=== PATIENT | female | born 1970 | race Caucasian/White ===

== ENCOUNTER 2022-08-07 12:44 | Outpatient (OUT) | payer BC, SELFPAY ==
--- NOTE | 2022-08-07 12:55 | MM_ITS ---
Patient: HARLEY SHARMA Exam Date: 08/07/2022 : 1970 Gender:F Ordering : DR Vinay Concepcion . Admission #: [id number] Family : Order #: [id number] CLICK HERE TO VIEW EXAM RADIOLOGY REPORT PROCEDURE: MM TOMOSYNTHESIS SCREENING BI COMPARISON: MG MAMM SCREEN 3D SEBASTIAN CAD, 08/01/2021. MG MAMM DIAGNOSTIC 3D SEBASTIAN CAD, 07/27/2020. MG MAMM SEBASTIAN DIAG W CAD, 07/11/2019. MG MAMM SEBASTIAN SCRN W CAD DIG, 12/23/2013. INDICATIONS: Screening Calculator Name NCI Breast Cancer Risk Assessment Tool 5 Year Breast Cancer Risk n/a% Lifetime Breast Cancer Risk n/a% Personal Breast Cancer Yes, 43, right invasive mammary Personal Ovarian Cancer No Treatments right lumpectomy-UOQ, chemotherapy, radiation Family Cancers Father with lung cancer at age 65; Grandfather-maternal with kidney cancer at age 60; Aunt-paternal with breast cancer at age 40. LOCATION: [facility] BREAST COMPOSITION: Scattered areas fibroglandular density. FINDINGS: DIAGNOSTIC CATEGORY 2--BENIGN FINDING: RIGHT BREAST: No significant suspicious finding. Stable scarring. No significant change has occurred. LEFT BREAST: No significant suspicious finding. No significant change has occurred. RECOMMENDATIONS: ROUTINE MAMMOGRAM AND CLINICAL EVALUATION IN 12 MONTHS. PLEASE NOTE: A NORMAL MAMMOGRAM DOES NOT EXCLUDE THE POSSIBILITY OF BREAST CANCER. A CLINICALLY SUSPICIOUS PALPABLE LUMP SHOULD BE BIOPSIED. Dictated by: Evens Morrow M.D. on 08/08/2022 at 13:52 Approved by: Evens Morrow M.D. on 08/08/2022 at 14:03
== END 2022-08-07 12:45 ==
PROVIDERS: PCP Family Medicine; Visit Provider Family Medicine
DX: Z12.31 Encounter for screening mammogram for malignant neoplasm of breast (principal); Z80.3 Family history of malignant neoplasm of breast; Z80.1 Family history of malignant neoplasm of trachea, bronchus and lung; Z80.51 Family history of malignant neoplasm of kidney
CPT/HCPCS: 77063; 77067

== ENCOUNTER 2022-08-17 10:25 | Outpatient (OUT) | payer BC, SELFPAY ==
[2022-08-17 10:39] LABS: Bilirubin Urine SMALL (NEGATIVE); Blood Urine NEGATIVE (NEGATIVE); Clarity Urine CLEAR (CLEAR); Color Urine YELLOW (YELLOW); Glucose Urine UA NEGATIVE (NEGATIVE); Ketones Urine NEGATIVE (NEGATIVE); Leukocyte Esterase Urine NEGATIVE (NEGATIVE); Nitrite Urine NEGATIVE (NEGATIVE); Protein Urine NEGATIVE (NEG/TRACE); Specific Gravity Urine >=1.030 (1.005-1.025)
[2022-08-17 10:47] LABS: Bacteria Urine NONE SEEN #/HPF (NONE SEEN); Cast Seen? NONE SEEN #/LPF (NONE SEEN); Crystals Seen? None Seen #/HPF (None Seen); Mucus Urine NONE SEEN (NONE SEEN); RBC Urine NONE SEEN #/HPF (0-2); Squamous Epithelial Cell Urine FEW #/LPF (NONE/RARE); Urine Culture Indicated ALREADY ORDERED; WBC Urine NONE SEEN #/HPF (NONE SEEN)
== END 2022-08-17 10:26 | disposition home or self-care (01) ==
LOC: LAB 10:26
PROVIDERS: PCP Family Medicine; Visit Provider Family Medicine
DX: R30.0 Dysuria (principal)
CPT/HCPCS: 81001; 87086; 87150; 87186

== ENCOUNTER 2023-01-06 07:56 | Outpatient (OUT) | payer BC, SELFPAY ==
[2023-01-06 08:59] LABS: Basophils Percent Auto 0.3 % (0.2-2.0); Eosinophils Absolute Auto 0.2 10^3/uL (0.0-0.7); Eosinophils Percent Auto 2.5 % (0.9-7.0); Hematocrit 38.7 % (36.0-48.0); Hemoglobin 12.3 g/dL (12.0-16.0); Immature Granulocytes Abs Auto 0.03 10^3/uL (0.00-0.03); Immature Granulocytes Pct Auto 0.4 % (0.0-0.5); Lymphocytes Percent Auto 28.8 % (20.5-60.0); Mean Corpuscular HGB Conc 31.8 g/dL (29.9-35.2); Mean Corpuscular Hemoglobin 27.9 pg (26.7-34.0); Mean Corpuscular Volume 87.8 fL (81.0-99.0); Mean Platelet Volume 8.8 fL (9.5-13.5); Monocytes Absolute Auto 0.6 10^3/uL (0.3-0.8); Monocytes Percent Auto 8.7 % (1.7-12.0); Neutrophils Absolute Auto 4.1 10^3/uL (1.4-6.5); Neutrophils Percent Auto 59.3 % (43.0-75.0); Platelet Count 302 10^3/uL (150-450); Red Blood Count 4.41 10^6/uL (4.20-5.40); Red Cell Distribution Width 13.4 % (11.0-15.0); White Blood Count 6.9 10^3/uL (4.0-11.0)
[2023-01-06 09:21] LABS: Estimated Average Glucose 111 mg/dL; Glycohemoglobin A1C 5.5 % (4.5-6.2)
[2023-01-06 09:44] LABS: Alanine Aminotransferase 32 U/L (14-59); Albumin Globulin Ratio 0.9; Albumin Level 3.4 g/dL (3.4-5.0); Alkaline Phosphatase 141 U/L (46-116); Anion Gap 13.9; Aspartate Amino Transferase 20 U/L (15-37); BUN Creatinine Ratio 20.8; Bilirubin Total 0.6 mg/dL (0.2-1.0); Calcium 8.3 mg/dL (8.5-10.1); Chloride 107 mmol/L (98-107); Chol HDL Ratio 4.4; Cholesterol 258 mg/dL (<=200); Estimated GFR (African America >60 (>=60); Estimated GFR (Non-African Ame >60 (>=60); Globulin 3.9 g/dL; Glucose 101 mg/dL (74-106); HDL Cholesterol 59 mg/dL (40-60); Potassium 3.9 mmol/L (3.5-5.1); Sodium 141 mmol/L (136-145); Thyroid Stimulating Hormone 2.003 uIU/mL (0.358-3.740); Total Protein 7.3 g/dL (6.4-8.2); Triglycerides 87 mg/dL (<=150); VLDL CHOLESTEROL 17.4 mg/dL
[2023-01-08 11:08] LABS: Insulin 22.2 uIU/mL (2.6-24.9)
== END 2023-01-06 07:57 | disposition home or self-care (01) ==
PROVIDERS: PCP Family Medicine; Visit Provider Family Medicine
DX: Z00.00 Encounter for general adult medical examination without abnormal findings (principal)
CPT/HCPCS: 36415; 80053; 80061; 82306; 83036; 83525; 83540; 84436; 84443; 84481; 85025

== ENCOUNTER 2023-01-16 16:00 | Outpatient (OUT) | payer BC, SELFPAY ==
--- NOTE | 2023-01-16 16:03 | XR_ITS ---
The [address] [address] Patient Name: HARLEY SHARMA MRN: [id number] date: 1970 Sex: F Assigned Patient Location: [facility] Current Patient Location: Accession/Order Number: [id number] Exam Date: 01/16/2023 16:08 Report Date: 01/17/2023 09:41 At the request of: DEBRA HART Procedure: XR chest 2V EXAM: XR chest 2V HISTORY: Cough R05.1 COMPARISON: None. TECHNIQUE: PA and lateral views of the chest. FINDINGS: The cardiomediastinal silhouette is normal. No focal consolidation is identified. There is no pneumothorax. No pleural effusion is noted. The osseous structures are intact. XR/XR chest 2V IMPRESSION: No acute cardiopulmonary process. Electronically authenticated by: MALIA CERVANTES Date: 01/17/2023 09:41
== END 2023-01-16 16:01 | disposition home or self-care (01) ==
PROVIDERS: PCP Family Medicine; Visit Provider Family Medicine
DX: R05.1 Acute cough (principal)
CPT/HCPCS: 71046

== ENCOUNTER 2023-03-05 14:43 | Outpatient (OUT) | payer BC, SELFPAY ==
--- NOTE | 2023-03-05 14:50 | US_ITS ---
Patient Name: HARLEY SHARMA MR#: [id number] : 1970 Exam Date: 03/05/2023 Ordering Doctor: DR DEBRA HART . RADIOLOGY REPORT PROCEDURE: US BREAST RT LIMITED COMPARISON: None. INDICATIONS: Breast Mass N63.0 TECHNIQUE: Breast ultrasound was performed, with evaluation focusing only on specific areas of concern. FINDINGS: Ultrasound was performed in the area of the patient's palpable abnormality along the right axilla. Normal fibroglandular tissue is identified. No focal ultrasound abnormality RECOMMENDATIONS: No ultrasound abnormality to correspond to the patient's palpable abnormality in the right axilla PLEASE NOTE: A NORMAL ULTRASOUND EXAMINATION DOES NOT EXCLUDE THE POSSIBILITY OF BREAST CANCER. A CLINICALLY SUSPICIOUS PALPABLE LUMP SHOULD BE BIOPSIED. Dictated by: Mp Chong MD on 03/05/2023 at 15:19 Approved by: Mp Chong MD on 03/05/2023 at 15:21
== END 2023-03-05 14:44 | disposition home or self-care (01) ==
LOC: US 14:43
PROVIDERS: PCP Family Medicine; Visit Provider Family Medicine
DX: N63.31 Unspecified lump in axillary tail of the right breast (principal)
CPT/HCPCS: 76642

== ENCOUNTER 2023-03-08 13:29 | Outpatient (OUT) | payer BC, SELFPAY ==
--- NOTE | 2023-03-08 13:35 | MM_ITS ---
Patient Name: HARLEY SHARMA MR#: [id number] : 1970 Exam Date: 03/08/2023 Ordering Doctor: DR Vinay Concepcion . RADIOLOGY REPORT PROCEDURE: MM TOMOSYNTHESIS DIAGNOSTIC BI COMPARISON: MG MAMM SCREEN 3D SEBASTIAN CAD, 08/01/2021. US BREAST RT LIMITED, 03/05/2023. MM TOMOSYNTHESIS SCREENING BI, 08/07/2022. INDICATIONS: personal history of malignant neoplasm of breast Z85.3 Calculator Name NCI Breast Cancer Risk Assessment Tool 5 Year Breast Cancer Risk n/a% Lifetime Breast Cancer Risk n/a% Personal Breast Cancer Yes, 43, right invasive mammary Personal Ovarian Cancer No Treatments right lumpectomy-UOQ, chemotherapy, radiation Family Cancers Father with lung cancer at age 65; Grandfather-maternal with kidney cancer at age 60; Aunt-paternal with breast cancer at age 40. LOCATION: [facility] BREAST COMPOSITION: Scattered areas fibroglandular density. FINDINGS: DIAGNOSTIC CATEGORY 2--BENIGN FINDING. NO CHANGE FROM COMPARISON. Scattered benign-appearing nodules are present. Scattered benign-appearing calcifications are present. Scattered benign-appearing lymph nodes are present. RIGHT BREAST: No significant suspicious finding. Asymmetrically small, stable. Deep to a triangle marker which indicates a palpable mass is an area of architectural distortion with dystrophic calcifications architectural distortion and surgical clips. Findings are stable from the prior exam and consistent with postprocedural changes. No new abnormalities observed. Further evaluation should be based on clinical exam. LEFT BREAST: No significant suspicious finding. RECOMMENDATIONS: ROUTINE MAMMOGRAM AND CLINICAL EVALUATION IN 12 MONTHS. PLEASE NOTE: A NORMAL MAMMOGRAM DOES NOT EXCLUDE THE POSSIBILITY OF BREAST CANCER. A CLINICALLY SUSPICIOUS PALPABLE LUMP SHOULD BE BIOPSIED. Dictated by: Mp Chong MD on 03/08/2023 at 14:03 Approved by: Mp Chong MD on 03/08/2023 at 14:05
--- OUTSIDE RECORDS SUMMARY | 2023-03-08 13:45 | XMS_ITS | CCD ---
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 Name Role Phone Debra Concepcion MD Primary Care Provider [phone] Debra Concepcion Primary Care Physician [phone] Carlene PROVIDER, Debra Referring Unavailabl e Carlene PROVIDER, Debra Attending Unavailabl e Burty PROVIDER, Debra Admitting Unavailabl e Nahid PALOMO Attending Unavailable Carlene PROVIDER, Debra Referring UnavailDebra Gray MD Primary Care Provider [phone] CARLENE Cedeño, DR RICHARDSON Primary Care Unavailable PAY ., DR ASCENCIO Consulting Unavailable PAY ., DR ASCENCIO Attending Unavailable PAY ., DR ASCENCIO Admitting Unavailable JOAN HEAD Consulting Unavailable HOY ., DR RICHARDSON Primary Care Unavailable ARTHUR, DR SUTTON Attending Unavailable ARTHUR, DR SUTTON Admitting Unavailable VIRA, DR NICOLE Brown Consulting Unavailable PAY ., DR ASCENCIO Consulting Unavailable ARTHUR, DR SUTTON Consulting Unavailable HOY ., DR RICHARDSON Primary Care Unavailable HOY ., DR RICHARDSON Consulting Unavailable HOY ., DR RICHARDSON Admitting Unavailable HOY ., DR RICHARDSON Attending Unavailable HOY ., DR RICHARDSON Procedure Practitioner Unavail able KARMINOR ., DR VILLEGAS Consulting Unavailabl e PAY ., DR ASCENCIO Consulting Unavailable GRECHNY ., GLENNY UGALDE Consulting Unavailabl e KONSTKETAN MI Consulting Unavailable NICOLE MAXWELL Consulting Unavailable LAWANDA PANDYA Consulting Unavailable HOY ., DR RICHARDSON Consulting Unavailable HOY ., DR RICHARDSON Attending Unavailable HOY ., DR RICHARDSON Admitting Unavailable HOY ., DR RICHARDSON Primary Care Unavailable VIRA, DR NICOLE Brown Consulting Unavailable HOY ., DR RICHARDSON Consulting Unavailable HOY ., DR RICHARDSON Attending Unavailable HOY ., DR RICHARDSON Admitting Unavailable HOY ., DR RICHARDSON Primary Care Unavailable HOY ., DR RICHARDSON Consulting Unavailable HOY ., DR RICHARDSON Admitting Unavailable HOY ., DR RICHARDSON Attending Unavailable HOY ., DR RICHARDSON Primary Care Unavailable HOY ., DR RICHARDSON Primary Care Unavailable HOY ., DR RICHARDSON Consulting Unavailable HOY ., DR RICHARDSON Admitting Unavailable HOY ., DR RICHARDSON Attending Unavailable HOY ., DR RICHARDSON Primary Care Unavailable HOY ., DR RICHARDSON Consulting Unavailable HOY ., DR RICHARDSON Attending Unavailable HOY ., DR RICHARDSON Admitting Unavailable HOY ., DR RICHARDSON Primary Care Unavailable HOY ., DR RICHARDSON Consulting Unavailable HOY ., DR RICHARDSON Admitting Unavailable HOY ., DR RICHARDSON Attending Unavailable ZIEBER, DR EVENS Danielson Consulting Unavailable HOY ., DR RICHARDSON Primary Care Unavailable HOY ., DR RICHARDSON Consulting Unavailable HOY ., DR RICHARDSON Admitting Unavailable HOY ., DR RICHARDSON Attending Unavailable Allergies Allergy Classification Reported Allergen(s) Allergy Type Date of Onset Reaction(s) Facility (1 source) No Known Medication Allergies; Translations: [No Known Medication Allergies] Propensity to adverse reactions (disorder) [facility] Repository Medications Current Medications Medication Drug Class(es) Dates Sig (Normalized) Sig (Original) cefdinir 300 mg oral capsule (2 sources) Cephalosporin Antibacterial Start: 10-24-2021 cefdinir 300 mg Cap Refills(s) 0 Start Date: 10/24/21 Status: Ordered lactobacillus acidophilus and bulgaricus oral granule (2 sources) Start: 10-24-2021 lactobacillus acidophilus and bulgaricus oral granule 1 packet(s), Oral, QID, Refill(s) 0 Start Date: 10/24/21 Status: Ordered metroNIDAZOLE 500 mg oral tablet (2 sources) Nitroimidazole Antimicrobial Start: 10-24-2021 take 500 mg by mouth three times daily metronidazole 500 mg, Oral, TID, Refills(s) 0 Start Date: 10/24/21 Status: Ordered omeprazole 40 mg delayed release oral capsule (4 sources) Proton Pump Inhibitor Start: 12-03-2020 take 1 capsule by mouth once daily omeprazole 40 mg Cap-DR 40 mg = 1 cap(s), Oral, Daily, Refills(s) 0 Start Date: 12/03/20 Status: Ordered take 1 tablet by mouth once lucila y Omeprazole Magnesium (PRILOSEC OTC) 20 mg tablet Take 20 mg by mouth once daily. 0 Active Comment on above: Take 20 mg by mouth once daily. Ventolin HFA 90 mcg/inh Aerosol (2 sources) Start: 12-03-2020 take 2 puff(s) by inhalation every six hours Ventolin HFA 90 mcg/inh Aerosol 2 puff(s), Inhalation, q6hr, Refill(s) 0 Start Date: 12/03/20 Status: Ordered Completed/Discontinued Medications Medication Drug Class(es) Dates Sig (Normalized) Sig (Original) [id number] 200 actuat albuterol 0.09 mg/actuat metered dose inhaler (2 sources) beta2-Adrenergic Agonist Start: 05-05-2014 VENTOLIN HFA 90 mcg/actuation inhaler oxycodone HCl/acetaminophen (PERCOCET ORAL) (2 sources) oxycodone HCl/acetaminophen (PERCOCET ORAL) Take by mouth as needed. 0 Active Comment on above: Take by mouth as nee ded. tamoxifen 20 mg oral tablet (2 sources) Estrogen Agonist/Antagonist Start: 10-15-2019 take 1 tablet by mouth once daily tamoxifen (NOLVADEX) 20 mg tablet TAKE 1 TABLET BY MOUTH EVERY DAY 90 tablet 0 10/15/2019 Active Comment on above: [facility] hr venlafaxine 75 mg extended release oral capsule (6 sources) Serotonin and Norepinephrine Reuptake Inhibitor Start: 06-27-2021 End: 05-01-2022 take 1 capsule by mouth once daily venlafaxine ER (EFFEXOR XR) 75 mg 24 hr capsule TAKE 1 CAPSULE BY MOUTH EVERY DAY 90 capsule 3 05/01/2022 Active Start: 07-27-2020 End: 06-27-2021 take 1 capsule by mouth once daily Effexor XR 75 mg Cap-ER 75 mg = 1 cap(s), Oral, Daily, Refills(s) 0 Start Date: 12/03/20 Status: Ordered Comment on above: TAKE 1 CAPSULE BY [facility] EVERY DAY Problems Active Problems Problem Classification Problem Date Documented Date Episodic/Chronic Anxiety disorders (1 source) Anxiety disorder, unspecified; Translations: [ANXIETY DISORDER UNSPECIFIED] Onset: 03-21-2022 Chronic Asthma (2 sources) Unspecified asthma with (acute) exacerbation; Translations: [Unspecified asthma, uncomplicated] Onset: 10-25-2021 Chronic Cancer of breast (6 sources) Malignant neoplasm of lower-outer quadrant of female breast; Translations: [Malignant neoplasm of lower-outer quadrant of right female breast] Onset: 12-04-2014 12-04-2014 Chronic Coagulation and hemorrhagic disorders (1 source) Thrombocytopenia, unspecified; Translations: [THROMBOCYTOPENIA UNSPECIFIED] Onset: 10-25-2021 Chronic Deficiency and other anemia (2 sources) Anemia 12-03-2020 Episodic Disorders of lipid metabolism (5 sources) Hyperlipidemia, unspecified; Translations: [Pure hypercholesterolemia, unspecified] Onset: 06-16-2022 Chronic Esophageal disorders (3 sources) Gastroesophageal reflux disease; Translations: [Gastro-esophageal reflux disease without esophagitis] Onset: 03-21-2022 12-08-2020 Chronic Headache; including migraine (2 sources) Tension-type headache 12-08-2020 Chronic Joint disorders and dislocations; trauma-related (2 sources) Finding of tear meniscus 12-03-2020 Episodic Comment on above: rt knee Mood disorders (4 sources) Depressive disorder; Translations: [Major depressive disorder, single episode, moderate] Onset: 10-25-2021 12-08-2020 Chronic Mood disorders (1 source) Mood disorders; Translations: [DEPRESSION UNSPECIFIED] Onset: 03-21-2022 Nutritional deficiencies (1 source) Vitamin D deficiency, unspecified; Translations: [VITAMIN D DEFICIENCY UNSPECIFIED] Onset: 02-04-2022 Chronic Other nutritional; endocrine; and metabolic disorders (2 sources) Body mass index 30+ - obesity 10-25-2021 Chronic Other skin disorders (4 sources) Generalized hyperhidrosis; Translations: [GENERALIZED HYPERHIDROSIS] Onset: 06-21-2022 Episodic Other skin disorders (1 source) Localized swelling, mass and lump, neck; Translations: [LOCALIZED SWELLING MASS AND LUMP NECK] Onset: 06-25-2022 Episodic Other upper respiratory disease (2 sources) Allergic rhinitis 12-08-2020 Chronic Substance-related disorders (2 sources) Smoker 12-08-2020 Chronic Unclassified (2 sources) Patient encounter status 12-08-2020 Unclassified (1 source) CONTACT W/AND (SUSP) EXPOS COVID-19; Translations: [CONTACT W/AND (SUSP) EXPOS COVID-19] Onset: 04-19-2022 Urinary tract infections (4 sources) Urinary tract infection, site not specified; Translations: [UTI SITE NOT SPECIFIED] Onset: 06-20-2022 Episodic Past or Other Problems Problem Classification Problem Date Documented Da te Episodic/Chronic Acute and unspecified renal failure (1 source) Acute kidney failure, unspecified; Translations: [ACUTE KIDNEY FAILURE UNSPECIFIED] Onset: 10-25-2021 Episodic Acute bronchitis (4 sources) Acute bronchitis, unspecified; Translations: [ACUTE BRONCHITIS UNSPECIFIED] Onset: 04-14-2022 Episodic Cancer of breast (3 sources) History of malignant neoplasm of breast; Translations: [Personal history of malignant neoplasm of breast] Onset: 05-25-2015 05-25-2015 Episodic Cardiac dysrhythmias (1 source) Tachycardia, unspecified; Translations: [TACHYCARDIA UNSPECIFIED] Onset: 10-25-2021 Episodic Deficiency and other anemia (1 source) Iron deficiency anemia, unspecified; Translations: [IRON DEFICIENCY ANEMIA UNSPECIFIED] Onset: 10-25-2021 Episodic E Codes: Adverse effects of medical drugs (1 source) Adverse effect of other drugs, medicaments and biological substances, initial encounter; Translations: [ADVRS EFF OTH RX MED BIO SUBST INIT] Onset: 10-25-2021 Episodic Fever of unknown origin (1 source) Fever, unspecified; Translations: [FEVER UNSPECIFIED] Onset: 10-25-2021 Episodic Fluid and electrolyte disorders (1 source) Hypokalemia; Translations: [HYPOKALEMIA] Onset: 10-25-2021 Episodic Nausea and vomiting (1 source) Nausea; Translations: [NAUSEA] Onset: 10-25-2021 Episodic Nonmalignant breast conditions (4 sources) Cellulitis of breast; Translations: [Mastitis without abscess] Onset: 10-14-2021 11-07-2021 Episodic Nonspecific chest pain (6 sources) Chest pain, unspecified; Translations: [Other chest pain] Onset: 11-03-2021 Episodic Other aftercare (2 sources) Radiotherapy follow-up; Translations: [Encounter for follow-up examination after completed treatment for conditions other than malignant neoplasm] Onset: 12-04-2014 12-04-2014 Episodic Other aftercare (1 source) Other penitentiary (current) drug therapy; Translations: [OTH [place] [employer]ER CURRENT DRUG THERAPY] Onset: 10-25-2021 Episodic Other lower respiratory disease (4 sources) Shortness of breath; Translations: [SHORTNESS OF BREATH] Onset: 02-22-2022 Episodic Other screening for suspected conditions (not mental disorders or infectious disease) (1 source) Other specified abnormal findings of blood chemistry; Translations: [OTH SPEC ABNORMAL FINDINGS BLD CHEM] Onset: 10-25-2021 Episodic Other upper respiratory infections (1 source) Acute upper respiratory infection, unspecified; Translations: [ACUTE UP RESPIRATORY INFECTION UNS] Onset: 03-21-2022 Episodic Pneumonia (except that caused by tuberculosis or sexually transmitted disease) (1 source) Pneumonia, unspecified organism; Translations: [PNEUMONIA UNSPECIFIED ORGANISM] Onset: 03-21-2022 Episodic Residual codes; unclassified (1 source) Acquired absence of both cervix and uterus; Translations: [ACQUIRED ABSENCE BOTH CERVIX AND UTERUS] Onset: 03-21-2022 Episodic Residual codes; unclassified (1 source) Acquired absence of other specified parts of digestive tract; Translations: [ACQ ABSENCE OTH PART DIGESTV TRACT] Onset: 03-21-2022 Episodic Screening and history of mental health and substance abuse codes (1 source) Personal history of nicotine dependence; Translations: [PERSONAL HISTORY OF NICOTINE DEPEND] Onset: 10-25-2021 Episodic Skin and subcutaneous tissue infections (2 sources) Cellulitis, unspecified; Translations: [Cellulitis of chest wall] Onset: 10-25-2021 Episodic Results Test Name Value Interpretation Reference Range Facility ESTRADIOLon 06-22-2022 Estradiol <5.[address] [facility] Comment on above: Result Comment: Adul t Female: Follicular phase 12.5 - 166.0 Ovulation phase 85.8 - 498.0 Luteal phase 43.8 - 211.0 Postmenopausal <6.0 - 54.7 1st trimester 215.0 - >4300.0 Jody ECLIA methodology Performed By: #### L YU, LIPID #### [facility] [address] [place] [address] Dr. Gerber Pimentel FSHon 06-22-2022 FSH 77.1 mIU/mL Normal [facility] Comment on above: Result Comment: Adul t Female: Follicular phase 3.5 - 12.5 Ovulation phase 4.7 - 21.5 Luteal phase 1.7 - 7.7 Postmenopausal 25.8 - 134.8 Performed By: #### C BC #### [facility] [address] [place] [address] Dr. Gerber Pimentel PROGESTERONEon 06-22-2022 Progesterone <0.1 Normal [facility] Comment on above: Result Comment: Foll icular phase 0.1 - 0.9 Luteal phase 1.8 - 23.9 Ovulation phase 0.1 - 12.0 First trimester 11.0 - 44.3 Second trimester 25.4 - 83.3 Third trimester 58.7 - 214.0 Postmenopausal 0.0 - 0.1 Performed By: #### I NFLUAB #### [facility] [address] [place] [address] Dr. Gerber Pimentel PROLACTINon 06-22-2022 Prolactin 14.0 ng/mL Normal 4.8-23.3 [facility] Comment on above: Performed By: #### I NFLUAB #### [facility] [address] [place] [address] Dr[address] US [address] HEAD_NECKon 06-22-[address] HEAD_NECK EXAM: US ST HEAD_NEC K HISTORY: Mass of neck COMPARISON: None. TECHNIQUE: Grayscale and color ultrasound FINDINGS: The visualized thyroid gland is normal in size, contour and homogeneous echotexture. No focal nodules. Normal skin, subcutaneous fat and muscle. No focal masses or lymph nodes IMPRESSION: No ultrasound abnormality to correspond to patient's palpable abnormality Electronically authenticated by: NICOLE CONSTANTINO Date: 2022-06-22 07:[address] [facility] CBC AUTO DIFFon 06-21-2022 BASO # 0.0 103/ul Normal 0.0-0.1 [facility] Comment on above: Performed By: #### A 1C #### [facility] [address] [place] [address] Dr. Gerber Pimentel Basophils/100 WBC (Bld) 0.2 % Normal 0.2-2.0 [facility] Comment on above: Performed By: #### A 1C #### [facility] [address] [place] [address] Dr. Gerber Pimentel EO # 0.0 103/ul Normal 0.0-0.7 [facility] Comment on above: Performed By: #### A 1C #### [facility] [address] [place] [address] Dr. Gerber Pimentel Eosinophils/100 WBC (Bld) 0.5 % Critically low 0.9-7.0 [facility] Comment on above: Performed By: #### A 1C #### [facility] [address] [place] [address] Dr. Gerber Pimentel Erythrocyte distribution width (RBC) [Ratio] 13.4 % Normal 11.0-15.0 [facility] Comment on above: Performed By: #### A 1C #### [facility] [address] [place] [address] Dr. Gerber Pimentel Hematocrit (Bld) [Volume fraction] 36.1 % Normal 36.0-48.0 [facility] Comment on above: Performed By: #### A 1C #### [facility] [address] [place] [address] Dr. Gerber Pimentel Hemoglobin (Bld) [Mass/Vol] 12.2 g/dL Normal 12.0-16.[address] [facility] Comment on above: Performed By: #### A 1C #### [facility] [address] [place] [address] Dr. Gerber Pimentel IG # 0.03 10e3/ul Normal 0.00-0.03 [facility] Comment on above: Performed By: #### A 1C #### [facility] [address] [place] [address] Dr. Gerber Pimentel IG % 0.4 % Normal 0.0-0.[address] [facility] Comment on above: Performed By: #### A 1C #### [facility] [address] [place] [address] Dr. Gerber Pimentel LYMPH # 2.5 103/ul Normal 1.2-3.[address] [facility] Comment on above: Performed By: #### A 1C #### [facility] [address] [place] [address] Dr. Gerber Pimentel Lymphocytes/100 WBC (Bld) 30.4 % Normal 20.5-60.0 [facility] Comment on above: Performed By: #### A 1C #### [facility] [address] [place] [address] Dr. Gerber Pimentel MANUAL DIFF REQ NO Normal [facility] Comment on above: Performed By: #### A 1C #### [facility] [address] [place] [address] Dr. Gerber Pimentel MCH (RBC) [Entitic mass] 30.0 pg Normal 26.7-34.0 [facility] Comment on above: Performed By: #### A 1C #### [facility] [address] [place] [address] Dr. Gebrer Pimentel MCHC (RBC) [Mass/Vol] 33.8 g/dL Normal 29.9-35.2 [facility] Comment on above: Performed By: #### A 1C #### [facility] [address] [place] [address] Dr. Gerber Pimentel MCV (RBC) [Entitic vol] 88.9 fL Normal 81.0-99.0 [facility] Comment on above: Performed By: #### A 1C #### [facility] [address] [place] [address] Dr. Gerber Pimentel MONO # 0.5 103/ul Normal 0.3-0.8 [facility] Comment on above: Performed By: #### A 1C #### [facility] [address] [place] [address] Dr. Gerber Pimentel Monocytes/100 WBC (Bld) 6.5 % Normal 1.7-12.0 [facility] Comment on above: Performed By: #### A 1C #### [facility] [address] [place] [address] Dr. Gerber Pimentel NEUT # 5.1 103/ul Normal 1.4-6.[address] [facility] Comment on above: Performed By: #### A 1C #### [facility] [address] [place] [address] Dr. Gerber Pimentel Neutrophils/100 WBC (Bld) 62.0 % Normal 43.0-75.0 [facility] Comment on above: Performed By: #### A 1C #### [facility] [address] [address] [address] Gerber Pimentel Platelet mean volume (Bld) [Entitic vol] 8.4 fL Critically low 9.5-13.5 [facility] Comment on above: Performed By: #### A 1C #### [facility] [address] [place] [address] Dr. Gerber Pimentel PLT 315 103/ul Normal 150-[address] [facility] Comment on above: Performed By: #### A 1C #### [facility] [address] [address] [address] Gerber Pimentel RBC 4.06 106/ul Critically low 4.20-5.40 [facility] Comment on above: Performed By: #### A 1C #### [facility] [address] [place] [address] Dr. Gerber Pimentel WBC 8.2 103/ul Normal 4.0-11.0 [facility] Comment on above: Performed By: #### A 1C #### [facility] [address] [place] [address] Dr. Gerber Pimentel FREE THYROXINE INDEX T7on FTI 3.01 Normal 1.30-4.50 [facility] Comment on above: Performed By: #### L IVLEIGH, LIPID #### [facility] [address] [place] [address] Dr. Gerber Pimentel T3U 32.0 % Normal 30.0-39.0 [facility] Comment on above: Performed By: #### L IVER, LIPID #### [facility] [address] [place] [address] Dr. Gerber Pimentel T4 [Mass/Vol] 9.40 ug/dL Normal 4.80-13.90 [facility] Comment on above: Performed By: #### L IVLEIGH, LIPID #### [facility] [address] [place] [address] Dr. Gerber Pimentel GLYCOHEMOGLOBIN A1Con 2022 ADA RECOMMENDATION SEE BELOW Normal [facility] Comment on above: Result Comment: ADA RECOMMENDED LIMIT 4.0 - 6.0 ADA THERAPEUTIC TARGET < 7.0 ACTION SUGGESTED > 7.0 Performed By: #### C BC #### [facility] [address] [place] [address] Dr. Gerber Pimentel Glucose [Mass/Vol] 94 mg/dL Normal [facility] Comment on above: Performed By: #### C BC #### [facility] [address] [place] [address] Dr. Gerber Pimentel HbA1c (Bld) [Mass fraction] 4.9 % Normal 4.5-6.2 [facility] Comment on above: Performed By: #### C BC #### [facility] [address] [place] [address] Dr. Gerber Pimentel PROF 14(COMP METB)on 023 Albumin [Mass/Vol] 3.6 g/dL Normal 3.4-5.0 [facility] Comment on above: Performed By: #### L IVLEIGH LIPID #### [facility] [address] [place] [address] Dr. Gerber Pimentel Albumin/Globulin [Mass ratio] 0.9 {ratio} Normal [facility] Comment on above: Performed By: #### L YU LIPID #### [facility] [address] [place] [address] Dr. Gerber Pimentel ALP [Catalytic activity/Vol] 93 U/L Normal 46-116 [facility] Comment on above: Performed By: #### L IVLEIGH, LIPID #### [facility] [address] [place] [address] Dr. Gerber Pimentel ALT [Catalytic activity/Vol] 25 U/L Normal 14-[address] [facility] Comment on above: Performed By: #### L IVLEIGH, LIPID #### [facility] [address] [place] [address] Dr. Gerber Pimentel Anion gap [Moles/Vol] 14.0 mmol/L Normal [facility] Comment on above: Performed By: #### L IVER, LIPID #### [facility] [address] [place] [address] Dr. Gerber Pimentel AST [Catalytic activity/Vol] 15 U/L Normal 15-37 [facility] Comment on above: Performed By: #### L IVER, LIPID #### [facility] [address] [place] [address] Dr. Gerber Pimentel Bilirubin [Mass/Vol] 1.0 mg/dL Normal 0.2-1.0 [facility] Comment on above: Performed By: #### L IVER, LIPID #### [facility] [address] [place] [address] Dr. Gerber Pimentel Calcium [Mass/Vol] 9.0 mg/dL Normal 8.5-10.[address] [facility] Comment on above: Performed By: #### L IVER, LIPID #### [facility] [address] [place] [address] Dr. Gerber Pimentel Chloride [Moles/Vol] 104 mmol/L Normal 98-107 [facility] Comment on above: Performed By: #### L IVER, LIPID #### [facility] [address] [place] [address] Dr. Gerber Pimentel CO2 [Moles/Vol] 22.8 mmol/L Normal 21.0-32.0 [facility] Comment on above: Performed By: #### L IVER, LIPID #### [facility] [address] [place] [address] Dr. Gerber Pimentel Creatinine [Mass/Vol] 0.76 mg/dL Normal 0.55-1.02 [facility] Comment on above: Performed By: #### L IVER, LIPID #### [facility] [address] [place] [address] Dr. Gerber Pimentel EGFR-AF GERMAN >60 Normal >=[address] [facility] Comment on above: Performed By: #### L IVER, LIPID #### [facility] [address] [place] [address] Dr. Gerber Pimentel EGFR-NON AF GERMAN >60 Normal >=60 [facility] Comment on above: Performed By: #### L IVER, LIPID #### [facility] [address] [place] [address] Dr. Gerber Pimentel Globulin (S) [Mass/Vol] 4.1 g/dL Normal [facility] Comment on above: Performed By: #### L YU, LIPID #### [facility] [address] [place] [address] Dr. Gerber Pimentel Glucose [Mass/Vol] 82 mg/dL Normal 74-106 [facility] Comment on above: Performed By: #### L YU, LIPID #### [facility] [address] [place] [address] Dr. Gerber Pimentel Potassium [Moles/Vol] 3.8 mmol/L Normal 3.5-5.1 [facility] Comment on above: Performed By: #### L YU LIPID #### [facility] [address] [place] [address] Dr. Gerber Pimentel Protein [Mass/Vol] 7.7 g/dL Normal 6.4-8.2 [facility] Comment on above: Performed By: #### L YU LIPID #### [facility] [address] [place] [address] Dr. Gerber Pimentel Sodium [Moles/Vol] 137 mmol/L Normal 136-145 [facility] Comment on above: Performed By: #### L YU LIPID #### [facility] [address] [place] [address] Dr. Gerber Pimentel Urea nitrogen [Mass/Vol] 24.0 mg/dL Critically high 7.0-18.0 [facility] Comment on above: Performed By: #### L YU LIPID #### [facility] [address] [place] [address] Dr. Gerber Pimentel Urea nitrogen/Creatinin e [Mass ratio] 31.6 mg/mg Normal [facility] Comment on above: Performed By: #### L YU, LIPID #### [facility] [address] [place] [address] Dr. Gerber Pimentel TSHon 06-21-2022 TSH 0.597 uIU/mL Normal 0.358-3.740 [facility] Comment on above: Performed By: #### L YU, LIPID #### [facility] [address] [place] [address] Dr. Gerber Pimentel CULTURE URINEon 06-20-2022 CULTURE URINE Culture Observations : NO GROWTH. Normal [facility] Comment on above: Performed By: #### P HVEN #### [facility] [address] [place] [address] Dr. Gerber Pimentel UA RANDOM W/MICROSCOPICon BACTERIA NONE SEEN Normal NONE SEEN [facility] Comment on above: Performed By: #### P HVEN #### [facility] [address] [place] [address] Dr. Gerber Pimentel Bilirubin Ql (U) Negative Normal NEGATIVE [facility] Comment on above: Performed By: #### P HVEN #### [facility] [address] [place] [address] Dr. Gerber Pimentel CAST NONE SEEN Normal NONE SEEN [facility] Comment on above: Performed By: #### P HVEN #### [facility] [address] [place] [address] Dr. Gerber Pimentel Clarity (U) CLEAR Normal CLEAR [facility] Comment on above: Performed By: #### P HVEN #### [facility] [address] [place] [address] Dr. Gerber Pimentel Color (U) YELLOW Normal YELLOW [facility] Comment on above: Performed By: #### P HVEN #### [facility] [address] [place] [address] Dr. Gerber Pimentel Crystals LM Nom (Urine sed) NONE SEEN Normal NONE SEEN [facility] Comment on above: Performed By: #### P HVEN #### [facility] [address] [place] [address] Dr. Gerber Pimentel Epithelial cells LM Ql (Urine sed) MODERATE Abnormal NONE SEEN /RARE [facility] Comment on above: Performed By: #### P HVEN #### [facility] [address] [place] [address] Dr. Gerber Pimentel Glucose Ql (U) Negative Normal NEGATIVE [facility] Comment on above: Performed By: #### P HVEN #### [facility] [address] [place] [address] Dr. Gerber Pimentel Hemoglobin Ql (U) Negative Normal NEGATIVE [facility] Comment on above: Performed By: #### P HVEN #### [facility] [address] [place] [address] Dr. Gerber Pimentel Ketones Ql (U) Negative Normal NEGATIVE [facility] Comment on above: Performed By: #### P HVEN #### [facility] [address] [place] [address] Dr. Gerber Pimentel LEUKOCYTES Negative Normal NEGATIVE [facility] Comment on above: Performed By: #### P HVEN #### [facility] [address] [place] [address] Dr. Gerber Pimentel MUCOUS NONE SEEN Normal NONE SEEN [facility] Comment on above: Performed By: #### P HVEN #### [facility] [address] [place] [address] Dr. Gerber Pimentel Nitrite Ql (U) Negative Normal NEGATIVE [facility] Comment on above: Performed By: #### P HVEN #### [facility] [address] [place] [address] Dr. Gerber Pimentel pH (U) 5.5 [pH] Normal 5-[address] [facility] Comment on above: Performed By: #### P HVEN #### [facility] [address] [place] [address] Dr. Gerber Pimentel RBC NONE SEEN Abnormal 0-[address] [facility] Comment on above: Performed By: #### P HVEN #### [facility] [address] [place] [address] Dr. Gerber Pimentel SPEC GRAVITY 1.030 Abnormal 1.005-<=1.0 25 [facility] Comment on above: Performed By: #### P HVEN #### [facility] [address] [place] [address] Dr. Gerber Pimentel UA PROTEIN Negative Normal NEGATIVE/ TRACE [facility] Comment on above: Performed By: #### P HVEN #### [facility] [address] [place] [address] Dr. Gerber Pimentel Urobilinogen Qn (U) 0.2 {Brittanie'U}/dL Normal 0.2 - 1.0 [facility] Comment on above: Performed By: #### P HVEN #### [facility] [address] [address] [address] Gerber Pimentel WBC NONE SEEN Normal NONE SEEN [facility] Comment on above: Performed By: #### P HVEN #### [facility] [address] [address] [address] Gerber Pimentel LIPID PROFILEon 06-16-2022 CHOL-HDL RATIO NORM SEE BELOW Normal [facility] Comment on above: Result Comment: 3.3 - 4.4 LOW RISK 4.4 - 7.1 AVERAGE RISK 7.1 - 11.0 MODERATE RISK >11.0 HIGH RISK Performed By: #### L YU LIPID #### [facility] [address] [place] [address] Dr. Gerber Pimentel Cholesterol [Mass/Vol] 210 mg/dL Critically high <=200 [facility] Comment on above: Performed By: #### L YU LIPID #### [facility] [address] [place] [address] Dr. Gerber Pimentel Cholesterol in HDL [Mass/Vol] 69 mg/dL Critically high 40-60 [facility] Comment on above: Performed By: #### L YU, LIPID #### [facility] [address] [place] [address] Dr. Gerber Pimentel Cholesterol in LDL [Mass/Vol] 125.0 mg/dL Normal [facility] Comment on above: Performed By: #### L IVLEIGH, LIPID #### [facility] [address] [place] [address] Dr. Gerber Pimentel Cholesterol.total/ Cholesterol in HDL [Mass ratio] 3.0 {ratio} Normal [facility] Comment on above: Performed By: #### L IVLEIGH, LIPID #### [facility] [address] [place] [address] Dr. Gerber Pimentel HDL NORMAL > or = 60 mg/dl - LO W CARDIOVASCULAR RISK <40 mg/dl - HIGH CARDIOVASCULAR RISK Normal [facility] Comment on above: Performed By: #### L IVLEIGH, LIPID #### [facility] [address] [address] [address] Gerber Pimentel LDL CALC NORMAL SEE BELOW Normal [facility] Comment on above: Result Comment: <100 mg/dl OPTIMAL 100 - 129 mg/dl NEAR OR ABOVE OPTIMAL 130 - 159 mg/dl BORDERLINE HIGH 160 - 189 mg/dl HIGH >190 mg/dl VERY HIGH Performed By: #### L IVLEIGH, LIPID #### [facility] [address] [place] [address] Dr. Gerber Pimentel Triglyceride [Mass/Vol] 80 mg/dL Normal <=150 [facility] Comment on above: Performed By: #### L IVLEIGH, LIPID #### [facility] [address] [place] [address] Dr. Gerber Pimentel VLDL CALC 16.0 mg/dL Normal [facility] Comment on above: Performed By: #### L YU, LIPID #### [facility] [address] [place] [address] Dr. Gerber Pimentel LIVER PROFILEon 06-16-2022 Albumin [Mass/Vol] 3.3 g/dL Critically low 3.4-5.0 [facility] Comment on above: Performed By: #### L YU LIPID #### [facility] [address] [place] [address] Dr. Gerber Pimentel Albumin/Globulin [Mass ratio] 0.8 {ratio} Normal [facility] Comment on above: Performed By: #### L YU, LIPID #### [facility] [address] [place] [address] Dr. Gerber Pimentel ALP [Catalytic activity/Vol] 90 U/L Normal 46-116 [facility] Comment on above: Performed By: #### L IVLEIGH, LIPID #### [facility] [address] [place] [address] Dr. Gerber Pimentel ALT [Catalytic activity/Vol] 22 U/L Normal 14-59 [facility] Comment on above: Performed By: #### L IVLEIGH, LIPID #### [facility] [address] [place] [address] Dr. Gerber Pimentel AST [Catalytic activity/Vol] 16 U/L Normal 15-37 [facility] Comment on above: Performed By: #### L IVER, LIPID #### [facility] [address] [place] [address] Dr. Gerber Pimentel BILI, CONJUGATED 0.1 mg/dL Normal 0.0-0.2 [facility] Comment on above: Performed By: #### L IVER, LIPID #### [facility] [address] [place] [address] Dr. Gerber Pimentel Bilirubin [Mass/Vol] 0.8 mg/dL Normal 0.2-1.0 [facility] Comment on above: Performed By: #### L IVER, LIPID #### [facility] [address] [place] [address] Dr. Gerber Pimentel Globulin (S) [Mass/Vol] 4.0 g/dL Normal [facility] Comment on above: Performed By: #### L IVER, LIPID #### [facility] [address] [place] [address] Dr. Gerber Pimentel Protein [Mass/Vol] 7.3 g/dL Normal 6.4-8.2 [facility] Comment on above: Performed By: #### L IVER, LIPID #### [facility] [address] [place] [address] Dr. Gerber Pimentel [facility] SARS-CoV-2 (COVID-19) RNA SLOANE+probe Ql (Unsp spec) Not detected Normal NOT DETECTED [facility] Comment on above: Result Comment: This test is not yet approved or cleared by the [place] FDA. When there are no FDA-approved or cleared tests available, and other criteria are met, FDA can make tests available under an emergency access mechanism called an Emergency Use Authorization (EUA). The EUA for this test is supported by the Brake [employer] Heavy Duty of Health and Human Service's (HHS's) declaration that circumstances exist to justify the emergency use of in vitro diagnostics for the detection and/or diagnosis of the virus that causes COVID-19. This EUA will remain in effect (meaning this test can be used) for the duration of the COVID-19 declaration justifying emergency of IVDs, unless it is terminated or revoked by FDA (after which the test may no longer be used). When diagnostic testing is negative, the possibility of a false negative should be considered in the context of a patient's recent exposures and the presence of clinical signs and symptoms consistent with SARS-CoV-2. Performed By: #### I NFLUAB #### [facility] [address] [place] [address] Dr. Gerber Pimentel INFLUENZA A AND B [employer] [facility] 04-14 [facility] SEE BELOW Normal [facility] Comment on above: Result Comment: Nega tive for Flu A protein angiten. Infection due to Flu A cannot be ruled out. Flu A angiten in the sample may be below the detection limit of the test. Performed By: #### I NFLUAB #### [facility] [address] [place] [address] Dr. Gerber Pimentel INFLUBNEG SEE BELOW Normal [facility] Comment on above: Result Comment: Nega tive for Flu B protein antigen. Infection due to Flu B cannot be ruled out. Flu B antigen in the sample may be below the detection limit of the test. Performed By: #### I NFLUAB #### [facility] [address] [place] [address] Dr. Gerber Pimentel INFLUENZA A AG Negative Normal NEGATIVE SEE COMMENT [facility] Comment on above: Performed By: #### I NFLUAB #### [facility] [address] [place] [address] Dr. Gerber Pimentel INFLUENZA B AG Negative Normal NEGATIVE SEE COMMENT [facility] Comment on above: Performed By: #### I NFLUAB #### [facility] [address] [place] [address] Dr. Gerber Pimentel BNPon 02-22-2022 Natriuretic peptide B (Bld) [Mass/Vol] 146.0 pg/mL Normal <=900.[address] [facility] Comment on above: Performed By: #### C BC #### [facility] [address] [place] [address] Dr. Gerber Pimentel CBC AUTO DIFFon 02-22-2022 BASO # 0.0 103/ul Normal 0.0-0.1 [facility] Comment on above: Performed By: #### C BC #### [facility] [address] [place] [address] Dr. Gerber Pimentel Basophils/100 WBC (Bld) 0.1 % Critically low 0.2-2.0 [facility] Comment on above: Performed By: #### C BC #### [facility] [address] [place] [address] Dr. Gerber Pimentel EO # 0.1 103/ul Normal 0.0-0.7 [facility] Comment on above: Performed By: #### C BC #### [facility] [address] [place] [address] Dr. Gerber Pimentel Eosinophils/100 WBC (Bld) 1.3 % Normal 0.9-7.0 [facility] Comment on above: Performed By: #### C BC #### [facility] [address] [place] [address] Dr. Gerber Pimentel Erythrocyte distribution width (RBC) [Ratio] 14.2 % Normal 11.0-15.0 [facility] Comment on above: Performed By: #### C BC #### [facility] [address] [place] [address] Dr. Gerber Pimentel Hematocrit (Bld) [Volume fraction] 35.9 % Critically low 36.0-48.0 [facility] Comment on above: Performed By: #### C BC #### [facility] [address] [place] [address] Dr. Gerber Pimentel Hemoglobin (Bld) [Mass/Vol] 11.9 g/dL Critically low 12.0-16.0 [facility] Comment on above: Performed By: #### C BC #### [facility] [address] [place] [address] Dr. Gerber Pimentel IG # 0.02 10e3/ul Normal 0.00-0.03 [facility] Comment on above: Performed By: #### C BC #### [facility] [address] [place] [address] Dr. Gerber Pimentel IG % 0.2 % Normal 0.0-0.5 [facility] Comment on above: Performed By: #### C BC #### [facility] [address] [place] [address] Dr. Gerber Pimentel LYMPH # 0.8 103/ul Critically low 1.2-3.8 [facility] Comment on above: Performed By: #### C BC #### [facility] [address] [place] [address] Dr. Gerber Pimentel Lymphocytes/100 WBC (Bld) 9.2 % Critically low 20.5-60.0 [facility] Comment on above: Performed By: #### C BC #### [facility] [address] [place] [address] Dr. Gerber Pimentel MANUAL DIFF REQ NO Normal [facility] Comment on above: Performed By: #### C BC #### [facility] [address] [place] [address] Dr. Gerber Pimentel MCH (RBC) [Entitic mass] 29.2 pg Normal 26.7-34.0 [facility] Comment on above: Performed By: #### C BC #### [facility] [address] [place] [address] Dr. Gerber Pimentel MCHC (RBC) [Mass/Vol] 33.1 g/dL Normal 29.9-35.2 [facility] Comment on above: Performed By: #### C BC #### [facility] [address] [place] [address] Dr. Gerber Pimentel MCV (RBC) [Entitic vol] 88.2 fL Normal 81.0-99.0 [facility] Comment on above: Performed By: #### C BC #### [facility] [address] [place] [address] Dr. Gerber Pimentel MONO # 0.6 103/ul Normal 0.3-0.8 [facility] Comment on above: Performed By: #### C BC #### [facility] [address] [place] [address] Dr. Gerber Pimentel Monocytes/100 WBC (Bld) 7.2 % Normal 1.7-12.0 [facility] Comment on above: Performed By: #### C BC #### [facility] [address] [address] [address] Gerber Pimentel NEUT # 7.2 103/ul Critically high 1.4-6.5 [facility] Comment on above: Performed By: #### C BC #### [facility] [address] [place] [address] Dr. Gerber Pimentel Neutrophils/100 WBC (Bld) 82.0 % Critically high 43.0-75.0 [facility] Comment on above: Performed By: #### C BC #### [facility] [address] [place] [address] Dr. Gerber Pimentel Platelet mean volume (Bld) [Entitic vol] 8.5 fL Critically low 9.5-13.5 [facility] Comment on above: Performed By: #### C BC #### [facility] [address] [place] [address] Dr. Gerber Pimentel PLT 213 103/ul Normal 150-[address] [facility] Comment on above: Performed By: #### C BC #### [facility] [address] [place] [address] Dr. Gerber Pimentel RBC 4.07 106/ul Critically low 4.20-5.[address] [facility] Comment on above: Performed By: #### C BC #### [facility] [address] [place] [address] Dr. Gerber Pimentel WBC 8.7 103/ul Normal 4.0-11.0 [facility] Comment on above: Performed By: #### C BC #### [facility] [address] [place] [address] Dr. Gerber Pimentel CTA CHEST WO W CONon 12-28-2 022 CTA CHEST WO W CON EXAMINATION: CTA SHELBI ST WO W CON HISTORY: SHORTNESS OF BREATH , right lower lobe opacity COMPARISON: 10/16/2021 TECHNIQUE: Axial, Coronal, and Sagittal images were created without and with IV contrast. Dose reduction techniques were achieved by using automated exposure control and/or adjustment of mA and/or kV according to patient size and/or use of iterative reconstruction technique. FINDINGS: LUNGS: Mild scattered infiltrate identified in the lateral segment of the right middle lobe. The left lung is clear. PLEURA: No mass, effusion, or pneumothorax. VASCULATURE: No abnormality. MAIKEL: Calcified right hilar lymph nodes MEDIASTINUM: Calcified mediastinal lymph nodes CARDIAC: No enlargement, pericardial thickening, or significant calcification. AORTA: No aneurysm or dissection. CHEST WALL: No mass or axillary adenopathy. Right axillary surgical clips BONES: No bone lesion or fracture. Mild degenerative spondylosis LIMITED ABDOMEN: Liver and spleen calcifications, sequela of prior granulomatous process OTHER: Negative. IMPRESSION: Right middle lobe infiltrate, consider pneumonia Electronically authenticated by: NICOLE CONSTANTINO Date: 2022-02-22 15:[address] [facility] Covid-19 PCR (CVDTB)on 01-27 SARS-CoV-2 (COVID-19) RNA SLOANE+probe Ql (Unsp spec) Not detected Normal NOT DETECTED [facility] Comment on above: Result Comment: When diagnostic testing is negative, the possibility of a false negative should be considered in the context of a patient's recent exposures and the presence of clinical signs and symptoms consistent with SARS-CoV-2. This test is not yet approved or cleared by the [place] FDA. When there are no FDA-approved or cleared tests available, and other criteria are met, FDA can make tests available under an emergency access mechanism called an Emergency Use Authorization (EUA). The EUA for this test is supported by the Brake Operator Heavy Duty of Health and Human Service's declaration that circumstances exist to justify the emergency use of in vitro diagnostics for the detection and/or diagnosis of the virus that causes COVID-19. This EUA will remain in effect for the duration of the COVID-19 declaration justifying emergency of IVDs, unless it is terminated or revoked by the FDA (after which the test may no longer be used). Performed By: #### L IVER, LIPID #### [facility] [address] [place] [address] Dr. Gerber Pimentel INFLUENZA A AND B AGon 02-22 INFLUENZA A AG Negative Normal NEGATIVE SEE COMMENT [facility] Comment on above: Performed By: #### A 1C #### [facility] [address] [id number] [address] Gerber Pimentel INFLUENZA B AG Negative Normal NEGATIVE SEE COMMENT [facility] Comment on above: Performed By: #### A 1C #### [facility] [address] [place] [address] Dr. Gerber Pimentel PROF CHEM 8 (BAS METB)on Anion gap [Moles/Vol] 11.2 mmol/L Normal [facility] Comment on above: Performed By: #### C BC #### [facility] [address] [place] [address] Dr. Gerber Pimentel Calcium [Mass/Vol] 8.6 mg/dL Normal 8.5-10.1 [facility] Comment on above: Performed By: #### C BC #### [facility] [address] [place] [address] Dr. Gerber Pimentel Chloride [Moles/Vol] 104 mmol/L Normal 98-107 [facility] Comment on above: Performed By: #### C BC #### [facility] [address] [place] [address] Dr. Gerber Pimentel CO2 [Moles/Vol] 25.6 mmol/L Normal 21.0-32.0 [facility] Comment on above: Performed By: #### C BC #### [facility] [address] [place] [address] Dr. Gerber Pimentel Creatinine [Mass/Vol] 0.76 mg/dL Normal 0.55-1.02 [facility] Comment on above: Performed By: #### C BC #### [facility] [address] [place] [address] Dr. Gerber Pimentel EGFR-AF GERMAN >60 Normal >=[address] [facility] Comment on above: Performed By: #### C BC #### [facility] [address] [place] [address] Dr. Gerber Pimentel EGFR-NON AF GERMAN >60 Normal >=60 [facility] Comment on above: Performed By: #### C BC #### [facility] [address] [place] [address] Dr. Gerber Pimentel Glucose [Mass/Vol] 149 mg/dL Critically high 74-[address] [facility] Comment on above: Performed By: #### C BC #### [facility] [address], [place] [address] Dr. Gerber Pimentel Potassium [Moles/Vol] 3.8 mmol/L Normal 3.5-5.[address] [facility] Comment on above: Performed By: #### C BC #### [facility] [address] [place], [place] [address] Dr. Gerber Pimentel Sodium [Moles/Vol] 137 mmol/L Normal 136-[address] [facility] Comment on above: Performed By: #### C BC #### [facility] [address] [place], [place] [address] Dr. Gerber Pimentel Urea nitrogen [Mass/Vol] 20.0 mg/dL Critically high 7.0-18.0 [facility] Comment on above: Performed By: #### C BC #### [facility] [address] [address] [address] Gerber Pimentel Urea nitrogen/Creatinin e [Mass ratio] 26.3 mg/mg Normal [facility] Comment on above: Performed By: #### C BC #### [facility] [address] [address] [address] Gerber Pimentel TROPONIN, HIGH SENSITIVITYon 02-22-2022 HSTROP 4.6 pg/mL Normal 4.0-51.[address] [facility] Comment on above: Result Comment: CUT- OFF POINTS HAVE BEEN ESTABLISHED BASED ON THE FOURTH UNIVERSAL DEFINITIONS OF MYOCARDIAL INFARCTION. THE UPPER REFERENCE LIMIT (URL) OF TROPONIN, DEFINED THE 99TH PERCENTILE OF cTnI DISTRIBUTION IN A REFERENCE POPULATION, HAS BEEN CONFIRMED THE DECISION THRESHOLD FOR NC DIAGNOSIS. Performed By: #### C BC #### [facility] [address] [address] [address] Gerber Pimentel XR CHEST 1 Von 02-22-2022 XR CHEST 1 V CHEST X-RAY HISTORY: Chest pain COMPARISON: None. TECHNIQUE: 1 view chest is submitted for review. FINDINGS: The lungs are hyperexpanded without effusion. Interstitial opacity in the right lower lobe. The cardiac silhouette is enlarged.. Pulmonary vascularity is unremarkable. Osseous structures are within expected limits for patients age. . IMPRESSION: 1. Cardiomegaly. 2. Interstitial opacity in the right lower lobe. Please correlate for pneumonia versus atelectasis. Electronically authenticated by: JOAN HEAD Date: 2022-02-21 23:[address] [facility] CBC AUTO DIFFon 02-01-2022 BASO # 0.0 103/ul Normal 0.0-0.1 [facility] Comment on above: Performed By: #### C BC #### [facility] [address] [address] [address] Gerber Pimentel Basophils/100 WBC (Bld) 0.4 % Normal 0.2-2.0 [facility] Comment on above: Performed By: #### C BC #### [facility] [address] [address] [address] Gerber Pimentel EO # 0.2 103/ul Normal 0.0-0.7 [facility] Comment on above: Performed By: #### C BC #### [facility] [address] [address] [address] Gerber Pimentel Eosinophils/100 WBC (Bld) 3.1 % Normal 0.9-7.0 [facility] Comment on above: Performed By: #### C BC #### [facility] [address] [address] [address] Gerber Pimentel Erythrocyte distribution width (RBC) [Ratio] 13.3 % Normal 11.0-15.0 [facility] Comment on above: Performed By: #### C BC #### [facility] [address] [address] [address] Gerber Pimentel Hematocrit (Bld) [Volume fraction] 39.2 % Normal 36.0-48.[address] [facility] Comment on above: Performed By: #### C BC #### [facility] [address] [address] [address] Gerber Pimentel Hemoglobin (Bld) [Mass/Vol] 13.0 g/dL Normal 12.0-16.0 [facility] Comment on above: Performed By: #### C BC #### [facility] [address] [place] [address] Dr. Gerber Pimentel IG # 0.03 10e3/ul Normal 0.00-0.03 [facility] Comment on above: Performed By: #### C BC #### [facility] [address] [place] [address] Dr. Gerber Pimentel IG % 0.4 % Normal 0.0-0.5 [facility] Comment on above: Performed By: #### C BC #### [facility] [address] [place] [address] Dr. Gerber Pimentel LYMPH # 2.2 103/ul Normal 1.2-3.8 [facility] Comment on above: Performed By: #### C BC #### [facility] [address] [place] [address] Dr. Gerber Pimentel Lymphocytes/100 WBC (Bld) 28.6 % Normal 20.5-60.0 [facility] Comment on above: Performed By: #### C BC #### [facility] [address] [place] [address] Dr. Gerber Pimentel MANUAL DIFF REQ NO Normal [facility] Comment on above: Performed By: #### C BC #### [facility] [address] [place] [address] Dr. Gerber Pimentel MCH (RBC) [Entitic mass] 28.6 pg Normal 26.7-34.0 [facility] Comment on above: Performed By: #### C BC #### [facility] [address] [place] [address] Dr. Gerber Pimentel MCHC (RBC) [Mass/Vol] 33.2 g/dL Normal 29.9-35.2 [facility] Comment on above: Performed By: #### C BC #### [facility] [address] [place] [address] Dr. Gerber Pimentel MCV (RBC) [Entitic vol] 86.3 fL Normal 81.0-99.0 [facility] Comment on above: Performed By: #### C BC #### [facility] [address] [place] [address] Dr. Gerber Pimentel MONO # 0.5 103/ul Normal 0.3-0.8 [facility] Comment on above: Performed By: #### C BC #### [facility] [address] [place] [address] Dr. Gerber Pimentel Monocytes/100 WBC (Bld) 6.9 % Normal 1.7-12.0 [facility] Comment on above: Performed By: #### C BC #### [facility] [address] [place] [address] Dr. Gerber Pimentel NEUT # 4.6 103/ul Normal 1.4-6.5 [facility] Comment on above: Performed By: #### C BC #### [facility] [address] [place] [address] Dr. Gerber Pimnetel Neutrophils/100 WBC (Bld) 60.6 % Normal 43.0-75.0 [facility] Comment on above: Performed By: #### C BC #### [facility] [address] [place] [address] Dr. Gerber Pimentel Platelet mean volume (Bld) [Entitic vol] 9.1 fL Critically low 9.5-13.5 [facility] Comment on above: Performed By: #### C BC #### [facility] [address] [place] [address] Dr. Gerber Pimentel PLT 362 103/ul Normal 150-[address] [facility] Comment on above: Performed By: #### C BC #### [facility] [address] [place] [address] Dr. Gerber Pimentel RBC 4.54 106/ul Normal 4.20-5.[address] [facility] Comment on above: Performed By: #### C BC #### [facility] [address] [place] [address] Dr. Gerber Pimentel WBC 7.7 103/ul Normal 4.0-11.[address] [facility] Comment on above: Performed By: #### C BC #### [facility] [address] [place] [address] Dr. Gerber Pimentel FREE T3on 02-01-2022 FREE T3 2.42 pg/mlL Normal 2.18-3.[address] [facility] Comment on above: Performed By: #### I NFLUAB #### [facility] [address] [address] [address] Gerber Pimentel GLYCOHEMOGLOBIN A1Con 2021 ADA RECOMMENDATION SEE BELOW Normal [facility] Comment on above: Result Comment: ADA RECOMMENDED LIMIT 4.0 - 6.0 ADA THERAPEUTIC TARGET < 7.0 ACTION SUGGESTED > 7.0 Performed By: #### A 1C #### [facility] [address] [address] [address] Gerber Pimentel Glucose [Mass/Vol] 105 mg/dL Normal [facility] Comment on above: Performed By: #### A 1C #### [facility] [address] [address] [address] Gerber Pimentel HbA1c (Bld) [Mass fraction] 5.3 % Normal 4.5-6.2 [facility] Comment on above: Performed By: #### A 1C #### [facility] [address] [place] [address] Dr. Gerber Pimentel LIPID PROFILEon 02-01-2022 CHOL-HDL RATIO NORM SEE BELOW Normal [facility] Comment on above: Result Comment: 3.3 - 4.4 LOW RISK 4.4 - 7.1 AVERAGE RISK 7.1 - 11.0 MODERATE RISK >11.0 HIGH RISK Performed By: #### I NFLUAB #### [facility] [address] [place] [address] Dr. Gerber Pimentel Cholesterol [Mass/Vol] 226 mg/dL Critically high <=[address] [facility] Comment on above: Performed By: #### I NFLUAB #### [facility] [address] [place] [address] Dr. Gerber Pimentel Cholesterol in HDL [Mass/Vol] 62 mg/dL Critically high 40-[address] [facility] Comment on above: Performed By: #### I NFLUAB #### [facility] [address] [address] [address] Gerber Pimentel Cholesterol in LDL [Mass/Vol] 141.4 mg/dL Normal [facility] Comment on above: Performed By: #### I NFLUAB #### [facility] [address] [address] [address] Gerber Pimentel Cholesterol.total/ Cholesterol in HDL [Mass ratio] 3.6 {ratio} Normal [facility] Comment on above: Performed By: #### I NFLUAB #### [facility] [address] [address] [address] Gerber Pimentel HDL NORMAL > or = 60 mg/dl - LO W CARDIOVASCULAR RISK <40 mg/dl - HIGH CARDIOVASCULAR RISK Normal [facility] Comment on above: Performed By: #### I NFLUAB #### [facility] [address] [address] [address] Gerber Pimentel LDL CALC NORMAL SEE BELOW Normal [facility] Comment on above: Result Comment: <100 mg/dl OPTIMAL 100 - 129 mg/dl NEAR OR ABOVE OPTIMAL 130 - 159 mg/dl BORDERLINE HIGH 160 - 189 mg/dl HIGH >190 mg/dl VERY HIGH Performed By: #### I NFLUAB #### [facility] [address] [place] [address] Dr. Gerber Pimentel Triglyceride [Mass/Vol] 113 mg/dL Normal <=150 [facility] Comment on above: Performed By: #### I NFLUAB #### [facility] [address] [address] [address] Gerber Pimentel VLDL CALC 22.6 mg/dL Normal [facility] Comment on above: Performed By: #### I NFLUAB #### [facility] [address] [place] [address] Dr. Gerber Pimentel PROF 14(COMP METB)on 022 Albumin [Mass/Vol] 3.9 g/dL Normal 3.4-5.0 [facility] Comment on above: Performed By: #### L IVER, LIPID #### [facility] [address] [place] [address] Dr. Gerber Pimentel Albumin/Globulin [Mass ratio] 0.8 {ratio} Normal [facility] Comment on above: Performed By: #### L IVER, LIPID #### [facility] [address] [address] [address] Gerber Pimentel ALP [Catalytic activity/Vol] 155 U/L Critically high 46-116 [facility] Comment on above: Performed By: #### L IVER, LIPID #### [facility] [address] [address] [address] Gerber Pimentel ALT [Catalytic activity/Vol] 21 U/L Normal 14-59 [facility] Comment on above: Performed By: #### L IVER, LIPID #### [facility] [address] [address] [address] Gerber Pimentel Anion gap [Moles/Vol] 13.9 mmol/L Normal [facility] Comment on above: Performed By: #### L IVER, LIPID #### [facility] [address] [address] [address] Gerber Pimentel AST [Catalytic activity/Vol] 31 U/L Normal 15-37 [facility] Comment on above: Performed By: #### L IVER, LIPID #### [facility] [address] [address] [address] Gerber Pimentel Bilirubin [Mass/Vol] 0.6 mg/dL Normal 0.2-1.0 [facility] Comment on above: Performed By: #### L IVER, LIPID #### [facility] [address] [address] [address] Gerber Pimentel Calcium [Mass/Vol] 9.2 mg/dL Normal 8.5-10.1 [facility] Comment on above: Performed By: #### L IVER, LIPID #### [facility] [address] [address] [address] Gerber Pimentel Chloride [Moles/Vol] 102 mmol/L Normal 98-[address] [facility] Comment on above: Performed By: #### L IVER, LIPID #### [facility] [address] [address] [address] Gerber Pimentel CO2 [Moles/Vol] 25.8 mmol/L Normal 21.0-32.0 [facility] Comment on above: Performed By: #### L IVER, LIPID #### [facility] [address] [address] [address] Gerber Pimentel Creatinine [Mass/Vol] 0.75 mg/dL Normal 0.55-1.02 [facility] Comment on above: Performed By: #### L IVER, LIPID #### [facility] [address] [place] [address] Dr. Gerber Pimentel EGFR-AF GERMAN >60 Normal >=60 [facility] Comment on above: Performed By: #### L IVER, LIPID #### [facility] [address] [address] [address] Gerber Pimentel EGFR-NON AF GERMAN >60 Normal >=60 [facility] Comment on above: Performed By: #### L IVER, LIPID #### [facility] [address] [address] [address] Gerber Pimentel Globulin (S) [Mass/Vol] 4.6 g/dL Normal [facility] Comment on above: Performed By: #### L IVER, LIPID #### [facility] [address] [place] [address] Dr. Gerber Pimentel Glucose [Mass/Vol] 98 mg/dL Normal 74-106 [facility] Comment on above: Performed By: #### L IVER, LIPID #### [facility] [address] [address] [address] Gerber Pimentel Potassium [Moles/Vol] 4.7 mmol/L Normal 3.5-5.1 [facility] Comment on above: Performed By: #### L IVER, LIPID #### [facility] [address] [address] [address] Gerber Pimentel Protein [Mass/Vol] 8.5 g/dL Critically high 6.4-8.[address] [facility] Comment on above: Performed By: #### L IVER, LIPID #### [facility] [address] [address] [address] Gerber Pimentel Sodium [Moles/Vol] 137 mmol/L Normal 136-145 [facility] Comment on above: Performed By: #### L IVER, LIPID #### [facility] [address] [address] [address] Gerber Pimentel Urea nitrogen [Mass/Vol] 20.0 mg/dL Critically high 7.0-18.0 [facility] Comment on above: Performed By: #### L YU, LIPID #### [facility] [address] [place] [address] Dr. Gerber Pimentel Urea nitrogen/Creatinin e [Mass ratio] 26.7 mg/mg Normal [facility] Comment on above: Performed By: #### L YU LIPID #### [facility] [address] [place], [place] [id number] Dr. Gerber Pimentel T4on 02-01-2022 T4 [Mass/Vol] 9.20 ug/dL Normal 4.80-13.[address] [facility] Comment on above: Performed By: #### I NFLUAB #### [facility] [address] [place] [address] Dr. Gerber Pimentel TSHon 02-01-2022 TSH 1.396 uIU/mL Normal 0.358-3.740 [facility] Comment on above: Performed By: #### I NFLUAB #### [facility] [address] [place] [address] Dr. Gerber Pimentel VITAMIN D 25 OHon 02-01-2022 VIT D 25-OH 32.8 ng/mL Normal [facility] Comment on above: Performed By: #### A 1C #### [facility] [address] [place] [address] Dr. Gerber Pimentel VIT D RANGES SEE BELOW Normal [facility] Comment on above: Result Comment: <20 ng/mL Vit D deficient 20 - <30 ng/mL Vit D insufficient 30 - 100 ng/mL Vit D sufficient >100 ng/mL Potential Toxicity Performed By: #### A 1C #### [facility] [address] [place] [address] Dr. Gerber Pimentel Coding Summary.on 01-27-2022 Coding Summary. CD:[id number] Gh0bWw+PG hlYWQ+UP8ZXIAiS24atXYjyO3LW8k ACS7VRBTJFUHMWI4XOP6nlDP4TElv X9QjqjFm HqkwdBIgNR51IWw6PQU8oNzgULteg H4izPSvO1i3YaVaGQ22vU17KCgvZS AqFpN4OyQuhjczjWIc E1gcXgBppWFuIvj+PHRhYmxlIHdpZ GBjLNyuWFZxBhRrqUmbSA7nXf0qJB VyLWNvbGxhcHNlOiBj b7kfPDJvQPzoIZ0tvZokF7ChrOD6A GWgs6z6Ac73aLS+PNQdXHY8bXxxYA mil892JaDqi9khLQO0 fDZrLGnwZXD8R90vu0B0DLYfYQOpP QR4bUL3zN7uqYfjjpfjJ1MdoGWnEk O4SCU2pKPbrX4plCfw ztsszA5pJry+D95QNG5YCTFVPC8UL cb3L3KdVnnjfGA+BN97KNNvZA87qB FeyVBjx4kezPr9EbUr HLYnGFC9zCiqFYtsa9RnJXRlY77lz ZReg4Q9MIFfuJxupFJiIdJfvNU0fJ 4wRXqlgwcmp3dkszwf Evjxi8wckw95pA81P79kTTpfTCQaJ NM0KYZhONNxgYtxzu4nrM5nSo8+ID rzu7ipd3fzeYr0BvSy LNYcnoOjpRtxMVF5o6KwWk18D1Oaw Pbbs6XmEdf2tt53kWLjp9J1yKJ6XI pwYJPumJ2wVXxmHyB7 WKAuJnLfeV89oKNuGAjzXd8miMozz GbeLJ0bREOvjemeDIMjjO5tWEDcxM LmlWwgFT1pRZPpffgo b857DxFtPVE7ADMavYDfK1KpsD1nP zVqVJBqLVQsA3LmaFWwXJqxI882ZZ vxLbK9WFTbiuLgX7Qf DHFncPmgQaS3i6B0Ml1Zm7IbvsgmO GQ8CYwlOKUgUmRrOxClDbE4O6CxUn o8ABSiaRkxYQ7vY2Bf AAVjpkpeuqeojQD0PDIbSSOocP65d YIkBTgbVl3gz2A5n138PWGeBVZdrS 65Nh9bvGwoLQCeyZCQ sU2qgmsni2qpjponBbBdUYMgLJb4I Dz6GTPkbIelZdAdXIM8YcS6AJL1wS KzqG2ulYulhstppN9o Oyc+N02gnD3rLWF4MLK3qkskOYPiq xRvJS38FN74W1WqBekerXEfmXP+PG HjqnFlwXkfHO1eWhUq l5nzy4VlKRbaL4KqSGEbIPamHdv7B VMzWST2fTX3uF3lTGYcEXbjj4X1vJ B3V7JzkrLzqu5ot8wf BZGsIYlpS09rnVMzu7H9VINihOU6O QEweAppIaGuhG10Ptf+PGNvbGdyb3 EtOiwss8cbf5qprCa9 LfEhRSLxiuDsnRbwPOE7g3XsKm77L 29sIHdpZHRoPSIxNSUiIHZhbGlnbj 9tyJ3rMd0+PGNvbCB3 sAC7bD5dFFPvYlF3VZlgO284OxMpj ZQbVizfd6mce5cpaBr0AwZmXPTwsi HkiXpjZWU8b5HiMf31 E17iAGjoPBLcODKpBNSbTNDhiScgz i6ccH5hPs2+NK5my5pdhf22iR06aI I+ZTLfCQB4eCfgGNel XMNqlN5fCEazRvW5SYJxHhOhlA70r TEaYLvzRt8vtGuwuIjaQN5lKXKnnz tyx424UbLuo6wtJTHk gPYyQGrmVUV8Z58sq9X4OVBfVQRpP SN7sNR7sX2hzLfhamavzVPnoMviih LohBfkWYkjNSdiH055 JOXnhDsbWlDgcEzyzrPmSaDuZUr5D 1QlOnh9MIYhvMchQE2ejSDzDZjiQq 3fbCaglUayOF7tJLNa zizkz057UsPhp7exHWMkhJRcDOviM GL2L70vt5U7QCOvSJOdHND3vKB8uS 1hbGlnbjogbGVmdDsg tbNadKzzHVsrAFrpS970NRZhcFkxV oTucvYoZSSoyWW8BD43FJ51gLVsx6 X6hPG0A9YbUOPovtoi wzemoFU3WCTlSFSgeY54Qs8atZmeL e3uYMNlJDK6COOqnIZnE1BvdU8cIu JrLHYfUHDvB8LwjMKr KDsdQ276KWexJmX6VNNcqzDvD7IrC RTizVtaSjJ2b9X4Zk0HX3I4GL66YD 00fWTzz9N5bXZ2D6Mm IYMknctjtyndoJG8IRVoLMEbnM35Q q9mwDkkHs6fWTIfVAI1KLWmfSTiT1 VikY7bAeIoTSAsUGGz F3IvyEQgEBvbZ209DGkbKjU1DQAzu dOcF3NpSCTjkPeuRcU6x4S7Hp4KMD x0HI25HG29qWQvy3G5 gVG8I6UxUNKrqlvfxnpyeGX2VFZqC FInzT39Dk0fxEugWz1hEOExHEI9NZ QraXPnS7TmqP2pNmBl ZJXtNTOwB8OjmGOcHHjlA812OTdlK xZ9OVWnnmXfH3QaCLSukXfhJjQ2m6 O8Rp4BBNAfRS93BIW9 sGW7RC99IU44J2OzLmoyoQMcjIS+P HRhYmxlIHdpZHRoPScxMDAlJyBzdH rxLM4xMy9yMYCuFZBw zVkncFCiBpNep0peJZKsIFkmDM2mq NmcS8PkjJV6GDQko9l2Rl53D87jI3 JvdXA+NJMomJO9oMH8 iB6bTcRiLqB4FYmeP312TxPzcRFtQ dfwq6byv9udnUm7ZdY8JLRshdRwwL vbTCQ2a7InDd88S71i NWmmAVBdXHJsTQEiFDCawTujem9ro G9wIi8+TKNdjPK8lPZ6vF9rSeVuHk T4GInnL821IeVebIRe Gtlwb0byu5dtaWm1KnTuYNYipbGug NkqQFX4t2GaWq51I9EgdVnrh6CgEg c7oe95oZYcf0V8jLR6 K6LbXQZyanotzJMqyYtgKB1fHUSji ntrOLKtcV4wCHJaL7r0PiWuHyB7VY xfO7VqheJ4JDVzlYRh BFuoHOX7Q76fj6L4DKZmRBCkYLC1x YP5gG0gtGoyyvkobKDmrZtzbwDujY gzZIgfRCjgE449LZNc qZyoKKIqmO2qJGVrqWHvdOzdTU9lB LOasgeoOpIXGn7VA6QbSLaZBFMiNz wvdGQ+ZZTsAZZ1mKgp GWbxHBAjfT8rZEKhU8j6BdKrJjN1G HqkZ1ZaNANvimqqTw02vB0kCcMcKj H0ARtqS9YwdrA6ZEZf aGRoTBhlSNX2Q44pl7Z6IWJlCADhJ EV2lVI3zI5cfLayyyiboJJarAoilu VhbCnyVXudDTbdW906 RHBtsOaeAsRyHbK5JlU3Bfx7H9DjC uf0ZGSqqOffPJ7yqWMiBAceQc1scE hdrDonMA5aQKYooscs KGOivB0rECLueYYgqQevHJ2rBNQky shps610UiTjFUL1JTRquKBrP3TowT 8nJrMhPXSpENAcJ6Tp jOXqWLbnZ262OGbuEyY1TIRjvaXpK 0ZoFIOjcUnwFaW4l4W6Ii93ReUDXL FyczwvdGQ+PHRkIHN0 uIcyDPfxMOBzjF9yWWOrM7w9OrWdQ mX8NOqqF2AzPPJnlmphMy46hI1kAb UpJaM6DKndR1YxdiX7 PQNanIGyYItaXCL4J59je2S2KEFkB APgRWN8wAE2iT5vvQabkznyqNDtwB sgdmVydGljYWwtYWxp F863VUSymAesVxHibSIlGOrscQV+P BQzNLG7vKjcWNshJBBukS7yHUCgS4 c7BoEhMcT3JGujU8Le QUMvoeqeIo81cA2oLwXaYmS4BWbkM 1OwyuE6WQBvnRYiYBfeBNC2O60px8 E6WJTnIFEsAVK9iNK8 xC2nsPtlzozkpJImsAkxeqJhhIjvT SweLQgkD765ZMYjuEyfIe55bSByuW drogZ6X9EsEmcyfVO+ XN72ETNjCD54zWUneMRik3ankLj8W qUuMBAlBJI7mBteWDzdq9FfVOVbT0 2dzPXup4V3GBYuoDmd lZWxLqHblBT0rM0yEDmrbitfx6upl iftDcjpe7wbej11aO27R72qJMqgYI RoPSIzMCUiIHZhbGln qs9ynQ2jYu2+SMFpcUL3hIP6qA6qW wThVuZ6FLdfE253KtIncSBzAhhrg0 vqy2bxwOg0NxSeORCs lzHezKjnTYR9o2QnUq87Q26iJKisD GMxLEJbTGXuCSMuqOoxuf3cgG3iGd 8+SW2ez0iutx23oM12 dHI+WXGkKRV2qMpvNDwiBSLlbQ7qD IpnBsP3MXLmSjEudL24rFKsCOmeGl 2uyCmkfKazPB9hAIDe tyykr900GmOii9qzMLAcvMBbCSkxB QP3V16do9K7PEFmJIPzAIX7ePM4aH 1hbGlnbjogbGVmdDsg uyEmdTfmDUntCXhrB306JLZofNufL tUjvQXqA1pldrHCVH8qGitzmMT+PH RmVQS6zHqhSNimRRSm pD9sGHReO2a8UgPmVaE8KMtvG2Kgx yD4QIZvrFSqCARfvMVGnA9ebsggv5 xvcjogIzAwMDAwMDt0 FQg5JAQplVuhVkMeWLP7QnA2OIK8t HXpnU8kiFrhqwqnfL7nUwb+RklOOj wvdGQ+NPQmZAY7iFsh SLceVBBfqD2oOJXwO7c8JzDyFmM7M HpnN9OshdC0MCOhwHCnKINdtIKQoT 2jzwccv6egqcecAgUz IWOvLCy1UUo7FMBctTgcZhOeJXS6K hX7OTD5gDZzfV3rrMxnnryviV6uVs c+TVJOOjwvdGQ+PHRk SLZ7kValOKlxHZSwjX9bAEZgX6a8R lXeGiK2PVtlQ4WelsB8BGKzyMIiGH DygKIRzW2grhgje8ih lhqkMtPsNYOhBTv3QUc1MVPktLkiL gDkSSA3YmR2QUE8tOXbsF9tnCzajb kznO8aAoy+FUN6OUJ2 GI47ZJ88M1PzQtwqbAWdmXU+PHRhY mxlIHdpZHRoPScxMDAlJyBzdHlsZT 1qZz0yTVYzNOEuhLsp cHNl (more content not included)... Normal [facility] MRI Breast w/o and w/ Contra st Bilaton 01-27-2022 MRI Breast w/o and w/ Contrast, Bilat Exam Date/Time: 01/24/2022 15:30 EST Reason for Exam: HX BREAST CA Report IMPRESSION: BI-RADS CATEGORY 2: BENIGN. CLINICAL HISTORY: HX BREAST CA. COMPARISON: Mammogram on 08/01/2021. COMMENT: Unenhanced and intravenous contrast enhanced images were obtained. There is a scattered amount of fibroglandular tissue in each breast. There is a minimal level of background parenchymal enhancement in each breast. The right breast is smaller than the left. There are postsurgical changes in the posterior upper outer quadrant of the right breast. There is architectural distortion, scarring, and there are susceptibility artifacts related to metallic surgical clips. No suspicious contrast enhancing mass lesion is evident in either breast. No chest wall mass nor axillary lymphadenopathy is evident. FINAL REPORT Dictated: 01/27/2022 9:13 am Jw Robledo M.D. Signed (Electronic Signature): 01/27/2022 9:13 am Signed by: Jw Robledo M.D. Transcribed by: MCKINLEY Technologist: LEATHA Technical Comments MultiHance Contrast amount in ml's: 18 Normal [facility] Consent for Treatmenton 12-28 Consent for Treatment [id number]#1.00CD:127 Normal [facility] RAD - MISCon 01-24-2022 RAD - MISC [id number]#1.00CD:127 Normal [facility] RAD - MISC [id number]#1.00CD:127 Normal [facility] RAD - MRI Screening Formon 1 03-26-2021 RAD - MRI Screening Form [id number]#1.00CD:127 Normal [facility] Physician Orderon 01-03-2022 Physician Order [id number]#1.00CD:127 Normal [facility] Physician Order [id number]#1.00CD:127 Normal [facility] Pre-Certification Formon Pre-Certification Form [id number]#1.00CD:127 Normal [facility] Pre-Certification Formon Pre-Certification Form [id number]#1.00CD:127 Normal [facility] NM STRESS/REST MULTIon 11-03 NM STRESS/REST MULTI Patient: HARLEY SHARMA Exam Date: 11/03/2021 : 1970 Gender:F Ordering : DR DEBRA CONCEPCION . Admission #: [id number] Family : Order #: [id number] CLICK HERE TO VIEW EXAM RADIOLOGY REPORT PROCEDURE: RADIONUCLIDE IMAGING STRESS/REST MULTI COMPARISON: None. INDICATIONS: Chest pain TECHNIQUE: Exam Description: Stress/Rest one day protocol gated SPECT Rest Imagin.5 mCi Tc-99m Cardiolite IV on 11/03/2021 Stress Imaging 32.1 mCi Tc-99m Cardiolite IV on 11/03/2021 Exercise Protocol: Hang Heart Rate (bpm): Rest: 83 Max: 142 PMHR: 85 Blood Pressure: Rest: 158/92 Max: 214/106 Exercise Time: Stage Reached: Stage: 3 Mets 10.1 Symptoms: Rest and peak stress ECG findings were abnormal and the exercise portion of the study was Non-diagnostic per attending physician Dr. Alejandra due to EKG changes, inverted T-wave during recovery. For more details please see separate cardiac stress test report. FINDINGS: QUALITY OF STUDY: Excellent. PERFUSION DEFECT: LOCATION: N/A SIZE: N/A. SEVERITY: N/A. TYPE: N/A. WALL MOTION: Normal. LV SIZE: Normal. 92 mL. TID / TCD: None; 0.8 LVEF: Abnormal. Calculated EF 54%. SUMMARY: Myocardial perfusion imaging study has ABNORMAL findings. CONCLUSION: 1. No acute or reversible ischemia. 2. Ejection fraction of 54% is just below lower limits of normal (55%). 3. Normal wall motion and ventricle size. Dictated by: Evens Morrow M.D. on 11/04/2021 at 07:56 Approved by: Evens Morrow M.D. on 11/04/2021 at 08:[address] [facility] CBC AUTO DIFFon 11-01-2021 BASO # 0.1 103/ul Normal 0.0-0.[address] [facility] Comment on above: Performed By: #### C BC #### [facility] [address] [address] [address] Gerber Pimentel Basophils/100 WBC (Bld) 0.8 % Normal 0.2-2.[address] [facility] Comment on above: Performed By: #### C BC #### [facility] [address] [address] [address] Gerber Pimentel EO # 0.1 103/ul Normal 0.0-0.[address] [facility] Comment on above: Performed By: #### C BC #### [facility] [address] [address] [address] Gerber Pimentel Eosinophils/100 WBC (Bld) 2.0 % Normal 0.9-7.[address] [facility] Comment on above: Performed By: #### C BC #### [facility] [address] [address] [address] Gerber Pimentel Erythrocyte distribution width (RBC) [Ratio] 13.2 % Normal 11.0-15.[address] [facility] Comment on above: Performed By: #### C BC #### [facility] [address] [address] [address] Gerber Pimentel Hematocrit (Bld) [Volume fraction] 35.6 % Critically low 36.0-48.[address] [facility] Comment on above: Performed By: #### C BC #### [facility] [address] [address] [address] Gerber Pimentel Hemoglobin (Bld) [Mass/Vol] 11.7 g/dL Critically low 12.0-16.[address] [facility] Comment on above: Performed By: #### C BC #### [facility] [address] [place] [address] Dr. Gerber Pimentel IG # 0.02 10e3/ul Normal 0.00-0.03 [facility] Comment on above: Performed By: #### C BC #### [facility] [address] [place] [address] Dr. Gerber Pimentel IG % 0.3 % Normal 0.0-0.5 [facility] Comment on above: Performed By: #### C BC #### [facility] [address] [place] [address] Dr. Gerber Pimentel LYMPH # 1.9 103/ul Normal 1.2-3.[address] [facility] Comment on above: Performed By: #### C BC #### [facility] [address] [place] [address] Dr. Gerber Pimentel Lymphocytes/100 WBC (Bld) 29.0 % Normal 20.5-60.0 [facility] Comment on above: Performed By: #### C BC #### [facility] [address] [place] [address] Dr. Gerber Pimentel MANUAL DIFF REQ NO Normal [facility] Comment on above: Performed By: #### C BC #### [facility] [address] [place] [address] Dr. Gerber Pimentel MCH (RBC) [Entitic mass] 28.6 pg Normal 26.7-34.0 [facility] Comment on above: Performed By: #### C BC #### [facility] [address] [place] [address] Dr. Gerber Pimentel MCHC (RBC) [Mass/Vol] 32.9 g/dL Normal 29.9-35.[address] [facility] Comment on above: Performed By: #### C BC #### [facility] [address] [place] [address] Dr. Gerber Pimentel MCV (RBC) [Entitic vol] 87.0 fL Normal 81.0-99.0 [facility] Comment on above: Performed By: #### C BC #### [facility] [address] [place] [address] Dr. Gerber Pimentel MONO # 0.6 103/ul Normal 0.3-0.[address] [facility] Comment on above: Performed By: #### C BC #### [facility] [address] [place] [address] Dr. Gerber Pimentel Monocytes/100 WBC (Bld) 8.6 % Normal 1.7-12.0 [facility] Comment on above: Performed By: #### C BC #### [facility] [address] [place] [address] Dr. Gerber Pimentel NEUT # 3.8 103/ul Normal 1.4-6.[address] [facility] Comment on above: Performed By: #### C BC #### [facility] [address] [place] [address] Dr. Gerber Pimentel Neutrophils/100 WBC (Bld) 59.3 % Normal 43.0-75.0 [facility] Comment on above: Performed By: #### C BC #### [facility] [address] [place] [address] Dr. Gerber Pimentel Platelet mean volume (Bld) [Entitic vol] 9.0 fL Critically low 9.5-13.[address] [facility] Comment on above: Performed By: #### C BC #### [facility] [address] [place] [address] Dr. Gerber Pimentel PLT 447 103/ul Normal 150-[address] [facility] Comment on above: Performed By: #### C BC #### [facility] [address] [place] [address] Dr. Gerber Pimentel RBC 4.09 106/ul Critically low 4.20-5.[address] [facility] Comment on above: Performed By: #### C BC #### [facility] [address] [place] [address] Dr. Gerber Pimentel WBC 6.4 103/ul Normal 4.0-11.[address] [facility] Comment on above: Performed By: #### C BC #### [facility] [address] [place] [address] Dr. Gerber Pimentel CRPon 11-01-2021 CRP [Mass/Vol] mg/L Normal <=1.0 [facility] Comment on above: Performed By: #### C BC #### [facility] [address] [place] [address] Dr. Gerber Pimentel PROF 14(COMP METB)on 022 Albumin [Mass/Vol] 3.6 g/dL Normal 3.4-5.0 [facility] Comment on above: Performed By: #### C BC #### [facility] [address] [place] [address] Dr. Gerber Pimentel Albumin/Globulin [Mass ratio] 0.8 {ratio} Normal [facility] Comment on above: Performed By: #### C BC #### [facility] [address] [place] [address] Dr. Gerber Pimentel ALP [Catalytic activity/Vol] 147 U/L Critically high 46-116 [facility] Comment on above: Performed By: #### C BC #### [facility] [address] [place] [address] Dr. Gerber Pimentel ALT [Catalytic activity/Vol] 34 U/L Normal 14-[address] [facility] Comment on above: Performed By: #### C BC #### [facility] [address] [place] [address] Dr. Gerber Pimentel Anion gap [Moles/Vol] 11.0 mmol/L Normal [facility] Comment on above: Performed By: #### C BC #### [facility] [address] [place] [address] Dr. Gerber Pimentel AST [Catalytic activity/Vol] 52 U/L Critically high 15-[address] [facility] Comment on above: Performed By: #### C BC #### [facility] [address] [place] [address] Dr. Gerber Pimentel Bilirubin [Mass/Vol] 0.5 mg/dL Normal 0.2-1.[address] [facility] Comment on above: Performed By: #### C BC #### [facility] [address] [place] [address] Dr. Gerber Pimentel Calcium [Mass/Vol] 9.2 mg/dL Normal 8.5-10.[address] [facility] Comment on above: Performed By: #### C BC #### [facility] [address] [address] [address] Gerber Pimentel Chloride [Moles/Vol] 104 mmol/L Normal 98-[address] [facility] Comment on above: Performed By: #### C BC #### [facility] [address] [address] [address] Gerber Pimentel CO2 [Moles/Vol] 28.1 mmol/L Normal 21.0-32.0 [facility] Comment on above: Performed By: #### C BC #### [facility] [address] [address] [address] Gerber Pimentel Creatinine [Mass/Vol] 1.05 mg/dL Critically high 0.55-1.02 [facility] Comment on above: Performed By: #### C BC #### [facility] [address] [place] [address] Dr. Gerber Pimentel EGFR-AF GERMAN >60 Normal >=60 [facility] Comment on above: Performed By: #### C BC #### [facility] [address] [place] [address] Dr. Gerber Pimentel EGFR-NON AF GERMAN 55 mL/min/1.73m2 Critically low >=60 [facility] Comment on above: Performed By: #### C BC #### [facility] [address] [place] [address] Dr. Gerber Pimentel Globulin (S) [Mass/Vol] 4.7 g/dL Normal [facility] Comment on above: Performed By: #### C BC #### [facility] [address] [address] [address] Gerber Pimentel Glucose [Mass/Vol] 96 mg/dL Normal 74-[address] [facility] Comment on above: Performed By: #### C BC #### [facility] [address] [place] [address] Dr. Gerber Pimentel Potassium [Moles/Vol] 4.1 mmol/L Normal 3.5-5.[address] [facility] Comment on above: Performed By: #### C BC #### [facility] [address] [address] [address] Gerber Pimentel Protein [Mass/Vol] 8.3 g/dL Critically high 6.4-8.[address] [facility] Comment on above: Performed By: #### C BC #### [facility] [address] [address] [address] Gerber Pimentel Sodium [Moles/Vol] 139 mmol/L Normal 136-145 [facility] Comment on above: Performed By: #### C BC #### [facility] [address] [address] [address] Gerber Pimentel Urea nitrogen [Mass/Vol] 16.0 mg/dL Normal 7.0-18.0 [facility] Comment on above: Performed By: #### C BC #### [facility] [address] [address] [address] Gerber Pimentel Urea nitrogen/Creatinin e [Mass ratio] 15.2 mg/mg Normal [facility] Comment on above: Performed By: #### C BC #### [facility] [address] [address] [address] Gerber Pimentel SED RATE [facility] 2021 SED RATE 80 mm/hr Critically high <=30 [facility] Comment on above: Performed By: #### C BC #### [facility] [address] [address] [address] Gerber Pimentel Ambulatory Visit Summaryon 0 10-25-2021 Ambulatory Visit Summary HARLEY SHARMA Jagjit :1970 Visit Date:10/25/2021 Ambulatory Visit Instructions Your Care Team Attending Physician - Nahid PALOMO MD Primary Care Physician - Debra Concepcion MD Referring Physician - Debra Concepcion MD This Is Your Medications List Contact prescribing physician if questions or concerns albuterol (Ventolin HFA 90 mcg/inh Aerosol) cefdinir (cefdinir 300 mg Cap) lactobacillus acidophilus and bulgaricus (lactobacillus acidophilus and bulgaricus oral granule) metronidazole omeprazole (omeprazole 40 mg Cap-DR) venlafaxine (Effexor XR 75 mg Cap-ER) Procedures Performed EGD - Esophagogastroduodenoscopy (04/26/2011), Arthroscopy of hip, Biopsy of breast, Cholecystectomy, Hysterectomy, Nasal septoplasty. Discharge Vitals Heart Rate (Peripheral) 80 Respiratory Rate 16 Blood Pressure 144/104 Height 170 cm Height 170.0 cm Weight 93 kg Weight 93.0 kg BMI 32.18 Medications What How Much When Instructions Unchanged albuterol (Ventolin HFA 90 mcg/ inh Aerosol) 2 Puffs Inhalation Every 6 hours Contact prescribing physician if questions or concerns Unchanged cefdinir (cefdinir 300 mg Cap) Contact prescribing physician if questions or concerns Unchanged lactobacillus acidophilus and bulgaricus (lactobacillus acidophilus and bulgaricus oral granule) 1 Packets By Mouth 4 times a day Contact prescribing physician if questions or concerns Unchanged metronidazole 500 Milligram By Mouth 3 times a day Contact prescribing physician if questions or concerns Unchanged omeprazole (omeprazole 40 mg Cap-DR) 1 Capsules By Mouth Every day Contact prescribing physician if questions or concerns Unchanged venlafaxine (Effexor XR 75 mg Cap-ER) 1 Capsules By Mouth Every day Contact prescribing physician if questions or concerns Allergies No Known Allergies No Known Medication Allergies Problems Ongoing - Any problem that you are currently receiving treatment for. Allergic rhinitis Anemia BMI 32.0-32.9,adult Breast carcinoma Depression GERD (gastroesophageal reflux disease) Screening for malignant neoplasm of colon Smoker Tension headache Historical - Any problem that you are no longer receiving treatment for. CA - Carcinoma of breast Tear meniscus [facility] Consultation Noteon 10-25-19 Consultation Note [id number]#1.00CD:127 [facility] ED Note-Physicianon 10-25-19 ED Note-Physician [id number]#1.00CD:127 [facility] Historical Records Officeon 10-24-2021 Historical Records Office [id number]#1.00CD:127 [facility] Outside Mammographyon 2021 Outside Mammography [id number]#1.00CD:127 [facility] RAD - CT Reporton 10-24-2021 RAD - CT Report [id number]#1.00CD:127 Normal [facility] RAD - Ultrasound Reporton RAD - Ultrasound Report [id number]#1.00CD:127 Normal [facility] CBC AUTO DIFFon 10-19-2021 BASO # 0.0 103/ul Normal 0.0-0.1 [facility] Comment on above: Performed By: #### I NFLUAB #### [facility] [address] [address] [address] Gerber Pimentel Basophils/100 WBC (Bld) 0.1 % Critically low 0.2-2.0 [facility] Comment on above: Performed By: #### I NFLUAB #### [facility] [address] [address] [address] Gerber Pimentel EO # 0.1 103/ul Normal 0.0-0.7 [facility] Comment on above: Performed By: #### I NFLUAB #### [facility] [address] [address] [address] Gerber Pimentel Eosinophils/100 WBC (Bld) 1.3 % Normal 0.9-7.0 [facility] Comment on above: Performed By: #### I NFLUAB #### [facility] [address] [address] [address] Gerber Pimentel Erythrocyte distribution width (RBC) [Ratio] 13.6 % Normal 11.0-15.0 [facility] Comment on above: Performed By: #### I NFLUAB #### [facility] [address] [place] [address] Dr. Gerber Pimentel Hematocrit (Bld) [Volume fraction] 26.1 % Critically low 36.0-48.0 [facility] Comment on above: Performed By: #### I NFLUAB #### [facility] [address] [place] [address] Dr. Gerber Pimentel Hemoglobin (Bld) [Mass/Vol] 8.7 g/dL Critically low 12.0-16.0 [facility] Comment on above: Performed By: #### I NFLUAB #### [facility] [address] [place] [address] Dr. Gerber Pimentel IG # 0.05 10e3/ul Critically high 0.00-0.03 [facility] Comment on above: Performed By: #### I NFLUAB #### [facility] [address] [place] [address] Dr. Gerber Pimentel IG % 0.7 % Critically high 0.0-0.5 [facility] Comment on above: Performed By: #### I NFLUAB #### [facility] [address] [place] [address] Dr. Gerber Pimentel LYMPH # 1.2 103/ul Normal 1.2-3.8 [facility] Comment on above: Performed By: #### I NFLUAB #### [facility] [address] [place] [address] Dr. Gerber Pimentel Lymphocytes/100 WBC (Bld) 16.8 % Critically low 20.5-60.0 [facility] Comment on above: Performed By: #### I NFLUAB #### [facility] [address] [place] [address] Dr. Gerber Pimentel MANUAL DIFF REQ NO Normal [facility] Comment on above: Performed By: #### I NFLUAB #### [facility] [address] [place] [address] Dr. Gerber Pimentel MCH (RBC) [Entitic mass] 28.9 pg Normal 26.7-34.0 [facility] Comment on above: Performed By: #### I NFLUAB #### [facility] [address] [place] [address] Dr. Gerber Pimentel MCHC (RBC) [Mass/Vol] 33.3 g/dL Normal 29.9-35.2 [facility] Comment on above: Performed By: #### I NFLUAB #### [facility] [address] [place] [address] Dr. Gerber Pimentel MCV (RBC) [Entitic vol] 86.7 fL Normal 81.0-99.[address] [facility] Comment on above: Performed By: #### I NFLUAB #### [facility] [address] [place] [address] Dr. Gerber Pimentel MONO # 0.6 103/ul Normal 0.3-0.[address] [facility] Comment on above: Performed By: #### I NFLUAB #### [facility] [address] [place] [address] Dr. Gerber Pimentel Monocytes/100 WBC (Bld) 8.5 % Normal 1.7-12.[address] [facility] Comment on above: Performed By: #### I NFLUAB #### [facility] [address] [place] [address] Dr. Gerber Pimentel NEUT # 5.0 103/ul Normal 1.4-6.[address] [facility] Comment on above: Performed By: #### I NFLUAB #### [facility] [address] [place] [address] Dr. Gerber Pimentel Neutrophils/100 WBC (Bld) 72.6 % Normal 43.0-75.[address] [facility] Comment on above: Performed By: #### I NFLUAB #### [facility] [address] [place] [address] Dr. Gerber Pimentel Platelet mean volume (Bld) [Entitic vol] 9.0 fL Critically low 9.5-13.[address] [facility] Comment on above: Performed By: #### I NFLUAB #### [facility] [address] [place] [address] Dr. Gerber Pimentel PLT 222 103/ul Normal 150-[address] [facility] Comment on above: Performed By: #### I NFLUAB #### [facility] [address] [place] [address] Dr. Gerber Pimentel RBC 3.01 106/ul Critically low 4.20-5.[address] [facility] Comment on above: Performed By: #### I NFLUAB #### [facility] [address] [place] [address] Dr. Gerber Pimentel WBC 6.8 103/ul Normal 4.0-11.0 [facility] Comment on above: Performed By: #### I NFLUAB #### [facility] [address] [place] [address] Dr. Gerber Pimentel CRPon 10-19-2021 CRP 3.9 mg/dL Critically high <=1.0 [facility] Comment on above: Performed By: #### C BC #### [facility] [address] [place] [address] Dr. Gerber Pimentel MAGNESIUMon 10-19-2021 Magnesium [Mass/Vol] 1.9 mg/dL Normal 1.8-2.4 [facility] Comment on above: Performed By: #### C BC #### [facility] [address] [place] [address] Dr. Gerber Pimentel PROF 14(COMP METB)on 022 Albumin [Mass/Vol] 2.3 g/dL Critically low 3.4-5.0 [facility] Comment on above: Performed By: #### C BC #### [facility] [address] [place] [address] Dr. Gerber Pimentel Albumin/Globulin [Mass ratio] 0.6 {ratio} Normal [facility] Comment on above: Performed By: #### C BC #### [facility] [address] [place] [address] Dr. Gerber Pimentel ALP [Catalytic activity/Vol] 193 U/L Critically high 46-[address] [facility] Comment on above: Performed By: #### C BC #### [facility] [address] [place] [address] Dr. Gerber Pimentel ALT [Catalytic activity/Vol] 29 U/L Normal 14-59 [facility] Comment on above: Performed By: #### C BC #### [facility] [address] [place] [address] Dr. Gerber Pimentel Anion gap [Moles/Vol] 12.4 mmol/L Normal [facility] Comment on above: Performed By: #### C BC #### [facility] [address] [place] [address] Dr. Gerber Pimentel AST [Catalytic activity/Vol] 30 U/L Normal 15-37 [facility] Comment on above: Performed By: #### C BC #### [facility] [address] [address] [address] Gerber Pimentel Bilirubin [Mass/Vol] 0.4 mg/dL Normal 0.2-1.0 [facility] Comment on above: Performed By: #### C BC #### [facility] [address] [address] [address] Gerber Pimentel Calcium [Mass/Vol] 7.8 mg/dL Critically low 8.5-10.1 [facility] Comment on above: Performed By: #### C BC #### [facility] [address] [place] [address] Dr. Gerber Pimentel Chloride [Moles/Vol] 110 mmol/L Critically high 98-107 [facility] Comment on above: Performed By: #### C BC #### [facility] [address] [place] [address] Dr. Gerber Pimentel CO2 [Moles/Vol] 19.8 mmol/L Critically low 21.0-32.0 [facility] Comment on above: Performed By: #### C BC #### [facility] [address] [place] [address] Dr. Gerber Pimentel Creatinine [Mass/Vol] 1.36 mg/dL Critically high 0.55-1.02 [facility] Comment on above: Performed By: #### C BC #### [facility] [address] [place] [address] Dr. Gerber Pimentel EGFR-AF GERMAN 49 mL/min/1.73m2 Critically low >=60 [facility] Comment on above: Performed By: #### C BC #### [facility] [address] [place] [address] Dr. Gerber Pimentel EGFR-NON AF GERMAN 41 mL/min/1.73m2 Critically low >=60 [facility] Comment on above: Performed By: #### C BC #### [facility] [address] [place] [address] Dr. Gerber Pimentel Globulin (S) [Mass/Vol] 3.7 g/dL Normal [facility] Comment on above: Performed By: #### C BC #### [facility] [address] [place] [address] Dr. Gerber Pimentel Glucose [Mass/Vol] 102 mg/dL Normal 74-106 [facility] Comment on above: Performed By: #### C BC #### [facility] [address] [place] [address] Dr. Gerber Pimentel Potassium [Moles/Vol] 3.2 mmol/L Critically low 3.5-5.1 [facility] Comment on above: Performed By: #### C BC #### [facility] [address] [place] [address] Dr. Gerber Pimentel Protein [Mass/Vol] 6.0 g/dL Critically low 6.4-8.2 [facility] Comment on above: Performed By: #### C BC #### [facility] [address] [place] [address] Dr. Gerber Pimentel Sodium [Moles/Vol] 139 mmol/L Normal 136-145 [facility] Comment on above: Performed By: #### C BC #### [facility] [address] [place] [address] Dr. Gerber Pimentel Urea nitrogen [Mass/Vol] 13.0 mg/dL Normal 7.0-18.0 [facility] Comment on above: Performed By: #### C BC #### [facility] [address] [place] [address] Dr. Gerber Pimentel Urea nitrogen/Creatinin e [Mass ratio] 9.6 mg/mg Normal [facility] Comment on above: Performed By: #### C BC #### [facility] [address] [place] [address] Dr. Gerber Pimentel SED RATE WHITE DEERERGREN 2021 SED RATE 72 mm/hr Critically high <=30 [facility] Comment on above: Performed By: #### S EDR #### [facility] [address] [place] [address] Dr. Gerber Pimentel C. DIFF PCRon 10-18-2021 C. DIFFICILE PCR Negative Normal NEGATIVE [facility] Comment on above: Performed By: #### I NFLUAB #### [facility] [address] [place] [address] Dr. Gerber Pimentel CBC AUTO DIFFon 10-18-2021 BASO # 0.0 103/ul Normal 0.0-0.1 [facility] Comment on above: Performed By: #### L IVLEIGH, LIPID #### [facility] [address] [place] [address] Dr. Gerber Pimentel Basophils/100 WBC (Bld) 0.2 % Normal 0.2-2.0 [facility] Comment on above: Performed By: #### L YU, LIPID #### [facility] [address] [place] [address] Dr. Gerber Pimentel EO # 0.0 103/ul Normal 0.0-0.7 [facility] Comment on above: Performed By: #### L YU LIPID #### [facility] [address] [place] [address] Dr. Gerber Pimentel Eosinophils/100 WBC (Bld) 0.3 % Critically low 0.9-7.0 [facility] Comment on above: Performed By: #### L YU LIPID #### [facility] [address] [place] [address] Dr. Gerber Pimentel Erythrocyte distribution width (RBC) [Ratio] 13.5 % Normal 11.0-15.0 [facility] Comment on above: Performed By: #### L IVLEIGH, LIPID #### [facility] [address] [place] [address] Dr. Gerber Pimentel Hematocrit (Bld) [Volume fraction] 27.9 % Critically low 36.0-48.0 [facility] Comment on above: Performed By: #### L IVLEIGH, LIPID #### [facility] [address] [place] [address] Dr. Gerber Pimentel Hemoglobin (Bld) [Mass/Vol] 9.2 g/dL Critically low 12.0-16.0 [facility] Comment on above: Performed By: #### L IVER, LIPID #### [facility] [address] [address] [address] Gerber Pimentel IG # 0.03 10e3/ul Normal 0.00-0.03 [facility] Comment on above: Performed By: #### L IVER, LIPID #### [facility] [address] [address] [address] Gerber Pimentel IG % 0.5 % Normal 0.0-0.5 [facility] Comment on above: Performed By: #### L IVER, LIPID #### [facility] [address] [place] [address] Dr. Gerber Pimentel LYMPH # 0.8 103/ul Critically low 1.2-3.8 [facility] Comment on above: Performed By: #### L IVER, LIPID #### [facility] [address] [place] [address] Dr. Gerber Pimentel Lymphocytes/100 WBC (Bld) 12.6 % Critically low 20.5-60.0 [facility] Comment on above: Performed By: #### L IVER, LIPID #### [facility] [address] [place] [address] Dr. Gerber Pimentel MANUAL DIFF REQ NO Normal [facility] Comment on above: Performed By: #### L IVER, LIPID #### [facility] [address] [place] [address] Dr. Gerber Pimentel MCH (RBC) [Entitic mass] 29.0 pg Normal 26.7-34.0 [facility] Comment on above: Performed By: #### L IVER, LIPID #### [facility] [address] [place] [address] Dr. Gerber Pimentel MCHC (RBC) [Mass/Vol] 33.0 g/dL Normal 29.9-35.2 [facility] Comment on above: Performed By: #### L IVER, LIPID #### [facility] [address] [place] [address] Dr. Gerber Pimentel MCV (RBC) [Entitic vol] 88.0 fL Normal 81.0-99.0 [facility] Comment on above: Performed By: #### L IVER, LIPID #### [facility] [address] [address] [address] Gerber Pimentel MONO # 0.6 103/ul Normal 0.3-0.8 [facility] Comment on above: Performed By: #### L IVER, LIPID #### [facility] [address] [address] [address] Gerber Pimentel Monocytes/100 WBC (Bld) 9.5 % Normal 1.7-12.0 [facility] Comment on above: Performed By: #### L IVER, LIPID #### [facility] [address] [place] [address] Dr. Gerber Pimentel NEUT # 4.6 103/ul Normal 1.4-6.5 [facility] Comment on above: Performed By: #### L IVER, LIPID #### [facility] [address] [place] [address] Dr. Gerber Pimentel Neutrophils/100 WBC (Bld) 76.9 % Critically high 43.0-75.0 [facility] Comment on above: Performed By: #### L IVER, LIPID #### [facility] [address] [place] [address] Dr. Gerber Pimentel Platelet mean volume (Bld) [Entitic vol] 9.1 fL Critically low 9.5-13.5 [facility] Comment on above: Performed By: #### L IVER, LIPID #### [facility] [address] [place] [address] Dr. Gerber Pimentel PLT 220 103/ul Normal 150-[address] [facility] Comment on above: Performed By: #### L IVER, LIPID #### [facility] [address] [place] [address] Dr. Gerber Pimentel RBC 3.17 106/ul Critically low 4.20-5.[address] [facility] Comment on above: Performed By: #### L IVER, LIPID #### [facility] [address] [place] [address] Dr. Gerber Pimentel WBC 6.0 103/ul Normal 4.0-11.0 [facility] Comment on above: Performed By: #### L IVER, LIPID #### [facility] [address] [place] [address] Dr. Gerber Pimentel CRPon 10-18-2021 CRP 8.4 mg/dL Critically high <=1.0 [facility] Comment on above: Performed By: #### C BC #### [facility] [address] [place] [address] Dr. Gerber Pimentel MAGNESIUMon 10-18-2021 Magnesium [Mass/Vol] 1.9 mg/dL Normal 1.8-2.4 [facility] Comment on above: Performed By: #### L IVLEIGH, LIPID #### [facility] [address] [place] [address] Dr. Gerber Pimentel PROF 14(COMP METB)on 022 Albumin [Mass/Vol] 2.5 g/dL Critically low 3.4-5.0 [facility] Comment on above: Performed By: #### L IVLEIGH, LIPID #### [facility] [address] [place] [address] Dr. Gerber Pimentel Albumin/Globulin [Mass ratio] 0.7 {ratio} Normal [facility] Comment on above: Performed By: #### L YU, LIPID #### [facility] [address] [place] [address] Dr. Gerber Pimentel ALP [Catalytic activity/Vol] 207 U/L Critically high 46-[address] [facility] Comment on above: Performed By: #### L IVLEIGH, LIPID #### [facility] [address] [place] [address] Dr. Gerber Pimentel ALT [Catalytic activity/Vol] 39 U/L Normal 14-59 [facility] Comment on above: Performed By: #### L IVLEIGH, LIPID #### [facility] [address] [place] [address] Dr. Gerber Pimentel Anion gap [Moles/Vol] 15.9 mmol/L Normal [facility] Comment on above: Performed By: #### L IVLEIGH, LIPID #### [facility] [address] [address] [address] Gerber Pimentel AST [Catalytic activity/Vol] 36 U/L Normal 15-37 [facility] Comment on above: Performed By: #### L IVER, LIPID #### [facility] [address] [place] [address] Dr. Gerber Pimentel Bilirubin [Mass/Vol] 0.4 mg/dL Normal 0.2-1.0 [facility] Comment on above: Performed By: #### L IVER, LIPID #### [facility] [address] [place] [address] Dr. Gerber Pimentel Calcium [Mass/Vol] 8.0 mg/dL Critically low 8.5-10.1 [facility] Comment on above: Performed By: #### L IVER, LIPID #### [facility] [address] [place] [address] Dr. Gerber Pimentel Chloride [Moles/Vol] 107 mmol/L Normal 98-107 [facility] Comment on above: Performed By: #### L IVER, LIPID #### [facility] [address] [place] [address] Dr. Gerber Pimentel CO2 [Moles/Vol] 17.7 mmol/L Critically low 21.0-32.0 [facility] Comment on above: Performed By: #### L IVER, LIPID #### [facility] [address] [place] [address] Dr. Gerber Pimentel Creatinine [Mass/Vol] 1.63 mg/dL Critically high 0.55-1.02 [facility] Comment on above: Performed By: #### L IVER, LIPID #### [facility] [address] [place] [address] Dr. Gerber Pimentel EGFR-AF GERMAN 40 mL/min/1.73m2 Critically low >=60 [facility] Comment on above: Performed By: #### L IVER, LIPID #### [facility] [address] [place] [address] Dr. Gerber Pimentel EGFR-NON AF GERMAN 33 mL/min/1.73m2 Critically low >=60 [facility] Comment on above: Performed By: #### L IVER, LIPID #### [facility] [address] [address] [address] Gerber Pimentel Globulin (S) [Mass/Vol] 3.7 g/dL Normal [facility] Comment on above: Performed By: #### L IVER, LIPID #### [facility] [address] [address] [address] Gerber Pimentel Glucose [Mass/Vol] 108 mg/dL Critically high 74-106 [facility] Comment on above: Performed By: #### L IVER, LIPID #### [facility] [address] [place] [address] Dr. Gerber Pimentel Potassium [Moles/Vol] 3.6 mmol/L Normal 3.5-5.1 [facility] Comment on above: Performed By: #### L IVER, LIPID #### [facility] [address] [place] [address] Dr. Gerber Pimentel Protein [Mass/Vol] 6.2 g/dL Critically low 6.4-8.2 [facility] Comment on above: Performed By: #### L IVER, LIPID #### [facility] [address] [place] [address] Dr. Gerber Pimentel Sodium [Moles/Vol] 137 mmol/L Normal 136-145 [facility] Comment on above: Performed By: #### L IVER, LIPID #### [facility] [address] [place] [address] Dr. Gerber Pimentel Urea nitrogen [Mass/Vol] 13.0 mg/dL Normal 7.0-18.0 [facility] Comment on above: Performed By: #### L IVER, LIPID #### [facility] [address] [place] [address] Dr. Gerber Pimentel Urea nitrogen/Creatinin e [Mass ratio] 8.0 mg/mg [facility] Comment on above: Performed By: #### L IVER, LIPID #### [facility] [address] [place] [address] Dr. Gerber Pimentel SED RATE [facility] 2021 SED RATE 80 mm/hr Critically high <=30 [facility] Comment on above: Performed By: #### I NFLUAB #### [facility] [address] [place] [address] Dr. Gerber Pimentel CBC AUTO DIFFon 10-17-2021 BASO # 0.0 103/ul Normal 0.0-0.1 [facility] Comment on above: Performed By: #### C BC #### [facility] [address] [place] [address] Dr. Gerber Pimentel Basophils/100 WBC (Bld) 0.2 % Normal 0.2-2.0 [facility] Comment on above: Performed By: #### C BC #### [facility] [address] [place] [address] Dr. Gerber Pimentel EO # 0.0 103/ul Normal 0.0-0.7 [facility] Comment on above: Performed By: #### C BC #### [facility] [address] [place] [address] Dr. Gerber Pimentel Eosinophils/100 WBC (Bld) 0.6 % Critically low 0.9-7.0 [facility] Comment on above: Performed By: #### C BC #### [facility] [address] [place] [address] Dr. Gerber Pimentel Erythrocyte distribution width (RBC) [Ratio] 13.8 % Normal 11.0-15.0 [facility] Comment on above: Performed By: #### C BC #### [facility] [address] [place] [address] Dr. Gerber Pimentel Hematocrit (Bld) [Volume fraction] 27.7 % Critically low 36.0-48.0 [facility] Comment on above: Performed By: #### C BC #### [facility] [address] [place] [address] Dr. Gerber Pimentel Hemoglobin (Bld) [Mass/Vol] 9.0 g/dL Critically low 12.0-16.0 [facility] Comment on above: Performed By: #### C BC #### [facility] [address] [place] [address] Dr. Gerber Pimentel IG # 0.01 10e3/ul Normal 0.00-0.03 [facility] Comment on above: Performed By: #### C BC #### [facility] [address] [place] [address] Dr. Gerber Pimentel IG % 0.2 % Normal 0.0-0.5 [facility] Comment on above: Performed By: #### C BC #### [facility] [address] [place] [address] Dr. Gerber Pimentel LYMPH # 0.8 103/ul Critically low 1.2-3.8 [facility] Comment on above: Performed By: #### C BC #### [facility] [address] [place] [address] Dr. Gerber Pimentel Lymphocytes/100 WBC (Bld) 15.6 % Critically low 20.5-60.0 [facility] Comment on above: Performed By: #### C BC #### [facility] [address] [place] [address] Dr. Gerber Pimentel MANUAL DIFF REQ NO Normal [facility] Comment on above: Performed By: #### C BC #### [facility] [address] [place] [address] Dr. Gerber Pimentel MCH (RBC) [Entitic mass] 28.8 pg Normal 26.7-34.0 [facility] Comment on above: Performed By: #### C BC #### [facility] [address] [place] [address] Dr. Gerber Pimentel MCHC (RBC) [Mass/Vol] 32.5 g/dL Normal 29.9-35.2 [facility] Comment on above: Performed By: #### C BC #### [facility] [address] [place] [address] Dr. Gerber Pimentel MCV (RBC) [Entitic vol] 88.5 fL Normal 81.0-99.0 [facility] Comment on above: Performed By: #### C BC #### [facility] [address] [place] [address] Dr. Gerber Pimentel MONO # 0.8 103/ul Normal 0.3-0.8 [facility] Comment on above: Performed By: #### C BC #### [facility] [address] [place] [address] Dr. Gerber Pimentel Monocytes/100 WBC (Bld) 14.8 % Critically high 1.7-12.0 [facility] Comment on above: Performed By: #### C BC #### [facility] [address] [place] [address] Dr. Gerber Pimentel NEUT # 3.5 103/ul Normal 1.4-6.5 [facility] Comment on above: Performed By: #### C BC #### [facility] [address] [place] [address] Dr. Gerber Pimentel Neutrophils/100 WBC (Bld) 68.6 % Normal 43.0-75.0 [facility] Comment on above: Performed By: #### C BC #### [facility] [address] [place] [address] Dr. Gerber Pimentel Platelet mean volume (Bld) [Entitic vol] 9.2 fL Critically low 9.5-13.5 [facility] Comment on above: Performed By: #### C BC #### [facility] [address] [place] [address] Dr. Gerber Pimentel PLT 186 103/ul Normal 150-[address] [facility] Comment on above: Performed By: #### C BC #### [facility] [address] [place] [address] Dr. Gerber Pimentel RBC 3.13 106/ul Critically low 4.20-5.[address] [facility] Comment on above: Performed By: #### C BC #### [facility] [address] [place] [address] Dr. Gerber Pimentel WBC 5.1 103/ul Normal 4.0-11.[address] [facility] Comment on above: Performed By: #### C BC #### [facility] [address] [place] [address] Dr. Gerber Pimentel CRPon 10-17-2021 CRP 10.3 mg/dL Critically high <=1.0 [facility] Comment on above: Performed By: #### C BC #### [facility] [address] [place] [address] Dr. Gerber Pimentel MAGNESIUMon 10-17-2021 Magnesium [Mass/Vol] 1.7 mg/dL Critically low 1.8-2.4 [facility] Comment on above: Performed By: #### A 1C #### [facility] [address] [place] [address] Dr. Gerber Pimentel PROF 14(COMP METB)on 022 Albumin [Mass/Vol] 2.5 g/dL Critically low 3.4-5.[address] [facility] Comment on above: Performed By: #### C BC #### [facility] [address] [place] [address] Dr. Gerber Pimentel Albumin/Globulin [Mass ratio] 0.7 {ratio} Normal [facility] Comment on above: Performed By: #### C BC #### [facility] [address] [place] [address] Dr. Gerber Pimentel ALP [Catalytic activity/Vol] 218 U/L Critically high 46-116 [facility] Comment on above: Performed By: #### C BC #### [facility] [address] [place] [address] Dr. Gerber Pimentel ALT [Catalytic activity/Vol] 64 U/L Critically high 14-59 [facility] Comment on above: Performed By: #### C BC #### [facility] [address] [place] [address] Dr. Gerber Pimentel Anion gap [Moles/Vol] 13.1 mmol/L Normal [facility] Comment on above: Performed By: #### C BC #### [facility] [address] [place] [address] Dr. Gerber Pimentel AST [Catalytic activity/Vol] 58 U/L Critically high 15-37 [facility] Comment on above: Performed By: #### C BC #### [facility] [address] [place] [address] Dr. Gerber Pimentel Bilirubin [Mass/Vol] 0.5 mg/dL Normal 0.2-1.0 [facility] Comment on above: Performed By: #### C BC #### [facility] [address] [address] [address] Gerber Pimentel Calcium [Mass/Vol] 8.1 mg/dL Critically low 8.5-10.[address] [facility] Comment on above: Performed By: #### C BC #### [facility] [address] [address] [address] Gerber Pimentel Chloride [Moles/Vol] 103 mmol/L Normal 98-107 [facility] Comment on above: Performed By: #### C BC #### [facility] [address] [address] [address] Gerber Pimentel CO2 [Moles/Vol] 20.5 mmol/L Critically low 21.0-32.0 [facility] Comment on above: Performed By: #### C BC #### [facility] [address] [address] [address] Gerber Pimentel Creatinine [Mass/Vol] 2.12 mg/dL Critically high 0.55-1.02 [facility] Comment on above: Performed By: #### C BC #### [facility] [address] [address] [address] Gerber Pimentel EGFR-AF GERMAN 30 mL/min/1.73m2 Critically low >=60 [facility] Comment on above: Performed By: #### C BC #### [facility] [address] [address] [address] Gerber Pimentel EGFR-NON AF GERMAN 24 mL/min/1.73m2 Critically low >=60 [facility] Comment on above: Performed By: #### C BC #### [facility] [address] [address] [address] Gerber Pimentel Globulin (S) [Mass/Vol] 3.7 g/dL Normal [facility] Comment on above: Performed By: #### C BC #### [facility] [address] [address] [address] Gerber Pimentel Glucose [Mass/Vol] 96 mg/dL Normal 74-106 [facility] Comment on above: Performed By: #### C BC #### [facility] [address] [address] [address] Gerber Pimentel Potassium [Moles/Vol] 3.6 mmol/L Normal 3.5-5.1 [facility] Comment on above: Performed By: #### C BC #### [facility] [address] [address] [address] Gerber Pimentel Protein [Mass/Vol] 6.2 g/dL Critically low 6.4-8.2 [facility] Comment on above: Performed By: #### C BC #### [facility] [address] [place] [address] Dr. Gerber Pimentel Sodium [Moles/Vol] 133 mmol/L Critically low 136-145 [facility] Comment on above: Performed By: #### C BC #### [facility] [address] [place] [address] Dr. Gerber Pimentel Urea nitrogen [Mass/Vol] 15.0 mg/dL Normal 7.0-18.0 [facility] Comment on above: Performed By: #### C BC #### [facility] [address] [place] [address] Dr. Gerber Pimentel Urea nitrogen/Creatinin e [Mass ratio] 7.1 mg/mg Normal [facility] Comment on above: Performed By: #### C BC #### [facility] [address] [place] [address] Dr. Gerber Pimentel PROTIMEon 10-17-2021 INR Coag (PPP) [Relative time] 1.02 {INR} Normal [facility] Comment on above: Performed By: #### C BC #### [facility] [address] [place] [address] Dr. Gerber Pimentel INR GUIDELINES SEE BELOW Normal [facility] Comment on above: Result Comment: CLIFF RED INR: 2.0 - 3.0 CONDITIONS NOT LISTED BELOW 2.5 - 3.5 FOR PROSTHETIC HEART VALVE REPLACEMENT 2.5 - 3.5 RECURRENT THROMBOSIS Performed By: #### C BC #### [facility] [address] [place] [address] Dr. Gerber Pimentel PT Coag (PPP) [Time] 11.0 s Normal 9.0-11.[address] [facility] Comment on above: Performed By: #### C BC #### [facility] [address] [place] [address] Dr. Gerber Pimentel SED RATE WESTERGRENon 2021 SED RATE 46 mm/hr Critically high <=[address] [facility] Comment on above: Performed By: #### A 1C #### [facility] [address] [place] [address] Dr. Gerber Pimentel CBC AUTO DIFFon 10-16-2021 BASO # 0.0 103/ul Normal 0.0-0.[address] [facility] Comment on above: Performed By: #### C BC #### [facility] [address] [place] [address] Dr. Gerber Pimentel Basophils/100 WBC (Bld) 0.2 % Normal 0.2-2.0 [facility] Comment on above: Performed By: #### C BC #### [facility] [address] [place] [address] Dr. Gerber Pimentel EO # 0.1 103/ul Normal 0.0-0.[address] [facility] Comment on above: Performed By: #### C BC #### [facility] [address] [place] [address] Dr. Gerber Pimentel Eosinophils/100 WBC (Bld) 1.1 % Normal 0.9-7.0 [facility] Comment on above: Performed By: #### C BC #### [facility] [address] [place] [address] Dr. Gerber Pimentel Erythrocyte distribution width (RBC) [Ratio] 13.9 % Normal 11.0-15.[address] [facility] Comment on above: Performed By: #### C BC #### [facility] [address] [place] [address] Dr. Gerber Pimentel Hematocrit (Bld) [Volume fraction] 29.4 % Critically low 36.0-48.0 [facility] Comment on above: Performed By: #### C BC #### [facility] [address] [address] [address] Gerber Pimentel Hemoglobin (Bld) [Mass/Vol] 9.8 g/dL Critically low 12.0-16.0 [facility] Comment on above: Performed By: #### C BC #### [facility] [facility] [address] [place] [address] Dr. Gerber Pimentel IG # 0.01 10e3/ul Normal 0.00-0.03 [facility] Comment on above: Performed By: #### C BC #### [facility] [address] [place] [address] Dr. Gerber Pimentel IG % 0.2 % Normal 0.0-0.5 [facility] Comment on above: Performed By: #### C BC #### [facility] [address] [place] [address] Dr. Gerber Pimentel LYMPH # 0.9 103/ul Critically low 1.2-3.8 [facility] Comment on above: Performed By: #### C BC #### [facility] [address] [place] [address] Dr. Gerber Pimentel Lymphocytes/100 WBC (Bld) 15.7 % Critically low 20.5-60.0 [facility] Comment on above: Performed By: #### C BC #### [facility] [address] [place] [address] Dr. Gerber Pimentel MANUAL DIFF REQ NO Normal [facility] Comment on above: Performed By: #### C BC #### [facility] [address] [place] [address] Dr. Gerber Pimentel MCH (RBC) [Entitic mass] 29.3 pg Normal 26.7-34.[address] [facility] Comment on above: Performed By: #### C BC #### [facility] [address] [place] [address] Dr. Gerber Pimentel MCHC (RBC) [Mass/Vol] 33.3 g/dL Normal 29.9-35.[address] [facility] Comment on above: Performed By: #### C BC #### [facility] [address] [place] [address] Dr. Gerber Pimentel MCV (RBC) [Entitic vol] 88.0 fL Normal 81.0-99.0 [facility] Comment on above: Performed By: #### C BC #### [facility] [address] [place] [address] Dr. Gerber Pimentel MONO # 0.8 103/ul Normal 0.3-0.[address] [facility] Comment on above: Performed By: #### C BC #### [facility] [address] [place] [address] Dr. Gerber Pimentel Monocytes/100 WBC (Bld) 14.7 % Critically high 1.7-12.0 [facility] Comment on above: Performed By: #### C BC #### [facility] [address] [place] [address] Dr. Gerber Pimentel NEUT # 3.8 103/ul Normal 1.4-6.5 [facility] Comment on above: Performed By: #### C BC #### [facility] [address] [place] [address] Dr. Gerber Pimentel Neutrophils/100 WBC (Bld) 68.1 % Normal 43.0-75.[address] [facility] Comment on above: Performed By: #### C BC #### [facility] [address] [place] [address] Dr. Gerber Pimentel Platelet mean volume (Bld) [Entitic vol] 9.2 fL Critically low 9.5-13.[address] [facility] Comment on above: Performed By: #### C BC #### [facility] [address] [place] [address] Dr. Gerber Pimentel PLT 157 103/ul Normal 150-[address] [facility] Comment on above: Performed By: #### C BC #### [facility] [address] [place] [address] Dr. Gerber Pimentel RBC 3.34 106/ul Critically low 4.20-5.[address] [facility] Comment on above: Performed By: #### C BC #### [facility] [address] [place] [address] Dr. Gerber Pimentel WBC 5.6 103/ul Normal 4.0-11.[address] [facility] Comment on above: Performed By: #### C BC #### [facility] [address] [place], [place] [address] Dr. Gerber Pimentel CRPon 10-16-2021 CRP 9.3 mg/dL Critically high <=1.0 [facility] Comment on above: Performed By: #### P HVEN #### [facility] [address] [place], [place] [address] CHEST WO CONon 10-16-2021 CT CHEST WO CON CT CHEST WO CON CLINICAL: Chest pain, unspecified. Cellulitis of the right breast. COMPARISON: No prior CT is available. TECHNIQUE: High-resolution thin section axial images were obtained from thoracic inlet to the level of the adrenals. Dose reduction: mA and/or kV are were adjusted by automated exposure control software based upon patients height and weight. FINDINGS: Thoracic inlet and axillary structures are grossly intact. Calcified lymph nodes are present in the right hilar region, with a noncalcified lymph node of 10 mm also present in the anterior right hilum. No pericardial effusion. Heart size is normal. Coronary artery calcifications are present. Limited upper abdominal images show no acute findings. Lung windows show calcified granulomas in the right middle and lower lobes. Pleural-based densities at both lung bases are suggestive of atelectasis. No dense regional consolidation or suspicious noncalcified pulmonary nodule. Central airways are patent. Osseous structures show no acute traumatic or destructive lesion. Consistent with patient's clinical history of right breast cellulitis, there is extensive skin thickening involving the right breast and axilla, with mild induration in the subcutaneous fat and asymmetric induration and stranding extending from the presternal region to the medial right breast skin surface. There are surgical clips and irregular soft tissue density in the right breast superficial to the chest wall, with soft tissue component measuring 1.7 cm. No evidence of internal mammary or axillary adenopathy. Multiple surgical clips are present in the right axilla, with lymph nodes up to 7 mm. The left breast and axilla do not show similar inflammatory change. Left axillary node of 9 mm is borderline enlarged. IMPRESSION: 1. Diffuse skin thickening and subcutaneous induration involving the right breast and axilla as well as the presternal subcutaneous tissues. Surgical clips and 1.7 cm nodular density are present in the posterior right breast just superficial to the chest wall, and clips are also present in the right axilla. Right axillary lymph node of 7 mm is not pathologically enlarged by CT criteria. 2. Although right breast cellulitis, per limited history provided, is a consideration, inflammatory breast carcinoma may show a similar appearance, and is of concern in light of the surgical changes present. Correlate with surgical and mammographic history. 3. Borderline enlarged left axillary lymph node of 9 mm and right hilar lymph node of 10 mm, nonspecific, and may be reactive or inflammatory, neoplasm not excluded. Follow-up recommended for these findings. 4. Bibasilar atelectasis without localizing airspace consolidation or suspicious pulmonary nodule. Electronically authenticated by: NICOLE MAXWELL Date: 2021-10-16 11:[address] [facility] MAGNESIUMon 10-16-2021 Magnesium [Mass/Vol] 2.0 mg/dL Normal 1.8-2.4 [facility] Comment on above: Performed By: #### P HVEN #### [facility] [address] [place] [address] Dr. Gerber Pimentel OCC BLD IMMUNOASSAYon 2021 OCCULT BLOOD Negative Normal NEGATIVE [facility] Comment on above: Performed By: #### O CHIN #### [facility] [address] [place] [address] Dr. Gerber Pimentel PROF 14(COMP METB)on 022 Albumin [Mass/Vol] 2.7 g/dL Critically low 3.4-5.0 Th [facility] Comment on above: Performed By: #### P HVEN #### [facility] [address] [place] [address] Dr. Gerber Pimentel Albumin/Globulin [Mass ratio] 0.7 {ratio} Normal [facility] Comment on above: Performed By: #### P HVEN #### [facility] [address] [place] [address] Dr. Gerber Pimentel ALP [Catalytic activity/Vol] 206 U/L Critically high 46-116 [facility] Comment on above: Performed By: #### P HVEN #### [facility] [address] [place] [address] [address] Gerber Pimentel ALT [Catalytic activity/Vol] 88 U/L Critically high 14-59 [facility] Comment on above: Performed By: #### P HVEN #### [facility] [address] [place] [address] Dr. Gerber Pimentel Anion gap [Moles/Vol] 13.9 mmol/L Normal [facility] Comment on above: Performed By: #### P HVEN #### [facility] [address] [place] [address] [address] Gerber Pimentel AST [Catalytic activity/Vol] 82 U/L Critically high 15-37 [facility] Comment on above: Performed By: #### P HVEN #### [facility] [address] [place] [address] Dr. Gerber Pimentel Bilirubin [Mass/Vol] 1.0 mg/dL Normal 0.2-1.0 [facility] Comment on above: Performed By: #### P HVEN #### [facility] [address] [place] [address] Dr. Gerber Pimentel Calcium [Mass/Vol] 8.1 mg/dL Critically low 8.5-10.1 [facility] Comment on above: Performed By: #### P HVEN #### [facility] [address] [place] [address] Dr. Gerber Pimentel Chloride [Moles/Vol] 102 mmol/L Normal 98-107 [facility] Comment on above: Performed By: #### P HVEN #### [facility] [address] [place] [address] Dr. Gerber Pimentel CO2 [Moles/Vol] 22.5 mmol/L Normal 21.0-32.0 [facility] Comment on above: Performed By: #### P HVEN #### [facility] [address] [place] [address] Dr. eGrber Pimentel Creatinine [Mass/Vol] 2.19 mg/dL Critically high 0.55-1.02 [facility] Comment on above: Performed By: #### P HVEN #### [facility] [address] [place], [place] [id number] Dr. Gerber Pimentel EGFR-AF GERMAN 28 mL/min/1.73m2 Critically low >=60 [facility] Comment on above: Performed By: #### P HVEN #### [facility] [address] [place] [address] [address] Gerber Pimentel EGFR-NON AF GERMAN 23 mL/min/1.73m2 Critically low >=60 [facility] Comment on above: Performed By: #### P HVEN #### [facility] [address] [place] [address] [address] Gerber Pimentel Globulin (S) [Mass/Vol] 3.7 g/dL Normal [facility] Comment on above: Performed By: #### P HVEN #### [facility] [address] [place] [address] [address] Gerber Pimentel Glucose [Mass/Vol] 110 mg/dL Critically high 74-[address] [facility] Comment on above: Performed By: #### P HVEN #### [facility] [address] [place] [address] [address] Gerber Pimentel Potassium [Moles/Vol] 3.4 mmol/L Critically low 3.5-5.1 [facility] Comment on above: Performed By: #### P HVEN #### [facility] [address] [place] [address] Dr. Gerber Pimentel Protein [Mass/Vol] 6.4 g/dL Normal 6.4-8.2 [facility] Comment on above: Performed By: #### P HVEN #### [facility] [address] [place] [address] [address] Gerber Pimentel Sodium [Moles/Vol] 135 mmol/L Critically low 136-145 [facility] Comment on above: Performed By: #### P HVEN #### [facility] [address] [place] [address] [address] Gerber Pimentel Urea nitrogen [Mass/Vol] 16.0 mg/dL Normal 7.0-18.0 [facility] Comment on above: Performed By: #### P HVEN #### [facility] [address] [place] [address] [address] Gerber Pimentel Urea nitrogen/Creatinin e [Mass ratio] 7.3 mg/mg Normal [facility] Comment on above: Performed By: #### P HVEN #### [facility] [address] [place] [address] [address] Gerber Pimentel PROF CHEM 8 (BAS METB)on Anion gap [Moles/Vol] 12.3 mmol/L Normal [facility] Comment on above: Performed By: #### C BC #### [facility] [address] [place] [address] Dr. Gerber Pimentel Calcium [Mass/Vol] 7.9 mg/dL Critically low 8.5-10.1 Th [facility] Comment on above: Performed By: #### C BC #### [facility] [address] [place] [address] Dr. Gerber Pimentel Chloride [Moles/Vol] 103 mmol/L Normal 98-107 [facility] Comment on above: Performed By: #### C BC #### [facility] [address] [place] [address] Dr. Gerber Pimentel CO2 [Moles/Vol] 23.3 mmol/L Normal 21.0-32.0 [facility] Comment on above: Performed By: #### C BC #### [facility] [address] [place] [address] Dr. Gerber Pimentel Creatinine [Mass/Vol] 2.21 mg/dL Critically high 0.55-1.02 [facility] Comment on above: Performed By: #### C BC #### [facility] [address] [place] [address] Dr. Gerber Pimentel EGFR-AF GERMAN 28 mL/min/1.73m2 Critically low >=60 [facility] Comment on above: Performed By: #### C BC #### [facility] [address] [place] [address] Dr. Gerber Pimentel EGFR-NON AF GERMAN 23 mL/min/1.73m2 Critically low >=[address] [facility] Comment on above: Performed By: #### C BC #### [facility] [address] [place] [address] [address] Gerber Pimentel Glucose [Mass/Vol] 103 mg/dL Normal 74-106 [facility] Comment on above: Performed By: #### C BC #### [facility] [address] [place] [address] Dr. Gerber Pimentel Potassium [Moles/Vol] 3.6 mmol/L Normal 3.5-5.1 [facility] Comment on above: Performed By: #### C BC #### [facility] [address] [place] [address] Dr. Gerber Pimentel Sodium [Moles/Vol] 135 mmol/L Critically low 136-145 Th [facility] Comment on above: Performed By: #### C BC #### [facility] [address] [place] [address] Dr. Gerber Pimentel Urea nitrogen [Mass/Vol] 17.0 mg/dL Normal 7.0-18.0 [facility] Comment on above: Performed By: #### C BC #### [facility] [address] [place] [address] Dr. Gerber Pimentel Urea nitrogen/Creatinin e [Mass ratio] 7.7 mg/mg Normal [facility] Comment on above: Performed By: #### C BC #### [facility] [address] [place] [address] Dr. Gerber Pimentel SED RATE WESTERGRENon 2021 SED RATE 73 mm/hr Critically high <=30 [facility] Comment on above: Performed By: #### A 1C #### [facility] [address] [place] [address] Dr. Gerber Pimentel CBC AUTO DIFFon 10-15-2021 BASO # 0.0 103/ul Normal 0.0-0.1 [facility] Comment on above: Performed By: #### C BC #### [facility] [address] [place] [address] Dr. Gerber Pimentel Basophils/100 WBC (Bld) 0.2 % Normal 0.2-2.0 [facility] Comment on above: Performed By: #### C BC #### [facility] [address] [place] [address] Dr. Gerber Pimentel EO # 0.0 103/ul Normal 0.0-0.[address] [facility] Comment on above: Performed By: #### C BC #### [facility] [address] [place] [address] Dr. Gerber Pimentel Eosinophils/100 WBC (Bld) 0.6 % Critically low 0.9-7.[address] [facility] Comment on above: Performed By: #### C BC #### [facility] [address] [place] [address] Dr. Gerber Pimentel Erythrocyte distribution width (RBC) [Ratio] 13.8 % Normal 11.0-15.0 [facility] Comment on above: Performed By: #### C BC #### [facility] [address] [place] [address] Dr. Gerber Pimentel Hematocrit (Bld) [Volume fraction] 29.9 % Critically low 36.0-48.0 [facility] Comment on above: Performed By: #### C BC #### [facility] [address] [place] [address] Dr. Gerber Pimentel Hemoglobin (Bld) [Mass/Vol] 9.9 g/dL Critically low 12.0-16.0 [facility] Comment on above: Performed By: #### C BC #### [facility] [address] [place] [address] Dr. Gerber Pimentel IG # 0.03 10e3/ul Normal 0.00-0.[address] [facility] Comment on above: Performed By: #### C BC #### [facility] [address] [place] [address] Dr. Gerber Pimentel IG % 0.6 % Critically high 0.0-0.[address] [facility] Comment on above: Performed By: #### C BC #### [facility] [address] [place] [address] Dr. Gebrer Pimentel LYMPH # 0.8 103/ul Critically low 1.2-3.[address] [facility] Comment on above: Performed By: #### C BC #### [facility] [address] [place] [address] Dr. Gerber Pimentel Lymphocytes/100 WBC (Bld) 15.0 % Critically low 20.5-60.[address] [facility] Comment on above: Performed By: #### C BC #### [facility] [address] [place] [address] Dr. Gerber Pimentel MANUAL DIFF REQ NO Normal [facility] Comment on above: Performed By: #### C BC #### [facility] [address] [place] [address] Dr. Gerber Pimentel MCH (RBC) [Entitic mass] 29.2 pg Normal 26.7-34.[address] [facility] Comment on above: Performed By: #### C BC #### [facility] [address] [place] [address] Dr. Gerber Pimentel MCHC (RBC) [Mass/Vol] 33.1 g/dL Normal 29.9-35.[address] [facility] Comment on above: Performed By: #### C BC #### [facility] [address] [place] [address] Dr. Gerber Pimentel MCV (RBC) [Entitic vol] 88.2 fL Normal 81.0-99.[address] [facility] Comment on above: Performed By: #### C BC #### [facility] [address] [place] [address] Dr. Gerber Pimentel MONO # 0.5 103/ul Normal 0.3-0.[address] [facility] Comment on above: Performed By: #### C BC #### [facility] [address] [place] [address] Dr. Gerber Pimentel Monocytes/100 WBC (Bld) 10.0 % Normal 1.7-12.[address] [facility] Comment on above: Performed By: #### C BC #### [facility] [address] [place] [address] Dr. Gerber Pimentel NEUT # 3.7 103/ul Normal 1.4-6.[address] [facility] Comment on above: Performed By: #### C BC #### [facility] [address] [place], [place] [id number] Dr. Gerber Pimentel Neutrophils/100 WBC (Bld) 73.6 % Normal 43.0-75.0 [facility] Comment on above: Performed By: #### C BC #### [facility] [address] [place] [address] Dr. Gerber Pimentel Platelet mean volume (Bld) [Entitic vol] 8.8 fL Critically low 9.5-13.5 [facility] Comment on above: Performed By: #### C BC #### [facility] [address] [place] [address] Dr. Gerber Pimentel PLT 143 103/ul Critically low 150-450 [facility] Comment on above: Performed By: #### C BC #### [facility] [address] [place] [address] Dr. Gerber Pimentel RBC 3.39 106/ul Critically low 4.20-5.40 [facility] Comment on above: Performed By: #### C BC #### [facility] [address] [place] [address] Dr. Gerber Pimentel WBC 5.0 103/ul Normal 4.0-11.0 [facility] Comment on above: Performed By: #### C BC #### [facility] [address] [place] [address] Dr. Gerber Pimentel CRPon 10-15-2021 CRP 10.3 mg/dL Critically high <=1.0 [facility] Comment on above: Performed By: #### A 1C #### [facility] [address] [place] [address] Dr. Gerber Pimentel MAGNESIUMon 10-15-2021 Magnesium [Mass/Vol] 1.7 mg/dL Critically low 1.8-2.4 [facility] Comment on above: Performed By: #### A 1C #### [facility] [address] [place] [address] Dr. Gerber Pimentel PROF 14(COMP METB)on 022 Albumin [Mass/Vol] 2.7 g/dL Critically low 3.4-5.0 [facility] Comment on above: Performed By: #### A 1C #### [facility] [address] [place] [address] [address] Gerber Pimentel Albumin/Globulin [Mass ratio] 0.8 {ratio} Normal [facility] Comment on above: Performed By: #### A 1C #### [facility] [address] [place] [address] [address] Gerber Pimentel ALP [Catalytic activity/Vol] 160 U/L Critically high 46-116 [facility] Comment on above: Performed By: #### A 1C #### [facility] [address] [place] [address] Dr. Gerber Pimentel ALT [Catalytic activity/Vol] 85 U/L Critically high 14-59 [facility] Comment on above: Performed By: #### A 1C #### [facility] [address] [place] [address] Dr. Gerber Pimentel Anion gap [Moles/Vol] 12.5 mmol/L Normal [facility] Comment on above: Performed By: #### A 1C #### [facility] [address] [place] [address] Dr. Gerber Pimentel AST [Catalytic activity/Vol] 78 U/L Critically high 15-37 [facility] Comment on above: Performed By: #### A 1C #### [facility] [address] [place] [address] Dr. Gerber Pimentel Bilirubin [Mass/Vol] 1.2 mg/dL Critically high 0.2-1.0 [facility] Comment on above: Performed By: #### A 1C #### [facility] [address] [place] [address] Dr. Gerber Pimentel Calcium [Mass/Vol] 7.8 mg/dL Critically low 8.5-10.[address] [facility] Comment on above: Performed By: #### A 1C #### [facility] [address] [place] [address] Dr. Gerber Pimentel Chloride [Moles/Vol] 105 mmol/L Normal 98-107 [facility] Comment on above: Performed By: #### A 1C #### [facility] [address] [place] [address] Dr. Gerber Pimentel CO2 [Moles/Vol] 22.0 mmol/L Normal 21.0-32.0 [facility] Comment on above: Performed By: #### A 1C #### [facility] [address] [address] [address] Gerber Pimentel Creatinine [Mass/Vol] 1.37 mg/dL Critically high 0.55-1.02 [facility] Comment on above: Performed By: #### A 1C #### [facility] [address] [address] [address] Gerber Pimentel EGFR-AF GERMAN 49 mL/min/1.73m2 Critically low >=60 [facility] Comment on above: Performed By: #### A 1C #### [facility] [address] [place] [address] Dr. Gerber Pimentel EGFR-NON AF GERMAN 40 mL/min/1.73m2 Critically low >=60 [facility] Comment on above: Performed By: #### A 1C #### [facility] [address] [place] [address] Dr. Gerber Pimentel Globulin (S) [Mass/Vol] 3.4 g/dL Normal [facility] Comment on above: Performed By: #### A 1C #### [facility] [address] [place] [address] Dr. Gerber Pimentel Glucose [Mass/Vol] 102 mg/dL Normal 74-106 [facility] Comment on above: Performed By: #### A 1C #### [facility] [facility] [address] [address] [address] Gerber Pimentel Potassium [Moles/Vol] 3.5 mmol/L Normal 3.5-5.1 [facility] Comment on above: Performed By: #### A 1C #### [facility] [address] [place] [address] Dr. Gerber Pimentel Protein [Mass/Vol] 6.1 g/dL Critically low 6.4-8.2 [facility] Comment on above: Performed By: #### A 1C #### [facility] [address] [place] [address] Dr. Gerber Pimentel Sodium [Moles/Vol] 136 mmol/L Normal 136-[address] [facility] Comment on above: Performed By: #### A 1C #### [facility] [address] [place] [address] Dr. Gerber Pimentel Urea nitrogen [Mass/Vol] 13.0 mg/dL Normal 7.0-18.0 [facility] Comment on above: Performed By: #### A 1C #### [facility] [address] [place] [address] Dr. Gerber Pimentel Urea nitrogen/Creatinin e [Mass ratio] 9.5 mg/mg Normal [facility] Comment on above: Performed By: #### A 1C #### [facility] [address] [place] [address] Dr. Gerber Pimentel [facility] RATE 40 mm/hr Critically high <=30 [facility] Comment on above: Performed By: #### C BC #### [facility] [address] [place] [address] Dr. Gerber Pimentel CBC AUTO DIFFon 10-14-2021 BASO # 0.0 103/ul Normal 0.0-0.1 [facility] Comment on above: Performed By: #### Angelique NICHOLAS LIPID #### [facility] [address] [place] [address] Dr. Gerber Pimentel Basophils/100 WBC (Bld) 0.2 % Normal 0.2-2.0 [facility] Comment on above: Performed By: #### Angelique NICHOLAS LIPID #### [facility] [address] [place] [address] Dr. Gerber Pimentel EO # 0.0 103/ul Normal 0.0-0.[address] [facility] Comment on above: Performed By: #### L YU LIPID #### [facility] [address] [place] [address] Dr. Gerber Pimentel Eosinophils/100 WBC (Bld) 0.0 % Critically low 0.9-7.0 [facility] Comment on above: Performed By: #### L YU LIPID #### [facility] [address] [address] [address] Gerber Pimentel Erythrocyte distribution width (RBC) [Ratio] 13.9 % Normal 11.0-15.0 [facility] Comment on above: Performed By: #### L IVER, LIPID #### [facility] [address] [place] [address] Dr. Gerber Pimentel Hematocrit (Bld) [Volume fraction] 34.3 % Critically low 36.0-48.0 [facility] Comment on above: Performed By: #### L IVER, LIPID #### [facility] [address] [place] [address] Dr. Gerber Pimentel Hemoglobin (Bld) [Mass/Vol] 11.3 g/dL Critically low 12.0-16.0 [facility] Comment on above: Performed By: #### L IVER, LIPID #### [facility] [address] [place] [address] Dr. Gerber Pimentel IG # 0.05 10e3/ul Critically high 0.00-0.03 [facility] Comment on above: Performed By: #### L IVER, LIPID #### [facility] [address] [place] [address] Dr. Gerber Pimentel IG % 0.8 % Critically high 0.0-0.5 [facility] Comment on above: Performed By: #### L IVER, LIPID #### [facility] [address] [place] [address] Dr. Gerber Pimentel LYMPH # 0.5 103/ul Critically low 1.2-3.[address] [facility] Comment on above: Performed By: #### L IVER, LIPID #### [facility] [address] [place] [address] Dr. Gerber Pimentel Lymphocytes/100 WBC (Bld) 8.3 % Critically low 20.5-60.0 [facility] Comment on above: Performed By: #### L IVER, LIPID #### [facility] [address] [place] [address] Dr. Gerber Pimentel MANUAL DIFF REQ NO Normal [facility] Comment on above: Performed By: #### L IVER, LIPID #### [facility] [address] [place] [address] Dr. Gerber Pimentel MCH (RBC) [Entitic mass] 28.8 pg Normal 26.7-34.0 [facility] Comment on above: Performed By: #### L IVER, LIPID #### [facility] [address] [place] [address] Dr. Gerber Pimentel MCHC (RBC) [Mass/Vol] 32.9 g/dL Normal 29.9-35.[address] [facility] Comment on above: Performed By: #### L IVER, LIPID #### [facility] [address] [place] [address] Dr. Gerber Pimentel MCV (RBC) [Entitic vol] 87.3 fL Normal 81.0-99.0 [facility] Comment on above: Performed By: #### L IVER, LIPID #### [facility] [address] [place] [address] Dr. Gerber Pimentel MONO # 0.4 103/ul Normal 0.3-0.8 [facility] Comment on above: Performed By: #### L IVER, LIPID #### [facility] [address] [place] [address] Dr. Gerber Pimentel Monocytes/100 WBC (Bld) 6.7 % Normal 1.7-12.0 [facility] Comment on above: Performed By: #### L IVER, LIPID #### [facility] [address] [place] [address] Dr. Gerber Pimentel NEUT # 5.4 103/ul Normal 1.4-6.[address] [facility] Comment on above: Performed By: #### L IVER, LIPID #### [facility] [address] [place] [address] Dr. Gerber Pimentel Neutrophils/100 WBC (Bld) 84.0 % Critically high 43.0-75.0 [facility] Comment on above: Performed By: #### L IVER, LIPID #### [facility] [address] [place] [address] Dr. Gerber Pimentel Platelet mean volume (Bld) [Entitic vol] 8.7 fL Critically low 9.5-13.5 [facility] Comment on above: Performed By: #### L IVER, LIPID #### [facility] [address] [place] [address] Dr. Gerber Pimentel PLT 189 103/ul Normal 150-[address] [facility] Comment on above: Performed By: #### L IVER, LIPID #### [facility] [address] [place] [address] Dr. Gerber Pimentel RBC 3.93 106/ul Critically low 4.20-5.40 [facility] Comment on above: Performed By: #### L IVER, LIPID #### [facility] [address] [place] [address] Dr. Gerber Pimentel WBC 6.4 103/ul Normal 4.0-11.0 [facility] Comment on above: Performed By: #### L IVER, LIPID #### [facility] [address] [place] [address] Dr. Gerber Pimentel BASO # 0.0 103/ul Normal 0.0-0.1 [facility] Comment on above: Performed By: #### C BC #### [facility] [address] [place] [address] Dr. Gerber Pimentel Basophils/100 WBC (Bld) 0.1 % Critically low 0.2-2.0 [facility] Comment on above: Performed By: #### C BC #### [facility] [address] [place] [address] Dr. Gerber Pimentel EO # 0.0 103/ul Normal 0.0-0.7 [facility] Comment on above: Performed By: #### C BC #### [facility] [address] [place] [address] Dr. Gerber Pimentel Eosinophils/100 WBC (Bld) 0.0 % Critically low 0.9-7.[address] [facility] Comment on above: Performed By: #### C BC #### [facility] [address] [place] [address] Dr. Gerber Pimentel Erythrocyte distribution width (RBC) [Ratio] 13.6 % Normal 11.0-15.0 [facility] Comment on above: Performed By: #### C BC #### [facility] [address] [place] [address] Dr. Gerber Pimentel Hematocrit (Bld) [Volume fraction] 36.6 % Normal 36.0-48.0 [facility] Comment on above: Performed By: #### C BC #### [facility] [address] [place] [address] Dr. Gerber Pimentel Hemoglobin (Bld) [Mass/Vol] 12.5 g/dL Normal 12.0-16.0 [facility] Comment on above: Performed By: #### C BC #### [facility] [address] [place] [address] Dr. Gerber Pimentel IG # 0.03 10e3/ul Normal 0.00-0.03 [facility] Comment on above: Performed By: #### C BC #### [facility] [address] [place] [address] Dr. Gerber Pimentel IG % 0.3 % Normal 0.0-0.5 [facility] Comment on above: Performed By: #### C BC #### [facility] [address] [place] [address] Dr. Gerber Pimentel LYMPH # 0.6 103/ul Critically low 1.2-3.8 [facility] Comment on above: Performed By: #### C BC #### [facility] [address] [place] [address] Dr. Gerber Pimentel Lymphocytes/100 WBC (Bld) 6.7 % Critically low 20.5-60.0 [facility] Comment on above: Performed By: #### C BC #### [facility] [address] [place] [address] Dr. Gerber Pimentel MANUAL DIFF REQ NO Normal [facility] Comment on above: Performed By: #### C BC #### [facility] [address] [place] [address] Dr. Gerber Pimentel MCH (RBC) [Entitic mass] 29.3 pg Normal 26.7-34.0 [facility] Comment on above: Performed By: #### C BC #### [facility] [address] [address] [address] Gerber Pimentel MCHC (RBC) [Mass/Vol] 34.2 g/dL Normal 29.9-35.2 [facility] Comment on above: Performed By: #### C BC #### [facility] [address] [address] [address] Gerber Pimentel MCV (RBC) [Entitic vol] 85.7 fL Normal 81.0-99.0 [facility] Comment on above: Performed By: #### C BC #### [facility] [address] [address] [address] Gerber Pimentel MONO # 0.3 103/ul Normal 0.3-0.8 [facility] Comment on above: Performed By: #### C BC #### [facility] [address] [address] [address] Gerber Pimentel Monocytes/100 WBC (Bld) 3.9 % Normal 1.7-12.0 [facility] Comment on above: Performed By: #### C BC #### [facility] [address] [address] [address] Gerber Pimentel NEUT # 7.8 103/ul Critically high 1.4-6.5 [facility] Comment on above: Performed By: #### C BC #### [facility] [address] [address] [address] Gerber Pimentel Neutrophils/100 WBC (Bld) 89.0 % Critically high 43.0-75.0 [facility] Comment on above: Performed By: #### C BC #### [facility] [address] [address] [address] Gerber Pimentel Platelet mean volume (Bld) [Entitic vol] 8.8 fL Critically low 9.5-13.5 [facility] Comment on above: Performed By: #### C BC #### [facility] [address] [address] [address] Gerber Pimentel PLT 239 103/ul Normal 150-[address] [facility] Comment on above: Performed By: #### C BC #### [facility] [address] [place] [address] Dr. Gerber Pimentel RBC 4.27 106/ul Normal 4.20-5.40 [facility] Comment on above: Performed By: #### C BC #### [facility] [address] [place] [address] Dr. Gerber Pimentel WBC 8.8 103/ul Normal 4.0-11.0 [facility] Comment on above: Performed By: #### C BC #### [facility] [address] [place] [address] Dr. Gerber Pimentel CRPon 10-14-2021 CRP 9.8 mg/dL Critically high <=1.0 [facility] Comment on above: Performed By: #### L IVER, LIPID #### [facility] [address] [place] [address] Dr. Gerber Pimentel CULTURE BLOODon 10-14-2021 Microscopic examination of blood, culture Culture Observations: NO GROWTH AT 5 DAYS. Normal [facility] Comment on above: Performed By: #### P HVEN #### [facility] [address] [place] [address] Dr. Gerber Pimentel Microscopic examination of blood, culture Culture Observations: NO GROWTH AT 5 DAYS. Normal [facility] Comment on above: Performed By: #### P HVEN #### [facility] [address] [place] [address] Dr. Gerber Pimentel [facility] SARS-CoV-2 (COVID-19) RNA SLOANE+probe Ql (Unsp spec) Not detected Normal NOT DETECTED [facility] Comment on above: Result Comment: When diagnostic testing is negative, the possibility of a false negative should be considered in the context of a patient's recent exposures and the presence of clinical signs and symptoms consistent with SARS-CoV-2. This test is not yet approved or cleared by the [place] FDA. When there are no FDA-approved or cleared tests available, and other criteria are met, FDA can make tests available under an emergency access mechanism called an Emergency Use Authorization (EUA). The EUA for this test is supported by the [employer] of Health and Human Service's declaration that circumstances exist to justify the emergency use of in vitro diagnostics for the detection and/or diagnosis of the virus that causes COVID-19. This EUA will remain in effect for the duration of the COVID-19 declaration justifying emergency of IVDs, unless it is terminated or revoked by the FDA (after which the test may no longer be used). Performed By: #### L IVLEIGH LIPID #### [facility] [address] [place] [address] Dr. Gerber Pimentel LACTATE/LACTIC ACIDon 2021 Lactate [Moles/Vol] 0.9 mmol/L Normal 0.4-1.9 [facility] Comment on above: Performed By: #### P HVEN #### [facility] [address] [place] [address] Dr. Gerber Pimentel MAGNESIUMon 10-14-2021 Magnesium [Mass/Vol] 1.6 mg/dL Critically low 1.8-2.4 [facility] Comment on above: Performed By: #### L IVLEIGH LIPID #### [facility] [address] [place] [address] Dr. Gerber Pimentel PH VENOUS BLOODon 10-14-2021 PCO2 VENOUS 30.7 mmHg Critically low 40.0-52.0 [facility] Comment on above: Performed By: #### P HVEN #### [facility] [address] [place] [address] Dr. Gerber Pimentel pH VENOUS 7.424 Normal 7.330-7.430 [facility] Comment on above: Performed By: #### P HVEN #### [facility] [address] [place] [address] Dr. Gerber Pimentel PROF 14(COMP METB)on 022 Albumin [Mass/Vol] 3.1 g/dL Critically low 3.4-5.0 [facility] Comment on above: Performed By: #### L IVER, LIPID #### [facility] [address] [place] [address] Dr. Gerber Pimentel Albumin/Globulin [Mass ratio] 0.8 {ratio} Normal [facility] Comment on above: Performed By: #### L IVER, LIPID #### [facility] [address] [address] [address] Gerber Pimentel ALP [Catalytic activity/Vol] 127 U/L Critically high 46-116 [facility] Comment on above: Performed By: #### L IVER, LIPID #### [facility] [address] [address] [address] Gerber Pimentel ALT [Catalytic activity/Vol] 66 U/L Critically high 14-59 [facility] Comment on above: Performed By: #### L IVER, LIPID #### [facility] [address] [address] [address] Gerber Pimentel Anion gap [Moles/Vol] 12.6 mmol/L Normal [facility] Comment on above: Performed By: #### L IVER, LIPID #### [facility] [address] [address] [address] Gerber Pimentel AST [Catalytic activity/Vol] 87 U/L Critically high 15-37 [facility] Comment on above: Performed By: #### L IVER, LIPID #### [facility] [address] [address] [address] Gerber Pimentel Bilirubin [Mass/Vol] 1.3 mg/dL Critically high 0.2-1.0 [facility] Comment on above: Performed By: #### L IVER, LIPID #### [facility] [address] [address] [address] Gerber Pimentel Calcium [Mass/Vol] 7.8 mg/dL Critically low 8.5-10.1 [facility] Comment on above: Performed By: #### L IVER, LIPID #### [facility] [address] [address] [address] Gerber Pimentel Chloride [Moles/Vol] 102 mmol/L Normal 98-107 [facility] Comment on above: Performed By: #### L IVER, LIPID #### [facility] [address] [address] [address] Gerber Pimentel CO2 [Moles/Vol] 23.5 mmol/L Normal 21.0-32.0 [facility] Comment on above: Performed By: #### L IVER, LIPID #### [facility] [address] [place] [address] Dr. Gerber Pimentel Creatinine [Mass/Vol] 0.77 mg/dL Normal 0.55-1.02 [facility] Comment on above: Performed By: #### L IVER, LIPID #### [facility] [address] [place] [address] Dr. Gerber Pimentel EGFR-AF GERMAN >60 Normal >=60 [facility] Comment on above: Performed By: #### L IVER, LIPID #### [facility] [address] [place] [address] Dr. Gerber Pimentel EGFR-NON AF GERMAN >60 Normal >=60 [facility] Comment on above: Performed By: #### L IVER, LIPID #### [facility] [address] [place] [address] Dr. Gerber Pimentel Globulin (S) [Mass/Vol] 3.7 g/dL Normal [facility] Comment on above: Performed By: #### L IVER, LIPID #### [facility] [address] [place] [address] Dr. Gerber Pimentel Glucose [Mass/Vol] 119 mg/dL Critically high 74-[address] [facility] Comment on above: Performed By: #### L IVER, LIPID #### [facility] [address] [place] [address] Dr. Gerber Pimentel Potassium [Moles/Vol] 4.1 mmol/L Normal 3.5-5.1 [facility] Comment on above: Performed By: #### L IVER, LIPID #### [facility] [address] [place] [address] Dr. Gerber Pimentel Protein [Mass/Vol] 6.8 g/dL Normal 6.4-8.2 [facility] Comment on above: Performed By: #### L IVER, LIPID #### [facility] [address] [place] [address] Dr. Gerber Pimentel Sodium [Moles/Vol] 134 mmol/L Critically low 136-145 [facility] Comment on above: Performed By: #### L YU LIPID #### [facility] [address] [place] [address] Dr. Gerber Pimentel Urea nitrogen [Mass/Vol] 13.0 mg/dL Normal 7.0-18.0 [facility] Comment on above: Performed By: #### L YU LIPID #### [facility] [address] [place] [address] Dr. Gerber Pimentel Urea nitrogen/Creatinin e [Mass ratio] 16.9 mg/mg Normal [facility] Comment on above: Performed By: #### L UY LIPID #### [facility] [address] [place] [address] Dr. Gerber Pimentel Albumin [Mass/Vol] 3.8 g/dL Normal 3.4-5.0 [facility] Comment on above: Performed By: #### A 1C #### [facility] [address] [place] [address] Dr. Gerber Pimentel Albumin/Globulin [Mass ratio] 1.0 {ratio} Normal [facility] Comment on above: Performed By: #### A 1C #### [facility] [address] [place] [address] Dr. Gerber Pimentel ALP [Catalytic activity/Vol] 138 U/L Critically high 46-116 [facility] Comment on above: Performed By: #### A 1C #### [facility] [address] [place] [address] Dr. Gerber Pimentel ALT [Catalytic activity/Vol] 42 U/L Normal 14-59 [facility] Comment on above: Performed By: #### A 1C #### [facility] [address] [address] [address] Gerber Pimentel Anion gap [Moles/Vol] 14.1 mmol/L Normal [facility] Comment on above: Performed By: #### A 1C #### [facility] [address] [place] [address] Dr. Gerber Pimentel AST [Catalytic activity/Vol] 33 U/L Normal 15-37 [facility] Comment on above: Performed By: #### A 1C #### [facility] [address] [address] [address] Gerber Pimentel Bilirubin [Mass/Vol] 1.2 mg/dL Critically high 0.2-1.0 [facility] Comment on above: Performed By: #### A 1C #### [facility] [address] [address] [address] Gerber Pimentel Calcium [Mass/Vol] 8.7 mg/dL Normal 8.5-10.1 [facility] Comment on above: Performed By: #### A 1C #### [facility] [address] [address] [address] Gerber Pimentel Chloride [Moles/Vol] 100 mmol/L Normal 98-107 [facility] Comment on above: Performed By: #### A 1C #### [facility] [address] [address] [address] Gerber Pimentel CO2 [Moles/Vol] 20.2 mmol/L Critically low 21.0-32.0 [facility] Comment on above: Performed By: #### A 1C #### [facility] [address] [address] [address] Gerber Pimentel Creatinine [Mass/Vol] 0.84 mg/dL Normal 0.55-1.02 [facility] Comment on above: Performed By: #### A 1C #### [facility] [address] [address] [address] Gerber Pimentel EGFR-AF GERMAN >60 Normal >=[address] [facility] Comment on above: Performed By: #### A 1C #### [facility] [address] [address] [address] Gerber Pimentel EGFR-NON AF GERMAN >60 Normal >=60 [facility] Comment on above: Performed By: #### A 1C #### [facility] [address] [address] [address] Gerber Pimentel Globulin (S) [Mass/Vol] 3.9 g/dL Normal [facility] Comment on above: Performed By: #### A 1C #### [facility] [address] [address] [address] Gerber Pimentel Glucose [Mass/Vol] 128 mg/dL Critically high 74-[address] [facility] Comment on above: Performed By: #### A 1C #### [facility] [address] [place] [address] Dr. Gerber Pimentel Potassium [Moles/Vol] 3.3 mmol/L Critically low 3.5-5.1 [facility] Comment on above: Performed By: #### A 1C #### [facility] [address] [address] [address] Gerber Pimentel Protein [Mass/Vol] 7.7 g/dL Normal 6.4-8.2 [facility] Comment on above: Performed By: #### A 1C #### [facility] [address] [place] [address] Dr. Gerber Pimentel Sodium [Moles/Vol] 131 mmol/L Critically low 136-145 [facility] Comment on above: Performed By: #### A 1C #### [facility] [address] [place] [address] Dr. Gerber Pimentel Urea nitrogen [Mass/Vol] 15.0 mg/dL Normal 7.0-18.0 [facility] Comment on above: Performed By: #### A 1C #### [facility] [address] [place] [address] Dr. Gerber Pimentel Urea nitrogen/Creatinin e [Mass ratio] 17.9 mg/mg Normal [facility] Comment on above: Performed By: #### A 1C #### [facility] [address] [place] [address] Dr. Gerber Pimentel SED RATE [facility] 2021 SED RATE 33 mm/hr Critically high <=30 [facility] Comment on above: Performed By: #### P HVEN #### [facility] [address] [place] [address] Dr. Gerber Pimentel OBSOLETEon 07-27-2020 OBSOLETE Refill (HEMASA) EDITHHARLEY POTTS ([id number]) 1970 F Date Time Provider Department 07/27/20 HARRISON HEAD During your visit today, we recorded the following information about you: Allergies As of Date: 07/27/2020 (No Known Allergies) Date Reviewed: 08/26/2019 Reviewed by: Talia Brasher MA STUDENT - Fully Assessed Reason for Visit: Refill Request [94] Order(s):venlafaxine ER (EFFEXOR XR) 75 mg 24 hr capsuleTAKE 1 CAPSULE BY MOUTH EVERY DAYDisp: 90 capsuleRfl: 3 Prescriptions as of 07/27/2020 Sig: VENLAFAXINE ER 75 MG CAPSULE,* TAKE 1 CAPSULE BY MOUTH EVERY* TAMOXIFEN 20 MG TABLET TAKE 1 TABLET BY MOUTH EVERY * PERCOCET ORAL Take by mouth as needed. VENTOLIN HFA 90 MCG/ACTUATION* OMEPRAZOLE MAGNESIUM 20 MG TA* Take 20 mg by mouth once lucila* Problem List As Of Date 07/27/2020 Noted Resolved Malignant neoplasm of female breast (HCC) [C50.*02/02/2014 12/04/2014 Radiotherapy follow-up examination [Z09] 12/04/2014 Breast cancer of lower-outer quadrant of right *12/04/2014 History of breast cancer [Z85.3] 05/25/2015 Prescriptions ordered this encounter Disp Refills Start End VENLAFAXINE ER 75 MG CAPSULE,EXTENDE* 90 c* 3 07/27/2020 Sig: TAKE 1 CAPSULE BY MOUTH EVERY DAY Medications Discontinued During This Encounter Prescriptions - venlafaxine ER (EFFEXOR XR) 75 mg 24 hr capsule (Discontinued) Take 1 capsule by mouth once daily. Encounter Status:Closed by HARRISON HEAD on 07/27/[address] [facility] OT-MG MAMM SEBASTIAN DIAG W CAD IM PORTon 07-11-2019 OT-MG MAMM SEBASTIAN DIAG W CAD IMPORT Images were obtained outside of [facility] [id number] [facility] Vital Signs Date Time Vital Sign Value Performing Clinician Portia vera 10-25-2021 14:45-0400 Blood Pressure Location Nahid MAYAL [facility] [place] 10-25-2021 14:45-0400 Diastolic blood pressure 104 mm[Hg] Nahid MAYAL [facility] [place] 10-25-2021 14:45-0400 Heart rate 80 /min Nahid MAYAL [facility] [place] 10-25-2021 14:45-0400 Respiratory rate 16 /min Nahid MAYAL [facility] [place] 10-25-2021 14:45-0400 Systolic blood pressure 144 mm[Hg] Nahid MAYAL [facility] [place] Encounters Encounter Date Encounter Type Care Provider Facility Start: 06-21-2022 End: 06-22-[address] DEBRA CONCEPCION . Facility:[facility] Start: 06-20-2022 End: 06-21-[address] DEBRA CONCEPCION . Facility:[facility] Start: 06-16-2022 End: 06-17-[address] DEBRA CONCEPCION . Facility:[facility] Start: 04-29-2022 Refill Harrison Head MD Work Phone: Hematology/Oncology Comment on above: Refill Request Start: 04-14-2022 End: 04-14-[address] DEBRA CONCEPCION . Facility:[facility] Start: 02-22-2022 End: 02-22-[address] DEBRA CONCEPCION . Facility:[facility] Start: 02-21-2022 End: 02-22-[address] DEBRA CONCEPCION . Facility:[facility] Start: 02-04-2022 Encounter for genera l adult medical examination without abnormal findings DR DEBRA CONCEPCION . [facility] Start: 02-01-2022 End: 02-02-[address] DEBRA CONCEPCION . Facility:[facility] Start: 02-01-2022 End: 02-02-2022 Encounter for general adult medical examination without abnormal findings DR DEBRA CONCEPCION . Facility:[facility] Start: 01-24-2022 End: 01-25-2022 ambulatory Debra Concepcion PROVIDER [facility] Start: 01-24-2022 End: 01-24-2022 Patient encounter procedure Debra Concepcion [facility] Start: 11-03-2021 End: 11-04-[address] DEBRA CONCEPCION . Facility: Start: 11-01-2021 End: 11-02-[address] DEBRA CONCEPCION . Facility: Start: 10-25-2021 End: 10-26-2021 ambulatory Nahid PALOMO Facility: [facility] Start: 10-25-2021 End: 10-25-2021 Patient encounter procedure Nahid PALOMO [facility] Start: 10-14-2021 End: 10-20-2021 Evaluation and management of inpatient DR DEBRA CONCEPCION . Facility: Start: 06-25-2021 Refill Harrison Head MD Work Phone: Hematology/Oncology Comment on above: Refill Request Procedures Date Procedure Procedure Detail Performing Clinician Start: 10-17-2021 Insertion of Infusion Device into Right Basilic Vein, Percutaneous Approach DR DEBRA CONCEPCION . Start: 08-26-2019 Adult depression screening assessment Harrison Head MD Work Phone: Start: 04-26-2011 Esophagogastroduodenoscopy Nahid MAYAL Arthroscopy of hip Nahid N ILL Comment on above: labrum repair 02/05/20 Biopsy of breast Nahid NIL L Cholecystectomy Nahid NILL Hysterectomy Nahid NILL Nasal septoplasty Nahid NI LL Plan of Treatment Date Care Activity Detail Author Start: 08-25-2022 DIABETES SCREEN DIABETES SCREEN [facility] Start: 02-26-2022 DEPRESSION ASSESSMENT DEPRESSION ASS ESSMENT [facility] Start: 10-27-2021 Influenza vaccination [facility] Start: 08-25-2020 Adult depression scr eening assessment DEPRESSION SCREENING [facility] Start: 2018 SHINGRIX VACCINE (1 of 2) SHINGRIX V ACCINE (1 of 2) [facility] Start: 2013 COLOGUARD (FIT-DNA) COLOGUARD (FIT-D NA) [facility] Start: 2013 Colonoscopy COLONOSCOPY [facility] Start: 2013 COLORECTAL CANCER SCREENING COLORECTAL CANCER SCREENING [facility] Start: [address] COLONOGRAPHY [facility] Start: 2013 FECAL OCCULT BLOOD FECAL OCCULT BLOO D [facility] Start: 2013 LIPID SCREEN LIPID SCREEN [facility] Start: 2013 SIGMOIDOSCOPY SIGMOIDOSCOPY [facility] Start: 2008 Mammography MAMMOGRAM [facility] Start: 1998 HPV TESTING HPV TESTING [facility] Start: 1989 PAP TESTING PAP TESTING [facility] Start: 05-12-1987 Urine microalbumin profile DTAP,TDAP ,TD (1 - Tdap) [facility] Start: 1986 HEPATITIS C SCREENING HEPATITIS C SC REENING [facility] Start: 1986 HIV SCREENING HIV SCREENING [facility] Start: 1973 COVID-19 VACCINE (1) COVID-19 VACCIN E (1) [facility] Start: 1970 COVID-19 VACCINE (#1) COVID-19 VACCI NE (#1) [facility] Start: 1970 HEPATITIS B (1 of 3 - 3-dose series) HEPATITIS B (1 of 3 - 3-dose series) [facility] Payers Date Payer Category Payer Unknown 1970 Unknown [id number] 2.16.8 [id number] 1970 Unknown [id number] 2.16.8 [id number] 1970 Unknown [id number] 2.16.84 [id number] 1970 Unknown [id number] 2.16.84 [id number] 1970 Unknown [id number] 2.16.84 [id number] 1970 Unknown [id number] 2.16.84 [id number] 1968 Unknown [id number] 2.16.84 [id number] 1968 Unknown [id number] 2.16.84 [id number] 1968 Unknown [id number] 2.16.84 [id number] 1968 Unknown [id number] 2.16.84 [id number] 1968 Unknown [id number] .16.84 [id number] 1968 Unknown [id number] .16.84 [id number] 1961 Unknown [id number] Social History Date Type Detail Facility Start: 03-05-2014 End: 10-25-2021 Tobacco smoking status NHIS Ex-smoker [facility] Start: 03-05-2014 Cigarettes smoked current (pack per day) - Reported 0.5 [facility] Start: 03-05-2014 Tobacco use and exposure Smokeless tobacco non-user [facility] Start: 08-26-2019 Alcohol intake Current non-dr villa of alcohol (finding) [facility] Start: 1970 Sex Assigned At Not on file [facility] Tobacco smoking status Never [facility] [place] Sex Assigned At Female [facility] [place] History of tobacco use Current smoker [facility] History of tobacco use Cigarette Smoker [facility] Functional Status Date Assessment Result Facility 10-25-2021 Functional Status N/A [facility] [place] Clinical Note 11-07-2021 Note Date & Type Note Facility 11-07-2021 Note Chief Complaint consultation for cellulitis HPI Staff 51 year old female presents on consultation from Dr. Concepcion for right breast cellulitis with concern of possible inflammatory breast cancer. History of breast cancer 2013. Hospitalized for IV ATB's 10/13-10/19. Currently on oral Cefdinir 600mg daily with 4 more days remaining. Reports minimal intermittent breast pain. Redness improving. Denies nipple inversion or discharge. History of Present Illness 51 yo female with h/o right breast cancer in 2013, s/p lumpectomy; has had several episodes of right breast cellulitis since then, recently developed recurrent cellulitis several weeks ago; treated with oral antibiotics, but rapid progression, admitted for IV antibiotics 10/13-10/19 with much improvement; had ct chest that revealed old scar/seroma cavity, edema and some skin thickening, no mass lesions; now on oral antibiotics with resolution of erythema, still some soreness, no nipple discharge or skin changes; former smoker, quit 3 years ago. Review of Systems PHQ Score Initial Depression Screen Score: 0 ROS - Provider Constitutional: no fever, no sweats, no weight loss. Eyes: no glasses, no blurred vision, no visual loss. ENMT: no dentures, no hoarseness, no swallowing difficulties, no hearing loss, no ear infection(s), no nose bleeds. Cardiovascular: normal blood pressure, no chest pain, regular heartbeat, no heart murmur. Respiratory: no shortness of breath, no cough, no asthma, no wheezing. Gastrointestinal: no nausea, no vomiting, no diarrhea, no constipation, no blood in stool, no change in bowel habits, no abdominal pain, no hepatitis. Genitourinary: no kidney stones, no urine infection, no dysuria. Musculoskeletal: yes pain, no weakness. Skin: no changing moles, no rash, no skin lumps. Neurologic: no seizures, no epilepsy, no headache. Psychiatric: no emotional or psychiatric problem. Heme/Lymph: no bleeding problems, no anemia, no blood clots, no transfusions. Allergy/Immunologic: no swollen lymph nodes/glands, no IV drug abuse. Other: Additional ROS info: Except as noted in the above Review of Systems and in the History of Present Illness, all other systems have been reviewed and are negative or noncontributory. Physical Exam Vitals & Measurements HR: 80(Peripheral) RR: 16 BP: 144/104 HT: 170 cm HT: 170.0 cm WT: 93 kg WT: 93.0 kg BMI: 32.18 HEENT: normal conjunctiva, sclera clear, no scleral icterus, EOM intact, PERRLA. oral mucosa moist without lesions Neck: trachea midline , no mass, symmetric, no thyromegaly or nodules. no adenopathy Respiratory: lungs CTA, respirations non labored. Cardiovascular: regular rate and rhythm, no murmur, , no pedal edema or varicosities. Chest (Breasts): right breast with mild edema, no erythema or ulcerations, no skin changes, no nipple discharge or retraction, mild tenderness; no masses; no discharge, no palpable breast or axillary lumps, masses or tenderness. Lymphatic: no cervical adenopathy, no axillary adenopathy, Musculoskeletal: normalgait, digits and nails without infection, nodes, cyanosis, clubbing. Skin: no rashes, no lesions, no ulcers, no subcutaneous nodules, induration. Psychiatric/Neuro: oriented to time, place, person, judgement normal, affect appropriate for age, insight intact, no focal deficits. Tests: labs reviewed, x-rays reviewed, review of old records completed, Assessment/Plan 1. Cellulitis of right breast (N61.0: Mastitis without abscess) nearly resolved; complete course of antibiotics; no evidence of inflammatory breast cancer or suspicious lesions; continue yearly mammograms; call with problems/questions. Follow-up No qualifying data available Problem List/Past Medical History Ongoing Allergic rhinitis Anemia BMI 32.0-32.9,adult Breast carcinoma Cellulitis of right breast Depression GERD (gastroesophageal reflux disease) Screening for malignant neoplasm of colon Smoker Tension headache Historical CA - Carcinoma of breast Tear meniscus Procedure/Surgical History EGD - Esophagogastroduodenoscopy (04/26/2011), Arthroscopy of hip, Biopsy of breast, Cholecystectomy, Hysterectomy, Nasal septoplasty. Medications cefdinir 300 mg Cap Effexor XR 75 mg Cap-ER, 75 mg= 1 cap(s), Oral, Daily lactobacillus acidophilus and bulgaricus oral granule, 1 packet(s), Oral, QID metronidazole, 500 mg, Oral, TID omeprazole 40 mg Cap-DR, 40 mg= 1 cap(s), Oral, Daily Ventolin HFA 90 mcg/inh Aerosol, 2 puff(s), Inhalation, q6hr Allergies No Known Allergies No Known Medication Allergies Social History Alcohol - Denies Alcohol Use, 12/08/2020 Substance Abuse - Denies Substance Abuse, 12/08/2020 Tobacco Former smoker, quit more than 30 days ago Tobacco Use:. Never Smokeless Tobacco Use:. Cigarettes, 1 per day. Started age 16.0 Years. Stopped age 48 Years., 10/25/2021 Family History Diabetes mellitus type 2: Mother and Father. Hypertension: Mother and Father. [facility] Comment on above: Result Comment: Elec tronically Signed By: STACIA LING, Nahid Ashraf\Date and Time Signed: 11/07/21 12:52 EDT Discharge summary note 10-24-2021 Note Date & Type Note Facility 10-24-2021 Note [id number] [facility] Clinical Note 10-17-2021 Note Date & Type Note Facility 10-17-2021 Note PROCEDURE: US KIDNEY S BLADDER, 10/16/2021 9:39 AM EDT CLINICAL INDICATIONS: Acute renal failure COMPARISON: None TECHNIQUE: Renal and bladder sonogram FINDINGS: Right kidney: 11.7 x 6.5 x 6.0 cm. Left kidney: 14.2 x 6.2 x 5.6 cm. Prevoid bladder volume: 68 mL. Postvoid bladder volume: 0 mL. Renal parenchyma is normal in echogenicity and cortical thickness. Convincing sign of hydronephrosis, calculus, focal abnormality are not evident. Intact renal vascularity seen bilaterally. Spleen is normal level 11.8 cm with calcified granulomatous changes seen. Incomplete urinary bladder distention is seen. Ureteral jets intact bilaterally. Bladder wall is upper normal. IMPRESSION: 1. No hydronephrosis or obstructive uropathy 2. No shadowing calculus or focal renal abnormality 3. Calcified splenic granulomatous changes 4. Incomplete urinary bladder distention, 68 mL with no postvoid bladder residual. Electronically authenticated by: KETAN KAY Date: 2021-10-17 09:06 [facility] Clinical Note 10-17-2021 Note Date & Type Note Facility 10-17-2021 Note PROCEDURE: US SINGLE QUAD RT UPPER, 10/17/2021 7:21 AM EDT CLINICAL INDICATIONS: Nausea, vomiting. Acute renal failure, prior cholecystectomy COMPARISON: CT chest 10/16/2021 TECHNIQUE: Right quadrant abdominal sonogram FINDINGS: Liver is enlarged right lobe 20.5 cm longitudinally. Coarsened hepatic echotexture is seen with increased echogenicity, diminished acoustic penetration. Visualized contour is smooth. Portal vein is patent with antegrade phasic flow, normal velocity. Gallbladder surgically absent. Common bile duct 0.5 cm. Visualized pancreas is unremarkable. No ductal dilatation is seen. Portions of head and tail segments obscured. Right kidney is normal in morphology. It measures 13.4 x 5.8 x 5.3 cm. No hydronephrosis or shadowing calculus is identified. Focal renal abnormality is not demonstrated. No free fluid. IMPRESSION: 1. Hepatomegaly, moderate hepatic steatosis 2. Cholecystectomy, no bile duct dilatation 3. Incomplete pancreas assessment 4. No acute right upper quadrant abdominal pathology Electronically authenticated by: KETAN KAY Date: 2021-10-17 09:04 [facility] History of Past illness Narrative 02-02-2014 Note Date & Type Note Facility 02-02-2014 History of Past i llness Narrative Problem Noted Date Resolved Date Malignant neoplasm of female breast 02/02/2014 12/04/2014 Overview: ICD-10 Go-Live documented as of this encounter (statuses as of 06/27/2021) [facility] History of Past illness Narrative 02-02-2014 Note Date & Type Note Facility 02-02-2014 History of Past i llness Narrative Problem Noted Date Resolved Date Malignant neoplasm of female breast 02/02/2014 12/04/2014 Overview: ICD-10 Go-Live documented as of this encounter (statuses as of 05/01/2022) [facility] Evaluation + Plan note Note Date & Type Note Facility Evaluation + Plan note No data available for this section [facility] [place] [facility] Discharge instructions Note Date & Type Note Facility Hospital Discharge instructions No data available for this section [facility] [place] Progress note Note Date & Type Note Facility Progress note No data available for this section [facility] [place] Summary Purpose Family History No Family History Records FoundNo Family History Records FoundNo Family History Records FoundNo Family History Records Found Advance Directives No Advanced Directives Records FoundNo Advanced Directives Records FoundNo Advanced Directives Records FoundNo Advanced Directives Records Found Additional Source Comments INFORMATION SOURCE (unrecogn ized section and content) DATE CREATED AUTHOR 07/11/2019 [facility] DATE CREATED AUTHOR AUTHOR'S ORGANIZ ATION 04/20/2021 [facility] DATE CREATED AUTHOR AUTHOR'S ORGANIZ ATION 01/28/2022 Kel Mendez [facility] DATE CREATED AUTHOR AUTHOR'S ORGANIZ ATION 08/04/2022 [facility] Source Comments (unrecognize d section and content) In the event this informatio n is protected by the Federal Confidentiality of Alcohol and Drug Abuse Patient Records regulations: The Federal rules restrict any use of the information to criminally investigate or prosecute any alcohol or drug abuse patient.[facility] the event this information is protected by the Federal Confidentiality of Alcohol and Drug Abuse Patient Records regulations: The Federal rules restrict any use of the information to criminally investigate or prosecute any alcohol or drug abuse patient.[facility] Reason for Visit (unrecogniz ed section and content) Reason Comments Refill Request Care Teams (unrecognized sec tion and content) 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 This clinical summary was aggregated from multiple sources. Caution should be exercised in using it in the provision of clinical care. This summary normalizes information from multiple sources, and as a consequence, information in this document may materially change the coding, format and clinical context of patient data. In addition, data may be omitted in some cases. CLINICAL DECISIONS SHOULD BE BASED ON THE PRIMARY CLINICAL RECORDS. [facility] [employer] [facility]. provides no warranty or guarantee of the accuracy or completeness of information in this document.
== END 2023-03-08 13:30 | disposition home or self-care (01) ==
LOC: MAMMO 13:30
PROVIDERS: PCP Family Medicine; Visit Provider Family Medicine
DX: Z85.3 Personal history of malignant neoplasm of breast (principal); Z80.3 Family history of malignant neoplasm of breast; Z80.51 Family history of malignant neoplasm of kidney; Z80.1 Family history of malignant neoplasm of trachea, bronchus and lung
CPT/HCPCS: 77066; G0279

== ENCOUNTER 2024-01-01 15:26 | Outpatient (OUT) | payer BC, SELFPAY | END 2024-01-01 15:27 | disposition home or self-care (01) | LOC: PST 15:26 | PROVIDERS: PCP Family Medicine; Visit Provider Surgery | DX: Z01.818 Encounter for other preprocedural examination (principal); Z86.0100 Personal history of colon polyps, unspecified; K21.9 Gastro-esophageal reflux disease without esophagitis; R10.13 Epigastric pain; R11.0 Nausea ==

== ENCOUNTER 2024-01-02 06:12 | Day surgery (SDC) | payer BC, SELFPAY ==
--- NOTE | 2024-01-02 | OP_ITS ---
OPERATION DATE: 01/02/2024 PREOPERATIVE DIAGNOSIS: Personal history of colon polyps, as well as epigastric pain, refractory GERD. POSTOPERATIVE DIAGNOSIS: Normal EGD, as well as normal colonoscopy to cecum. PROCEDURE: EGD and colonoscopy to cecum. SURGEON: Nahid Robertson M.D. ANESTHESIA: Monitored anesthesia care. ESTIMATED BLOOD LOSS: Zero. INDICATIONS AND CONSENT: Patient is a 53-year-old female with a personal history of a rectal villous adenoma removed in 2020, presents for surveillance colonoscopy. She also reports breakthrough GERD symptoms, as well as morning nausea, early satiety. Indications, risks, benefits, alternatives of proceeding with EGD and colonoscopy were explained extensively to the patient, including the risks of bleeding, aspiration, esophageal/gastric/duodenal or colonic perforation or anesthetic complications. All of her questions were answered. Informed consent was obtained. PROCEDURE: Patient brought to the operating room, placed in the left lateral decubitus position. Monitored anesthesia care was provided. Bite block was placed in the patient?s mouth. Scope was inserted into the oropharynx. Under direct visualization, it was advanced into the esophagus, past the cricopharyngeus, down to the stomach. The stomach was insufflated with air. The pylorus was traversed down to the descending portion of the duodenum. There was no evidence of duodenitis or ulceration. There was no scarring within the pyloric channel. Scope was pulled back into the stomach and retroflexed. There was no significant hiatal hernia. No gastric mucosal abnormalities. No ulcerations or gastritis. GE junction was noted at approximately 39 cm. There was no distal esophagitis or Richard?s changes. Remainder of the esophagus was unremarkable. The scope was then withdrawn. Patient tolerated procedure well, was then positioned for colonoscopy. Rectal exam was performed, which showed no masses or blood. The scope was inserted into the anal canal. Under direct visualization, it was advanced. It was advanced to the cecum, with the aid of abdominal compression, where cecal markings were clearly identified. There was noted to be a good prep. Upon withdrawal of the scope, mucosal surfaces were carefully examined. There were no mass lesions or polyps. No inflammatory changes or ulcerations. There was no significant diverticulosis. No evidence of recurrent rectal polyps. The scope was retroflexed in the anal canal. There was no significant hemorrhoidal disease. The scope was then withdrawn. The patient tolerated procedure well, was sent to recovery room in good condition. Follow up surveillance colonoscopy should be in five years due to the personal history of colon polyps. CC: Vinay Concepcion M.D. ART
--- OUTSIDE RECORDS SUMMARY | 2024-01-02 06:17 | XMS_ITS | CCD ---
Author Organization [facility] Care Team Providers Care Ticket Sorter Name Role Phone Debra Concepcion MD Primary Care Provider Debra Concepcion Primary Care Physician [phone] Debra Concepcion MD Primary Care Provider [phone] TANNER Cedeño, DR RICHARDSON Primary Care Unavailable PAY [...] DR RICHARDSON Consulting Unavailable HOY ., DR DEBRA Phillips Unavailable HOY ., DR RICHARDSON Attending Unavailable HOY ., DR RICHARDSON Procedure Practitioner Unavail able KARLESLIEK ., DR VILLEGAS Consulting Unavailabl e PAY ., DR ASCENCIO Consulting Unavailable GRECHNY ., GLENNY UGALDE Consulting Unavailabl e RAHUL, KETAN Consulting Unavailable NICOLE MAXWELL Consulting Unavailable LAWANDA PANDYA Consulting Unavailable HOY ., DR RICHARDSON Consulting Unavailable HOY ., DR RICHARDSON Attending Unavailable HOY ., DR DEBRA Phillips Unavailable HOY ., DR RICHARDSON Primary Care Unavailable VIRA, DR NICOLE Brown Consulting Unavailable HOY ., DR RICHARDSON Consulting Unavailable HOY ., DR RICHARDSON Attending Unavailable HOY ., DR RICHARDSON Admsushil Unavailable HOY ., DR RICHARDSON Primary Care Unavailable HOY ., DR RICHARDSON Consulting Unavailable HOY ., DR RICHARDSON Admsushil Unavailable HOY ., DR RICHARDSON Attending Unavailable [...] Unavailable HOY ., DR RICHARDSON Attending Unavailable JANE, DR EVENS Danielson Consulting Unavailable HOY ., DR RICHARDSON Primary Care Unavailable HOY ., DR RICHARDSON Consulting Unavailable HOY ., DR RICHARDSON Admitting Unavailable HOY ., DR RICHARDSON Attending Unavailable ENEIDA DICKENS Attending Unavailable Nahid PALOMO Attending Unavailable Allergies Allergy Classification Reported Allergen(s) Allergy Type Date of Onset Reaction(s) Facility (1 source) No Known Medication Allergies; Translations: [No Known Medication Allergies] Propensity to adverse reactions (disorder) [facility] Repository Medications Current Medications Medication Drug Class(es) Dates Sig (Normalized) Sig (Original) aspirin 81 mg delayed release oral tablet (1 source) Platelet Aggregation Inhibitor, Nonsteroidal Anti-inflammatory Drug Start: 12-26-2023 take 1 tablet by mouth once daily aspirin 81 mg Oral EC Tab 81 mg = 1 tab(s), Oral, Daily, Refills(s) 0 Start Date: 12/26/23 Status: Ordered cefdinir 300 mg oral capsule (2 sources) [...] omeprazole 40 mg delayed release oral capsule (5 sources) Proton Pump Inhibitor Start: 12-03-2020 take [...] Take 20 mg by mouth once daily. pantoprazole 40 mg delayed release oral tablet (1 source) Proton Pump Inhibitor Start: take 1 tablet by mouth once daily Pantoprazole [address] Tab 40 mg = 1 tab(s), Oral, Daily, Refills(s) 0 Start Date: 12/20/23 Status: Ordered 24 hr venlafaxine 75 mg extended release oral capsule (9 sources) Serotonin and Norepinephrine Reuptake Inhibitor Start: End: take 1 capsule by mouth once daily Effexor XR 75 mg Cap-ER 75 mg = 1 cap(s), Oral, Daily, Refills(s) 0 Start Date: 12/03/20 Status: Ordered Comment on above: TAKE 1 CAPSULE BY [facility] EVERY DAY Ventolin HFA 90 mcg/inh Aerosol (3 sources) Start: take 2 puff(s) by inhalation every six hours Ventolin HFA 90 mcg/inh Aerosol 2 puff(s), Inhalation, q6hr, Refill(s) 0 Start Date: 12/03/20 Status: Ordered Completed/Discontinued Medications Medication Drug Class(es) Dates Sig (Normalized) Sig (Original) [id number] 200 actuat albuterol 0.09 mg/actuat metered dose inhaler (3 sources) beta2-Adrenergic Agonist Start: 05-05-2014 VENTOLIN HFA 90 mcg/actuation inhaler carvedilol 25 mg oral tablet (1 source) alpha-Adrenergic Raven, beta-Adrenergic Raven Start: 12-07-2023 carvedilol 25 mg Tab 25 mg = 1 tab(s), Oral, BID, 0 Refill(s), Refills(s) 0 Start Date: 12/07/23 Status: Ordered oxycodone HCl/acetaminophen (PERCOCET ORAL) (3 sources) oxycodone HCl/acetaminophen (PERCOCET ORAL) Take by mouth as needed. 0 Active Comment on above: Take by mouth as nee ded. simvastatin 20 mg oral tablet (1 source) HMG-CoA Reductase Inhibitor Start: 12-07-2023 take 1 tablet by mouth once daily in the evening tamoxifen 20 mg oral tablet (3 sources) Estrogen Agonist/Antagonis t Start: 10-15-2019 take 1 tablet by mouth once daily tamoxifen (NOLVADEX) 20 mg tablet TAKE 1 TABLET BY MOUTH EVERY DAY 90 tablet 0 10/15/2019 Active Comment on above: TAKE 1 TABLET BY KAMRAN TH EVERY DAY Problems Active Problems Problem Classification Problem Date Documented Date Episodic/Chronic Abdominal pain (2 sources) Epigastric pain; Translations: [Epigastric pain] Onset: 12-26-2023 Episodic Anxiety disorders (1 source) Anxiety disorder, unspecified; Translations: [ANXIETY DISORDER UNSPECIFIED] Onset: 03-21-2022 Chronic Asthma (2 sources) Unspecified asthma with (acute) exacerbation; Translations: [Unspecified asthma, uncomplicated] Onset: 10-25-2021 Chronic Cancer of breast (9 sources) Malignant neoplasm of lower-outer quadrant of female breast; Translations: [Malignant neoplasm of lower-outer quadrant of right female breast] Onset: 12-04-2014 12-04-2014 Chronic Coagulation and hemorrhagic disorders (1 source) Thrombocytopenia, unspecified; Translations: [THROMBOCYTOPENIA UNSPECIFIED] Onset: 10-25-2021 Chronic Deficiency and other anemia (3 sources) Anemia 12-03-2020 Episodic Disorders of lipid metabolism (6 sources) Hyperlipidemia, unspecified; Translations: [Pure hypercholesterolemia, unspecified] Onset: 06-16-2022 Chronic Esophageal disorders (4 sources) Gastroesophageal reflux disease; Translations: [Gastro-esophageal reflux disease without esophagitis] Onset: 03-21-2022 12-08-2020 Chronic Essential hypertension (1 source) Hypertensive disorder 12-07-2023 Chronic Headache; including migraine (3 sources) Tension-type headache 12-08-2020 Chronic Joint disorders and dislocations; trauma-related (3 sources) Finding of tear meniscus 12-03-2020 Episodic Comment on above: rt knee Mood disorders (5 sources) Depressive disorder; Translations: [Major depressive disorder, single episode, moderate] Onset: 10-25-2021 12-08-2020 Chronic Mood disorders (1 source) Mood disorders; Translations: [DEPRESSION UNSPECIFIED] Onset: 03-21-2022 Nausea and vomiting (3 sources) Nausea; Translations: [Nausea] Onset: 10-25-2021 Episodic Nonmalignant breast conditions (5 sources) Cellulitis of breast; Translations: [Mastitis without abscess] Onset: 10-14-2021 11-07-2021 Episodic Nutritional deficiencies (1 source) Vitamin D deficiency, unspecified; Translations: [VITAMIN D DEFICIENCY UNSPECIFIED] Onset: 02-04-2022 Chronic Other and unspecified benign neoplasm (3 sources) History of polyp of colon; Translations: [Personal history of adenomatous and serrated colon polyps] Onset: 12-26-2023 Episodic Other nutritional; endocrine; and metabolic disorders (3 sources) Body mass index 30+ - obesity 10-25-2021 Chronic Other nutritional; endocrine; and metabolic disorders (1 source) Obesity caused by energy imbalance 12-26-2023 Chronic Other skin disorders (4 sources) Generalized hyperhidrosis; Translations: [GENERALIZED HYPERHIDROSIS] Onset: 06-21-2022 Episodic Other skin disorders (1 source) Localized swelling, mass and lump, neck; Translations: [LOCALIZED SWELLING MASS AND LUMP NECK] Onset: 06-25-2022 Episodic Other upper respiratory disease (3 sources) Allergic rhinitis 12-08-2020 Chronic Residual codes; unclassified (2 sources) Early satiety; Translations: [Early satiety] Onset: 12-26-2023 Episodic Substance-related disorders (3 sources) Smoker 12-08-2020 Chronic Unclassified (3 sources) Patient encounter status 12-08-2020 Unclassified (1 [...] UNSPECIFIED] Onset: 04-14-2022 Episodic Cancer of breast (4 sources) History of malignant neoplasm of breast; [...] source) Hypokalemia; Translations: [HYPOKALEMIA] Onset: 10-25-2021 Episodic Nonspecific chest pain (6 sources) Chest pain, unspecified; Translations: [Other chest pain] Onset: 11-03-2021 Episodic Other aftercare (3 sources) Radiotherapy follow-up; Translations: [Encounter for follow-up examination after completed treatment for conditions other than malignant neoplasm] Onset: 12-04-2014 12-04-2014 Episodic Other aftercare (1 source) Other custodial (current) drug therapy; Translations: [OTH CORRECTION CURRENT DRUG THERAPY] Onset: 10-25-2021 Episodic Other [...] Test Name Value Interpretation Reference Range Facility Ambulatory Visit Summaryon 1 Ambulatory Visit Summary Ambulatory Visit Summary HARLEY SHARMA :1970 Visit Date:12/26/2023 Ambulatory Visit Instructions Your Care Team Attending Physician - STACIA LING, Nahid Danielson Primary Care Physician - Debra Concepcion MD This Is Your Medications List Contact prescribing physician if questions or concerns albuterol (Ventolin HFA 90 mcg/inh Aerosol) aspirin (aspirin 81 mg Oral EC Tab) carvedilol (carvedilol 25 mg Tab) pantoprazole (Pantoprazole [address] Tab) simvastatin (simvastatin 20 mg Tab) venlafaxine (Effexor XR 75 mg Cap-ER) Procedures Performed Colonoscopy (12/29/2020), EGD - Esophagogastroduodenoscopy (04/26/2011), Arthroscopy of hip, Biopsy of breast, Cholecystectomy, Lumpectomy of breast, Meniscal repair, Nasal septoplasty, GAIL BSO - Total abdominal hysterectomy and bilateral salpingo-oophorectomy. Discharge Vitals Heart Rate (Peripheral) 72 Respiratory Rate 16 Blood Pressure 120/72 Height 170 cm Height 67 in Weight 97.7 kg Weight 214.94 lb BMI 33.81 Medications What How Much When Instructions Unchanged albuterol (Ventolin HFA 90 mcg/ inh Aerosol) 2 Puffs Inhalation Every 6 hours Contact prescribing physician if questions or concerns Unchanged aspirin (aspirin 81 mg Oral EC Tab) 1 Tablets By Mouth Every day Contact prescribing physician if questions or concerns Unchanged carvedilol (carvedilol 25 mg Tab) 1 Tablets By Mouth 2 times a day 0 Refill(s) Contact prescribing physician if questions or concerns Unchanged pantoprazole (Pantoprazole [address] Tab) 1 Tablets By Mouth Every day Contact prescribing physician if questions or concerns Unchanged simvastatin (simvastatin 20 mg Tab) 1 Tablets By Mouth Once a day (in the evening) 1 Unknown, 0 Refill(s) Contact prescribing physician if questions or concerns Unchanged venlafaxine (Effexor XR 75 mg Cap-ER) 1 Capsules By Mouth Every day Contact prescribing physician if questions or concerns Allergies No Known Allergies No Known Medication Allergies Problems Ongoing - Any problem that you are currently receiving treatment for. Allergic rhinitis Anemia BMI 33.0-33.9,adult Breast carcinoma Depression GERD (gastroesophageal reflux disease) History of colon polyps HTN (hypertension) Hyperlipidemia Obesity due to excess calories Screening for malignant neoplasm of colon Smoker Tension headache Historical - Any problem that you are no longer receiving treatment for. CA - Carcinoma of breast Cellulitis of right breast Tear meniscus Patient Survey You may receive a survey via text or e-mail asking about your office visit. Please share your experience with us by completing your survey. We appreciate your feedback and thank you for choosing us for your care. Nida Begum [facility] General Surgery Office/Clini c Noteon 12-26-2023 General Surgery Office/Clinic Note General Surgery Office/Clinic Note Chief Complaint surveillance colonoscopy HPI Staff 53 year old female presents on consultation for surveillance colonoscopy. Last colonoscopy completed 12/2020 with rectal villous adenoma. Reports approximately one month history of morning epigastric pain and nausea that resolves as the day progresses. Denies rectal pain or bleeding. Denies change in bowel habits. No vomiting or unexplained weight loss. No known family history of colon cancer. History of Present Illness 53 yo female with h/o htn, hyperlipidemia, GERD, breast cancer, here for surveillance colonoscopy; h/o 8 mm tubulovillous adenoma in rectum, no dysplasia; denies change in bms or blood in stools; patient complaints of break through GERD symptoms, intermittent epigastric pain; morning nausea, no emesis, early satiety; no dysphagia or wt loss; on Protonix for many years; abd operations significant for cholecystectomy and hysterectomy; on baby asa daily, no NSAID use; no tobacco use; no fmhx of GI malignancy or IBD. Review of Systems PHQ Score Initial Depression Screen Score: 0 SCORE ROS - Provider Constitutional: no fever, no sweats, no weight loss. Eyes: no glasses, no blurred vision, no visual loss. ENMT: no dentures, no hoarseness, no swallowing difficulties, no hearing loss, no ear infection(s), no nose bleeds. Cardiovascular: normal blood pressure, no chest pain, regular heartbeat, no heart murmur. Respiratory: no shortness of breath, no cough, no asthma, no wheezing. Gastrointestinal: yes nausea, no vomiting, no diarrhea, no constipation, no blood in stool, no change in bowel habits, yes abdominal pain, no hepatitis. Genitourinary: no kidney stones, no urine infection, no dysuria. Musculoskeletal: no pain, no weakness. Skin: no changing moles, [...] noncontributory. Physical Exam Vitals & Measurements HR: 72(Peripheral) RR: 16 BP: 120/72 HT: 67 in HT: 170 cm WT: 97.7 kg WT: 214.94 lb BMI: 33.81 HEENT: normal conjunctiva, sclera clear, no scleral icterus, EOM intact, PERRLA, oral mucosa moist without lesions. Neck: trachea midline, no mass, symmetric, no thyromegaly or nodules, no adenopathy Respiratory: lungs CTA, respirations non labored. Cardiovascular: regular rate and rhythm, no murmur, no pedal edema or varicosities. Gastrointestinal: obese, soft, non distended, no tenderness, no masses, no palpable hernias, diastasis recti no, no hepatosplenomegaly; normal bs Lymphatic: no cervical adenopathy, no axillary adenopathy, no inguinal adenopathy. Musculoskeletal: normal gait, digits and nails without infection, nodes, cyanosis, clubbing. Skin: no rashes, no lesions, no ulcers, no subcutaneous nodules, induration. Psychiatric/Neuro: oriented to time, place, person, judgement normal, affect appropriate for age, insight intact, no focal deficits. Tests: , review of old records completed , Discussed surgical options, risks, and possible complications with patient. Assessment/Plan 1. Personal history of adenomatous and serrated colon polyps (Z86.0101: Personal history of adenomatous and serrated colon polyps) plan colonoscopy under anesthesia, informed consent obtained. 2. Epigastric pain (R10.13: Epigastric pain) plan EGD under anesthesia for further evaluation, informed consent obtained. 3. Nausea (R11.0: Nausea) see # 2 4. Early satiety (R68.81: Early satiety) see # 2 Follow-up No qualifying data available Problem List/Past Medical History Ongoing Allergic rhinitis Anemia BMI 33.0-33.9,adult Breast carcinoma Depression Early satiety Epigastric pain GERD (gastroesophageal reflux disease) History of colon polyps HTN (hypertension) Hyperlipidemia Nausea Obesity due to excess calories Personal history of adenomatous and serrated colon polyps Screening for malignant neoplasm of colon Smoker Tension headache Historical CA - Carcinoma of breast Cellulitis of right breast Tear meniscus Procedure/Surgical History Colonoscopy (12/29/2020), EGD - Esophagogastroduodenoscopy (04/26/2011), Arthroscopy of hip, Biopsy of breast, Cholecystectomy, Lumpectomy of breast, Meniscal repair, Nasal septoplasty, GAIL BSO - Total abdominal hysterectomy and bilateral salpingo-oophorectomy. Medications aspirin 81 mg Oral EC Tab, 81 mg= 1 tab(s), Oral, Daily carvedilol 25 mg Tab, 25 mg= 1 tab(s), Oral, BID Effexor XR 75 mg Cap-ER, 75 mg= 1 cap(s), Oral, Daily Pantoprazole [address] Tab, 40 mg= 1 tab(s), Oral, Daily simvastatin 20 mg Tab, 20 mg= (more content not included)... Normal [facility] Comment on above: Result Comment: Elec tronically Signed By: STACIA LING, Nahid Danielson\.br\Date and Time Signed: 12/26/23 15:46 EDT ESTRADIOLon 06-22-2022 Estradiol <5.0 Normal [facility] Comment on above: Result Comment: Adul t Female: Follicular phase 12.5 - 166.0 Ovulation phase 85.8 - 498.0 Luteal phase 43.8 - 211.0 Postmenopausal <6.0 - 54.7 1st trimester 215.0 - >4300.0 Jody ECLIA methodology Performed By: #### L YU, LIPID #### [facility] [address] [place] [address] Dr. Gerber Pimentel FSHon 06-22-2022 FSH 77.1 mIU/mL Normal [facility] Comment on above: Result Comment: Adul t Female: Follicular phase 3.5 - 12.5 Ovulation phase 4.7 - 21.5 Luteal phase 1.7 - 7.7 Postmenopausal 25.8 - 134.8 Performed By: #### C BC #### [facility] [address] [place] [address] Dr. Gerber Pimentel PROGESTERONEon 06-22-2022 Progesterone <0.1 Normal [facility] Comment on above: Result Comment: Foll icular phase 0.1 - 0.9 Luteal phase 1.8 - 23.9 Ovulation phase 0.1 - 12.0 First trimester 11.0 - 44.3 Second trimester 25.4 - 83.3 Third trimester 58.7 - 214.0 Postmenopausal 0.0 - 0.1 Performed By: #### I NFLUAB #### [facility] [address] [place] [address] Dr. Gerber Pimentel PROLACTINon 06-22-2022 Prolactin 14.0 ng/mL Normal 4.8-23.3 [facility] Comment on above: Performed By: #### I NFLUAB #### [facility] [address] [place] [address] Dr[address] US [address] HEAD_NECKon 06-22-2022 [...] NICOLE CONSTANTINO Date: 2022-06-22 07:23 Normal [facility] CBC AUTO DIFFon 06-21-2022 BASO # 0.0 103/ul Normal 0.0-0.1 [facility] Comment on above: Performed By: #### A 1C #### [facility] [address] [place] [address] Dr. Gerber Pimentel Basophils/100 WBC (Bld) 0.2 % Normal 0.2-2.0 [facility] Comment on above: Performed By: #### A 1C #### [facility] [address] [place] [address] Dr. Gerber Pimentel EO # 0.0 103/ul Normal 0.0-0.7 [facility] Comment on above: Performed By: #### A 1C #### [facility] [address] [place] [address] Dr. Gerber Pimentel Eosinophils/100 WBC (Bld) 0.5 % Critically low 0.9-7.0 [facility] Comment on above: Performed By: #### A 1C #### [facility] [address] [place] [address] Dr. Gerber Pimentel Erythrocyte distribution width (RBC) [Ratio] 13.4 % Normal 11.0-15.0 [facility] Comment on above: Performed By: #### A 1C #### [facility] [address] [place] [address] Dr. Gerber Pimentel Hematocrit (Bld) [Volume fraction] 36.1 % Normal 36.0-48.0 [facility] Comment on above: Performed By: #### A 1C #### [facility] [address] [place] [address] Dr. Gerber Pimentel Hemoglobin (Bld) [Mass/Vol] 12.2 g/dL Normal 12.0-16.0 [facility] Comment on above: Performed By: #### A 1C #### [facility] [address] [place] [address] Dr. Gerber Pimenetl IG # 0.03 10e3/ul Normal 0.00-0.03 [facility] Comment on above: Performed By: #### A 1C #### [facility] [address] [place] [address] Dr. Gerber Pimentel IG % 0.4 % Normal 0.0-0.5 [facility] Comment on above: Performed By: #### A 1C #### [facility] [address] [place] [address] Dr. Gerber Pimentel LYMPH # 2.5 103/ul Normal 1.2-3.8 [facility] Comment on above: Performed By: #### A 1C #### [facility] [address] [place] [address] Dr. Gerber Pimentel Lymphocytes/100 WBC (Bld) 30.4 % Normal 20.5-60.0 [facility] Comment on above: Performed By: #### A 1C #### [facility] [address] [place] [address] Dr. Gerber Pimentel MANUAL DIFF REQ NO Normal [facility] Comment on above: Performed By: #### A 1C #### [facility] [address] [place] [address] Dr. Gerber Pimentel MCH (RBC) [Entitic mass] 30.0 pg Normal 26.7-34.0 [facility] Comment on above: Performed By: #### A 1C #### [facility] [address] [place] [address] Dr. Gerber Pimentel MCHC (RBC) [Mass/Vol] 33.8 g/dL Normal 29.9-35.2 [facility] Comment on above: Performed By: #### A 1C #### [facility] [address] [place] [address] Dr. Gerber Pimentel MCV (RBC) [Entitic vol] 88.9 fL Normal 81.0-99.0 [facility] Comment on above: Performed By: #### A 1C #### [facility] [address] [place] [address] Dr. Gerber Pimentel MONO # 0.5 103/ul Normal 0.3-0.8 [facility] Comment on above: Performed By: #### A 1C #### [facility] [address] [place] [address] Dr. Gerber Pimentel Monocytes/100 WBC (Bld) 6.5 % Normal 1.7-12.0 [facility] Comment on above: Performed By: #### A 1C #### [facility] [address] [place] [address] Dr. Gerber Pimentel NEUT # 5.1 103/ul Normal 1.4-6.5 [facility] Comment on above: Performed By: #### A 1C #### [facility] [address] [address] [address] Gerber Pimentel Neutrophils/100 WBC (Bld) 62.0 % Normal 43.0-75.0 [facility] Comment on above: Performed By: #### A 1C #### [facility] [address] [place] [address] Dr. Gerber Pimentel Platelet mean volume (Bld) [Entitic vol] 8.4 fL Critically low 9.5-13.5 [facility] Comment on above: Performed By: #### A 1C #### [facility] [address] [place] [address] Dr. Gerber Pimentel PLT 315 103/ul Normal 150-450 [facility] Comment on above: Performed By: #### A 1C #### [facility] [address] [place] [address] Dr. Gerber Pimentel RBC 4.06 106/ul Critically low 4.20-5.40 [facility] Comment on above: Performed By: #### A 1C #### [facility] [address] [place] [address] Dr. Gerber Pimentel WBC 8.2 103/ul Normal 4.0-11.0 [facility] Comment on above: Performed By: #### A 1C #### [facility] [address] [place] [address] Dr. Gerber Pimentel FREE THYROXINE INDEX T7on FTI 3.01 Normal 1.30-4.50 [facility] Comment on above: Performed By: #### L YU LIPID #### [facility] [address] [place] [address] Dr. Gerber Pimentel T3U 32.0 % Normal 30.0-39.0 [facility] Comment on above: Performed By: #### L YU LIPID #### [facility] [address] [place] [address] Dr. Gerber Pimentel T4 [Mass/Vol] 9.40 ug/dL Normal 4.80-13.90 [facility] Comment on above: Performed By: #### Angelique NICHOLAS LIPID #### [facility] [address] [place] [address] Dr. Gerber Pimentel GLYCOHEMOGLOBIN A1Con 2022 ADA RECOMMENDATION SEE BELOW Normal [facility] Comment on above: Result Comment: ADA RECOMMENDED LIMIT 4.0 - 6.0 ADA THERAPEUTIC TARGET < 7.0 ACTION SUGGESTED > 7.0 Performed By: #### C BC #### [facility] [address] [place] [address] Dr. Gerber Pimentel Glucose [Mass/Vol] 94 mg/dL Normal [facility] Comment on above: Performed By: #### C BC #### [facility] [address] [place] [address] Dr. Gerber Pimentel HbA1c (Bld) [Mass fraction] 4.9 % Normal 4.5-6.2 [facility] Comment on above: Performed By: #### C BC #### [facility] [address] [place] [address] Dr. Gerber Pimentel PROF 14(COMP METB)on 023 Albumin [Mass/Vol] 3.6 g/dL Normal 3.4-5.0 [facility] Comment on above: Performed By: #### L IVLEIGH, LIPID #### [facility] [address] [place] [address] Dr. Gerber Pimentel Albumin/Globulin [Mass ratio] 0.9 {ratio} Normal [facility] Comment on above: Performed By: #### L IVER, LIPID #### [facility] [address] [place] [address] Dr. Gerber Pimentel ALP [Catalytic activity/Vol] 93 U/L Normal 46-116 [facility] Comment on above: Performed By: #### L IVER, LIPID #### [facility] [address] [place] [address] Dr. Gerber Pimentel ALT [Catalytic activity/Vol] 25 U/L Normal 14-59 [facility] Comment on above: Performed By: #### L IVER, LIPID #### [facility] [address] [place] [address] Dr. Gerber Pimentel Anion gap [Moles/Vol] 14.0 mmol/L Normal [facility] Comment on above: Performed By: #### L IVER, LIPID #### [facility] Laboratory [address] [address] [address] Gerber Pimentel AST [Catalytic activity/Vol] 15 U/L Normal 15-37 [facility] Comment on above: Performed By: #### L IVER, LIPID #### [facility] [address] [place] [address] Dr. Gerber Pimentel Bilirubin [Mass/Vol] 1.0 mg/dL Normal 0.2-1.0 [facility] Comment on above: Performed By: #### L IVER, LIPID #### [facility] [address] [place] [address] Dr. Gerber Pimentel Calcium [Mass/Vol] 9.0 mg/dL Normal 8.5-10.1 [facility] Comment on above: Performed By: #### L IVER, LIPID #### [facility] [address] [place] [address] Dr. Gerber Pimentel Chloride [Moles/Vol] 104 mmol/L Normal 98-107 [facility] Comment on above: Performed By: #### L IVER, LIPID #### [facility] [address] [place] [address] Dr. Gerber Pimentel CO2 [Moles/Vol] 22.8 mmol/L Normal 21.0-32.0 [facility] Comment on above: Performed By: #### L IVER, LIPID #### [facility] [address] [place] [address] Dr. Gerber Pimentel Creatinine [Mass/Vol] 0.76 mg/dL Normal 0.55-1.02 [facility] Comment on above: Performed By: #### L IVER, LIPID #### [facility] [address] [place] [address] Dr. Gerber Pimentel EGFR-AF [place] >60 Normal >=60 [facility] Comment on above: Performed By: #### L IVER, LIPID #### [facility] [address] [place] [address] Dr. Gerber Pimentel EGFR-NON AF [place] >60 Normal >=60 [facility] Comment on above: Performed By: #### L IVER, LIPID #### [facility] [address] [address] [address] Gerber Pimentel Globulin (S) [Mass/Vol] 4.1 g/dL Normal [facility] Comment on above: Performed By: #### L IVER, LIPID #### [facility] [address] [place] [address] Dr. Gerber Pimentel Glucose [Mass/Vol] 82 mg/dL Normal 74-106 [facility] Comment on above: Performed By: #### L IVER, LIPID #### [facility] [address] [place] [address] Dr. Gerber Pimentel Potassium [Moles/Vol] 3.8 mmol/L Normal 3.5-5.1 [facility] Comment on above: Performed By: #### L IVER, LIPID #### [facility] [address] [place] [address] Dr. Gerber Pimentel Protein [Mass/Vol] 7.7 g/dL Normal 6.4-8.2 [facility] Comment on above: Performed By: #### L IVER, LIPID #### [facility] [address] [place] [address] Dr. Gerber Pimentel Sodium [Moles/Vol] 137 mmol/L Normal 136-145 [facility] Comment on above: Performed By: #### L IVER, LIPID #### [facility] [address] [place] [address] Dr. Gerber Pimentel Urea nitrogen [Mass/Vol] 24.0 mg/dL Critically high 7.0-18.0 [facility] Comment on above: Performed By: #### L IVER, LIPID #### [facility] [address] [place] [address] Dr. Gerber Pimentel Urea nitrogen/Creatinin e [Mass ratio] 31.6 mg/mg Normal [facility] Comment on above: Performed By: #### L IVER, LIPID #### [facility] [address] [place] [address] Dr. Gerber Pimentel TSHon 06-21-2022 TSH 0.597 uIU/mL Normal 0.358-3.740 [facility] Comment on above: Performed By: #### L IVER, LIPID #### [facility] [address] [place] [address] Dr. Gerber Pimentel CULTURE URINEon 06-20-2022 CULTURE URINE Culture Observations : NO GROWTH. Normal [facility] Comment on above: Performed By: #### P HVEN #### [facility] [address] [place] [address] Dr. Gerber Pimentel UA RANDOM W/MICROSCOPICon BACTERIA NONE SEEN Normal NONE SEEN [facility] Comment on above: Performed By: #### P HVEN #### [facility] [address] [place] [address] Dr. Gerber Pimentel Bilirubin Ql (U) Negative Normal NEGATIVE [facility] Comment on above: Performed By: #### P HVEN #### [facility] [address] [place] [address] Dr. Gerber Pimentel CAST NONE SEEN Normal NONE SEEN [facility] Comment on above: Performed By: #### P HVEN #### [facility] [address] [place] [address] Dr. Gerber Pimentel Clarity (U) CLEAR Normal CLEAR [facility] Comment on above: Performed By: #### P HVEN #### [facility] [address] [place] [address] Dr. Gerber Pimentel Color (U) YELLOW Normal YELLOW [facility] Comment on above: Performed By: #### P HVEN #### [facility] [address] [place] [address] Dr. Gerber Pimentel Crystals LM Nom (Urine sed) NONE SEEN Normal NONE SEEN [facility] Comment on above: Performed By: #### P HVEN #### [facility] [address] [place] [address] Dr. Gerber Pimentel Epithelial cells LM Ql (Urine sed) MODERATE Abnormal NONE SEEN /RARE [facility] Comment on above: Performed By: #### P HVEN #### [facility] [address] [place] [address] Dr. Gerber Pimentel Glucose Ql (U) Negative Normal NEGATIVE [facility] Comment on above: Performed By: #### P HVEN #### [facility] [address] [place] [address] Dr. Gerber Pimentel Hemoglobin Ql (U) Negative Normal NEGATIVE [facility] Comment on above: Performed By: #### P HVEN #### [facility] [address] [place] [address] Dr. Gerber Pimentel Ketones Ql (U) Negative Normal NEGATIVE [facility] Comment on above: Performed By: #### P HVEN #### [facility] [address] [place] [address] Dr. Gerber Pimentel LEUKOCYTES Negative Normal NEGATIVE [facility] Comment on above: Performed By: #### P HVEN #### [facility] [address] [place] [address] Dr. Gerber Pimentel MUCOUS NONE SEEN Normal NONE SEEN [facility] Comment on above: Performed By: #### P HVEN #### [facility] [address] [place] [address] Dr. Gerber Pimentel Nitrite Ql (U) Negative Normal NEGATIVE [facility] Comment on above: Performed By: #### P HVEN #### [facility] [address] [place] [address] Dr. Gerber Pimentel pH (U) 5.5 [pH] Normal 5-9 [facility] Comment on above: Performed By: #### P HVEN #### [facility] [address] [place] [address] Dr. Gerber Pimentel RBC NONE SEEN Abnormal 0-2 [facility] Comment on above: Performed By: #### P HVEN #### [facility] [address] [place] [address] Dr. Gerber Pimentel SPEC GRAVITY 1.030 Abnormal 1.005-<=1.0 25 [facility] Comment on above: Performed By: #### P HVEN #### [facility] [address] [place] [address] Dr. Gerber Pimentel UA PROTEIN Negative Normal NEGATIVE/ TRACE [facility] Comment on above: Performed By: #### P HVEN #### [facility] [address] [address] [address] Gerber Pimentel Urobilinogen Qn (U) 0.2 {Brittanie'U}/dL Normal 0.2 - 1.0 [facility] Comment on above: Performed By: #### P HVEN #### [facility] [address] [address] [address] Gerber Pimentel WBC NONE SEEN Normal NONE SEEN [facility] Comment on above: Performed By: #### P HVEN #### [facility] [address] [place] [address] Dr. Gerber Pimentel LIPID PROFILEon 06-16-2022 CHOL-HDL RATIO NORM SEE BELOW Normal [facility] Comment on above: Result Comment: 3.3 - 4.4 LOW RISK 4.4 - 7.1 AVERAGE RISK 7.1 - 11.0 MODERATE RISK >11.0 HIGH RISK Performed By: #### L YU LIPID #### [facility] [address] [place] [address] Dr. Gerber Pimentel Cholesterol [Mass/Vol] 210 mg/dL Critically high <=200 [facility] Comment on above: Performed By: #### L YU LIPID #### [facility] [address] [place] [address] Dr. Gerber Pimentel Cholesterol in HDL [Mass/Vol] 69 mg/dL Critically high 40-60 [facility] Comment on above: Performed By: #### L UY LIPID #### [facility] [address] [place] [address] Dr. Gerber Pimentel Cholesterol in LDL [Mass/Vol] 125.0 mg/dL Normal [facility] Comment on above: Performed By: #### L YU LIPID #### [facility] [address] [place] [address] Dr. Gerber Pimentel Cholesterol.total/ Cholesterol in HDL [Mass ratio] 3.0 {ratio} Normal [facility] Comment on above: Performed By: #### L IVLEIGH, LIPID #### [facility] [address] [place] [address] Dr. Gerber Pimentel HDL NORMAL > or = 60 mg/dl - LO W CARDIOVASCULAR RISK <40 mg/dl - HIGH CARDIOVASCULAR RISK Normal [facility] Comment on above: Performed By: #### L IVER, LIPID #### [facility] [address] [address] [address] Gerber Pimentel LDL CALC NORMAL SEE BELOW Normal [facility] Comment on above: Result Comment: <100 mg/dl OPTIMAL 100 - 129 mg/dl NEAR OR ABOVE OPTIMAL 130 - 159 mg/dl BORDERLINE HIGH 160 - 189 mg/dl HIGH >190 mg/dl VERY HIGH Performed By: #### L IVER, LIPID #### [facility] [address] [address] [address] Gerebr Pimentel Triglyceride [Mass/Vol] 80 mg/dL Normal <=150 [facility] Comment on above: Performed By: #### L IVER, LIPID #### [facility] [address] [address] [address] Gerber Pimentel VLDL CALC 16.0 mg/dL Normal [facility] Comment on above: Performed By: #### L IVER, LIPID #### [facility] [address] [address] [address] Gerber Pimentel LIVER PROFILEon 06-16-2022 Albumin [Mass/Vol] 3.3 g/dL Critically low 3.4-5.0 [facility] Comment on above: Performed By: #### L IVER, LIPID #### [facility] [address] [address] [address] Gerber Pimentel Albumin/Globulin [Mass ratio] 0.8 {ratio} Normal [facility] Comment on above: Performed By: #### L IVER, LIPID #### [facility] [address] [address] [address] Gerber Pimentel ALP [Catalytic activity/Vol] 90 U/L Normal 46-116 [facility] Comment on above: Performed By: #### L IVER, LIPID #### [facility] [address] [address] [address] Gerber Pimentel ALT [Catalytic activity/Vol] 22 U/L Normal 14-59 [facility] Comment on above: Performed By: #### L IVER, LIPID #### [facility] [address] [address] [address] Gerber Pimentel AST [Catalytic activity/Vol] 16 U/L Normal 15-37 [facility] Comment on above: Performed By: #### L IVER, LIPID #### [facility] [address] [place] [address] Dr. Gerber Pimentel BILI, CONJUGATED 0.1 mg/dL Normal 0.0-0.2 [facility] Comment on above: Performed By: #### L IVER, LIPID #### [facility] [address] [place] [address] Dr. Gerber Pimentel Bilirubin [Mass/Vol] 0.8 mg/dL Normal 0.2-1.0 [facility] Comment on above: Performed By: #### L IVER, LIPID #### [facility] [address] [place] [address] Dr. Gerber Pimentel Globulin (S) [Mass/Vol] 4.0 g/dL Normal [facility] Comment on above: Performed By: #### L IVER, LIPID #### [facility] [address] [place] [address] Dr. Gerber Pimentel Protein [Mass/Vol] 7.3 g/dL Normal 6.4-8.2 [facility] Comment on above: Performed By: #### L IVER, LIPID #### [facility] [address] [place] [address] Dr. Gerber Pimentel Covid-19 PCR (CVDTBH)on 03-29 SARS-CoV-2 (COVID-19) RNA SLOANE+probe Ql (Unsp spec) Not detected Normal NOT DETECTED [facility] Comment on above: Result Comment: This test is not yet approved or cleared by the [place] FDA. When there are no FDA-approved or cleared tests available, and other criteria are met, FDA can make tests available under an emergency access mechanism called an Emergency Use Authorization (EUA). The EUA for this test is supported by the Research Manager of Health and Human Service's (HHS's) declaration [...] SARS-CoV-2. Performed By: #### I NFLUAB #### [facility] [address] [place] [address] Dr. Gerber Pimentel INFLUENZA A AND B [facility] 04-[facility] SEE BELOW Normal [facility] Comment on above: Result Comment: Nega tive for Flu A protein angiten. Infection due to Flu A cannot be ruled out. Flu A angiten in the sample may be below the detection limit of the test. Performed By: #### I NFLUAB #### [facility] [address] [place] [address] Dr. Gerber Piment[facility] Normal [facility] Comment on above: Result Comment: Nega tive for Flu B protein antigen. Infection due to Flu B cannot be ruled out. Flu B antigen in the sample may be below the detection limit of the test. Performed By: #### I NFLUAB #### [facility] [address] [place] [address] Dr. Gerber Pimentel INFLUENZA A AG Negative Normal NEGATIVE SEE COMMENT [facility] Comment on above: Performed By: #### I NFLUAB #### [facility] [address] [place] [address] Dr. Gerber Pimentel INFLUENZA B AG Negative Normal NEGATIVE SEE COMMENT [facility] Comment on above: Performed By: #### I NFLUAB #### [facility] [address] [place] [address] Dr. Gerber Pimentel BNPon 02-22-2022 Natriuretic peptide B (Bld) [Mass/Vol] 146.0 pg/mL Normal <=900.0 [facility] Comment on above: Performed By: #### C BC #### [facility] [address] [address] [address] Gerber Pimentel CBC AUTO DIFFon 02-22-2022 BASO # 0.0 103/ul Normal 0.0-0.1 [facility] Comment on above: Performed By: #### C BC #### [facility] [address] [address] [address] Gerber Pimentel Basophils/100 WBC (Bld) 0.1 % Critically low 0.2-2.0 [facility] Comment on above: Performed By: #### C BC #### [facility] [address] [address] [address] Gerber Pimentel EO # 0.1 103/ul Normal 0.0-0.7 [facility] Comment on above: Performed By: #### C BC #### [facility] [address] [place] [address] Dr. Gerber Pimentel Eosinophils/100 WBC (Bld) 1.3 % Normal 0.9-7.0 [facility] Comment on above: Performed By: #### C BC #### [facility] [address] [address] [address] Gerber Pimentel Erythrocyte distribution width (RBC) [Ratio] 14.2 % Normal 11.0-15.0 [facility] Comment on above: Performed By: #### C BC #### [facility] [address] [place] [address] Dr. Gerber Pimentel Hematocrit (Bld) [Volume fraction] 35.9 % Critically low 36.0-48.0 [facility] Comment on above: Performed By: #### C BC #### [facility] [address] [address] [address] Gerber Pimentel Hemoglobin (Bld) [Mass/Vol] 11.9 g/dL Critically low 12.0-16.0 [facility] Comment on above: Performed By: #### C BC #### [facility] [address] [address] [address] Gerber Pimentel IG # 0.02 10e3/ul Normal 0.00-0.03 [facility] Comment on above: Performed By: #### C BC #### [facility] [address] [place] [address] Dr. Gerber Pimentel IG % 0.2 % Normal 0.0-0.5 [facility] Comment on above: Performed By: #### C BC #### [facility] [address] [place] [address] Dr. Gerber Pimentel LYMPH # 0.8 103/ul Critically low 1.2-3.8 [facility] Comment on above: Performed By: #### C BC #### [facility] [address] [place] [address] Dr. Gerber Pimentel Lymphocytes/100 WBC (Bld) 9.2 % Critically low 20.5-60.0 [facility] Comment on above: Performed By: #### C BC #### [facility] [address] [place] [address] Dr. Gerber Pimentel MANUAL DIFF REQ NO Normal [facility] Comment on above: Performed By: #### C BC #### [facility] [address] [place] [address] Dr. Gerber Pimentel MCH (RBC) [Entitic mass] 29.2 pg Normal 26.7-34.0 [facility] Comment on above: Performed By: #### C BC #### [facility] [address] [place] [address] Dr. Gerber Pimentel MCHC (RBC) [Mass/Vol] 33.1 g/dL Normal 29.9-35.2 [facility] Comment on above: Performed By: #### C BC #### [facility] [address] [place] [address] Dr. Gebrer Pimentel MCV (RBC) [Entitic vol] 88.2 fL Normal 81.0-99.0 [facility] Comment on above: Performed By: #### C BC #### [facility] [address] [place] [address] Dr. Gerber Pimentel MONO # 0.6 103/ul Normal 0.3-0.8 [facility] Comment on above: Performed By: #### C BC #### [facility] [address] [address] [address] Gerber Pimentel Monocytes/100 WBC (Bld) 7.2 % Normal 1.7-12.0 [facility] Comment on above: Performed By: #### C BC #### [facility] [address] [address] [address] Gerber Pimentel NEUT # 7.2 103/ul Critically high 1.4-6.5 [facility] Comment on above: Performed By: #### C BC #### [facility] [address] [address] [address] Gerber Pimentel Neutrophils/100 WBC (Bld) 82.0 % Critically high 43.0-75.0 [facility] Comment on above: Performed By: #### C BC #### [facility] [address] [place] [address] Dr. Gerber Pimentel Platelet mean volume (Bld) [Entitic vol] 8.5 fL Critically low 9.5-13.5 [facility] Comment on above: Performed By: #### C BC #### [facility] [address] [address] [address] Gerber Pimentel PLT 213 103/ul Normal 150-450 [facility] Comment on above: Performed By: #### C BC #### [facility] [address] [place] [address] Dr. Gerber Pimentel RBC 4.07 106/ul Critically low 4.20-5.40 [facility] Comment on above: Performed By: #### C BC #### [facility] [address] [place] [address] Dr. Gerber Pimentel WBC 8.7 103/ul Normal 4.0-11.0 [facility] Comment on above: Performed By: #### C BC #### [facility] [address] [place] [address] Dr. Gerber Pimentel CTA CHEST WO W CONon 02-22-2 022 CTA CHEST WO W CON EXAMINATION: [...] NICOLE CONSTANTINO Date: 2022-02-22 15:18 Normal [facility] Covid-19 PCR (CVDTB)on 01-27 SARS-CoV-2 (COVID-19) RNA SLOANE+probe Ql (Unsp spec) Not detected Normal NOT DETECTED [facility] Comment on above: Result Comment: When diagnostic [...] for this test is supported by the Research Manager of Health and Human Service's declaration that [...] longer be used). Performed By: #### L YU, LIPID #### [facility] [address] [place] [address] Dr. Gerber Pimentel INFLUENZA A AND B AGon 02-22 INFLUENZA A AG Negative Normal NEGATIVE SEE COMMENT [facility] Comment on above: Performed By: #### A 1C #### [facility] [address] [address] [address] Gerber Pimentel INFLUENZA B AG Negative Normal NEGATIVE SEE COMMENT [facility] Comment on above: Performed By: #### A 1C #### [facility] [address] [address] [address] Gerber Pimentel PROF CHEM 8 (BAS METB)on Anion gap [Moles/Vol] 11.2 mmol/L Normal [facility] Comment on above: Performed By: #### C BC #### [facility] [address] [address] [address] Gerber Pimentel Calcium [Mass/Vol] 8.6 mg/dL Normal 8.5-10.1 [facility] Comment on above: Performed By: #### C BC #### [facility] [address] [place] [address] Dr. Gerber Pimentel Chloride [Moles/Vol] 104 mmol/L Normal 98-107 [facility] Comment on above: Performed By: #### C BC #### [facility] [address] [address] [address] Gerber Pimentel CO2 [Moles/Vol] 25.6 mmol/L Normal 21.0-32.0 [facility] Comment on above: Performed By: #### C BC #### [facility] [address] [address] [address] Gerber Pimentel Creatinine [Mass/Vol] 0.76 mg/dL Normal 0.55-1.02 [facility] Comment on above: Performed By: #### C BC #### [facility] [address] [address] [address] Gerber Pimentel EGFR-AF [place] >60 Normal >=60 [facility] Comment on above: Performed By: #### C BC #### [facility] [address] [address] [address] Gerbre Pimentel EGFR-NON AF [place] >60 Normal >=60 [facility] Comment on above: Performed By: #### C BC #### [facility] [address] [address] [address] Gerber Pimentel Glucose [Mass/Vol] 149 mg/dL Critically high 74-106 [facility] Comment on above: Performed By: #### C BC #### [facility] [address] [address] [address] Gerber Pimentel Potassium [Moles/Vol] 3.8 mmol/L Normal 3.5-5.1 [facility] Comment on above: Performed By: #### C BC #### [facility] [address] [address] [address] Gerber Pimentel Sodium [Moles/Vol] 137 mmol/L Normal 136-145 [facility] Comment on above: Performed By: #### C BC #### [facility] [address] [address] [address] Gerber Pimentel Urea nitrogen [Mass/Vol] 20.0 mg/dL Critically high 7.0-18.0 [facility] Comment on above: Performed By: #### C BC #### [facility] [address] [address] [address] Gerber Pimentel Urea nitrogen/Creatinin e [Mass ratio] 26.3 mg/mg Normal [facility] Comment on above: Performed By: #### C BC #### [facility] [address] [address] [address] Gerber Pimentel TROPONIN, HIGH SENSITIVITYon 02-22-2022 HSTROP 4.6 pg/mL Normal 4.0-51.3 [facility] Comment on above: Result Comment: CUT- OFF POINTS HAVE BEEN ESTABLISHED BASED ON THE FOURTH UNIVERSAL DEFINITIONS OF MYOCARDIAL INFARCTION. THE UPPER REFERENCE LIMIT (URL) OF TROPONIN, DEFINED THE 99TH PERCENTILE OF cTnI DISTRIBUTION IN A REFERENCE POPULATION, HAS BEEN CONFIRMED THE DECISION THRESHOLD FOR [place] DIAGNOSIS. Performed By: #### C BC #### [facility] [address] [place] [address] Dr. Gerber Pimentel XR CHEST 1 Von [...] JOAN HEAD Date: 2022-02-21 23:36 Normal [facility] CBC AUTO DIFFon 02-01-2022 BASO # 0.0 103/ul Normal 0.0-0.1 [facility] Comment on above: Performed By: #### C BC #### [facility] [address] [address] [address] Gerber Pimentel Basophils/100 WBC (Bld) 0.4 % Normal 0.2-2.0 [facility] Comment on above: Performed By: #### C BC #### [facility] [address] [address] [address] Gerber Pimentel EO # 0.2 103/ul Normal 0.0-0.7 [facility] Comment on above: Performed By: #### C BC #### [facility] [address] [address] [address] Gerber Pimentel Eosinophils/100 WBC (Bld) 3.1 % Normal 0.9-7.0 [facility] Comment on above: Performed By: #### C BC #### [facility] [address] [address] [address] Gerber Pimentel Erythrocyte distribution width (RBC) [Ratio] 13.3 % Normal 11.0-15.0 [facility] Comment on above: Performed By: #### C BC #### [facility] [address] [address] [address] Gerber Pimentel Hematocrit (Bld) [Volume fraction] 39.2 % Normal 36.0-48.0 [facility] Comment on above: Performed By: #### C BC #### [facility] [address] [address] [address] Gerber Pimentel Hemoglobin (Bld) [Mass/Vol] 13.0 g/dL Normal 12.0-16.0 [facility] Comment on above: Performed By: #### C BC #### [facility] [address] [place] [address] Dr. Gerber Pimentel IG # 0.03 10e3/ul Normal 0.00-0.03 [facility] Comment on above: Performed By: #### C BC #### [facility] [address] [place] [address] Dr. Gerber Pimentel IG % 0.4 % Normal 0.0-0.5 [facility] Comment on above: Performed By: #### C BC #### [facility] [address] [place] [address] Dr. Gerber Pimentel LYMPH # 2.2 103/ul Normal 1.2-3.8 [facility] Comment on above: Performed By: #### C BC #### [facility] [address] [place] [address] Dr. Gerber Pimentel Lymphocytes/100 WBC (Bld) 28.6 % Normal 20.5-60.0 [facility] Comment on above: Performed By: #### C BC #### [facility] [address] [place] [address] Dr. Gerber Pimentel MANUAL DIFF REQ NO Normal [facility] Comment on above: Performed By: #### C BC #### [facility] [address] [place] [address] Dr. Gerber Pimentel MCH (RBC) [Entitic mass] 28.6 pg Normal 26.7-34.0 [facility] Comment on above: Performed By: #### C BC #### [facility] [address] [place] [address] Dr. Gerber Pimentel MCHC (RBC) [Mass/Vol] 33.2 g/dL Normal 29.9-35.2 [facility] Comment on above: Performed By: #### C BC #### [facility] [address] [place] [address] Dr. Gerber Pimentel MCV (RBC) [Entitic vol] 86.3 fL Normal 81.0-99.0 [facility] Comment on above: Performed By: #### C BC #### [facility] [address] [place] [address] Dr. Gerber Pimentel MONO # 0.5 103/ul Normal 0.3-0.8 [facility] Comment on above: Performed By: #### C BC #### [facility] [address] [place] [address] Dr. Gerber Pimentel Monocytes/100 WBC (Bld) 6.9 % Normal 1.7-12.0 [facility] Comment on above: Performed By: #### C BC #### [facility] [address] [place] [address] Dr. Gerber Pimentel NEUT # 4.6 103/ul Normal 1.4-6.5 [facility] Comment on above: Performed By: #### C BC #### [facility] [address] [place] [address] Dr. Gerber Pimentel Neutrophils/100 WBC (Bld) 60.6 % Normal 43.0-75.0 [facility] Comment on above: Performed By: #### C BC #### [facility] [address] [place] [address] Dr. Gerber Pimentel Platelet mean volume (Bld) [Entitic vol] 9.1 fL Critically low 9.5-13.5 [facility] Comment on above: Performed By: #### C BC #### [facility] [address] [place] [address] Dr. Gerber Pimentel PLT 362 103/ul Normal 150-450 [facility] Comment on above: Performed By: #### C BC #### [facility] [address] [place] [address] Dr. Gerber Pimentel RBC 4.54 106/ul Normal 4.20-5.40 [facility] Comment on above: Performed By: #### C BC #### [facility] [address] [place] [address] Dr. Gerber Pimentel WBC 7.7 103/ul Normal 4.0-11.0 [facility] Comment on above: Performed By: #### C BC #### [facility] [address] [place] [address] Dr. Gerber Pimentel FREE T3on 02-01-2022 FREE T3 2.42 pg/mlL Normal 2.18-3.98 [facility] Comment on above: Performed By: #### I NFLUAB #### [facility] [address] [place] [address] Dr. Gebrer Pimentel GLYCOHEMOGLOBIN A1Con 2021 ADA RECOMMENDATION SEE BELOW Normal [facility] Comment on above: Result Comment: ADA RECOMMENDED LIMIT 4.0 - 6.0 ADA THERAPEUTIC TARGET < 7.0 ACTION SUGGESTED > 7.0 Performed By: #### A 1C #### [facility] [address] [place] [address] Dr. Gerber Pimentel Glucose [Mass/Vol] 105 mg/dL Normal [facility] Comment on above: Performed By: #### A 1C #### [facility] [address] [place] [address] Dr. Gerber Pimentel HbA1c (Bld) [Mass fraction] 5.3 % Normal 4.5-6.2 [facility] Comment on above: Performed By: #### A 1C #### [facility] [address] [place] [address] Dr. Gerber Pimentel LIPID PROFILEon 02-01-2022 CHOL-HDL RATIO NORM SEE BELOW Normal [facility] Comment on above: Result Comment: 3.3 - 4.4 LOW RISK 4.4 - 7.1 AVERAGE RISK 7.1 - 11.0 MODERATE RISK >11.0 HIGH RISK Performed By: #### I NFLUAB #### [facility] [address] [place] [address] Dr. Gerber Pimentel Cholesterol [Mass/Vol] 226 mg/dL Critically high <=200 [facility] Comment on above: Performed By: #### I NFLUAB #### [facility] [address] [place] [address] Dr. Gerber Pimentel Cholesterol in HDL [Mass/Vol] 62 mg/dL Critically high 40-60 [facility] Comment on above: Performed By: #### I NFLUAB #### [facility] [address] [place] [address] Dr. Gerber Pimentel Cholesterol in LDL [Mass/Vol] 141.4 mg/dL Normal [facility] Comment on above: Performed By: #### I NFLUAB #### [facility] [address] [address] [address] Gerber Pimentel Cholesterol.total/ Cholesterol in HDL [Mass ratio] 3.6 {ratio} Normal [facility] Comment on above: Performed By: #### I NFLUAB #### [facility] [address] [address] [address] Gerber Pimentel HDL NORMAL > or = 60 mg/dl - LO W CARDIOVASCULAR RISK <40 mg/dl - HIGH CARDIOVASCULAR RISK Normal [facility] Comment on above: Performed By: #### I NFLUAB #### [facility] [address] [place] [address] Dr. Gerber Pimentel LDL CALC NORMAL SEE BELOW Normal [facility] Comment on above: Result Comment: <100 mg/dl OPTIMAL 100 - 129 mg/dl NEAR OR ABOVE OPTIMAL 130 - 159 mg/dl BORDERLINE HIGH 160 - 189 mg/dl HIGH >190 mg/dl VERY HIGH Performed By: #### I NFLUAB #### [facility] [address] [address] [address] Gerber Pimentel Triglyceride [Mass/Vol] 113 mg/dL Normal <=150 [facility] Comment on above: Performed By: #### I NFLUAB #### [facility] [address] [place] [address] Dr. Gerber Pimentel VLDL CALC 22.6 mg/dL Normal [facility] Comment on above: Performed By: #### I NFLUAB #### [facility] [address] [place] [address] Dr. Gerber Pimentel PROF 14(COMP METB)on 022 Albumin [Mass/Vol] 3.9 g/dL Normal 3.4-5.0 [facility] Comment on above: Performed By: #### L IVER, LIPID #### [facility] [address] [place] [address] Dr. Gerber Pimentel Albumin/Globulin [Mass ratio] 0.8 {ratio} Normal [facility] Comment on above: Performed By: #### L IVER, LIPID #### [facility] [address] [address] [address] Gerber Pimentel ALP [Catalytic activity/Vol] 155 U/L Critically high 46-116 [facility] Comment on above: Performed By: #### L IVER, LIPID #### [facility] [address] [address] [address] Gerber Pimentel ALT [Catalytic activity/Vol] 21 U/L Normal 14-59 [facility] Comment on above: Performed By: #### L IVER, LIPID #### [facility] [address] [address] [address] Gerber Pimentel Anion gap [Moles/Vol] 13.9 mmol/L Normal [facility] Comment on above: Performed By: #### L IVER, LIPID #### [facility] [address] [address] [address] Gerber Pimentel AST [Catalytic activity/Vol] 31 U/L Normal 15-37 [facility] Comment on above: Performed By: #### L IVER, LIPID #### [facility] [address] [address] [address] Gerber Pimentel Bilirubin [Mass/Vol] 0.6 mg/dL Normal 0.2-1.0 [facility] Comment on above: Performed By: #### L IVER, LIPID #### [facility] [address] [address] [address] Gerber Pimentel Calcium [Mass/Vol] 9.2 mg/dL Normal 8.5-10.1 [facility] Comment on above: Performed By: #### L IVER, LIPID #### [facility] [address] [address] [address] Gerber Pimentel Chloride [Moles/Vol] 102 mmol/L Normal 98-107 [facility] Comment on above: Performed By: #### L IVER, LIPID #### [facility] [address] [address] [address] Gerber Pimentel CO2 [Moles/Vol] 25.8 mmol/L Normal 21.0-32.0 [facility] Comment on above: Performed By: #### L IVER, LIPID #### [facility] [address] [address] [address] Gerber Pimentel Creatinine [Mass/Vol] 0.75 mg/dL Normal 0.55-1.02 [facility] Comment on above: Performed By: #### L IVER, LIPID #### [facility] [address] [address] [address] Gerber Pimentel EGFR-AF [place] >60 Normal >=60 [facility] Comment on above: Performed By: #### L IVER, LIPID #### [facility] [address] [address] [address] Gerber Pimentel EGFR-NON AF [place] >60 Normal >=60 [facility] Comment on above: Performed By: #### L IVER, LIPID #### [facility] [address] [address] [address] Gerber Pimentel Globulin (S) [Mass/Vol] 4.6 g/dL Normal [facility] Comment on above: Performed By: #### L IVER, LIPID #### [facility] [address] [address] [address] Gerber Pimentel Glucose [Mass/Vol] 98 mg/dL Normal 74-106 [facility] Comment on above: Performed By: #### L IVER, LIPID #### [facility] [address] [address] [address] Gerber Pimentel Potassium [Moles/Vol] 4.7 mmol/L Normal 3.5-5.1 [facility] Comment on above: Performed By: #### L IVER, LIPID #### [facility] [address] [address] [address] Gerber Pimentel Protein [Mass/Vol] 8.5 g/dL Critically high 6.4-8.2 [facility] Comment on above: Performed By: #### L IVER, LIPID #### [facility] [address] [address] [address] Gerber Pimentel Sodium [Moles/Vol] 137 mmol/L Normal 136-145 [facility] Comment on above: Performed By: #### L YU, LIPID #### [facility] [address] [place] [address] Dr. Gerber Pimentel Urea nitrogen [Mass/Vol] 20.0 mg/dL Critically high 7.0-18.0 [facility] Comment on above: Performed By: #### L YU, LIPID #### [facility] [address] [place] [address] Dr. Gerber Pimentel Urea nitrogen/Creatinin e [Mass ratio] 26.7 mg/mg Normal [facility] Comment on above: Performed By: #### L YU LIPID #### [facility] [address] [place] [address] Dr. Gerber Pimentel T4on 02-01-2022 T4 [Mass/Vol] 9.20 ug/dL Normal 4.80-13.90 [facility] Comment on above: Performed By: #### I NFLUAB #### [facility] [address] [place] [address] Dr. Gerber Pimentel TSHon 02-01-2022 TSH 1.396 uIU/mL Normal 0.358-3.740 [facility] Comment on above: Performed By: #### I NFLUAB #### [facility] [address] [place] [address] Dr. Gerber Pimentel VITAMIN D 25 OHon 02-01-2022 VIT D 25-OH 32.8 ng/mL Normal [facility] Comment on above: Performed By: #### A 1C #### [facility] [address] [place] [address] Dr. Gerber Pimentel VIT D RANGES SEE BELOW Normal [facility] Comment on above: Result Comment: <20 ng/mL Vit D deficient 20 - <30 ng/mL Vit D insufficient 30 - 100 ng/mL Vit D sufficient >100 ng/mL Potential Toxicity Performed By: #### A 1C #### [facility] [address] [place] [address] Dr. Gerber Pimentel NM STRESS/REST MULTIon 11-03 NM STRESS/REST MULTI Patient: HARLEY SHARMAGala Exam Date: 11/03/2021 : 1970 Gender:F Ordering : DR DEBRA CONCEPCION . Admission #: [id number] Family : Order #: [id number] CLICK HERE TO VIEW EXAM RADIOLOGY REPORT [...] M.D. on 11/04/2021 at 08:00 Normal [facility] CBC AUTO DIFFon 11-01-2021 BASO # 0.1 103/ul Normal 0.0-0.1 [facility] Comment on above: Performed By: #### C BC #### [facility] [address] [address] [address] Gerber Pimentel Basophils/100 WBC (Bld) 0.8 % Normal 0.2-2.0 [facility] Comment on above: Performed By: #### C BC #### [facility] [address] [place] [address] Dr. Gerber Pimentel EO # 0.1 103/ul Normal 0.0-0.7 [facility] Comment on above: Performed By: #### C BC #### [facility] [address] [place] [address] Dr. Gerber Pimentel Eosinophils/100 WBC (Bld) 2.0 % Normal 0.9-7.0 [facility] Comment on above: Performed By: #### C BC #### [facility] [address] [place] [address] Dr. Gerber Pimentel Erythrocyte distribution width (RBC) [Ratio] 13.2 % Normal 11.0-15.0 [facility] Comment on above: Performed By: #### C BC #### [facility] [address] [place] [address] Dr. Gerber Pimentel Hematocrit (Bld) [Volume fraction] 35.6 % Critically low 36.0-48.0 [facility] Comment on above: Performed By: #### C BC #### [facility] [address] [place] [address] Dr. Gerber Pimentel Hemoglobin (Bld) [Mass/Vol] 11.7 g/dL Critically low 12.0-16.0 [facility] Comment on above: Performed By: #### C BC #### [facility] [address] [place] [address] Dr. Gerber Pimentel IG # 0.02 10e3/ul Normal 0.00-0.03 [facility] Comment on above: Performed By: #### C BC #### [facility] [address] [place] [address] Dr. Gerber Pimentel IG % 0.3 % Normal 0.0-0.5 [facility] Comment on above: Performed By: #### C BC #### [facility] [address] [place] [address] Dr. Gerber Pimentel LYMPH # 1.9 103/ul Normal 1.2-3.8 [facility] Comment on above: Performed By: #### C BC #### [facility] [address] [place] [address] Dr. Gerber Pimentel Lymphocytes/100 WBC (Bld) 29.0 % Normal 20.5-60.0 [facility] Comment on above: Performed By: #### C BC #### [facility] [address] [place] [address] Dr. Gerber Pimentel MANUAL DIFF REQ NO Normal [facility] Comment on above: Performed By: #### C BC #### [facility] [address] [place] [address] Dr. Gerber Pimentel MCH (RBC) [Entitic mass] 28.6 pg Normal 26.7-34.0 [facility] Comment on above: Performed By: #### C BC #### [facility] [address] [place] [address] Dr. Gerber Pimentel MCHC (RBC) [Mass/Vol] 32.9 g/dL Normal 29.9-35.2 [facility] Comment on above: Performed By: #### C BC #### [facility] [address] [place] [address] Dr. Gerber Pimentel MCV (RBC) [Entitic vol] 87.0 fL Normal 81.0-99.0 [facility] Comment on above: Performed By: #### C BC #### [facility] [address] [place] [address] Dr. Gerber Pimentel MONO # 0.6 103/ul Normal 0.3-0.8 [facility] Comment on above: Performed By: #### C BC #### [facility] [address] [place] [address] Dr. Gerber Pimentel Monocytes/100 WBC (Bld) 8.6 % Normal 1.7-12.0 [facility] Comment on above: Performed By: #### C BC #### [facility] [address] [place] [address] Dr. Gerber Pimentel NEUT # 3.8 103/ul Normal 1.4-6.5 [facility] Comment on above: Performed By: #### C BC #### [facility] [address] [place] [address] Dr. Gerber Pimentel Neutrophils/100 WBC (Bld) 59.3 % Normal 43.0-75.0 [facility] Comment on above: Performed By: #### C BC #### [facility] [address] [place] [address] Dr. Gerber Pimentel Platelet mean volume (Bld) [Entitic vol] 9.0 fL Critically low 9.5-13.5 [facility] Comment on above: Performed By: #### C BC #### [facility] [address] [place] [address] Dr. Gerber Pimentel PLT 447 103/ul Normal 150-450 [facility] Comment on above: Performed By: #### C BC #### [facility] [address] [place] [address] Dr. Gerber Pimentel RBC 4.09 106/ul Critically low 4.20-5.40 [facility] Comment on above: Performed By: #### C BC #### [facility] [address] [place] [address] Dr. Gerber Pimentel WBC 6.4 103/ul Normal 4.0-11.0 [facility] Comment on above: Performed By: #### C BC #### [facility] [address] [place] [address] Dr. Gerber Pimentel CRPon 11-01-2021 CRP [Mass/Vol] mg/L Normal <=1.0 [facility] Comment on above: Performed By: #### C BC #### [facility] [address] [place] [address] Dr. Gerber Pimentel PROF 14(COMP METB)on 022 Albumin [Mass/Vol] 3.6 g/dL Normal 3.4-5.0 [facility] Comment on above: Performed By: #### C BC #### [facility] [address] [place] [address] Dr. Gerber Pimentel Albumin/Globulin [Mass ratio] 0.8 {ratio} Normal [facility] Comment on above: Performed By: #### C BC #### [facility] [address] [place] [address] Dr. Gerber Pimentel ALP [Catalytic activity/Vol] 147 U/L Critically high 46-116 [facility] Comment on above: Performed By: #### C BC #### [facility] [address] [place] [address] Dr. Gerber Pimentel ALT [Catalytic activity/Vol] 34 U/L Normal 14-59 [facility] Comment on above: Performed By: #### C BC #### [facility] [address] [place] [address] Dr. Gerber Pimentel Anion gap [Moles/Vol] 11.0 mmol/L Normal [facility] Comment on above: Performed By: #### C BC #### [facility] [address] [place] [address] Dr. Gerber Pimentel AST [Catalytic activity/Vol] 52 U/L Critically high 15-37 [facility] Comment on above: Performed By: #### C BC #### [facility] [address] [place] [address] Dr. Gerber Pimentel Bilirubin [Mass/Vol] 0.5 mg/dL Normal 0.2-1.0 [facility] Comment on above: Performed By: #### C BC #### [facility] [address] [place] [address] Dr. Gerber Pimentel Calcium [Mass/Vol] 9.2 mg/dL Normal 8.5-10.1 [facility] Comment on above: Performed By: #### C BC #### [facility] [address] [place] [address] Dr. eGrber Pimentel Chloride [Moles/Vol] 104 mmol/L Normal 98-107 [facility] Comment on above: Performed By: #### C BC #### [facility] [address] [place] [address] Dr. Gerber Pimentel CO2 [Moles/Vol] 28.1 mmol/L Normal 21.0-32.0 [facility] Comment on above: Performed By: #### C BC #### [facility] [address] [place] [address] Dr. Gerber Pimentel Creatinine [Mass/Vol] 1.05 mg/dL Critically high 0.55-1.02 [facility] Comment on above: Performed By: #### C BC #### [facility] [address] [address] [address] Gerber Pimentel EGFR-AF [place] >60 Normal >=60 [facility] Comment on above: Performed By: #### C BC #### [facility] [address] [address] [address] Gerber Pimentel EGFR-NON AF [place] 55 mL/min/1.73m2 Critically low >=60 [facility] Comment on above: Performed By: #### C BC #### [facility] [address] [address] [address] Gerber Pimentel Globulin (S) [Mass/Vol] 4.7 g/dL Normal [facility] Comment on above: Performed By: #### C BC #### [facility] [address] [place] [address] Dr. Gerber Pimentel Glucose [Mass/Vol] 96 mg/dL Normal 74-106 [facility] Comment on above: Performed By: #### C BC #### [facility] [address] [address] [address] Gerber Pimentel Potassium [Moles/Vol] 4.1 mmol/L Normal 3.5-5.1 [facility] Comment on above: Performed By: #### C BC #### [facility] [address] [address] [address] Gerber Pimentel Protein [Mass/Vol] 8.3 g/dL Critically high 6.4-8.2 [facility] Comment on above: Performed By: #### C BC #### [facility] [address] [address] [address] Gerber Pimentel Sodium [Moles/Vol] 139 mmol/L Normal 136-145 [facility] Comment on above: Performed By: #### C BC #### [facility] [address] [address] [address] Gerber Pimentel Urea nitrogen [Mass/Vol] 16.0 mg/dL Normal 7.0-18.0 [facility] Comment on above: Performed By: #### C BC #### [facility] [address] [place] [address] Dr. Gerber Pimentel Urea nitrogen/Creatinin e [Mass ratio] 15.2 mg/mg Normal [facility] Comment on above: Performed By: #### C BC #### [facility] [address] [place] [address] Dr. Gerber Pimentel SED RATE WESTERGRENon 2021 SED RATE 80 mm/hr Critically high <=30 [facility] Comment on above: Performed By: #### C BC #### [facility] [address] [place] [address] Dr. Gerber Pimentel CBC AUTO DIFFon 10-19-2021 BASO # 0.0 103/ul Normal 0.0-0.1 [facility] Comment on above: Performed By: #### I NFLUAB #### [facility] [address] [place] [address] Dr. Gerber Pimentel Basophils/100 WBC (Bld) 0.1 % Critically low 0.2-2.0 [facility] Comment on above: Performed By: #### I NFLUAB #### [facility] [address] [place] [address] Dr. Gerber Pimentel EO # 0.1 103/ul Normal 0.0-0.7 [facility] Comment on above: Performed By: #### I NFLUAB #### [facility] [address] [place] [address] Dr. Gerber Pimentel Eosinophils/100 WBC (Bld) 1.3 % Normal 0.9-7.0 [facility] Comment on above: Performed By: #### I NFLUAB #### [facility] [address] [place] [address] Dr. Gerber Pimentel Erythrocyte distribution width (RBC) [Ratio] 13.6 % Normal 11.0-15.0 [facility] Comment on above: Performed By: #### I NFLUAB #### [facility] [address] [place] [address] Dr. Gerber Pimentel Hematocrit (Bld) [Volume fraction] 26.1 % Critically low 36.0-48.0 [facility] Comment on above: Performed By: #### I NFLUAB #### [facility] [address] [place] [address] Dr. Gerber Pimentel Hemoglobin (Bld) [Mass/Vol] 8.7 g/dL Critically low 12.0-16.0 [facility] Comment on above: Performed By: #### I NFLUAB #### [facility] [address] [place] [address] Dr. Gerber Pimentel IG # 0.05 10e3/ul Critically high 0.00-0.03 [facility] Comment on above: Performed By: #### I NFLUAB #### [facility] [address] [place] [address] Dr. Gerber Pimentel IG % 0.7 % Critically high 0.0-0.5 [facility] Comment on above: Performed By: #### I NFLUAB #### [facility] [address] [place] [address] Dr. Gerber Pimentel LYMPH # 1.2 103/ul Normal 1.2-3.8 [facility] Comment on above: Performed By: #### I NFLUAB #### [facility] [address] [place] [address] Dr. Gerber Pimentel Lymphocytes/100 WBC (Bld) 16.8 % Critically low 20.5-60.0 [facility] Comment on above: Performed By: #### I NFLUAB #### [facility] [address] [place] [address] Dr. Gerber Pimentel MANUAL DIFF REQ NO Normal [facility] Comment on above: Performed By: #### I NFLUAB #### [facility] [address] [place] [address] Dr. Gerber Pimentel MCH (RBC) [Entitic mass] 28.9 pg Normal 26.7-34.0 [facility] Comment on above: Performed By: #### I NFLUAB #### [facility] [address] [place] [address] Dr. Gerber Pimentel MCHC (RBC) [Mass/Vol] 33.3 g/dL Normal 29.9-35.2 [facility] Comment on above: Performed By: #### I NFLUAB #### [facility] [address] [place] [address] Dr. Gerber Pimentel MCV (RBC) [Entitic vol] 86.7 fL Normal 81.0-99.0 [facility] Comment on above: Performed By: #### I NFLUAB #### [facility] [address] [place] [address] Dr. Gerber Pimentel MONO # 0.6 103/ul Normal 0.3-0.8 [facility] Comment on above: Performed By: #### I NFLUAB #### [facility] [address] [place] [address] Dr. Gerber Pimentel Monocytes/100 WBC (Bld) 8.5 % Normal 1.7-12.0 [facility] Comment on above: Performed By: #### I NFLUAB #### [facility] [address] [place] [address] Dr. Gerber Pimentel NEUT # 5.0 103/ul Normal 1.4-6.5 [facility] Comment on above: Performed By: #### I NFLUAB #### [facility] [address] [place] [address] Dr. Gerber Pimentel Neutrophils/100 WBC (Bld) 72.6 % Normal 43.0-75.0 [facility] Comment on above: Performed By: #### I NFLUAB #### [facility] [address] [place] [address] Dr. Gerber Pimentel Platelet mean volume (Bld) [Entitic vol] 9.0 fL Critically low 9.5-13.5 [facility] Comment on above: Performed By: #### I NFLUAB #### [facility] [address] [place] [address] Dr. Gerber Pimentel PLT 222 103/ul Normal 150-450 [facility] Comment on above: Performed By: #### I NFLUAB #### [facility] [address] [place] [address] Dr. Gerber Pimentel RBC 3.01 106/ul Critically low 4.20-5.40 [facility] Comment on above: Performed By: #### I NFLUAB #### [facility] [address] [place] [address] Dr. Gerber Pimentel WBC 6.8 103/ul Normal 4.0-11.0 [facility] Comment on above: Performed By: #### I NFLUAB #### [facility] [address] [place] [address] Dr. Gerber Pimentel CRPon 10-19-2021 CRP 3.9 mg/dL Critically high <=1.0 [facility] Comment on above: Performed By: #### C BC #### [facility] [address] [place] [address] Dr. Gerber Pimentel MAGNESIUMon 10-19-2021 Magnesium [Mass/Vol] 1.9 mg/dL Normal 1.8-2.4 [facility] Comment on above: Performed By: #### C BC #### [facility] [address] [place] [address] Dr. Gerber Pimentel PROF 14(COMP METB)on 022 Albumin [Mass/Vol] 2.3 g/dL Critically low 3.4-5.0 [facility] Comment on above: Performed By: #### C BC #### [facility] [address] [place] [address] Dr. Gerber Pimentel Albumin/Globulin [Mass ratio] 0.6 {ratio} Normal [facility] Comment on above: Performed By: #### C BC #### [facility] [address] [place] [address] Dr. Gerber Pimentel ALP [Catalytic activity/Vol] 193 U/L Critically high 46-116 [facility] Comment on above: Performed By: #### C BC #### [facility] [address] [place] [address] Dr. Gerber Pimentel ALT [Catalytic activity/Vol] 29 U/L Normal 14-59 [facility] Comment on above: Performed By: #### C BC #### [facility] [address] [address] [address] Gerber Pimentel Anion gap [Moles/Vol] 12.4 mmol/L Normal [facility] Comment on above: Performed By: #### C BC #### [facility] [address] [address] [address] Gerber Pimentel AST [Catalytic activity/Vol] 30 U/L Normal 15-37 [facility] Comment on above: Performed By: #### C BC #### [facility] [address] [address] [address] Gerber Pimentel Bilirubin [Mass/Vol] 0.4 mg/dL Normal 0.2-1.0 [facility] Comment on above: Performed By: #### C BC #### [facility] [address] [place] [address] Dr. Gerber Pimentel Calcium [Mass/Vol] 7.8 mg/dL Critically low 8.5-10.1 [facility] Comment on above: Performed By: #### C BC #### [facility] [address] [place] [address] Dr. Gerber Pimentel Chloride [Moles/Vol] 110 mmol/L Critically high 98-107 [facility] Comment on above: Performed By: #### C BC #### [facility] [address] [place] [address] Dr. Gerber Pimentel CO2 [Moles/Vol] 19.8 mmol/L Critically low 21.0-32.0 [facility] Comment on above: Performed By: #### C BC #### [facility] [address] [place] [address] Dr. Gerber Pimentel Creatinine [Mass/Vol] 1.36 mg/dL Critically high 0.55-1.02 [facility] Comment on above: Performed By: #### C BC #### [facility] [address] [place] [address] Dr. Gerber Pimentel EGFR-AF [place] 49 mL/min/1.73m2 Critically low >=60 [facility] Comment on above: Performed By: #### C BC #### [facility] [address] [place] [address] Dr. Gerber Pimentel EGFR-NON AF [place] 41 mL/min/1.73m2 Critically low >=60 [facility] Comment on above: Performed By: #### C BC #### [facility] [address] [place] [address] Dr. Gerber Pimentel Globulin (S) [Mass/Vol] 3.7 g/dL Normal [facility] Comment on above: Performed By: #### C BC #### [facility] [address] [place] [address] Dr. Gerber Pimentel Glucose [Mass/Vol] 102 mg/dL Normal 74-106 [facility] Comment on above: Performed By: #### C BC #### [facility] [address] [place] [address] Dr. Gerber Pimentel Potassium [Moles/Vol] 3.2 mmol/L Critically low 3.5-5.1 [facility] Comment on above: Performed By: #### C BC #### [facility] [address] [place] [address] Dr. Gerber Pimentel Protein [Mass/Vol] 6.0 g/dL Critically low 6.4-8.2 Th [facility] Comment on above: Performed By: #### C BC #### [facility] [address] [place] [address] Dr. Gerber Pimentel Sodium [Moles/Vol] 139 mmol/L Normal 136-145 [facility] Comment on above: Performed By: #### C BC #### [facility] [address] [place] [address] Dr. Gerber Pimentel Urea nitrogen [Mass/Vol] 13.0 mg/dL Normal 7.0-18.0 [facility] Comment on above: Performed By: #### C BC #### [facility] [address] [place] [address] Dr. Gerber Pimentel Urea nitrogen/Creatinin e [Mass ratio] 9.6 mg/mg Normal [facility] Comment on above: Performed By: #### C BC #### [facility] [address] [place] [address] Dr. Gerber Pimentel SED RATE WESTERGRENon 2021 SED RATE 72 mm/hr Critically high <=30 [facility] Comment on above: Performed By: #### S EDR #### [facility] [address] [place] [address] Dr. Gerber Pimentel C. DIFF PCRon 10-18-2021 C. DIFFICILE PCR Negative Normal NEGATIVE [facility] Comment on above: Performed By: #### I NFLUAB #### [facility] [address] [place] [address] Dr. Gerber Pimentel CBC AUTO DIFFon 10-18-2021 BASO # 0.0 103/ul Normal 0.0-0.1 [facility] Comment on above: Performed By: #### L IVER, LIPID #### [facility] [address] [place] [address] Dr. Gerber Pimentel Basophils/100 WBC (Bld) 0.2 % Normal 0.2-2.0 [facility] Comment on above: Performed By: #### L IVLEIGH, LIPID #### [facility] [address] [place] [address] Dr. Gerber Pimentel EO # 0.0 103/ul Normal 0.0-0.7 [facility] Comment on above: Performed By: #### L IVER, LIPID #### [facility] [address] [place] [address] Dr. Gerber Pimentel Eosinophils/100 WBC (Bld) 0.3 % Critically low 0.9-7.0 [facility] Comment on above: Performed By: #### L IVER, LIPID #### [facility] [address] [place] [address] Dr. Gerber Pimentel Erythrocyte distribution width (RBC) [Ratio] 13.5 % Normal 11.0-15.0 [facility] Comment on above: Performed By: #### L IVER, LIPID #### [facility] [address] [place] [address] Dr. Gerber Pimentel Hematocrit (Bld) [Volume fraction] 27.9 % Critically low 36.0-48.0 [facility] Comment on above: Performed By: #### L IVER, LIPID #### [facility] [address] [address] [address] Gerber Pimentel Hemoglobin (Bld) [Mass/Vol] 9.2 g/dL Critically low 12.0-16.0 [facility] Comment on above: Performed By: #### L IVER, LIPID #### [facility] [address] [place] [address] Dr. Gerber Pimentel IG # 0.03 10e3/ul Normal 0.00-0.03 [facility] Comment on above: Performed By: #### L IVER, LIPID #### [facility] [address] [place] [address] Dr. Gerber Pimentel IG % 0.5 % Normal 0.0-0.5 [facility] Comment on above: Performed By: #### L IVER, LIPID #### [facility] [address] [place] [address] Dr. Gerber Pimentel LYMPH # 0.8 103/ul Critically low 1.2-3.8 [facility] Comment on above: Performed By: #### L IVER, LIPID #### [facility] [address] [place] [address] Dr. Gerber Pimentel Lymphocytes/100 WBC (Bld) 12.6 % Critically low 20.5-60.0 [facility] Comment on above: Performed By: #### L IVER, LIPID #### [facility] [address] [place] [address] Dr. Gerber Pimentel MANUAL DIFF REQ NO Normal [facility] Comment on above: Performed By: #### L IVER, LIPID #### [facility] [address] [place] [address] Dr. Gerber Pimentel MCH (RBC) [Entitic mass] 29.0 pg Normal 26.7-34.0 [facility] Comment on above: Performed By: #### L IVER, LIPID #### [facility] [address] [place] [address] Dr. Gerber Pimentel MCHC (RBC) [Mass/Vol] 33.0 g/dL Normal 29.9-35.2 [facility] Comment on above: Performed By: #### L IVER, LIPID #### [facility] [address] [place] [address] Dr. Gerber Pimentel MCV (RBC) [Entitic vol] 88.0 fL Normal 81.0-99.0 [facility] Comment on above: Performed By: #### L IVER, LIPID #### [facility] [address] [place] [address] Dr. Gerber Pimentel MONO # 0.6 103/ul Normal 0.3-0.8 [facility] Comment on above: Performed By: #### L IVER, LIPID #### [facility] [address] [place] [address] Dr. Gerber Pimentel Monocytes/100 WBC (Bld) 9.5 % Normal 1.7-12.0 [facility] Comment on above: Performed By: #### L IVER, LIPID #### [facility] [address] [place] [address] Dr. Gerber Pimentel NEUT # 4.6 103/ul Normal 1.4-6.5 [facility] Comment on above: Performed By: #### L IVER, LIPID #### [facility] [address] [place] [address] Dr. Gerber Pimentel Neutrophils/100 WBC (Bld) 76.9 % Critically high 43.0-75.0 [facility] Comment on above: Performed By: #### L IVER, LIPID #### [facility] [address] [place] [address] Dr. Gerber Pimentel Platelet mean volume (Bld) [Entitic vol] 9.1 fL Critically low 9.5-13.5 [facility] Comment on above: Performed By: #### L IVER, LIPID #### [facility] [address] [place] [address] Dr. Gerber Pimentel PLT 220 103/ul Normal 150-450 [facility] Comment on above: Performed By: #### L IVER, LIPID #### [facility] [address] [place] [address] Dr. Gerber Pimentel RBC 3.17 106/ul Critically low 4.20-5.40 [facility] Comment on above: Performed By: #### L IVLEIGH, LIPID #### [facility] [address] [place] [address] Dr. Gerber Pimentel WBC 6.0 103/ul Normal 4.0-11.0 [facility] Comment on above: Performed By: #### L IVLEIGH, LIPID #### [facility] [address] [place] [address] Dr. Gerber Pimentel CRPon 10-18-2021 CRP 8.4 mg/dL Critically high <=1.0 [facility] Comment on above: Performed By: #### C BC #### [facility] [address] [place] [address] Dr. Gerber Pimentel MAGNESIUMon 10-18-2021 Magnesium [Mass/Vol] 1.9 mg/dL Normal 1.8-2.4 [facility] Comment on above: Performed By: #### L YU, LIPID #### [facility] [address] [place] [address] Dr. Gerber Pimentel PROF 14(COMP METB)on 022 Albumin [Mass/Vol] 2.5 g/dL Critically low 3.4-5.0 Th [facility] Comment on above: Performed By: #### L YU, LIPID #### [facility] [address] [place] [address] Dr. Gerber Pimentel Albumin/Globulin [Mass ratio] 0.7 {ratio} Normal [facility] Comment on above: Performed By: #### L YU, LIPID #### [facility] [address] [place] [address] Dr. Gerber Pimentel ALP [Catalytic activity/Vol] 207 U/L Critically high 46-116 [facility] Comment on above: Performed By: #### L IVLEIGH, LIPID #### [facility] [address] [place] [address] Dr. Gerber Pimentel ALT [Catalytic activity/Vol] 39 U/L Normal 14-59 [facility] Comment on above: Performed By: #### L IVLEIGH, LIPID #### [facility] [address] [address] [address] Gerber Pimentel Anion gap [Moles/Vol] 15.9 mmol/L Normal [facility] Comment on above: Performed By: #### L IVER, LIPID #### [facility] [address] [address] [address] Gerber Pimentel AST [Catalytic activity/Vol] 36 U/L Normal 15-37 [facility] Comment on above: Performed By: #### L IVER, LIPID #### [facility] [address] [place] [address] Dr. Gerber Pimentel Bilirubin [Mass/Vol] 0.4 mg/dL Normal 0.2-1.0 [facility] Comment on above: Performed By: #### L IVER, LIPID #### [facility] [address] [address] [address] Gerber Pimentel Calcium [Mass/Vol] 8.0 mg/dL Critically low 8.5-10.1 Th [facility] Comment on above: Performed By: #### L IVER, LIPID #### [facility] [address] [address] [address] Gerber Pimentel Chloride [Moles/Vol] 107 mmol/L Normal 98-107 [facility] Comment on above: Performed By: #### L IVER, LIPID #### [facility] [address] [address] [address] Gerber Pimentel CO2 [Moles/Vol] 17.7 mmol/L Critically low 21.0-32.0 [facility] Comment on above: Performed By: #### L IVER, LIPID #### [facility] [address] [address] [address] Gerber Pimentel Creatinine [Mass/Vol] 1.63 mg/dL Critically high 0.55-1.02 [facility] Comment on above: Performed By: #### L IVER, LIPID #### [facility] [address] [address] [address] Gerber Pimentel EGFR-AF [place] 40 mL/min/1.73m2 Critically low >=60 [facility] Comment on above: Performed By: #### L IVER, LIPID #### [facility] [address] [address] [address] Gerber Pimentel EGFR-NON AF [place] 33 mL/min/1.73m2 Critically low >=60 [facility] Comment on above: Performed By: #### L IVER, LIPID #### [facility] [address] [address] [address] Gerber Pimentel Globulin (S) [Mass/Vol] 3.7 g/dL Normal [facility] Comment on above: Performed By: #### L IVER, LIPID #### [facility] [address] [address] [address] Gerber Pimentel Glucose [Mass/Vol] 108 mg/dL Critically high 74-106 [facility] Comment on above: Performed By: #### L IVER, LIPID #### [facility] [address] [address] [address] Gerber Pimentel Potassium [Moles/Vol] 3.6 mmol/L Normal 3.5-5.1 [facility] Comment on above: Performed By: #### L IVER, LIPID #### [facility] [address] [address] [address] Gerber Pimentel Protein [Mass/Vol] 6.2 g/dL Critically low 6.4-8.2 Th [facility] Comment on above: Performed By: #### L IVER, LIPID #### [facility] [address] [address] [address] Gerber Pimentel Sodium [Moles/Vol] 137 mmol/L Normal 136-145 [facility] Comment on above: Performed By: #### L IVER, LIPID #### [facility] [address] [address] [address] Gerber Pimentel Urea nitrogen [Mass/Vol] 13.0 mg/dL Normal 7.0-18.0 [facility] Comment on above: Performed By: #### L IVER, LIPID #### [facility] [address] [address] [address] Gerber Pimentel Urea nitrogen/Creatinin e [Mass ratio] 8.0 mg/mg Normal [facility] Comment on above: Performed By: #### L IVER, LIPID #### [facility] [address] [place] [address] Dr. Gerber Piment[facility] 80 mm/hr Critically high <=30 [facility] Comment on above: Performed By: #### I NFLUAB #### [facility] [address] [place] [address] Dr. Gerber Pimentel CBC AUTO DIFFon 10-17-2021 BASO # 0.0 103/ul Normal 0.0-0.1 [facility] Comment on above: Performed By: #### C BC #### [facility] [address] [place] [address] Dr. Gerber Pimentel Basophils/100 WBC (Bld) 0.2 % Normal 0.2-2.0 [facility] Comment on above: Performed By: #### C BC #### [facility] [address] [place] [address] Dr. Gerber Pimentel EO # 0.0 103/ul Normal 0.0-0.7 [facility] Comment on above: Performed By: #### C BC #### [facility] [address] [place] [address] Dr. Gerber Pimentel Eosinophils/100 WBC (Bld) 0.6 % Critically low 0.9-7.0 [facility] Comment on above: Performed By: #### C BC #### [facility] [address] [place] [address] Dr. Gerber Pimentel Erythrocyte distribution width (RBC) [Ratio] 13.8 % Normal 11.0-15.0 [facility] Comment on above: Performed By: #### C BC #### [facility] [address] [place] [address] Dr. Gerber Pimentel Hematocrit (Bld) [Volume fraction] 27.7 % Critically low 36.0-48.0 [facility] Comment on above: Performed By: #### C BC #### [facility] [address] [place] [address] Dr. Gerber Pimentel Hemoglobin (Bld) [Mass/Vol] 9.0 g/dL Critically low 12.0-16.0 [facility] Comment on above: Performed By: #### C BC #### [facility] [address] [place] [address] Dr. Gerber Pimentel IG # 0.01 10e3/ul Normal 0.00-0.03 [facility] Comment on above: Performed By: #### C BC #### [facility] [address] [place] [address] Dr. Gerber Pimentel IG % 0.2 % Normal 0.0-0.5 [facility] Comment on above: Performed By: #### C BC #### [facility] [address] [place] [address] Dr. Gerber Pimentel LYMPH # 0.8 103/ul Critically low 1.2-3.8 [facility] Comment on above: Performed By: #### C BC #### [facility] [address] [place] [address] Dr. Gerber Pimentel Lymphocytes/100 WBC (Bld) 15.6 % Critically low 20.5-60.0 [facility] Comment on above: Performed By: #### C BC #### [facility] [address] [place] [address] Dr. Gerber Pimentel MANUAL DIFF REQ NO Normal [facility] Comment on above: Performed By: #### C BC #### [facility] [address] [place] [address] Dr. Gerber Pimentel MCH (RBC) [Entitic mass] 28.8 pg Normal 26.7-34.0 [facility] Comment on above: Performed By: #### C BC #### [facility] [address] [place] [address] Dr. Gerber Pimentel MCHC (RBC) [Mass/Vol] 32.5 g/dL Normal 29.9-35.2 [facility] Comment on above: Performed By: #### C BC #### [facility] [address] [place] [address] Dr. Gerber Pimentel MCV (RBC) [Entitic vol] 88.5 fL Normal 81.0-99.0 [facility] Comment on above: Performed By: #### C BC #### [facility] [address] [place] [address] Dr. Gerber Pimentel MONO # 0.8 103/ul Normal 0.3-0.8 [facility] Comment on above: Performed By: #### C BC #### [facility] [address] [place] [address] Dr. Gerber Pimentel Monocytes/100 WBC (Bld) 14.8 % Critically high 1.7-12.0 [facility] Comment on above: Performed By: #### C BC #### [facility] [address] [place] [address] Dr. Gerber Pimentel NEUT # 3.5 103/ul Normal 1.4-6.5 [facility] Comment on above: Performed By: #### C BC #### [facility] [address] [place] [address] Dr. Gerber Pimentel Neutrophils/100 WBC (Bld) 68.6 % Normal 43.0-75.0 [facility] Comment on above: Performed By: #### C BC #### [facility] [address] [place] [address] Dr. Gerber Pimentel Platelet mean volume (Bld) [Entitic vol] 9.2 fL Critically low 9.5-13.5 [facility] Comment on above: Performed By: #### C BC #### [facility] [address] [place] [address] Dr. Gerber Pimentel PLT 186 103/ul Normal 150-450 [facility] Comment on above: Performed By: #### C BC #### [facility] [address] [place] [address] Dr. Gerber Pimentel RBC 3.13 106/ul Critically low 4.20-5.40 [facility] Comment on above: Performed By: #### C BC #### [facility] [address] [place] [address] Dr. Gerber Pimentel WBC 5.1 103/ul Normal 4.0-11.0 [facility] Comment on above: Performed By: #### C BC #### [facility] [address] [address] [address] Gerber Pimentel CRPon 10-17-2021 CRP 10.3 mg/dL Critically high <=1.0 [facility] Comment on above: Performed By: #### C BC #### [facility] [address] [place] [address] Dr. Gerber Pimentel MAGNESIUMon 10-17-2021 Magnesium [Mass/Vol] 1.7 mg/dL Critically low 1.8-2.4 [facility] Comment on above: Performed By: #### A 1C #### [facility] [address] [place] [address] Dr. Gerber Pimentel PROF 14(COMP METB)on 022 Albumin [Mass/Vol] 2.5 g/dL Critically low 3.4-5.0 [facility] Comment on above: Performed By: #### C BC #### [facility] [address] [place] [address] Dr. Gerber Pimentel Albumin/Globulin [Mass ratio] 0.7 {ratio} Normal [facility] Comment on above: Performed By: #### C BC #### [facility] [address] [place] [address] Dr. Gerber Pimentel ALP [Catalytic activity/Vol] 218 U/L Critically high 46-116 [facility] Comment on above: Performed By: #### C BC #### [facility] [address] [place] [address] Dr. Gerber Pimentel ALT [Catalytic activity/Vol] 64 U/L Critically high 14-59 [facility] Comment on above: Performed By: #### C BC #### [facility] [address] [place] [address] Dr. Gerber Pimentel Anion gap [Moles/Vol] 13.1 mmol/L Normal [facility] Comment on above: Performed By: #### C BC #### [facility] [address] [place] [address] Dr. Gerber Pimentel AST [Catalytic activity/Vol] 58 U/L Critically high 15-37 [facility] Comment on above: Performed By: #### C BC #### [facility] [address] [address] [address] Gerber Pimentel Bilirubin [Mass/Vol] 0.5 mg/dL Normal 0.2-1.0 [facility] Comment on above: Performed By: #### C BC #### [facility] [address] [address] [address] Gerber Pimentel Calcium [Mass/Vol] 8.1 mg/dL Critically low 8.5-10.1 Th [facility] Comment on above: Performed By: #### C BC #### [facility] [address] [address] [address] Gerber Pimentel Chloride [Moles/Vol] 103 mmol/L Normal 98-107 [facility] Comment on above: Performed By: #### C BC #### [facility] [address] [address] [address] Gerber Pimentel CO2 [Moles/Vol] 20.5 mmol/L Critically low 21.0-32.0 [facility] Comment on above: Performed By: #### C BC #### [facility] [address] [address] [address] Gerber Piemntel Creatinine [Mass/Vol] 2.12 mg/dL Critically high 0.55-1.02 [facility] Comment on above: Performed By: #### C BC #### [facility] [address] [address] [address] Gerber Pimentel EGFR-AF [place] 30 mL/min/1.73m2 Critically low >=60 [facility] Comment on above: Performed By: #### C BC #### [facility] [address] [address] [address] Gerber Pimentel EGFR-NON AF [place] 24 mL/min/1.73m2 Critically low >=60 [facility] Comment on above: Performed By: #### C BC #### [facility] [address] [address] [address] Gerber Pimentel Globulin (S) [Mass/Vol] 3.7 g/dL Normal [facility] Comment on above: Performed By: #### C BC #### [facility] [address] [address] [address] Gerber Pimentel Glucose [Mass/Vol] 96 mg/dL Normal 74-106 [facility] Comment on above: Performed By: #### C BC #### [facility] [address] [address] [address] Gerber Pimentel Potassium [Moles/Vol] 3.6 mmol/L Normal 3.5-5.1 [facility] Comment on above: Performed By: #### C BC #### [facility] [address] [address] [address] Gerber Pimentel Protein [Mass/Vol] 6.2 g/dL Critically low 6.4-8.2 [facility] Comment on above: Performed By: #### C BC #### [facility] [address] [address] [address] Gerber Pimentel Sodium [Moles/Vol] 133 mmol/L Critically low 136-145 Th [facility] Comment on above: Performed By: #### C BC #### [facility] [address] [address] [address] Gerber Pimentel Urea nitrogen [Mass/Vol] 15.0 mg/dL Normal 7.0-18.0 [facility] Comment on above: Performed By: #### C BC #### [facility] [address] [address] [address] Gerber Pimentel Urea nitrogen/Creatinin e [Mass ratio] 7.1 mg/mg Normal [facility] Comment on above: Performed By: #### C BC #### [facility] [address] [address] [address] Gerber Pimentel PROTIMEon 10-17-2021 INR Coag (PPP) [Relative time] 1.02 {INR} Normal [facility] Comment on above: Performed By: #### C BC #### [facility] [address] [address] [address] Gerber Pimentel INR GUIDELINES SEE BELOW Normal [facility] Comment on above: Result Comment: CLIFF RED INR: 2.0 - 3.0 CONDITIONS NOT LISTED BELOW 2.5 - 3.5 FOR PROSTHETIC HEART VALVE REPLACEMENT 2.5 - 3.5 RECURRENT THROMBOSIS Performed By: #### C BC #### [facility] [address] [place] [address] Dr. Gerber Pimentel PT Coag (PPP) [Time] 11.0 s Normal 9.0-11.6 [facility] Comment on above: Performed By: #### C BC #### [facility] [address] [place] [address] Dr. Gerber Pimentel SED RATE WESTERGRENon 2021 SED RATE 46 mm/hr Critically high <=30 [facility] Comment on above: Performed By: #### A 1C #### [facility] [address] [place] [address] Dr. Gerber Pimentel CBC AUTO DIFFon 10-16-2021 BASO # 0.0 103/ul Normal 0.0-0.1 [facility] Comment on above: Performed By: #### C BC #### [facility] [address] [place] [address] Dr. Gerber Pimentel Basophils/100 WBC (Bld) 0.2 % Normal 0.2-2.0 [facility] Comment on above: Performed By: #### C BC #### [facility] [address] [place] [address] Dr. Gerber Pimentel EO # 0.1 103/ul Normal 0.0-0.7 [facility] Comment on above: Performed By: #### C BC #### [facility] [address] [place] [address] Dr. Gerber Pimentel Eosinophils/100 WBC (Bld) 1.1 % Normal 0.9-7.0 [facility] Comment on above: Performed By: #### C BC #### [facility] [address] [place] [address] Dr. Gerber Pimentel Erythrocyte distribution width (RBC) [Ratio] 13.9 % Normal 11.0-15.0 [facility] Comment on above: Performed By: #### C BC #### [facility] [address] [place] [address] Dr. Gerber Pimentel Hematocrit (Bld) [Volume fraction] 29.4 % Critically low 36.0-48.0 [facility] Comment on above: Performed By: #### C BC #### [facility] [address] [place] [address] Dr. Gerber Pimentel Hemoglobin (Bld) [Mass/Vol] 9.8 g/dL Critically low 12.0-16.0 [facility] Comment on above: Performed By: #### C BC #### [facility] [address] [place] [address] Dr. Gerber Pimentel IG # 0.01 10e3/ul Normal 0.00-0.03 [facility] Comment on above: Performed By: #### C BC #### [facility] [address] [place] [address] Dr. Gerber Pimentel IG % 0.2 % Normal 0.0-0.5 [facility] Comment on above: Performed By: #### C BC #### [facility] [address] [place] [address] Dr. Gerber Pimentel LYMPH # 0.9 103/ul Critically low 1.2-3.8 [facility] Comment on above: Performed By: #### C BC #### [facility] [address] [place] [address] Dr. Gerber Pimentel Lymphocytes/100 WBC (Bld) 15.7 % Critically low 20.5-60.0 [facility] Comment on above: Performed By: #### C BC #### [facility] [address] [place] [address] Dr. Gerber Pimentel MANUAL DIFF REQ NO Normal [facility] Comment on above: Performed By: #### C BC #### [facility] [address] [place] [address] Dr. Gerber Pimentel MCH (RBC) [Entitic mass] 29.3 pg Normal 26.7-34.0 [facility] Comment on above: Performed By: #### C BC #### [facility] [address] [place] [address] Dr. Gerber Pimentel MCHC (RBC) [Mass/Vol] 33.3 g/dL Normal 29.9-35.2 [facility] Comment on above: Performed By: #### C BC #### [facility] [address] [address] [address] Gerber Pimentel MCV (RBC) [Entitic vol] 88.0 fL Normal 81.0-99.0 [facility] Comment on above: Performed By: #### C BC #### [facility] [address] [address] [address] Gerber Pimentel MONO # 0.8 103/ul Normal 0.3-0.8 [facility] Comment on above: Performed By: #### C BC #### [facility] [address] [place] [address] Dr. Gerber Pimentel Monocytes/100 WBC (Bld) 14.7 % Critically high 1.7-12.0 [facility] Comment on above: Performed By: #### C BC #### [facility] [address] [place] [address] Dr. Gerber Pimentel NEUT # 3.8 103/ul Normal 1.4-6.5 [facility] Comment on above: Performed By: #### C BC #### [facility] [address] [place] [address] Dr. Gerber Pimentel Neutrophils/100 WBC (Bld) 68.1 % Normal 43.0-75.0 [facility] Comment on above: Performed By: #### C BC #### [facility] [address] [place] [address] Dr. Gerber Pimentel Platelet mean volume (Bld) [Entitic vol] 9.2 fL Critically low 9.5-13.5 [facility] Comment on above: Performed By: #### C BC #### [facility] [address] [place] [address] Dr. Gerber Pimentel PLT 157 103/ul Normal 150-450 [facility] Comment on above: Performed By: #### C BC #### [facility] [address] [place] [address] Dr. Gerber Pimentel RBC 3.34 106/ul Critically low 4.20-5.40 [facility] Comment on above: Performed By: #### C BC #### [facility] [address], [place] [address] Dr. Gerber Pimentel WBC 5.6 103/ul Normal 4.0-11.0 [facility] Comment on above: Performed By: #### C BC #### [facility] [address], [place] [address] Dr. Gerber Pimentel CRPon 10-16-2021 CRP 9.3 mg/dL Critically high <=1.0 [facility] Comment on above: Performed By: #### P HVEN #### [facility] [id number] Gerber Pimentel CT CHEST WO CONon [...] NICOLE MAXWELL Date: 2021-10-16 11:10 Normal [facility] MAGNESIUMon 10-16-2021 Magnesium [Mass/Vol] 2.0 mg/dL Normal 1.8-2.4 [facility] Comment on above: Performed By: #### P HVEN #### [facility] [address] [place] [address] Dr. Gerber Pimentel OCC BLD IMMUNOASSAYon 2021 OCCULT BLOOD Negative Normal NEGATIVE [facility] Comment on above: Performed By: #### O CHIN #### [facility] [address] [address] [address] Gerber Pimentel PROF 14(COMP METB)on 022 Albumin [Mass/Vol] 2.7 g/dL Critically low 3.4-5.0 [facility] Comment on above: Performed By: #### P HVEN #### [facility] [address] [place] [address] Dr. Gerber Pimentel Albumin/Globulin [Mass ratio] 0.7 {ratio} Normal [facility] Comment on above: Performed By: #### P HVEN #### [facility] [address] [address] [address] Gerber Pimentel ALP [Catalytic activity/Vol] 206 U/L Critically high 46-116 [facility] Comment on above: Performed By: #### P HVEN #### [facility] [address] [address] [address] Gerber Pimentel ALT [Catalytic activity/Vol] 88 U/L Critically high 14-59 [facility] Comment on above: Performed By: #### P HVEN #### [facility] [address] [address] [address] Gerber Pimentel Anion gap [Moles/Vol] 13.9 mmol/L Normal [facility] Comment on above: Performed By: #### P HVEN #### [facility] [address] [address] [address] Gerber Pimentel AST [Catalytic activity/Vol] 82 U/L Critically high 15-37 [facility] Comment on above: Performed By: #### P HVEN #### [facility] [address] [address] [address] Gerber Pimentel Bilirubin [Mass/Vol] 1.0 mg/dL Normal 0.2-1.0 [facility] Comment on above: Performed By: #### P HVEN #### [facility] [address] [place] [address] Dr. Gerber Pimentel Calcium [Mass/Vol] 8.1 mg/dL Critically low 8.5-10.1 [facility] Comment on above: Performed By: #### P HVEN #### [facility] [address] [place] [address] Dr. Gerber Pimentel Chloride [Moles/Vol] 102 mmol/L Normal 98-107 [facility] Comment on above: Performed By: #### P HVEN #### [facility] [address] [address] [address] Gerber Pimentel CO2 [Moles/Vol] 22.5 mmol/L Normal 21.0-32.0 [facility] Comment on above: Performed By: #### P HVEN #### [facility] [address] [address] [address] Gerber Pimentel Creatinine [Mass/Vol] 2.19 mg/dL Critically high 0.55-1.02 [facility] Comment on above: Performed By: #### P HVEN #### [facility] [address] [address] [address] Gerber Pimentel EGFR-AF [place] 28 mL/min/1.73m2 Critically low >=60 [facility] Comment on above: Performed By: #### P HVEN #### [facility] [address] [address] [address] Gerber Pimentel EGFR-NON AF [place] 23 mL/min/1.73m2 Critically low >=60 [facility] Comment on above: Performed By: #### P HVEN #### [facility] [address] [address] [address] Gerber Pimentel Globulin (S) [Mass/Vol] 3.7 g/dL Normal [facility] Comment on above: Performed By: #### P HVEN #### [facility] [address] [address] [address] Gerber Pimentel Glucose [Mass/Vol] 110 mg/dL Critically high 74-106 [facility] Comment on above: Performed By: #### P HVEN #### [facility] [address] [address] [address] Gerber Pimentel Potassium [Moles/Vol] 3.4 mmol/L Critically low 3.5-5.1 [facility] Comment on above: Performed By: #### P HVEN #### [facility] [address] [address] [address] Gerber Pimentel Protein [Mass/Vol] 6.4 g/dL Normal 6.4-8.2 [facility] Comment on above: Performed By: #### P HVEN #### [facility] [address] [address] [address] Gerber Pimentel Sodium [Moles/Vol] 135 mmol/L Critically low 136-145 [facility] Comment on above: Performed By: #### P HVEN #### [facility] [address] [address] [address] Gerber Pimentel Urea nitrogen [Mass/Vol] 16.0 mg/dL Normal 7.0-18.0 [facility] Comment on above: Performed By: #### P HVEN #### [facility] [address] [place] [address] Dr. Gerber Pimentel Urea nitrogen/Creatinin e [Mass ratio] 7.3 mg/mg Normal [facility] Comment on above: Performed By: #### P HVEN #### [facility] [address] [place] [address] Dr. Gerber Pimentel PROF CHEM 8 (BAS METB)on Anion gap [Moles/Vol] 12.3 mmol/L Normal [facility] Comment on above: Performed By: #### C BC #### [facility] [address] [place] [address] Dr. Gerber Pimentel Calcium [Mass/Vol] 7.9 mg/dL Critically low 8.5-10.1 [facility] Comment on above: Performed By: #### C BC #### [facility] [address] [place] [address] Dr. Gerber Pimentel Chloride [Moles/Vol] 103 mmol/L Normal 98-107 [facility] Comment on above: Performed By: #### C BC #### [facility] [address] [place] [address] Dr. Gerber Pimentel CO2 [Moles/Vol] 23.3 mmol/L Normal 21.0-32.0 [facility] Comment on above: Performed By: #### C BC #### [facility] [address] [place] [address] Dr. Gerber Pimentel Creatinine [Mass/Vol] 2.21 mg/dL Critically high 0.55-1.02 [facility] Comment on above: Performed By: #### C BC #### [facility] [address] [place] [address] Dr. Gerber Pimentel EGFR-AF [place] 28 mL/min/1.73m2 Critically low >=60 [facility] Comment on above: Performed By: #### C BC #### [facility] [address] [address] [address] Gerber Pimentel EGFR-NON AF [place] 23 mL/min/1.73m2 Critically low >=60 [facility] Comment on above: Performed By: #### C BC #### [facility] [address] [address] [address] Gerber Pimentel Glucose [Mass/Vol] 103 mg/dL Normal 74-106 [facility] Comment on above: Performed By: #### C BC #### [facility] [address] [address] [address] Gerber Pimentel Potassium [Moles/Vol] 3.6 mmol/L Normal 3.5-5.1 [facility] Comment on above: Performed By: #### C BC #### [facility] [address] [place] [address] Dr. Gerber Pimentel Sodium [Moles/Vol] 135 mmol/L Critically low 136-145 [facility] Comment on above: Performed By: #### C BC #### [facility] [address] [place] [address] Dr. Gerber Pimentel Urea nitrogen [Mass/Vol] 17.0 mg/dL Normal 7.0-18.0 [facility] Comment on above: Performed By: #### C BC #### [facility] [address] [place] [address] Dr. Gerber Pimentel Urea nitrogen/Creatinin e [Mass ratio] 7.7 mg/mg Normal [facility] Comment on above: Performed By: #### C BC #### [facility] [address] [address] [address] Gerber Pimentel SED RATE WESTERGRENon 2021 SED RATE 73 mm/hr Critically high <=30 [facility] Comment on above: Performed By: #### A 1C #### [facility] [address] [place] [address] Dr. Gerber Pimentel CBC AUTO DIFFon 10-15-2021 BASO # 0.0 103/ul Normal 0.0-0.1 [facility] Comment on above: Performed By: #### C BC #### [facility] [address] [place] [address] Dr. Gerber Pimentel Basophils/100 WBC (Bld) 0.2 % Normal 0.2-2.0 [facility] Comment on above: Performed By: #### C BC #### [facility] [address] [place] [address] Dr. Gerber Pimentel EO # 0.0 103/ul Normal 0.0-0.7 [facility] Comment on above: Performed By: #### C BC #### [facility] [address] [place] [address] Dr. Gerber Pimentel Eosinophils/100 WBC (Bld) 0.6 % Critically low 0.9-7.0 [facility] Comment on above: Performed By: #### C BC #### [facility] [address] [place] [address] Dr. Gerber Pimentel Erythrocyte distribution width (RBC) [Ratio] 13.8 % Normal 11.0-15.0 [facility] Comment on above: Performed By: #### C BC #### [facility] [address] [place] [address] Dr. Gerber Pimentel Hematocrit (Bld) [Volume fraction] 29.9 % Critically low 36.0-48.0 [facility] Comment on above: Performed By: #### C BC #### [facility] [address] [place] [address] Dr. Gerber Pimentel Hemoglobin (Bld) [Mass/Vol] 9.9 g/dL Critically low 12.0-16.0 [facility] Comment on above: Performed By: #### C BC #### [facility] [address] [place] [address] Dr. Gerber Pimentel IG # 0.03 10e3/ul Normal 0.00-0.03 [facility] Comment on above: Performed By: #### C BC #### [facility] [address] [place] [address] Dr. Gerber Pimentel IG % 0.6 % Critically high 0.0-0.5 [facility] Comment on above: Performed By: #### C BC #### [facility] [address] [place] [address] Dr. Gerber Pimentel LYMPH # 0.8 103/ul Critically low 1.2-3.8 [facility] Comment on above: Performed By: #### C BC #### [facility] [address] [place] [address] Dr. Gerber Pimentel Lymphocytes/100 WBC (Bld) 15.0 % Critically low 20.5-60.0 [facility] Comment on above: Performed By: #### C BC #### [facility] [address] [place] [address] Dr. Gerber Pimentel MANUAL DIFF REQ NO Normal [facility] Comment on above: Performed By: #### C BC #### [facility] [address] [place] [address] Dr. Gerber Pimentel MCH (RBC) [Entitic mass] 29.2 pg Normal 26.7-34.0 [facility] Comment on above: Performed By: #### C BC #### [facility] [address] [place] [address] Dr. Gebrer Pimentel MCHC (RBC) [Mass/Vol] 33.1 g/dL Normal 29.9-35.2 [facility] Comment on above: Performed By: #### C BC #### [facility] [address] [place] [address] Dr. Gerber Pimentel MCV (RBC) [Entitic vol] 88.2 fL Normal 81.0-99.0 [facility] Comment on above: Performed By: #### C BC #### [facility] [address] [place] [address] Dr. Gerber Pimentel MONO # 0.5 103/ul Normal 0.3-0.8 [facility] Comment on above: Performed By: #### C BC #### [facility] [address] [place] [address] Dr. Gerber Pimentel Monocytes/100 WBC (Bld) 10.0 % Normal 1.7-12.0 [facility] Comment on above: Performed By: #### C BC #### [facility] [address] [place] [address] Dr. Gerber Pimentel NEUT # 3.7 103/ul Normal 1.4-6.5 [facility] Comment on above: Performed By: #### C BC #### [facility] [address] [place] [address] Dr. Gerber Pimentel Neutrophils/100 WBC (Bld) 73.6 % Normal 43.0-75.0 [facility] Comment on above: Performed By: #### C BC #### [facility] [address] [place] [address] Dr. Gerber Pimentel Platelet mean volume (Bld) [Entitic vol] 8.8 fL Critically low 9.5-13.5 [facility] Comment on above: Performed By: #### C BC #### [facility] [address] [place] [address] Dr. Gerber Pimentel PLT 143 103/ul Critically low 150-450 [facility] Comment on above: Performed By: #### C BC #### [facility] [address] [place] [address] Dr. Gerber Pimentel RBC 3.39 106/ul Critically low 4.20-5.40 [facility] Comment on above: Performed By: #### C BC #### [facility] [address] [place] [address] Dr. Gerber Pimentel WBC 5.0 103/ul Normal 4.0-11.0 [facility] Comment on above: Performed By: #### C BC #### [facility] [address] [place] [address] Dr. Gerber Pimentel CRPon 10-15-2021 CRP 10.3 mg/dL Critically high <=1.0 [facility] Comment on above: Performed By: #### A 1C #### [facility] [address] [place] [address] Dr. Gerber Pimentel MAGNESIUMon 10-15-2021 Magnesium [Mass/Vol] 1.7 mg/dL Critically low 1.8-2.4 [facility] Comment on above: Performed By: #### A 1C #### [facility] [address] [place] [address] Dr. Gerber Pimentel PROF 14(COMP METB)on 022 Albumin [Mass/Vol] 2.7 g/dL Critically low 3.4-5.0 [facility] Comment on above: Performed By: #### A 1C #### [facility] [address] [place] [address] Dr. Gerber Pimentel Albumin/Globulin [Mass ratio] 0.8 {ratio} Normal [facility] Comment on above: Performed By: #### A 1C #### [facility] [address] [place] [address] Dr. Gerber Pimentel ALP [Catalytic activity/Vol] 160 U/L Critically high 46-116 [facility] Comment on above: Performed By: #### A 1C #### [facility] [address] [place] [address] Dr. Gerber Pimentel ALT [Catalytic activity/Vol] 85 U/L Critically high 14-59 [facility] Comment on above: Performed By: #### A 1C #### [facility] [address] [place] [address] Dr. Gerber Pimentel Anion gap [Moles/Vol] 12.5 mmol/L Normal [facility] Comment on above: Performed By: #### A 1C #### [facility] [address] [place] [address] Dr. Gerber Pimentel AST [Catalytic activity/Vol] 78 U/L Critically high 15-37 [facility] Comment on above: Performed By: #### A 1C #### [facility] [address] [place] [address] Dr. Gerber Pimentel Bilirubin [Mass/Vol] 1.2 mg/dL Critically high 0.2-1.0 [facility] Comment on above: Performed By: #### A 1C #### [facility] [address] [place] [address] Dr. Gerber Pimentel Calcium [Mass/Vol] 7.8 mg/dL Critically low 8.5-10.1 [facility] Comment on above: Performed By: #### A 1C #### [facility] [address] [address] [address] Gerber Pimentel Chloride [Moles/Vol] 105 mmol/L Normal 98-107 [facility] Comment on above: Performed By: #### A 1C #### [facility] [address] [place] [address] Dr. Gerber Pimentel CO2 [Moles/Vol] 22.0 mmol/L Normal 21.0-32.0 [facility] Comment on above: Performed By: #### A 1C #### [facility] [address] [place] [address] Dr. Gerber Pimentel Creatinine [Mass/Vol] 1.37 mg/dL Critically high 0.55-1.02 [facility] Comment on above: Performed By: #### A 1C #### [facility] [address] [place] [address] Dr. Gerber Pimentel EGFR-AF [place] 49 mL/min/1.73m2 Critically low >=60 [facility] Comment on above: Performed By: #### A 1C #### [facility] [address] [place] [address] Dr. Gerber Pimentel EGFR-NON AF [place] 40 mL/min/1.73m2 Critically low >=60 [facility] Comment on above: Performed By: #### A 1C #### [facility] [address] [place] [address] Dr. Gerber Pimentel Globulin (S) [Mass/Vol] 3.4 g/dL Normal [facility] Comment on above: Performed By: #### A 1C #### [facility] [address] [place] [address] Dr. Gerber Pimentel Glucose [Mass/Vol] 102 mg/dL Normal 74-106 [facility] Comment on above: Performed By: #### A 1C #### [facility] [address] [place] [address] Dr. Gerber Pimentel Potassium [Moles/Vol] 3.5 mmol/L Normal 3.5-5.1 [facility] Comment on above: Performed By: #### A 1C #### [facility] [address] [place] [address] Dr. Gerber Pimentel Protein [Mass/Vol] 6.1 g/dL Critically low 6.4-8.2 [facility] Comment on above: Performed By: #### A 1C #### [facility] [address] [place] [address] Dr. Gerber Pimentel Sodium [Moles/Vol] 136 mmol/L Normal 136-145 [facility] Comment on above: Performed By: #### A 1C #### [facility] [address] [place] [address] Dr. Gerber Pimentel Urea nitrogen [Mass/Vol] 13.0 mg/dL Normal 7.0-18.0 [facility] Comment on above: Performed By: #### A 1C #### [facility] [address] [place] [address] Dr. Gerber Pimentel Urea nitrogen/Creatinin e [Mass ratio] 9.5 mg/mg Normal [facility] Comment on above: Performed By: #### A 1C #### [facility] [address] [place] [address] Dr. Gerber Pimentel [facility] SED RATE 40 mm/hr Critically high <=30 [facility] Comment on above: Performed By: #### C BC #### [facility] [address] [place] [address] Dr. Gerber Pimentel CBC AUTO DIFFon 10-14-2021 BASO # 0.0 103/ul Normal 0.0-0.1 [facility] Comment on above: Performed By: #### L YU LIPID #### [facility] [address] [place] [address] Dr. Gerber Pimentel Basophils/100 WBC (Bld) 0.2 % Normal 0.2-2.0 [facility] Comment on above: Performed By: #### L YU LIPID #### [facility] [address] [place] [address] Dr. Gerber Pimentel EO # 0.0 103/ul Normal 0.0-0.7 [facility] Comment on above: Performed By: #### L YU LIPID #### [facility] [address] [address] [address] Gerber Pimentel Eosinophils/100 WBC (Bld) 0.0 % Critically low 0.9-7.0 [facility] Comment on above: Performed By: #### L IVER, LIPID #### [facility] [address] [place] [address] Dr. Gerber Pimentel Erythrocyte distribution width (RBC) [Ratio] 13.9 % Normal 11.0-15.0 [facility] Comment on above: Performed By: #### L IVER, LIPID #### [facility] [address] [place] [address] Dr. Gerber Pimentel Hematocrit (Bld) [Volume fraction] 34.3 % Critically low 36.0-48.0 [facility] Comment on above: Performed By: #### L IVER, LIPID #### [facility] [address] [place] [address] Dr. Gerber Pimentel Hemoglobin (Bld) [Mass/Vol] 11.3 g/dL Critically low 12.0-16.0 [facility] Comment on above: Performed By: #### L IVER, LIPID #### [facility] [address] [place] [address] Dr. Gerber Pimentel IG # 0.05 10e3/ul Critically high 0.00-0.03 [facility] [facility] Comment on above: Performed By: #### L IVER, LIPID #### [facility] [address] [place] [address] Dr. Gerber Pimentel IG % 0.8 % Critically high 0.0-0.5 [facility] Comment on above: Performed By: #### L IVER, LIPID #### [facility] [address] [place] [address] Dr. Gerber Pimentel LYMPH # 0.5 103/ul Critically low 1.2-3.8 [facility] Comment on above: Performed By: #### L IVER, LIPID #### [facility] [address] [place] [address] Dr. Gerber Pimentel Lymphocytes/100 WBC (Bld) 8.3 % Critically low 20.5-60.0 [facility] Comment on above: Performed By: #### L IVER, LIPID #### [facility] [address] [place] [address] Dr. Gerber Pimentel MANUAL DIFF REQ NO Normal [facility] Comment on above: Performed By: #### L IVER, LIPID #### [facility] [address] [place] [address] Dr. Gerber Pimentel MCH (RBC) [Entitic mass] 28.8 pg Normal 26.7-34.0 [facility] Comment on above: Performed By: #### L IVER, LIPID #### [facility] [address] [place] [address] Dr. Gerber Pimentel MCHC (RBC) [Mass/Vol] 32.9 g/dL Normal 29.9-35.2 [facility] Comment on above: Performed By: #### L IVER, LIPID #### [facility] [address] [place] [address] Dr. Gerber Pimentel MCV (RBC) [Entitic vol] 87.3 fL Normal 81.0-99.0 [facility] Comment on above: Performed By: #### L IVER, LIPID #### [facility] [address] [place] [address] Dr. Gerber Pimentel MONO # 0.4 103/ul Normal 0.3-0.8 [facility] Comment on above: Performed By: #### L IVER, LIPID #### [facility] [address] [place] [address] Dr. Gerber Pimentel Monocytes/100 WBC (Bld) 6.7 % Normal 1.7-12.0 [facility] Comment on above: Performed By: #### L IVER, LIPID #### [facility] [address] [place] [address] Dr. Gerber Pimentel NEUT # 5.4 103/ul Normal 1.4-6.5 [facility] Comment on above: Performed By: #### L IVER, LIPID #### [facility] [address] [place] [address] Dr. Gerber Pimentel Neutrophils/100 WBC (Bld) 84.0 % Critically high 43.0-75.0 [facility] Comment on above: Performed By: #### L IVER, LIPID #### [facility] [address] [place] [address] Dr. Gerber Pimentel Platelet mean volume (Bld) [Entitic vol] 8.7 fL Critically low 9.5-13.5 [facility] Comment on above: Performed By: #### L IVER, LIPID #### [facility] [address] [place] [address] Dr. Gerber Pimentel PLT 189 103/ul Normal 150-450 [facility] Comment on above: Performed By: #### L IVER, LIPID #### [facility] [address] [place] [address] Dr. Gerber Pimentel RBC 3.93 106/ul Critically low 4.20-5.40 [facility] Comment on above: Performed By: #### L IVLEIGH, LIPID #### [facility] [address] [place] [address] Dr. Gerber Pimentel WBC 6.4 103/ul Normal 4.0-11.0 [facility] Comment on above: Performed By: #### L IVLEIGH, LIPID #### [facility] [address] [place] [address] Dr. Gerber Pimentel BASO # 0.0 103/ul Normal 0.0-0.1 [facility] Comment on above: Performed By: #### C BC #### [facility] [address] [place] [address] Dr. Greber Pimentel Basophils/100 WBC (Bld) 0.1 % Critically low 0.2-2.0 [facility] Comment on above: Performed By: #### C BC #### [facility] [address] [place] [address] Dr. Gerber Pimentel EO # 0.0 103/ul Normal 0.0-0.7 [facility] Comment on above: Performed By: #### C BC #### [facility] [address] [place] [address] Dr. Gerber Pimentel Eosinophils/100 WBC (Bld) 0.0 % Critically low 0.9-7.0 [facility] Comment on above: Performed By: #### C BC #### [facility] [address] [place] [address] Dr. Gerber Pimentel Erythrocyte distribution width (RBC) [Ratio] 13.6 % Normal 11.0-15.0 [facility] Comment on above: Performed By: #### C BC #### [facility] [address] [place] [address] Dr. Gerber Pimentel Hematocrit (Bld) [Volume fraction] 36.6 % Normal 36.0-48.0 [facility] Comment on above: Performed By: #### C BC #### [facility] [address] [place] [address] Dr. Gerber Pimentel Hemoglobin (Bld) [Mass/Vol] 12.5 g/dL Normal 12.0-16.0 [facility] Comment on above: Performed By: #### C BC #### [facility] [address] [place] [address] Dr. Gerber Pimentel IG # 0.03 10e3/ul Normal 0.00-0.03 [facility] Comment on above: Performed By: #### C BC #### [facility] [address] [place] [address] Dr. Gerber Pimentel IG % 0.3 % Normal 0.0-0.5 [facility] Comment on above: Performed By: #### C BC #### [facility] [address] [place] [address] Dr. Gerber Pimentel LYMPH # 0.6 103/ul Critically low 1.2-3.8 [facility] Comment on above: Performed By: #### C BC #### [facility] [address] [place] [address] Dr. Gerber Pimentel Lymphocytes/100 WBC (Bld) 6.7 % Critically low 20.5-60.0 [facility] Comment on above: Performed By: #### C BC #### [facility] [address] [place] [address] Dr. Gerber Pimentel MANUAL DIFF REQ NO Normal [facility] Comment on above: Performed By: #### C BC #### [facility] [address] [address] [address] Gerber Pimentel MCH (RBC) [Entitic mass] 29.3 pg Normal 26.7-34.0 [facility] Comment on above: Performed By: #### C BC #### [facility] [address] [address] [address] Gerber Pimentel MCHC (RBC) [Mass/Vol] 34.2 g/dL Normal 29.9-35.2 [facility] Comment on above: Performed By: #### C BC #### [facility] [address] [place] [address] Dr. Gerber Pimentel MCV (RBC) [Entitic vol] 85.7 fL Normal 81.0-99.0 [facility] Comment on above: Performed By: #### C BC #### [facility] [address] [place] [address] Dr. Gerber Pimentel MONO # 0.3 103/ul Normal 0.3-0.8 [facility] Comment on above: Performed By: #### C BC #### [facility] [address] [place] [address] Dr. Gerber Pimentel Monocytes/100 WBC (Bld) 3.9 % Normal 1.7-12.0 [facility] Comment on above: Performed By: #### C BC #### [facility] [address] [place] [address] Dr. Gerber Pimentel NEUT # 7.8 103/ul Critically high 1.4-6.5 [facility] Comment on above: Performed By: #### C BC #### [facility] [address] [place] [address] Dr. Gerber Pimentel Neutrophils/100 WBC (Bld) 89.0 % Critically high 43.0-75.0 [facility] Comment on above: Performed By: #### C BC #### [facility] [address] [place] [address] Dr. Gerber Pimentel Platelet mean volume (Bld) [Entitic vol] 8.8 fL Critically low 9.5-13.5 [facility] Comment on above: Performed By: #### C BC #### [facility] [address] [place] [address] Dr. Gerber Pimentel PLT 239 103/ul Normal 150-450 [facility] Comment on above: Performed By: #### C BC #### [facility] [address] [place] [address] Dr. Gerber Pimentel RBC 4.27 106/ul Normal 4.20-5.40 [facility] Comment on above: Performed By: #### C BC #### [facility] [address] [place] [address] Dr. Gerber Pimentel WBC 8.8 103/ul Normal 4.0-11.0 [facility] Comment on above: Performed By: #### C BC #### [facility] [address] [place] [address] Dr. Gerber Pimentel CRPon 10-14-2021 CRP 9.8 mg/dL Critically high <=1.0 [facility] Comment on above: Performed By: #### L IVER, LIPID #### [facility] [address] [place] [address] Dr. Gerber Pimentel CULTURE BLOODon 10-14-2021 Microscopic examination of blood, culture Culture Observations: NO GROWTH AT 5 DAYS. Normal [facility] Comment on above: Performed By: #### P HVEN #### [facility] [address] [place] [address] Dr. Gerber Pimentel Microscopic examination of blood, culture Culture Observations: NO GROWTH AT 5 DAYS. Normal [facility] Comment on above: Performed By: #### P HVEN #### [facility] [address] [place] [address] Dr. Gerber Pimentel [facility] SARS-CoV-2 (COVID-19) RNA SLOANE+probe Ql (Unsp spec) Not detected Normal NOT DETECTED [facility] Comment on above: Result Comment: When diagnostic [...] for this test is supported by the Research Manager of Health and Human Service's declaration that [...] longer be used). Performed By: #### L YU LIPID #### [facility] [address] [place] [address] Dr. Gerber Pimentel LACTATE/LACTIC ACIDon 2021 Lactate [Moles/Vol] 0.9 mmol/L Normal 0.4-1.9 [facility] Comment on above: Performed By: #### P HVEN #### [facility] [address] [place] [address] Dr. Gerber Pimentel MAGNESIUMon 10-14-2021 Magnesium [Mass/Vol] 1.6 mg/dL Critically low 1.8-2.4 [facility] Comment on above: Performed By: #### L YU LIPID #### [facility] [address] [place] [address] Dr. Gerber Pimentel PH VENOUS BLOODon 10-14-2021 PCO2 VENOUS 30.7 mmHg Critically low 40.0-52.0 [facility] Comment on above: Performed By: #### P HVEN #### [facility] [address] [place] [address] Dr. Gerber Pimentel pH VENOUS 7.424 Normal 7.330-7.430 [facility] Comment on above: Performed By: #### P HVEN #### [facility] [address] [place] [address] Dr. Gerber Pimentel PROF 14(COMP METB)on 022 Albumin [Mass/Vol] 3.1 g/dL Critically low 3.4-5.0 [facility] Comment on above: Performed By: #### L IVER, LIPID #### [facility] [address] [address] [address] Gerber Pimentel Albumin/Globulin [Mass ratio] 0.8 {ratio} Normal [facility] Comment on above: Performed By: #### L IVER, LIPID #### [facility] [address] [address] [address] Gerber Pimentel ALP [Catalytic activity/Vol] 127 U/L Critically high 46-116 [facility] Comment on above: Performed By: #### L IVER, LIPID #### [facility] [address] [address] [address] Gerber Pimentel ALT [Catalytic activity/Vol] 66 U/L Critically high 14-59 [facility] Comment on above: Performed By: #### L IVER, LIPID #### [facility] [address] [address] [address] Gerber Pimentel Anion gap [Moles/Vol] 12.6 mmol/L Normal [facility] Comment on above: Performed By: #### L IVER, LIPID #### [facility] [address] [address] [address] Gerber Pimentel AST [Catalytic activity/Vol] 87 U/L Critically high 15-37 [facility] Comment on above: Performed By: #### L IVER, LIPID #### [facility] [address] [address] [address] Gerber Pimentel Bilirubin [Mass/Vol] 1.3 mg/dL Critically high 0.2-1.0 [facility] Comment on above: Performed By: #### L IVER, LIPID #### [facility] [address] [address] [address] Gerber Pimentel Calcium [Mass/Vol] 7.8 mg/dL Critically low 8.5-10.1 [facility] Comment on above: Performed By: #### L IVER, LIPID #### [facility] [address] [address] [address] Gerber Pimentel Chloride [Moles/Vol] 102 mmol/L Normal 98-107 [facility] Comment on above: Performed By: #### L IVER, LIPID #### [facility] [address] [place] [address] Dr. Gerber Pimentel CO2 [Moles/Vol] 23.5 mmol/L Normal 21.0-32.0 [facility] Comment on above: Performed By: #### L IVER, LIPID #### [facility] [address] [place] [address] Dr. Gerber Pimentel Creatinine [Mass/Vol] 0.77 mg/dL Normal 0.55-1.02 [facility] Comment on above: Performed By: #### L IVER, LIPID #### [facility] [address] [place] [address] Dr. Gerber Pimentel EGFR-AF [place]ORE[place] >60 Normal >=60 [facility] Comment on above: Performed By: #### L IVER, LIPID #### [facility] [address] [place] [address] Dr. Gerber Pimentel EGFR-NON AF [place] >60 Normal >=60 [facility] Comment on above: Performed By: #### L IVER, LIPID #### [facility] [address] [place] [address] Dr. Gerber Pimentel Globulin (S) [Mass/Vol] 3.7 g/dL Normal [facility] Comment on above: Performed By: #### L IVER, LIPID #### [facility] [address] [place] [address] Dr. Gerber Pimentel Glucose [Mass/Vol] 119 mg/dL Critically high 74-106 [facility] Comment on above: Performed By: #### L IVER, LIPID #### [facility] [address] [place] [address] Dr. Gerber Pimentel Potassium [Moles/Vol] 4.1 mmol/L Normal 3.5-5.1 [facility] Comment on above: Performed By: #### L IVER, LIPID #### [facility] [address] [place] [address] Dr. Gerber Pimentel Protein [Mass/Vol] 6.8 g/dL Normal 6.4-8.2 [facility] Comment on above: Performed By: #### L YU LIPID #### [facility] [address] [place] [address] Dr. Gerber Pimentel Sodium [Moles/Vol] 134 mmol/L Critically low 136-145 [facility] Comment on above: Performed By: #### L YU LIPID #### [facility] [address] [place] [address] Dr. Gerber Pimentel Urea nitrogen [Mass/Vol] 13.0 mg/dL Normal 7.0-18.0 [facility] Comment on above: Performed By: #### L YU LIPID #### [facility] [address] [place] [address] Dr. Gerber Pimentel Urea nitrogen/Creatinin e [Mass ratio] 16.9 mg/mg Normal [facility] Comment on above: Performed By: #### L YU LIPID #### [facility] [address] [place] [address] Dr. Gerber Pimentel Albumin [Mass/Vol] 3.8 g/dL Normal 3.4-5.0 [facility] Comment on above: Performed By: #### A 1C #### [facility] [address] [place] [address] Dr. Gerber Pimentel Albumin/Globulin [Mass ratio] 1.0 {ratio} Normal [facility] Comment on above: Performed By: #### A 1C #### [facility] [address] [place] [address] Dr. Gerber Pimentel ALP [Catalytic activity/Vol] 138 U/L Critically high 46-116 [facility] Comment on above: Performed By: #### A 1C #### [facility] [address] [place] [address] Dr. Gerber Pimentel ALT [Catalytic activity/Vol] 42 U/L Normal 14-59 [facility] Comment on above: Performed By: #### A 1C #### [facility] [address] [place] [address] Dr. Gerber Pimentel Anion gap [Moles/Vol] 14.1 mmol/L Normal [facility] Comment on above: Performed By: #### A 1C #### [facility] [address] [address] [address] Gerber Pimentel AST [Catalytic activity/Vol] 33 U/L Normal 15-37 [facility] Comment on above: Performed By: #### A 1C #### [facility] [address] [address] [address] Gerber Pimentel Bilirubin [Mass/Vol] 1.2 mg/dL Critically high 0.2-1.0 [facility] Comment on above: Performed By: #### A 1C #### [facility] [address] [address] [address] Gerber Pimentel Calcium [Mass/Vol] 8.7 mg/dL Normal 8.5-10.1 [facility] Comment on above: Performed By: #### A 1C #### [facility] [address] [address] [address] Gerber Pimentel Chloride [Moles/Vol] 100 mmol/L Normal 98-107 [facility] Comment on above: Performed By: #### A 1C #### [facility] [address] [address] [address] Gerber Pimentel CO2 [Moles/Vol] 20.2 mmol/L Critically low 21.0-32.0 [facility] Comment on above: Performed By: #### A 1C #### [facility] [address] [address] [address] Gerber Pimentel Creatinine [Mass/Vol] 0.84 mg/dL Normal 0.55-1.02 [facility] Comment on above: Performed By: #### A 1C #### [facility] [address] [address] [address] Gerber Pimentel EGFR-AF [place]ORE[place] >60 Normal >=60 [facility] Comment on above: Performed By: #### A 1C #### [facility] [address] [address] [address] Gerber Pimentel EGFR-NON AF [place] >60 Normal >=60 [facility] Comment on above: Performed By: #### A 1C #### [facility] [address] [address] [address] Gerber Pimentel Globulin (S) [Mass/Vol] 3.9 g/dL Normal [facility] Comment on above: Performed By: #### A 1C #### [facility] [address] [address] [address] Gerber Pimentel Glucose [Mass/Vol] 128 mg/dL Critically high 74-106 T [facility] Comment on above: Performed By: #### A 1C #### [facility] [address] [place] [address] Dr. Gerber Pimentel Potassium [Moles/Vol] 3.3 mmol/L Critically low 3.5-5.1 [facility] Comment on above: Performed By: #### A 1C #### [facility] [address] [place] [address] Dr. Gerber Pimentel Protein [Mass/Vol] 7.7 g/dL Normal 6.4-8.2 [facility] Comment on above: Performed By: #### A 1C #### [facility] [address] [place] [address] Dr. Gerber Pimentel Sodium [Moles/Vol] 131 mmol/L Critically low 136-145 Th [facility] Comment on above: Performed By: #### A 1C #### [facility] [address] [place] [address] Dr. Gerber Pimentel Urea nitrogen [Mass/Vol] 15.0 mg/dL Normal 7.0-18.0 [facility] Comment on above: Performed By: #### A 1C #### [facility] [address] [place] [address] Dr. Gerber Pimentel Urea nitrogen/Creatinin e [Mass ratio] 17.9 mg/mg Normal [facility] Comment on above: Performed By: #### A 1C #### [facility] [address] [place] [address] Dr. Gerber Pimentel SED RATE [facility] 2021 SED RATE 33 mm/hr Critically high <=30 [facility] Comment on above: Performed By: #### P HVEN #### [facility] [address] [address] [address] Gerber Pimentel OBSOLETEon 07-27-2020 OBSOLETE Refill (HEMASA) HARLEY SHARMA ([id number]) 1970 F Date Time Provider Department 07/27/20 [...] Encounter Status:Closed by HARRISON HEAD on 07/27/20 Normal [facility] OT-MG MAMM SEBASTIAN DIAG W CAD IM PORTon 07-11-2019 OT-MG MAMM SEBASTIAN DIAG W CAD IMPORT Images were obtained outside of [facility] [id number] Normal [facility] Vital Signs Date Time Vital Sign Value Performing Clinician Portia vera 12-26-2023 15:16-0400 Blood Pressure Location Nahid MAYAL [facility] 12-26-2023 15:16-0400 Diastolic blood pressure 72 mm[Hg] Nahid NILL [facility] 12-26-2023 15:16-0400 Heart rate 72 /min Nahid NILL [facility] 12-26-2023 15:16-0400 Respiratory rate 16 /min Nahid NILL [facility] 12-26-2023 15:16-0400 Systolic blood pressure 120 mm[Hg] Nahid NILL [facility] 10-25-2021 14:45-0400 Blood Pressure Location Nahid NILL [facility] 10-25-2021 14:45-0400 Diastolic blood pressure 104 mm[Hg] Nahid MAYAL [facility] 10-25-2021 14:45-0400 Heart rate 80 /min Nahid NILL [facility] 10-25-2021 14:45-0400 Respiratory rate 16 /min Nahid NILL [facility] 10-25-2021 14:45-0400 Systolic blood pressure 144 mm[Hg] Nahid MAYAL [facility] Encounters Encounter Date Encounter Type Care Provider Facility Start: 12-26-2023 End: 12-26-2023 ambulatory Nahid PALOMO Facility:[facility] Start: 12-26-2023 End: 12-26-2023 Patient encounter procedure Nahid Danielson STACIA [facility] Start: 10-16-2023 End: 10-16-2023 ambulatory ENEIDA DICKENS Not Available Start: 06-14-2023 Refill Harrison Head MD Work Phone: Hematology/Oncology Comment on above: Refill Request Start: 06-21-2022 End: 06-22-[address] DEBRA [...] abnormal findings DR DEBRA CONCEPCION . [facility] Start: 02-01-2022 End: 02-02-[address] DEBRA CONCEPCION . Facility:[facility] Start: 02-01-2022 End: 02-02-2022 Encounter for general adult medical examination without abnormal findings DR DEBRA CONCEPCION . Facility:[facility] Start: 01-24-2022 End: 01-24-2022 Patient encounter procedure Debra Concepcion [facility] Start: 11-03-2021 End: 11-04-[address] DEBRA CONCEPCION . Facility:[facility] Start: 11-01-2021 End: 09-07-[address] DEBRA CONCEPCION . Facility: Start: 10-25-2021 End: 10-25-2021 Patient encounter procedure Nahid R NILL [facility] Start: 10-14-2021 End: 10-20-2021 Evaluation and management of inpatient DR DEBRA CONCEPCION . Facility: Start: 06-25-2021 Refill Harrison Head MD Work Phone: Hematology/Oncology Comment on above: Refill Request Procedures Date Procedure Procedure Detail Performing Clinician Start: 10-17-2021 Insertion of Infusion Device into Right Basilic Vein, Percutaneous Approach DR DEBRA CONCEPCION . Start: 12-29-2020 Colonoscopy Nahid NILL Start: 08-26-2019 Adult depression screening assessment Harrison Head MD Work Phone: Start: 04-26-2011 Esophagogastroduodenoscopy Nahid NILL Arthroscopy of hip Nahid N ILL Comment on above: labrum repair 02/05/20 Biopsy of breast Nahid NIL L Cholecystectomy Nahid NILL Hysterectomy Nahid NILL Lumpectomy of breast Nahid NILL Nasal septoplasty Nahid NI LL Repair of meniscus Nahid N ILL Total abdominal hyst erectomy with bilateral salpingo-oophorectomy Nahid NILL Plan of Treatment Date Care Activity Detail Author Start: 10-28-2023 Influenza vaccination Influenz a Vaccine (Season Ended) [facility] Start: 02-26-2023 Behavioral Health Screening Behavioral Health Screening [facility] Start: 10-27-2022 Covid-19 Vaccine ( season) Covid-19 Vaccine ( season) [facility] Start: 08-25-2022 DIABETES SCREEN DIABETES SCREEN [facility] Start: 08-25-2022 Diabetes Screening Diabetes Screenin g [facility] Start: 02-26-2022 DEPRESSION ASSESSMENT DEPRESSION ASS ESSMENT [facility] Start: 10-27-2021 Influenza vaccination [facility] Start: 08-25-2020 Adult depression scr eening assessment DEPRESSION SCREENING [facility] Start: 2018 SHINGRIX VACCINE (1 of 2) SHINGRIX V ACCINE (1 of 2) [facility] Start: 2013 COLOGUARD (FIT-DNA) COLOGUARD (FIT-D NA) [facility] Start: 2013 Colonoscopy COLONOSCOPY [facility] Start: 2013 COLORECTAL CANCER SCREENING COLORECTAL CANCER SCREENING [facility] Start: [address] COLONOGRAPHY [facility] Start: 2013 FECAL OCCULT BLOOD FECAL OCCULT BLOO D [facility] Start: 2013 Lipid panel Lipid Screening [facility] Start: 2013 LIPID SCREEN LIPID SCREEN [facility] Start: 2013 Screening for malign ant neoplasm of colon [facility] Start: 2013 SIGMOIDOSCOPY SIGMOIDOSCOPY [facility] Start: 2008 Mammography MAMMOGRAM [facility] Start: 2008 Screening for malign ant neoplasm of breast Mammogram Screening [facility] Start: 1998 HPV TESTING HPV TESTING [facility] Start: 1998 Screening for malign ant neoplasm of cervix HPV Testing [facility] Start: 1989 PAP TESTING PAP TESTING [facility] Start: 1989 Screening for malign ant neoplasm of cervix Pap Testing [facility] Start: 05-12-1987 Hepatitis B Vaccine (1 of 3 - 19+ 3-dose series) Hepatitis B Vaccine (1 of 3 - 19+ 3-dose series) [facility] Start: 05-12-1987 Urine microalbumin profile [facility] Start: 1986 HEPATITIS C SCREENING HEPATITIS C [facility] Start: 1986 Hepatitis C screening Hepatitis C [facility] Start: 1986 HIV SCREENING HIV SCREENING [facility] Start: 1986 HIV screening HIV Screening [facility] Start: 1973 COVID-19 VACCINE (1) COVID-19 VACCIN E (1) [facility] Start: 1968 COVID-19 VACCINE (#1) COVID-19 VACCI NE (#1) [facility] Start: 1968 HEPATITIS B (1 of 3 - 3-dose series) HEPATITIS B (1 of 3 - 3-dose series) [facility] Immunizations Immunization Date Immunization Notes Care Provider Fa kaileety 11-25-2018 influenza virus vacc ine, unspecified formulation Harrison Head MD Work Phone: [facility] Payers Date Payer Category Payer Unknown [id number] 2.16.84 [id number] 1968 Unknown [id number] .16.84 [id number] 1968 Unknown [id number] .16.84 [id number] 1968 Unknown [id number] .16.84 [id number] 1968 Unknown [id number] 2.16.84 [id number] 1968 Unknown [id number] 2.16.84 [id number] 1968 Unknown [id number] 2.16.84 [id number] 1968 Unknown [id number] 2.16.84 [id number] 1968 Unknown [id number] 2.16.84 [id number] 1968 Unknown [id number] 2.16.84 [id number] 1968 Unknown [id number] 2.16.84 [id number] 1968 Unknown [id number] 2.16.8 [id number] 1959 Unknown [id number] Social History Date Type Detail Facility Start: 03-05-2014 End: 12-26-2023 Tobacco smoking status NHIS Ex-smoker [facility] Start: 03-05-2014 End: 02-04-2020 Cigarettes smoked current (pack per day) - Reported 0.5 [facility] Start: 03-05-2014 Tobacco use and exposure Smokeless tobacco non-user [facility] Start: 08-26-2019 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) [facility] Start: 1970 Sex Assigned At Not on file C [facility] Tobacco smoking status Never [facility] Start: 08-26-2019 End: 02-04-2020 Sex Assigned At Female [facility] History of tobacco use Current smoker [facility] History of tobacco use Cigarette Smoker C [facility] Functional Status Date Assessment Result Facility 12-26-2023 Functional Status N/A [facility] 10-25-2021 Functional Status N/A [facility] Clinical Note 10-17-2021 Note Date & Type [...] authenticated by: KETAN KAY Date: 2021-10-17 09:06 [facility] Clinical Note 10-17-2021 Note Date & [...] authenticated by: KETAN KAY Date: 2021-10-17 09:04 [facility] History of Past illness Narrative 02-02-2014 Note Date & Type Note Facility 02-02-2014 History of Past i llness Narrative Problem Noted Date Resolved Date Malignant neoplasm of female breast 02/02/2014 12/04/2014 Overview: ICD-10 Go-Live documented as of this encounter (statuses as of 06/27/2021) [facility] History of Past illness Narrative 02-02-2014 Note Date & Type Note Facility 02-02-2014 History of Past i llness Narrative Problem Noted Date Resolved Date Malignant neoplasm of female breast 02/02/2014 12/04/2014 Overview: ICD-10 Go-Live documented as of this encounter (statuses as of 05/01/2022) [facility] History of Past illness Narrative 02-02-2014 Note Date & Type Note Facility 02-02-2014 History of Past i llness Narrative Problem Noted Date Diagnosed Date Resolved Date Malignant neoplasm of female breast 02/02/2014 12/04/2014 Overview: ICD-10 Go-Live documented as of this encounter (statuses as of 06/14/2023) [facility] Evaluation + Plan note Note Date & Type Note Facility Evaluation + Plan note No data available for this section [facility] Discharge instructions Note Date & Type Note Facility Hospital Discharge instructions No data available for this section [facility] Progress note Note Date & Type Note Facility Progress note No data available for this section [facility] Summary Purpose Family History No Family History Records FoundNo Family History Records FoundNo Family History Records FoundNo Family History Records Found No data available for this section No Family History Records Found Advance Directives No Advanced Directives Records FoundNo Advanced Directives Records FoundNo Advanced Directives Records FoundNo Advanced Directives Records FoundNo Advanced Directives Records Found Additional Source Comments INFORMATION SOURCE (unrecogn ized section and content) DATE CREATED AUTHOR 07/11/2019 [facility] DATE CREATED AUTHOR AUTHOR'S ORGANIZ ATION 04/20/2021 [facility] DATE CREATED AUTHOR AUTHOR'S ORGANIZ ATION 08/04/2022 [facility] DATE CREATED AUTHOR AUTHOR'S ORGANIZ ATION 10/18/2023 [facility] EPIC DATE CREATED AUTHOR AUTHOR'S ORGANIZ ATION 12/28/2023 [facility] Source Comments (unrecognize d section and content) In the event this informatio n is protected by the Federal Confidentiality of Alcohol and Drug Abuse Patient Records regulations: The Federal rules restrict any use of the information to criminally investigate or prosecute any alcohol or drug abuse patient.[facility] the event this information is protected by the Federal Confidentiality of Alcohol and Drug Abuse Patient Records regulations: The Federal rules restrict any use of the information to criminally investigate or prosecute any alcohol or drug abuse patient.[facility] the event this information is protected by the Federal Confidentiality of Alcohol and Drug Abuse Patient Records regulations: The Federal rules restrict any use of the information to criminally investigate or prosecute any alcohol or drug abuse patient.[facility] Reason for Visit (unrecogniz ed section and content) Reason Comments Refill Request Care Teams (unrecognized sec tion and content) Ticket Sorter Relationship Specialty Start Date End Date Debra Concepcion MD PCP - General Family Practice 01/20/14 Ticket Sorter Relationship Specialty Start Date End Date Debra Concepcion MD PCP - General Family Medicine 01/20/14 Ticket Sorter Relationship Specialty Start Date End Date Debra [...] BE BASED ON THE PRIMARY CLINICAL RECORDS. [employer] [facility]. provides no warranty or guarantee of the accuracy or completeness of information in this document.
[2024-01-02 06:25] VITALS: BP 143/73; PULSE 78; TEMP 36.2; O2SAT 96; BMI 33.7
[2024-01-02] MEDS: 0.9 % SODIUM CHLORIDE 500 ML 50 ML IV (06:45)
[2024-01-02 07:47] VITALS: BP 108/67; PULSE 75; TEMP 36.2; O2SAT 99
[2024-01-02 08:02] VITALS: BP 107/65; PULSE 79; TEMP 36.2; O2SAT 96
[2024-01-02 08:17] VITALS: BP 117/84; PULSE 76; TEMP 36.2; O2SAT 97
== END 2024-01-02 08:17 | disposition home or self-care (01) ==
PROVIDERS: PCP Family Medicine; Visit Provider Surgery
PROC: (CPT 813; principal; 2024-01-02 07:30)
DX: K21.9 Gastro-esophageal reflux disease without esophagitis (principal); Z86.0101 Personal history of adenomatous and serrated colon polyps; R10.13 Epigastric pain; R11.0 Nausea; I10 Essential (primary) hypertension; E78.5 Hyperlipidemia, unspecified; Z85.3 Personal history of malignant neoplasm of breast; R68.81 Early satiety; Z90.710 Acquired absence of both cervix and uterus; Z90.49 Acquired absence of other specified parts of digestive tract; Z87.891 Personal history of nicotine dependence
CPT/HCPCS: 43235; 45378; J2704

== ENCOUNTER 2024-01-29 10:50 | Outpatient (OUT) | payer BC, SELFPAY ==
--- OUTSIDE RECORDS SUMMARY | 2024-01-29 11:10 | XMS_ITS | CCD ---
[facility] Organization [facility] Providers Care Fishing Hand Name Role Phone Debra Concepcion MD Primary Care Provider [phone] Debra Concepcion Primary Care Physician [phone] Debra Concepcion MD Primary Care Provider [phone] TANNER Cedeño, DR RICHARDSON Primary Care Unavailable [...] ., DR RICHARDSON Procedure Practitioner Unavail able KARASIK ., DR VILLEGAS Consulting Unavailabl e PAY ., DR ASCENCIO Consulting Unavailable GRECHNY ., GLENNY UGALDE Consulting Unavailabl e KETAN KAY Consulting Unavailable NICOLE MAXWELL Consulting Unavailable DARAMOLLAWANDA Song Consulting Unavailable HOY ., DR RICHARDSON Consulting [...] RICHARDSON Attending Unavailable ENEIDA DICKENS Attending Unavailable STACIA, Nahid Danielson Attending Unavailable STACIA, Nahid Danielson Attending Unavailable Allergies Allergy Classification Reported Allergen(s) Allergy Type Date of Onset Reaction(s) Facility (1 source) No Known Medication Allergies; Translations: [No Known Medication Allergies] Propensity to adverse reactions (disorder) [facility] Repository Medications Current Medications Medication Drug Class(es) [...] Comment on above: TAKE 1 CAPSULE BY [facility] EVERY DAY Ventolin HFA 90 mcg/inh Aerosol (3 sources) Start: take 2 puff(s) by inhalation every six hours Ventolin HFA 90 mcg/inh Aerosol 2 puff(s), Inhalation, q6hr, Refill(s) 0 Start Date: 12/03/20 Status: Ordered Completed/Discontinued Medications Medication Drug Class(es) Dates Sig (Normalized) Sig (Original) [id number] 200 actuat albuterol 0.09 mg/actuat metered dose [...] 12-04-2014 Episodic Other aftercare (1 source) Other group home (current) drug therapy; Translations: [OT SAP BASIS 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 CURRENT DRUG THERAPY] Onset: 10-25-2021 Episodic Other lower respiratory disease (4 sources) Shortness of breath; Translations: [SHORTNESS OF BREATH] Onset: 02-22-2022 Episodic Other screening for suspected conditions (not mental disorders or infectious disease) (1 source) Other specified abnormal findings of blood chemistry; Translations: [OT SPEC ABNORMAL FINDINGS BLD CHEM] Onset: 10-25-2021 [...] Test Name Value Interpretation Reference Range Facility Reminderson 01-03-2024 Reminders Reminders From: Asuncion Medina LPN To: [facility] - Clinical; Sent: 01/03/2024 10:22:46 EST Show up: 12/01/2028 07:00:00 EDT Subject: colonoscopy recall Due Date/Time: 01/01/2029 07:00:00 EST Reminder/Recall Patient due for surveillance colonoscopy 01/01/2029 due to history of polyps. Normal [facility] Ambulatory Visit Summaryon 1 Ambulatory Visit Summary [...] you for choosing us for your care. Normal [facility] General Surgery Office/Clini c Noteon 12-26-2023 General Surgery Office/Clinic Note General Surgery Office/Clinic Note Chief Complaint surveillance colonoscopy [facility] Staff 53 year old female presents on [...] 20 mg= (more content not included)... Normal [facility] Comment on above: Result Comment: Elec tronically Signed By: STACIA LING, Nahid R\.br\Date and Time Signed: 12/26/23 15:46 EDT ESTRADIOLon 06-22-2022 Estradiol <5.0 Normal [facility] Comment on above: Result Comment: Adul t Female: Follicular phase 12.5 - 166.0 Ovulation phase 85.8 - 498.0 Luteal phase 43.8 - 211.0 Postmenopausal <6.0 - 54.7 1st trimester 215.0 - >4300.0 Jody ECLIA methodology Performed By: #### L YU, LIPID #### [facility] [address] [place] [address] Dr. Gerber Pimentel FSHon 06-22-2022 FSH 77.1 mIU/mL Normal [facility] Comment on above: Result Comment: Adul t Female: Follicular phase 3.5 - 12.5 Ovulation phase 4.7 - 21.5 Luteal phase 1.7 - 7.7 Postmenopausal 25.8 - 134.8 Performed By: #### C BC #### [facility] [address] [place] [address] Dr. Gerber Pimentel PROGESTERONEon 06-22-2022 Progesterone <0.1 Normal [facility] Comment on above: Result Comment: Foll icular phase 0.1 - 0.9 Luteal phase 1.8 - 23.9 Ovulation phase 0.1 - 12.0 First trimester 11.0 - 44.3 Second trimester 25.4 - 83.3 Third trimester 58.7 - 214.0 Postmenopausal 0.0 - 0.1 Performed By: #### I NFLUAB #### [facility] [address] [place] [address] Dr. Gerber Pimentel PROLACTINon 06-22-2022 Prolactin 14.0 ng/mL Normal 4.8-23.3 [facility] Comment on above: Performed By: #### I NFLUAB #### [facility] [address] [place] [address] Dr[address] US [address] HEAD_NECKon 06-22-2022 [...] NICOLE CONSTANTINO Date: 2022-06-22 07:23 Normal [facility] CBC AUTO DIFFon 06-21-2022 BASO # 0.0 103/ul Normal 0.0-0.1 [facility] Comment on above: Performed By: #### A 1C #### [facility] [address] [place] [address] Dr. Gerber Pimentel Basophils/100 WBC (Bld) 0.2 % Normal 0.2-2.0 [facility] Comment on above: Performed By: #### A 1C #### [facility] [address] [place] [address] Dr. Gerber Pimentel EO # 0.0 103/ul Normal 0.0-0.7 [facility] Comment on above: Performed By: #### A 1C #### [facility] [address] [place] [address] Dr. Gerber Pimentel Eosinophils/100 WBC (Bld) 0.5 % Critically low 0.9-7.0 [facility] Comment on above: Performed By: #### A 1C #### [facility] [address] [place] [address] Dr. Gerber Pimentel Erythrocyte distribution width (RBC) [Ratio] 13.4 % Normal 11.0-15.0 [facility] Comment on above: Performed By: #### A 1C #### [facility] [address] [place] [address] Dr. Gerber Pimentel Hematocrit (Bld) [Volume fraction] 36.1 % Normal 36.0-48.0 [facility] Comment on above: Performed By: #### A 1C #### [facility] [address] [place] [address] Dr. Gerber Pimentel Hemoglobin (Bld) [Mass/Vol] 12.2 g/dL Normal 12.0-16.0 [facility] Comment on above: Performed By: #### A 1C #### [facility] [address] [place] [address] Dr. Gerber Pimentel IG # 0.03 10e3/ul Normal 0.00-0.03 [facility] Comment on above: Performed By: #### A 1C #### [facility] [address] [place] [address] Dr. Gerber Pimentel IG % 0.4 % Normal 0.0-0.5 [facility] Comment on above: Performed By: #### A 1C #### [facility] [address] [place] [address] Dr. Gerber Pimentel LYMPH # 2.5 103/ul Normal 1.2-3.8 [facility] Comment on above: Performed By: #### A 1C #### [facility] [address] [place] [address] Dr. Gerber Pimentel Lymphocytes/100 WBC (Bld) 30.4 % Normal 20.5-60.0 [facility] Comment on above: Performed By: #### A 1C #### [facility] [address] [place] [address] Dr. Gerber Pimentel MANUAL DIFF REQ NO Normal [facility] Comment on above: Performed By: #### A 1C #### [facility] [address] [place] [address] Dr. Gerber Pimentel MCH (RBC) [Entitic mass] 30.0 pg Normal 26.7-34.0 [facility] Comment on above: Performed By: #### A 1C #### [facility] [address] [place] [address] Dr. Gerber Pimentel MCHC (RBC) [Mass/Vol] 33.8 g/dL Normal 29.9-35.2 [facility] Comment on above: Performed By: #### A 1C #### [facility] [address] [place] [address] Dr. Gerber Pimentel MCV (RBC) [Entitic vol] 88.9 fL Normal 81.0-99.0 [facility] Comment on above: Performed By: #### A 1C #### [facility] [address] [place] [address] Dr. Gerber Pimentel MONO # 0.5 103/ul Normal 0.3-0.8 [facility] Comment on above: Performed By: #### A 1C #### [facility] [address] [place] [address] Dr. Gerber Pimentel Monocytes/100 WBC (Bld) 6.5 % Normal 1.7-12.0 [facility] Comment on above: Performed By: #### A 1C #### [facility] [address] [place] [address] Dr. Gerber Pimentel NEUT # 5.1 103/ul Normal 1.4-6.5 [facility] Comment on above: Performed By: #### A 1C #### [facility] [address] [place] [address] Dr. Gerber Pimentel Neutrophils/100 WBC (Bld) 62.0 % Normal 43.0-75.0 [facility] Comment on above: Performed By: #### A 1C #### [facility] [address] [place] [address] Dr. Gerber Pimentel Platelet mean volume (Bld) [Entitic vol] 8.4 fL Critically low 9.5-13.5 [facility] Comment on above: Performed By: #### A 1C #### [facility] [address] [place] [address] Dr. Gerber Pimentel PLT 315 103/ul Normal 150-450 [facility] Comment on above: Performed By: #### A 1C #### [facility] [address] [place] [address] Dr. Gerber Pimentel RBC 4.06 106/ul Critically low 4.20-5.40 [facility] Comment on above: Performed By: #### A 1C #### [facility] [address] [place] [address] Dr. Gerber Pimentel WBC 8.2 103/ul Normal 4.0-11.0 [facility] Comment on above: Performed By: #### A 1C #### [facility] [address] [place] [address] Dr. Gerber Pimentel FREE THYROXINE INDEX T7on FTI 3.01 Normal 1.30-4.50 [facility] Comment on above: Performed By: #### L IVER, LIPID #### [facility] [address] [place] [address] Dr. Gerber Pimentel T3U 32.0 % Normal 30.0-39.0 [facility] Comment on above: Performed By: #### L IVER, LIPID #### [facility] [address] [place] [address] Dr. Gerber Pimentel T4 [Mass/Vol] 9.40 ug/dL Normal 4.80-13.90 [facility] Comment on above: Performed By: #### L IVER, LIPID #### [facility] [address] [place] [address] Dr. Gerber Pimentel GLYCOHEMOGLOBIN A1Con 2022 ADA RECOMMENDATION SEE BELOW Normal [facility] Comment on above: Result Comment: ADA RECOMMENDED LIMIT 4.0 - 6.0 ADA THERAPEUTIC TARGET < 7.0 ACTION SUGGESTED > 7.0 Performed By: #### C BC #### [facility] [address] [place] [address] Dr. Gerber Pimentel Glucose [Mass/Vol] 94 mg/dL Normal [facility] Comment on above: Performed By: #### C BC #### [facility] [address] [place] [address] Dr. Gerber Pimentel HbA1c (Bld) [Mass fraction] 4.9 % Normal 4.5-6.2 [facility] Comment on above: Performed By: #### C BC #### [facility] [address] [place] [address] Dr. Gerber Pimentel PROF 14(COMP METB)on 023 Albumin [Mass/Vol] 3.6 g/dL Normal 3.4-5.0 [facility] Comment on above: Performed By: #### L IVER, LIPID #### [facility] [address] [place] [address] Dr. Gerber Pimentel Albumin/Globulin [Mass ratio] 0.9 {ratio} Normal [facility] Comment on above: Performed By: #### L IVER, LIPID #### [facility] [address] [place] [address] Dr. Gerber Pimentel ALP [Catalytic activity/Vol] 93 U/L Normal 46-116 [facility] Comment on above: Performed By: #### L YU, LIPID #### [facility] [address] [address] [address] Gerber Pimentel ALT [Catalytic activity/Vol] 25 U/L Normal 14-59 [facility] Comment on above: Performed By: #### L YU, LIPID #### [facility] [address] [address] [address] Gerber Pimentel Anion gap [Moles/Vol] 14.0 mmol/L Normal [facility] Comment on above: Performed By: #### L UY, LIPID #### [facility] [address] [place] [address] Dr. Gerber Pimentel AST [Catalytic activity/Vol] 15 U/L Normal 15-37 [facility] Comment on above: Performed By: #### L YU LIPID #### [facility] [address] [place] [address] Dr. Gerber Pimentel Bilirubin [Mass/Vol] 1.0 mg/dL Normal 0.2-1.0 [facility] Comment on above: Performed By: #### L YU LIPID #### [facility] [address] [place] [address] Dr. Gerber Pimentel Calcium [Mass/Vol] 9.0 mg/dL Normal 8.5-10.1 [facility] Comment on above: Performed By: #### L YU, LIPID #### [facility] [address] [place] [address] Dr. Gerber Pimentel Chloride [Moles/Vol] 104 mmol/L Normal 98-107 [facility] Comment on above: Performed By: #### L YU, LIPID #### [facility] [address] [place] [address] Dr. Gerber Pimentel CO2 [Moles/Vol] 22.8 mmol/L Normal 21.0-32.0 [facility] Comment on above: Performed By: #### L YU, LIPID #### [facility] [address] [place], [place] [id number] Dr. Gerber Pimentel Creatinine [Mass/Vol] 0.76 mg/dL Normal 0.55-1.02 [facility] Comment on above: Performed By: #### L IVLEIGH, LIPID #### [facility] [address] [place] [address] Dr. Gerber Pimentel EGFR-AF ITALIAN >60 Normal >=60 [facility] Comment on above: Performed By: #### L IVLEIGH, LIPID #### [facility] [address] [place] [address] Dr. Gerber Pimentel EGFR-NON AF ITALIAN >60 Normal >=60 [facility] Comment on above: Performed By: #### L IVLEIGH, LIPID #### [facility] [address] [place] [address] Dr. Gerber Pimentel Globulin (S) [Mass/Vol] 4.1 g/dL Normal [facility] Comment on above: Performed By: #### L IVLEIGH, LIPID #### [facility] [address] [place] [address] Dr. Gerber Pimentel Glucose [Mass/Vol] 82 mg/dL Normal 74-106 [facility] Comment on above: Performed By: #### L YU, LIPID #### [facility] [address] [place] [address] Dr. Gerber Pimentel Potassium [Moles/Vol] 3.8 mmol/L Normal 3.5-5.1 [facility] Comment on above: Performed By: #### L IVLEIGH, LIPID #### [facility] [address] [place] [address] Dr. Gerber Pimentel Protein [Mass/Vol] 7.7 g/dL Normal 6.4-8.2 [facility] Comment on above: Performed By: #### L IVLEIGH, LIPID #### [facility] [address] [place] [address] Dr. Gerber Pimentel Sodium [Moles/Vol] 137 mmol/L Normal 136-145 [facility] Comment on above: Performed By: #### L IVLEIGH, LIPID #### [facility] [address] [place] [address] Dr. Gerber Pimentel Urea nitrogen [Mass/Vol] 24.0 mg/dL Critically high 7.0-18.0 [facility] Comment on above: Performed By: #### L YU LIPID #### [facility] [address] [place] [address] Dr. Gerber Pimentel Urea nitrogen/Creatinin e [Mass ratio] 31.6 mg/mg Normal [facility] Comment on above: Performed By: #### L YU, LIPID #### [facility] [address] [place] [address] Dr. Gerber Pimentel TSHon 06-21-2022 TSH 0.597 uIU/mL Normal 0.358-3.740 [facility] Comment on above: Performed By: #### L YU LIPID #### [facility] [address] [place] [address] Dr. Gerber Pimentel CULTURE URINEon 06-20-2022 CULTURE URINE Culture Observations : NO GROWTH. Normal [facility] Comment on above: Performed By: #### P HVEN #### [facility] [address] [place] [address] Dr. Gerber Pimentel UA RANDOM W/MICROSCOPICon BACTERIA NONE SEEN Normal NONE SEEN [facility] Comment on above: Performed By: #### P HVEN #### [facility] [address] [place] [address] Dr. Gerber Pimentel Bilirubin Ql (U) Negative Normal NEGATIVE [facility] Comment on above: Performed By: #### P HVEN #### [facility] [address] [place] [address] Dr. Gerber Pimentel CAST NONE SEEN Normal NONE SEEN [facility] Comment on above: Performed By: #### P HVEN #### [facility] [address] [place] [address] Dr. Gerber Pimentel Clarity (U) CLEAR Normal CLEAR [facility] Comment on above: Performed By: #### P HVEN #### [facility] [address] [place] [address] Dr. Gerber Pimentel Color (U) YELLOW Normal YELLOW [facility] Comment on above: Performed By: #### P HVEN #### [facility] [address] [address] [address] Gerber Pimentel Crystals LM Nom (Urine sed) NONE SEEN Normal NONE SEEN [facility] Comment on above: Performed By: #### P HVEN #### [facility] [address] [address] [address] Gerber Pimentel Epithelial cells LM Ql (Urine sed) MODERATE Abnormal NONE SEEN /RARE [facility] Comment on above: Performed By: #### P HVEN #### [facility] [address] [address] [address] Gerber Pimentel Glucose Ql (U) Negative Normal NEGATIVE [facility] Comment on above: Performed By: #### P HVEN #### [facility] [address] [place] [address] Dr. Gerber Pimentel Hemoglobin Ql (U) Negative Normal NEGATIVE [facility] Comment on above: Performed By: #### P HVEN #### [facility] [address] [address] [address] Gerber Pimentel Ketones Ql (U) Negative Normal NEGATIVE [facility] Comment on above: Performed By: #### P HVEN #### [facility] [address] [address] [address] Gerber Pimentel LEUKOCYTES Negative Normal NEGATIVE [facility] Comment on above: Performed By: #### P HVEN #### [facility] [address] [address] [address] Gerber Pimentel MUCOUS NONE SEEN Normal NONE SEEN [facility] Comment on above: Performed By: #### P HVEN #### [facility] [address] [address] [address] Gerber Pimentel Nitrite Ql (U) Negative Normal NEGATIVE [facility] Comment on above: Performed By: #### P HVEN #### [facility] [address] [place] [address] Dr. Gerber Pimentel pH (U) 5.5 [pH] Normal 5-9 [facility] Comment on above: Performed By: #### P HVEN #### [facility] [address] [address] [address] Gerber Pimentel RBC NONE SEEN Abnormal 0-2 [facility] Comment on above: Performed By: #### P HVEN #### [facility] [address] [place] [address] Dr. Gerber Pimentel SPEC GRAVITY 1.030 Abnormal 1.005-<=1.0 25 [facility] Comment on above: Performed By: #### P HVEN #### [facility] [address] [address] [address] Gerber Pimentel UA PROTEIN Negative Normal NEGATIVE/ TRACE [facility] Comment on above: Performed By: #### P HVEN #### [facility] [address] [place] [address] Dr. Gerber Pimentel Urobilinogen Qn (U) 0.2 {Brittanie'U}/dL Normal 0.2 - 1.0 [facility] Comment on above: Performed By: #### P HVEN #### [facility] [address] [place] [address] Dr. Gerber Pimentel WBC NONE SEEN Normal NONE SEEN [facility] Comment on above: Performed By: #### P HVEN #### [facility] [address] [place] [address] Dr. Gerber Pimentel LIPID PROFILEon 06-16-2022 CHOL-HDL RATIO NORM SEE BELOW Normal [facility] Comment on above: Result Comment: 3.3 - 4.4 LOW RISK 4.4 - 7.1 AVERAGE RISK 7.1 - 11.0 MODERATE RISK >11.0 HIGH RISK Performed By: #### L IVLEIGH, LIPID #### [facility] [address] [place] [address] Dr. Gerber Pimentel Cholesterol [Mass/Vol] 210 mg/dL Critically high <=200 [facility] Comment on above: Performed By: #### L YU, LIPID #### [facility] [address] [place] [address] Dr. Gerber Pimentel Cholesterol in HDL [Mass/Vol] 69 mg/dL Critically high 40-60 [facility] Comment on above: Performed By: #### L IVLEIGH, LIPID #### [facility] [address] [address] [address] Gerber Pimentel Cholesterol in LDL [Mass/Vol] 125.0 mg/dL Normal [facility] Comment on above: Performed By: #### L IVER, LIPID #### [facility] [address] [address] [address] Gerber Pimentel Cholesterol.total/ Cholesterol in HDL [Mass ratio] 3.0 {ratio} Normal [facility] Comment on above: Performed By: #### L IVER, LIPID #### [facility] [address] [address] [address] Gerber Pimentel HDL NORMAL > or = 60 mg/dl - LO W CARDIOVASCULAR RISK <40 mg/dl - HIGH CARDIOVASCULAR RISK Normal [facility] Comment on above: Performed By: #### L IVLEIGH, LIPID #### [facility] [address] [place] [address] Dr. Gerber Pimentel LDL CALC NORMAL SEE BELOW Normal [facility] Comment on above: Result Comment: <100 mg/dl OPTIMAL 100 - 129 mg/dl NEAR OR ABOVE OPTIMAL 130 - 159 mg/dl BORDERLINE HIGH 160 - 189 mg/dl HIGH >190 mg/dl VERY HIGH Performed By: #### L IVLEIGH LIPID #### [facility] [address] [place] [address] Dr. Gerber Pimentel Triglyceride [Mass/Vol] 80 mg/dL Normal <=150 [facility] Comment on above: Performed By: #### L IVLEIGH, LIPID #### [facility] [address] [address] [address] Gerber Pimentel VLDL CALC 16.0 mg/dL Normal [facility] Comment on above: Performed By: #### L IVER, LIPID #### [facility] [address] [address] [address] Gerber Pimentel LIVER PROFILEon 06-16-2022 Albumin [Mass/Vol] 3.3 g/dL Critically low 3.4-5.0 Th e [facility] Comment on above: Performed By: #### L IVER, LIPID #### [facility] [address] [place] [address] Dr. Gerber Pimentel Albumin/Globulin [Mass ratio] 0.8 {ratio} Normal [facility] Comment on above: Performed By: #### L IVER, LIPID #### [facility] [address] [place] [address] Dr. Gerber Pimentel ALP [Catalytic activity/Vol] 90 U/L Normal 46-116 [facility] Comment on above: Performed By: #### L IVER, LIPID #### [facility] [address] [place] [address] Dr. Gerber Pimentel ALT [Catalytic activity/Vol] 22 U/L Normal 14-59 [facility] Comment on above: Performed By: #### L IVER, LIPID #### [facility] [address] [place] [address] Dr. Gerber Pimentel AST [Catalytic activity/Vol] 16 U/L Normal 15-37 [facility] Comment on above: Performed By: #### L IVER, LIPID #### [facility] [address] [place] [address] Dr. Gerber Pimentel BILI, CONJUGATED 0.1 mg/dL Normal 0.0-0.2 [facility] Comment on above: Performed By: #### L IVER, LIPID #### [facility] [address] [place] [address] Dr. Gerber Pimentel Bilirubin [Mass/Vol] 0.8 mg/dL Normal 0.2-1.0 [facility] Comment on above: Performed By: #### L IVER, LIPID #### [facility] [address] [place] [address] Dr. Gerber Pimentel Globulin (S) [Mass/Vol] 4.0 g/dL Normal [facility] Comment on above: Performed By: #### L IVER, LIPID #### [facility] [address] [place] [address] Dr. Gerber Pimentel Protein [Mass/Vol] 7.3 g/dL Normal 6.4-8.2 [facility] Comment on above: Performed By: #### L IVER, LIPID #### [facility] [address] [place] [address] Dr. Gerber Pimentel [facility]on [facility]29 SARS-CoV-2 (COVID-19) RNA SLOANE+probe Ql (Unsp spec) Not detected Normal NOT DETECTED The [facility] Comment on above: Result Comment: This test is not yet approved or cleared by the [place] FDA. When there are no FDA-approved or cleared tests available, and other criteria are met, FDA can make tests available under an emergency access mechanism called an Emergency Use Authorization (EUA). The EUA for this test is supported by the [place] of Health and Human Service's (HHS's) declaration [...] SARS-CoV-2. Performed By: #### I NFLUAB #### [facility] [address] [place] [address] Dr. Gerber Pimentel INFLUENZA A AND B AGon 04-14 [facility] SEE BELOW Normal [facility] Comment on above: Result Comment: Nega tive for Flu A protein angiten. Infection due to Flu A cannot be ruled out. Flu A angiten in the sample may be below the detection limit of the test. Performed By: #### I NFLUAB #### [facility] [address] [place] [address] Dr. Gerber Pimentel [facility] SEE BELOW Normal The [facility] Comment on above: Result Comment: Nega tive for Flu B protein antigen. Infection due to Flu B cannot be ruled out. Flu B antigen in the sample may be below the detection limit of the test. Performed By: #### I NFLUAB #### [facility] [address] [place] [address] Dr. Gerber Pimentel INFLUENZA A AG Negative Normal NEGATIVE SEE COMMENT The [facility] Comment on above: Performed By: #### I NFLUAB #### [facility] [address] [place] [address] Dr. Gerber Pimentel INFLUENZA B AG Negative Normal NEGATIVE SEE COMMENT [facility] Comment on above: Performed By: #### I NFLUAB #### [facility] [address] [place] [address] Dr. Gerber Pimentel BNPon 02-22-2022 Natriuretic peptide B (Bld) [Mass/Vol] 146.0 pg/mL Normal <=900.0 [facility] Comment on above: Performed By: #### C BC #### [facility] [address] [place] [address] Dr. Gerber Pimentel CBC AUTO DIFFon 02-22-2022 BASO # 0.0 103/ul Normal 0.0-0.1 [facility] Comment on above: Performed By: #### C BC #### [facility] [address] [place] [address] Dr. Gerber Pimentel Basophils/100 WBC (Bld) 0.1 % Critically low 0.2-2.0 [facility] Comment on above: Performed By: #### C BC #### [facility] [address] [place] [address] Dr. Gerber Pimentel EO # 0.1 103/ul Normal 0.0-0.7 The [facility] Comment on above: Performed By: #### C BC #### [facility] [address] [place] [address] Dr. Gerber Pimentel Eosinophils/100 WBC (Bld) 1.3 % Normal 0.9-7.0 The [facility] Comment on above: Performed By: #### C BC #### [facility] [address] [place] [address] Dr. Gerber Pimentel Erythrocyte distribution width (RBC) [Ratio] 14.2 % Normal 11.0-15.0 [facility] Comment on above: Performed By: #### C BC #### [facility] [address] [place] [address] Dr. Gerber Pimentel Hematocrit (Bld) [Volume fraction] 35.9 % Critically low 36.0-48.0 [facility] Comment on above: Performed By: #### C BC #### [facility] [address] [place] [address] Dr. Gerber Pimentel Hemoglobin (Bld) [Mass/Vol] 11.9 g/dL Critically low 12.0-16.0 [facility] Comment on above: Performed By: #### C BC #### [facility] [address] [place] [address] Dr. Gerber Pimentel IG # 0.02 10e3/ul Normal 0.00-0.03 [facility] Comment on above: Performed By: #### C BC #### [facility] [address] [place] [address] Dr. Gerber Pimentel IG % 0.2 % Normal 0.0-0.5 [facility] Comment on above: Performed By: #### C BC #### [facility] [address] [place] [address] Dr. Gerber Pimentel LYMPH # 0.8 103/ul Critically low 1.2-3.8 [facility] Comment on above: Performed By: #### C BC #### [facility] [address] [place] [address] Dr. Gerber Pimentel Lymphocytes/100 WBC (Bld) 9.2 % Critically low 20.5-60.0 [facility] Comment on above: Performed By: #### C BC #### [facility] [address] [place] [address] Dr. Gerber Pimentel MANUAL DIFF REQ NO Normal [facility] Comment on above: Performed By: #### C BC #### [facility] [address] [place] [address] Dr. Gerber Pimentel MCH (RBC) [Entitic mass] 29.2 pg Normal 26.7-34.0 [facility] Comment on above: Performed By: #### C BC #### [facility] [address] [place] [address] Dr. Gerber Pimentel MCHC (RBC) [Mass/Vol] 33.1 g/dL Normal 29.9-35.2 [facility] Comment on above: Performed By: #### C BC #### [facility] [address] [address] [address] Gerber Pimentel MCV (RBC) [Entitic vol] 88.2 fL Normal 81.0-99.0 [facility] Comment on above: Performed By: #### C BC #### [facility] [address] [address] [address] Gerber Pimentel MONO # 0.6 103/ul Normal 0.3-0.8 [facility] Comment on above: Performed By: #### C BC #### [facility] [address] [address] [address] Gerber Pimentel Monocytes/100 WBC (Bld) 7.2 % Normal 1.7-12.0 [facility] Comment on above: Performed By: #### C BC #### [facility] [address] [place] [address] Dr. Gerber Pimentel NEUT # 7.2 103/ul Critically high 1.4-6.5 [facility] Comment on above: Performed By: #### C BC #### [facility] [address] [place] [address] Dr. Gerber Pimentel Neutrophils/100 WBC (Bld) 82.0 % Critically high 43.0-75.0 [facility] Comment on above: Performed By: #### C BC #### [facility] [address] [address] [address] Gerber Pimentel Platelet mean volume (Bld) [Entitic vol] 8.5 fL Critically low 9.5-13.5 [facility] Comment on above: Performed By: #### C BC #### [facility] [address] [address] [address] Gerber Pimentel PLT 213 103/ul Normal 150-450 [facility] Comment on above: Performed By: #### C BC #### [facility] [address] [place] [address] Dr. Gerber Pimentel RBC 4.07 106/ul Critically low 4.20-5.40 [facility] Comment on above: Performed By: #### C BC #### [facility] [address] [place], [place] [address] Dr. Gerber Pimentel WBC 8.7 103/ul Normal 4.0-11.0 The [facility] Comment on above: Performed By: #### C BC #### [facility] [address] [place], [place] [address] Dr. Gerber Pmientel CTA CHEST WO W CONon 022 CTA CHEST WO W CON EXAMINATION: [...] NICOLE CONSTANTINO Date: 2022-02-22 15:18 Normal [facility] Covid-19 PCR (CVDTB)on 01-27 SARS-CoV-2 (COVID-19) RNA SLOANE+probe Ql (Unsp spec) Not detected Normal NOT DETECTED The [facility] Comment on above: Result Comment: When diagnostic [...] for this test is supported by the [employer] of Health and Human Service's declaration that [...] Performed By: #### L IVER, LIPID #### [facility] [address] [place] [address] Dr. Gerber Pimentel INFLUENZA A AND B AGon 02-22 INFLUENZA A AG Negative Normal NEGATIVE SEE COMMENT The [facility] Comment on above: Performed By: #### A 1C #### [facility] [address] [place] [address] Dr. Gerber Pimentel INFLUENZA B AG Negative Normal NEGATIVE SEE COMMENT [facility] Comment on above: Performed By: #### A 1C #### [facility] [address] [place] [address] Dr. Gerber Pimentel PROF CHEM 8 (BAS METB)on Anion gap [Moles/Vol] 11.2 mmol/L Normal [facility] Comment on above: Performed By: #### C BC #### [facility] [address] [place] [address] Dr. Gerber Pimentel Calcium [Mass/Vol] 8.6 mg/dL Normal 8.5-10.1 [facility] Comment on above: Performed By: #### C BC #### [facility] [address] [place] [address] Dr. Gerber Pimentel Chloride [Moles/Vol] 104 mmol/L Normal 98-107 [facility] Comment on above: Performed By: #### C BC #### [facility] [address] [place] [address] Dr. Gerber Pimentel CO2 [Moles/Vol] 25.6 mmol/L Normal 21.0-32.0 [facility] Comment on above: Performed By: #### C BC #### [facility] [address] [place] [address] Dr. Gerber Pimentel Creatinine [Mass/Vol] 0.76 mg/dL Normal 0.55-1.02 [facility] Comment on above: Performed By: #### C BC #### [facility] [address] [address] [address] Gerber Pimentel EGFR-AF ITALIAN >60 Normal >=60 [facility] Comment on above: Performed By: #### C BC #### [facility] [address] [address] [address] Gerber Pimentel EGFR-NON AF ITALIAN >60 Normal >=60 [facility] Comment on above: Performed By: #### C BC #### [facility] [address] [address] [address] Gerber Pimentel Glucose [Mass/Vol] 149 mg/dL Critically high 74-106 [facility] Comment on above: Performed By: #### C BC #### [facility] [address] [place] [address] Dr. Gerber Pimentel Potassium [Moles/Vol] 3.8 mmol/L Normal 3.5-5.1 [facility] Comment on above: Performed By: #### C BC #### [facility] [address] [address] [address] Gerber Pimentel Sodium [Moles/Vol] 137 mmol/L Normal 136-145 [facility] Comment on above: Performed By: #### C BC #### [facility] [address] [place] [address] Dr. Gerber Pimentel Urea nitrogen [Mass/Vol] 20.0 mg/dL Critically high 7.0-18.0 [facility] Comment on above: Performed By: #### C BC #### [facility] [address] [place] [address] Dr. Gerber Pimentel Urea nitrogen/Creatinin e [Mass ratio] 26.3 mg/mg Normal [facility] Comment on above: Performed By: #### C BC #### [facility] [address] [place] [address] Dr. Gerber Pimentel TROPONIN, HIGH SENSITIVITYon 02-22-2022 HSTROP 4.6 pg/mL Normal 4.0-51.3 [facility] Comment on above: Result Comment: CUT- OFF POINTS HAVE BEEN ESTABLISHED BASED ON THE FOURTH UNIVERSAL DEFINITIONS OF MYOCARDIAL INFARCTION. THE UPPER REFERENCE LIMIT (URL) OF TROPONIN, DEFINED THE 99TH PERCENTILE OF cTnI DISTRIBUTION IN A REFERENCE POPULATION, HAS BEEN CONFIRMED THE DECISION THRESHOLD FOR AR DIAGNOSIS. Performed By: #### C BC #### [facility] [address] [place] [address] Dr. Gerber Pimentel XR CHEST 1 Von [...] JOAN HEAD Date: 2022-02-21 23:36 Normal The [facility] CBC AUTO DIFFon 02-01-2022 BASO # 0.0 103/ul Normal 0.0-0.1 [facility] Comment on above: Performed By: #### C BC #### [facility] [address] [place] [address] Dr. Gerber Pimentel Basophils/100 WBC (Bld) 0.4 % Normal 0.2-2.0 [facility] Comment on above: Performed By: #### C BC #### [facility] [address] [place] [address] Dr. Gerber Pimentel EO # 0.2 103/ul Normal 0.0-0.7 [facility] Comment on above: Performed By: #### C BC #### [facility] [address] [place] [address] Dr. Gerber Pimentel Eosinophils/100 WBC (Bld) 3.1 % Normal 0.9-7.0 [facility] Comment on above: Performed By: #### C BC #### [facility] [address] [place] [address] Dr. Gerber Pimentel Erythrocyte distribution width (RBC) [Ratio] 13.3 % Normal 11.0-15.0 [facility] Comment on above: Performed By: #### C BC #### [facility] [address] [place] [address] Dr. Gerber Pimentel Hematocrit (Bld) [Volume fraction] 39.2 % Normal 36.0-48.0 [facility] Comment on above: Performed By: #### C BC #### [facility] [address] [place] [address] Dr. Gerber Pimentel Hemoglobin (Bld) [Mass/Vol] 13.0 g/dL Normal 12.0-16.0 [facility] Comment on above: Performed By: #### C BC #### [facility] [address] [place] [address] Dr. Gerber Pimentel IG # 0.03 10e3/ul Normal 0.00-0.03 [facility] Comment on above: Performed By: #### C BC #### [facility] [address] [place] [address] Dr. Gerber Pimentel IG % 0.4 % Normal 0.0-0.5 [facility] Comment on above: Performed By: #### C BC #### [facility] [address] [place] [address] Dr. Gerber Pimentel LYMPH # 2.2 103/ul Normal 1.2-3.8 [facility] Comment on above: Performed By: #### C BC #### [facility] [address] [place] [address] Dr. Gerber Pimentel Lymphocytes/100 WBC (Bld) 28.6 % Normal 20.5-60.0 [facility] Comment on above: Performed By: #### C BC #### [facility] [address] [place] [address] Dr. Gerber Pimentel MANUAL DIFF REQ NO Normal [facility] Comment on above: Performed By: #### C BC #### [facility] [address] [place] [address] Dr. Gerber Pimentel MCH (RBC) [Entitic mass] 28.6 pg Normal 26.7-34.0 [facility] Comment on above: Performed By: #### C BC #### [facility] [address] [address] [address] Gerber Pimentel MCHC (RBC) [Mass/Vol] 33.2 g/dL Normal 29.9-35.2 [facility] Comment on above: Performed By: #### C BC #### [facility] [address] [address] [address] Gerber Pimentel MCV (RBC) [Entitic vol] 86.3 fL Normal 81.0-99.0 [facility] Comment on above: Performed By: #### C BC #### [facility] [address] [address] [address] Gerber Pimentel MONO # 0.5 103/ul Normal 0.3-0.8 [facility] Comment on above: Performed By: #### C BC #### [facility] [address] [place] [address] Dr. Gerber Pimentel Monocytes/100 WBC (Bld) 6.9 % Normal 1.7-12.0 [facility] Comment on above: Performed By: #### C BC #### [facility] [address] [place] [address] Dr. Gerber Pimentel NEUT # 4.6 103/ul Normal 1.4-6.5 [facility] Comment on above: Performed By: #### C BC #### [facility] [address] [place] [address] Dr. Gerber Pimentel Neutrophils/100 WBC (Bld) 60.6 % Normal 43.0-75.0 [facility] Comment on above: Performed By: #### C BC #### [facility] [address] [address] [address] Gerber Pimentel Platelet mean volume (Bld) [Entitic vol] 9.1 fL Critically low 9.5-13.5 [facility] Comment on above: Performed By: #### C BC #### [facility] [address] [address] [address] Gerber Pimentel PLT 362 103/ul Normal 150-450 [facility] Comment on above: Performed By: #### C BC #### [facility] [address] [place] [address] Dr. Gerber Pimentel RBC 4.54 106/ul Normal 4.20-5.40 [facility] Comment on above: Performed By: #### C BC #### [facility] [address] [place] [address] Dr. Gerber Pimentel WBC 7.7 103/ul Normal 4.0-11.0 [facility] Comment on above: Performed By: #### C BC #### [facility] [address] [place] [address] Dr. Gerber Pimentel FREE T3on 02-01-2022 FREE T3 2.42 pg/mlL Normal 2.18-3.98 [facility] Comment on above: Performed By: #### I NFLUAB #### [facility] [address] [place] [address] Dr. Gebrer Pimentel GLYCOHEMOGLOBIN A1Con 2021 ADA RECOMMENDATION SEE BELOW Normal [facility] Comment on above: Result Comment: ADA RECOMMENDED LIMIT 4.0 - 6.0 ADA THERAPEUTIC TARGET < 7.0 ACTION SUGGESTED > 7.0 Performed By: #### A 1C #### [facility] [address] [place] [address] Dr. Gerber Pimentel Glucose [Mass/Vol] 105 mg/dL Normal [facility] Comment on above: Performed By: #### A 1C #### [facility] [address] [place] [address] Dr. Gerber Pimentel HbA1c (Bld) [Mass fraction] 5.3 % Normal 4.5-6.2 [facility] Comment on above: Performed By: #### A 1C #### [facility] [address] [place] [address] Dr. Gerber Pimentel LIPID PROFILEon 02-01-2022 CHOL-HDL RATIO NORM SEE BELOW Normal [facility] Comment on above: Result Comment: 3.3 - 4.4 LOW RISK 4.4 - 7.1 AVERAGE RISK 7.1 - 11.0 MODERATE RISK >11.0 HIGH RISK Performed By: #### I NFLUAB #### [facility] [address] [place], [place] [address] Dr. Gerber Pimentel Cholesterol [Mass/Vol] 226 mg/dL Critically high <=200 [facility] Comment on above: Performed By: #### I NFLUAB #### [facility] [address] [place], [place] [address] Dr. Gerber Pimentel Cholesterol in HDL [Mass/Vol] 62 mg/dL Critically high 40-60 [facility] Comment on above: Performed By: #### I NFLUAB #### [facility] [address] [address] [address] Gerber Pimentel Cholesterol in LDL [Mass/Vol] 141.4 mg/dL Normal [facility] Comment on above: Performed By: #### I NFLUAB #### [facility] [address] [address] [address] Gerber Pimentel Cholesterol.total/ Cholesterol in HDL [Mass ratio] 3.6 {ratio} Normal [facility] Comment on above: Performed By: #### I NFLUAB #### [facility] [address] [address] [address] Gerber Pimentel HDL NORMAL > or = 60 mg/dl - LO W CARDIOVASCULAR RISK <40 mg/dl - HIGH CARDIOVASCULAR RISK Normal [facility] Comment on above: Performed By: #### I NFLUAB #### [facility] [address] [address] [address] Gerber Pimentel LDL CALC NORMAL SEE BELOW Normal [facility] Comment on above: Result Comment: <100 mg/dl OPTIMAL 100 - 129 mg/dl NEAR OR ABOVE OPTIMAL 130 - 159 mg/dl BORDERLINE HIGH 160 - 189 mg/dl HIGH >190 mg/dl VERY HIGH Performed By: #### I NFLUAB #### [facility] [address] [address] [address] Gerber Pimentel Triglyceride [Mass/Vol] 113 mg/dL Normal <=150 [facility] Comment on above: Performed By: #### I NFLUAB #### [facility] [address] [address] [address] Gerber Pimentel VLDL CALC 22.6 mg/dL Normal [facility] Comment on above: Performed By: #### I NFLUAB #### [facility] [address] [address] [address] Gerber Pimentel PROF 14(COMP METB)on 022 Albumin [Mass/Vol] 3.9 g/dL Normal 3.4-5.0 [facility] Comment on above: Performed By: #### L IVER, LIPID #### [facility] [address] [address] [address] Gerber Pimentel Albumin/Globulin [Mass ratio] 0.8 {ratio} Normal [facility] Comment on above: Performed By: #### L IVER, LIPID #### [facility] [address] [place] [address] Dr. Gerber Pimentel ALP [Catalytic activity/Vol] 155 U/L Critically high 46-116 [facility] Comment on above: Performed By: #### L IVER, LIPID #### [facility] [address] [place] [address] Dr. Gerber Pimentel ALT [Catalytic activity/Vol] 21 U/L Normal 14-59 [facility] Comment on above: Performed By: #### L IVER, LIPID #### [facility] [address] [place] [address] Dr. Gerber Pimentel Anion gap [Moles/Vol] 13.9 mmol/L Normal [facility] Comment on above: Performed By: #### L IVER, LIPID #### [facility] [address] [place] [address] Dr. Gerber Pimentel AST [Catalytic activity/Vol] 31 U/L Normal 15-37 [facility] Comment on above: Performed By: #### L IVER, LIPID #### [facility] [address] [address] [address] Gerber Pimentel Bilirubin [Mass/Vol] 0.6 mg/dL Normal 0.2-1.0 [facility] Comment on above: Performed By: #### L IVER, LIPID #### [facility] [address] [address] [address] Gerber Pimentel Calcium [Mass/Vol] 9.2 mg/dL Normal 8.5-10.1 [facility] Comment on above: Performed By: #### L IVER, LIPID #### [facility] [address] [place] [address] Dr. Gerber Pimentel Chloride [Moles/Vol] 102 mmol/L Normal 98-107 [facility] Comment on above: Performed By: #### L IVER, LIPID #### [facility] [address] [place] [address] Dr. Gerber Pimentel CO2 [Moles/Vol] 25.8 mmol/L Normal 21.0-32.0 [facility] Comment on above: Performed By: #### L IVER, LIPID #### [facility] [address] [place] [address] Dr. Gerber Pimentel Creatinine [Mass/Vol] 0.75 mg/dL Normal 0.55-1.02 [facility] Comment on above: Performed By: #### L IVER, LIPID #### [facility] [address] [place] [address] Dr. Gerber Pimentel EGFR-AF ITALIAN >60 Normal >=60 [facility] Comment on above: Performed By: #### L IVER, LIPID #### [facility] [address] [place] [address] Dr. Gerber Pimentel EGFR-NON AF ITALIAN >60 Normal >=60 [facility] Comment on above: Performed By: #### L IVER, LIPID #### [facility] [address] [place] [address] Dr. Gerber Pimentel Globulin (S) [Mass/Vol] 4.6 g/dL Normal [facility] Comment on above: Performed By: #### L IVER, LIPID #### [facility] [address] [place] [address] Dr. Gerber Pimentel Glucose [Mass/Vol] 98 mg/dL Normal 74-106 [facility] Comment on above: Performed By: #### L IVER, LIPID #### [facility] [address] [place] [address] Dr. Gerber Pimentel Potassium [Moles/Vol] 4.7 mmol/L Normal 3.5-5.1 [facility] Comment on above: Performed By: #### L YU LIPID #### [facility] [address] [place] [address] Dr. Gerber Pimentel Protein [Mass/Vol] 8.5 g/dL Critically high 6.4-8.2 [facility] Comment on above: Performed By: #### L YU LIPID #### [facility] [address] [place] [address] Dr. Gerber Pimentel Sodium [Moles/Vol] 137 mmol/L Normal 136-145 [facility] Comment on above: Performed By: #### L YU LIPID #### [facility] [address] [place] [address] Dr. Gerber Pimentel Urea nitrogen [Mass/Vol] 20.0 mg/dL Critically high 7.0-18.0 [facility] Comment on above: Performed By: #### L YU LIPID #### [facility] [address] [place] [address] Dr. Gerber Pimentel Urea nitrogen/Creatinin e [Mass ratio] 26.7 mg/mg Normal [facility] Comment on above: Performed By: #### L YU LIPID #### [facility] [address] [place] [address] Dr. Gerber Pimentel T4on 02-01-2022 T4 [Mass/Vol] 9.20 ug/dL Normal 4.80-13.90 [facility] Comment on above: Performed By: #### I NFLUAB #### [facility] [address] [place] [address] Dr. Gerber Pimentel TSHon 02-01-2022 TSH 1.396 uIU/mL Normal 0.358-3.740 [facility] Comment on above: Performed By: #### I NFLUAB #### [facility] [address] [place] [address] Dr. Gerber Pimentel VITAMIN D 25 OHon 02-01-2022 VIT D 25-OH 32.8 ng/mL Normal [facility] Comment on above: Performed By: #### A 1C #### [facility] [address] [place], [place] [address] Dr. Gerber Pimentel VIT D RANGES SEE BELOW Normal [facility] Comment on above: Result Comment: <20 ng/mL Vit D deficient 20 - <30 ng/mL Vit D insufficient 30 - 100 ng/mL Vit D sufficient >100 ng/mL Potential Toxicity Performed By: #### A 1C #### [facility] [address] [address] [address] Gerber Pimentel NM STRESS/REST MULTIon 11-03 NM STRESS/REST MULTI Patient: HARLEY SHARMA Exam Date: 11/03/2021 : 1970 Gender:F Ordering : DR DEBAR CONCEPCION . Admission #: [id number] Family : Order #: [id number] CLICK HERE TO VIEW EXAM RADIOLOGY REPORT [...] M.D. on 11/04/2021 at 08:00 Normal [facility] CBC AUTO DIFFon 11-01-2021 BASO # 0.1 103/ul Normal 0.0-0.1 [facility] Comment on above: Performed By: #### C BC #### [facility] [address] [address] [address] Gerber Pimentel Basophils/100 WBC (Bld) 0.8 % Normal 0.2-2.0 [facility] Comment on above: Performed By: #### C BC #### [facility] [address] [address] [address] Gerber Pimentel EO # 0.1 103/ul Normal 0.0-0.7 [facility] Comment on above: Performed By: #### C BC #### [facility] [address] [place] [address] Dr. Gerber Pimentel Eosinophils/100 WBC (Bld) 2.0 % Normal 0.9-7.0 [facility] Comment on above: Performed By: #### C BC #### [facility] [address] [address] [address] Gerber Pimentel Erythrocyte distribution width (RBC) [Ratio] 13.2 % Normal 11.0-15.0 [facility] Comment on above: Performed By: #### C BC #### [facility] [address] [place] [address] Dr. Gerber Pimentel Hematocrit (Bld) [Volume fraction] 35.6 % Critically low 36.0-48.0 [facility] Comment on above: Performed By: #### C BC #### [facility] [address] [address] [address] Gerber Pimentel Hemoglobin (Bld) [Mass/Vol] 11.7 g/dL Critically low 12.0-16.0 [facility] Comment on above: Performed By: #### C BC #### [facility] [address] [address] [address] Gerber Pimentel IG # 0.02 10e3/ul Normal 0.00-0.03 [facility] Comment on above: Performed By: #### C BC #### [facility] [address] [place] [address] Dr. Gerber Pimentel IG % 0.3 % Normal 0.0-0.5 [facility] Comment on above: Performed By: #### C BC #### [facility] [address] [place] [address] Dr. Gerber Pimentel LYMPH # 1.9 103/ul Normal 1.2-3.8 [facility] Comment on above: Performed By: #### C BC #### [facility] [address] [place] [address] Dr. Gerber Pimentel Lymphocytes/100 WBC (Bld) 29.0 % Normal 20.5-60.0 [facility] Comment on above: Performed By: #### C BC #### [facility] [address] [place] [address] Dr. Gerber Pimentel MANUAL DIFF REQ NO Normal [facility] Comment on above: Performed By: #### C BC #### [facility] [address] [place] [address] Dr. Gerber Pimentel MCH (RBC) [Entitic mass] 28.6 pg Normal 26.7-34.0 [facility] Comment on above: Performed By: #### C BC #### [facility] [address] [place] [address] Dr. Gerber Pimentel MCHC (RBC) [Mass/Vol] 32.9 g/dL Normal 29.9-35.2 [facility] Comment on above: Performed By: #### C BC #### [facility] [address] [place] [address] Dr. Gerber Pimentel MCV (RBC) [Entitic vol] 87.0 fL Normal 81.0-99.0 [facility] Comment on above: Performed By: #### C BC #### [facility] [address] [place] [address] Dr. Gerber Pimentel MONO # 0.6 103/ul Normal 0.3-0.8 [facility] Comment on above: Performed By: #### C BC #### [facility] [address] [place] [address] Dr. Gerber Pimentel Monocytes/100 WBC (Bld) 8.6 % Normal 1.7-12.0 [facility] Comment on above: Performed By: #### C BC #### [facility] [address] [address] [address] Gerber Pimentel NEUT # 3.8 103/ul Normal 1.4-6.5 [facility] Comment on above: Performed By: #### C BC #### [facility] [address] [place] [address] Dr. Gerber Pimentel Neutrophils/100 WBC (Bld) 59.3 % Normal 43.0-75.0 [facility] Comment on above: Performed By: #### C BC #### [facility] [address] [place] [address] Dr. Gerber Pimentel Platelet mean volume (Bld) [Entitic vol] 9.0 fL Critically low 9.5-13.5 [facility] Comment on above: Performed By: #### C BC #### [facility] [address] [place] [address] Dr. Gerber Pimentel PLT 447 103/ul Normal 150-450 [facility] Comment on above: Performed By: #### C BC #### [facility] [address] [place] [address] Dr. Gerber Pimentel RBC 4.09 106/ul Critically low 4.20-5.40 [facility] Comment on above: Performed By: #### C BC #### [facility] [address] [place] [address] Dr. Gerber Pimentel WBC 6.4 103/ul Normal 4.0-11.0 [facility] Comment on above: Performed By: #### C BC #### [facility] [address] [place] [address] Dr. Gerber Pimentel CRPon 11-01-2021 CRP [Mass/Vol] mg/L Normal <=1.0 [facility] Comment on above: Performed By: #### C BC #### [facility] [address] [place], [place] [id number] Dr. Gerber Pimentel PROF 14(COMP METB)on 022 Albumin [Mass/Vol] 3.6 g/dL Normal 3.4-5.0 [facility] Comment on above: Performed By: #### C BC #### [facility] [address] [place] [address] Dr. Gerber Pimentel Albumin/Globulin [Mass ratio] 0.8 {ratio} Normal [facility] Comment on above: Performed By: #### C BC #### [facility] [address] [place] [address] Dr. Gerber Pimentel ALP [Catalytic activity/Vol] 147 U/L Critically high 46-116 [facility] Comment on above: Performed By: #### C BC #### [facility] [address] [place] [address] Dr. Gerber Pimentel ALT [Catalytic activity/Vol] 34 U/L Normal 14-59 [facility] Comment on above: Performed By: #### C BC #### [facility] [address] [place] [address] Dr. Gerber Pimentel Anion gap [Moles/Vol] 11.0 mmol/L Normal [facility] Comment on above: Performed By: #### C BC #### [facility] [address] [place] [address] Dr. Gerber Pimentel AST [Catalytic activity/Vol] 52 U/L Critically high 15-37 [facility] Comment on above: Performed By: #### C BC #### [facility] [address] [place] [address] Dr. Gerber Pimentel Bilirubin [Mass/Vol] 0.5 mg/dL Normal 0.2-1.0 [facility] Comment on above: Performed By: #### C BC #### [facility] [address] [place] [address] Dr. Gerber Pimentel Calcium [Mass/Vol] 9.2 mg/dL Normal 8.5-10.1 [facility] Comment on above: Performed By: #### C BC #### [facility] [address] [place] [address] Dr. Gerber Pimentel Chloride [Moles/Vol] 104 mmol/L Normal 98-107 [facility] Comment on above: Performed By: #### C BC #### [facility] [address] [place] [address] Dr. Gerber Pimentel CO2 [Moles/Vol] 28.1 mmol/L Normal 21.0-32.0 [facility] Comment on above: Performed By: #### C BC #### [facility] [address] [place] [address] Dr. Gerber Pimentel Creatinine [Mass/Vol] 1.05 mg/dL Critically high 0.55-1.02 [facility] Comment on above: Performed By: #### C BC #### [facility] [address] [place] [address] Dr. Gerber Pimentel EGFR-AF ITALIAN >60 Normal >=60 [facility] Comment on above: Performed By: #### C BC #### [facility] [address] [place] [address] Dr. Gerber Pimentel EGFR-NON AF ITALIAN 55 mL/min/1.73m2 Critically low >=60 [facility] Comment on above: Performed By: #### C BC #### [facility] [address] [place] [address] Dr. Gerber Pimentel Globulin (S) [Mass/Vol] 4.7 g/dL Normal [facility] Comment on above: Performed By: #### C BC #### [facility] [address] [place] [address] Dr. Gerber Pimentel Glucose [Mass/Vol] 96 mg/dL Normal 74-106 [facility] Comment on above: Performed By: #### C BC #### [facility] [address] [place] [address] Dr. Gerber Pimentel Potassium [Moles/Vol] 4.1 mmol/L Normal 3.5-5.1 [facility] Comment on above: Performed By: #### C BC #### [facility] [address] [place] [address] Dr. Gerber Pimentel Protein [Mass/Vol] 8.3 g/dL Critically high 6.4-8.2 [facility] Comment on above: Performed By: #### C BC #### [facility] [address] [place] [address] Dr. Gerber Pimentel Sodium [Moles/Vol] 139 mmol/L Normal 136-145 [facility] Comment on above: Performed By: #### C BC #### [facility] [address] [place] [address] Dr. Gerber Pimentel Urea nitrogen [Mass/Vol] 16.0 mg/dL Normal 7.0-18.0 [facility] Comment on above: Performed By: #### C BC #### [facility] [address] [place] [address] Dr. Gerber Pimentel Urea nitrogen/Creatinin e [Mass ratio] 15.2 mg/mg Normal [facility] Comment on above: Performed By: #### C BC #### [facility] [address] [place] [address] Dr. Gerber Pimentel SED RATE WESTERGRENon 2021 SED RATE 80 mm/hr Critically high <=30 [facility] Comment on above: Performed By: #### C BC #### [facility] [address] [place] [address] Dr. Gerber Pimentel CBC AUTO DIFFon 10-19-2021 BASO # 0.0 103/ul Normal 0.0-0.1 [facility] Comment on above: Performed By: #### I NFLUAB #### [facility] [address] [place] [address] Dr. Gerber Pimentel Basophils/100 WBC (Bld) 0.1 % Critically low 0.2-2.0 [facility] Comment on above: Performed By: #### I NFLUAB #### [facility] [address] [place] [address] Dr. Gerber Pimentel EO # 0.1 103/ul Normal 0.0-0.7 [facility] Comment on above: Performed By: #### I NFLUAB #### [facility] [address] [place] [address] Dr. Gerber Pimentel Eosinophils/100 WBC (Bld) 1.3 % Normal 0.9-7.0 [facility] Comment on above: Performed By: #### I NFLUAB #### [facility] [address] [place] [address] Dr. Gerber Pimentel Erythrocyte distribution width (RBC) [Ratio] 13.6 % Normal 11.0-15.0 [facility] Comment on above: Performed By: #### I NFLUAB #### [facility] [address] [place] [address] Dr. Gerber Pimentel Hematocrit (Bld) [Volume fraction] 26.1 % Critically low 36.0-48.0 [facility] Comment on above: Performed By: #### I NFLUAB #### [facility] [address] [place] [address] Dr. Gerber Pimentel Hemoglobin (Bld) [Mass/Vol] 8.7 g/dL Critically low 12.0-16.0 [facility] Comment on above: Performed By: #### I NFLUAB #### [facility] [address] [place] [address] Dr. Gerber Pimentel IG # 0.05 10e3/ul Critically high 0.00-0.03 [facility] Comment on above: Performed By: #### I NFLUAB #### [facility] [address] [place] [address] Dr. Gerber Pimentel IG % 0.7 % Critically high 0.0-0.5 [facility] Comment on above: Performed By: #### I NFLUAB #### [facility] [address] [place] [address] Dr. Gerber Pimentel LYMPH # 1.2 103/ul Normal 1.2-3.8 [facility] Comment on above: Performed By: #### I NFLUAB #### [facility] [address] [place] [address] Dr. Gerber Pimentel Lymphocytes/100 WBC (Bld) 16.8 % Critically low 20.5-60.0 [facility] Comment on above: Performed By: #### I NFLUAB #### [facility] [address] [place] [address] Dr. Gerber Pimentel MANUAL DIFF REQ NO Normal [facility] Comment on above: Performed By: #### I NFLUAB #### [facility] [address] [place] [address] Dr. Gerber Pimentel MCH (RBC) [Entitic mass] 28.9 pg Normal 26.7-34.0 [facility] Comment on above: Performed By: #### I NFLUAB #### [facility] [address] [place] [address] Dr. Gerber Pimentel MCHC (RBC) [Mass/Vol] 33.3 g/dL Normal 29.9-35.2 [facility] Comment on above: Performed By: #### I NFLUAB #### [facility] [address] [place] [address] Dr. Gerber Pimentel MCV (RBC) [Entitic vol] 86.7 fL Normal 81.0-99.0 [facility] Comment on above: Performed By: #### I NFLUAB #### [facility] [address] [place] [address] Dr. Gerber Pimentel MONO # 0.6 103/ul Normal 0.3-0.8 [facility] Comment on above: Performed By: #### I NFLUAB #### [facility] [address] [place] [address] Dr. Gerber Pimentel Monocytes/100 WBC (Bld) 8.5 % Normal 1.7-12.0 [facility] Comment on above: Performed By: #### I NFLUAB #### [facility] [address] [place] [address] Dr. Gerber Pimentel NEUT # 5.0 103/ul Normal 1.4-6.5 [facility] Comment on above: Performed By: #### I NFLUAB #### [facility] [address] [place] [address] Dr. Gerber Pimentel Neutrophils/100 WBC (Bld) 72.6 % Normal 43.0-75.0 [facility] Comment on above: Performed By: #### I NFLUAB #### [facility] [address] [address] [address] Gerber Pimentel Platelet mean volume (Bld) [Entitic vol] 9.0 fL Critically low 9.5-13.5 [facility] Comment on above: Performed By: #### I NFLUAB #### [facility] [address] [place] [address] Dr. Gerber Pimentel PLT 222 103/ul Normal 150-450 [facility] Comment on above: Performed By: #### I NFLUAB #### [facility] [address] [place] [address] Dr. Gerber Pimentel RBC 3.01 106/ul Critically low 4.20-5.40 [facility] Comment on above: Performed By: #### I NFLUAB #### [facility] [address] [place] [address] Dr. Gerber Pimentel WBC 6.8 103/ul Normal 4.0-11.0 [facility] Comment on above: Performed By: #### I NFLUAB #### [facility] [address] [place] [address] Dr. Gerber Pimentel CRPon 10-19-2021 CRP 3.9 mg/dL Critically high <=1.0 [facility] Comment on above: Performed By: #### C BC #### [facility] [address] [place] [address] Dr. Gerber Pimentel MAGNESIUMon 10-19-2021 Magnesium [Mass/Vol] 1.9 mg/dL Normal 1.8-2.4 [facility] Comment on above: Performed By: #### C BC #### [facility] [address] [place] [address] Dr. Gerber Pimentel PROF 14(COMP METB)on 022 Albumin [Mass/Vol] 2.3 g/dL Critically low 3.4-5.0 [facility] Comment on above: Performed By: #### C BC #### [facility] [address] [place] [address] Dr. Gerber Pimentel Albumin/Globulin [Mass ratio] 0.6 {ratio} Normal [facility] Comment on above: Performed By: #### C BC #### [facility] [address] [address] [address] Gerber Pimentel ALP [Catalytic activity/Vol] 193 U/L Critically high 46-116 [facility] Comment on above: Performed By: #### C BC #### [facility] [address] [address] [address] Gerber Pimentel ALT [Catalytic activity/Vol] 29 U/L Normal 14-59 [facility] Comment on above: Performed By: #### C BC #### [facility] [address] [address] [address] Gerber Pimentel Anion gap [Moles/Vol] 12.4 mmol/L Normal [facility] Comment on above: Performed By: #### C BC #### [facility] [address] [place] [address] Dr. Gerber Pimentel AST [Catalytic activity/Vol] 30 U/L Normal 15-37 [facility] Comment on above: Performed By: #### C BC #### [facility] [address] [place] [address] Dr. Gerber Pimentel Bilirubin [Mass/Vol] 0.4 mg/dL Normal 0.2-1.0 [facility] Comment on above: Performed By: #### C BC #### [facility] [address] [place] [address] Dr. Gerber Pimentel Calcium [Mass/Vol] 7.8 mg/dL Critically low 8.5-10.1 [facility] Comment on above: Performed By: #### C BC #### [facility] [address] [place] [address] Dr. Gerber Pimentel Chloride [Moles/Vol] 110 mmol/L Critically high 98-107 [facility] Comment on above: Performed By: #### C BC #### [facility] [address] [place] [address] Dr. Gerber Pimentel CO2 [Moles/Vol] 19.8 mmol/L Critically low 21.0-32.0 [facility] Comment on above: Performed By: #### C BC #### [facility] [address] [address] [address] Gerber Pimentel Creatinine [Mass/Vol] 1.36 mg/dL Critically high 0.55-1.02 [facility] Comment on above: Performed By: #### C BC #### [facility] [address] [address] [address] Gerber Pimentel EGFR-AF ITALIAN 49 mL/min/1.73m2 Critically low >=60 [facility] Comment on above: Performed By: #### C BC #### [facility] [address] [address] [address] Gerber Pimentel EGFR-NON AF ITAL[place] 41 mL/min/1.73m2 Critically low >=60 [facility] Comment on above: Performed By: #### C BC #### [facility] [address] [address] [address] Gerber Pimentel Globulin (S) [Mass/Vol] 3.7 g/dL Normal [facility] Comment on above: Performed By: #### C BC #### [facility] [address] [address] [address] Gerber Pimentel Glucose [Mass/Vol] 102 mg/dL Normal 74-106 [facility] Comment on above: Performed By: #### C BC #### [facility] [address] [address] [address] Gerber Pimentel Potassium [Moles/Vol] 3.2 mmol/L Critically low 3.5-5.1 [facility] Comment on above: Performed By: #### C BC #### [facility] [address] [address] [address] Gerber Pimenetl Protein [Mass/Vol] 6.0 g/dL Critically low 6.4-8.2 [facility] Comment on above: Performed By: #### C BC #### [facility] [address] [address] [address] Gerber Pimentel Sodium [Moles/Vol] 139 mmol/L Normal 136-145 [facility] Comment on above: Performed By: #### C BC #### [facility] [address] [place] [address] Dr. Gerber Pimentel Urea nitrogen [Mass/Vol] 13.0 mg/dL Normal 7.0-18.0 [facility] Comment on above: Performed By: #### C BC #### [facility] [address] [place] [address] Dr. Gerber Pimentel Urea nitrogen/Creatinin e [Mass ratio] 9.6 mg/mg Normal [facility] Comment on above: Performed By: #### C BC #### [facility] [address] [place] [address] Dr. Gerber Pimentel SED RATE WESTERGRENon 2021 SED RATE 72 mm/hr Critically high <=30 [facility] Comment on above: Performed By: #### S EDR #### [facility] [address] [place] [address] Dr. Gerber Pimentel C. DIFF PCRon 10-18-2021 C. DIFFICILE PCR Negative Normal NEGATIVE [facility] Comment on above: Performed By: #### I NFLUAB #### [facility] [address] [place] [address] Dr. Gerber Pimentel CBC AUTO DIFFon 10-18-2021 BASO # 0.0 103/ul Normal 0.0-0.1 [facility] Comment on above: Performed By: #### L IVLEIGH, LIPID #### [facility] [address] [place] [address] Dr. Gerber Pimentel Basophils/100 WBC (Bld) 0.2 % Normal 0.2-2.0 [facility] Comment on above: Performed By: #### L IVER, LIPID #### [facility] [address] [place] [address] Dr. Gerber Pimentel EO # 0.0 103/ul Normal 0.0-0.7 [facility] Comment on above: Performed By: #### L IVER, LIPID #### [facility] [address] [place] [address] Dr. Gerber Pimentel Eosinophils/100 WBC (Bld) 0.3 % Critically low 0.9-7.0 [facility] Comment on above: Performed By: #### L IVER, LIPID #### [facility] [address] [place] [address] Dr. Gerber Pimentel Erythrocyte distribution width (RBC) [Ratio] 13.5 % Normal 11.0-15.0 [facility] Comment on above: Performed By: #### L IVER, LIPID #### [facility] [address] [place] [address] Dr. Gerber Pimentel Hematocrit (Bld) [Volume fraction] 27.9 % Critically low 36.0-48.0 [facility] Comment on above: Performed By: #### L IVER, LIPID #### [facility] [address] [place] [address] Dr. Gerber Pimentel Hemoglobin (Bld) [Mass/Vol] 9.2 g/dL Critically low 12.0-16.0 [facility] Comment on above: Performed By: #### L IVER, LIPID #### [facility] [address] [place] [address] Dr. Gerber Pimentel IG # 0.03 10e3/ul Normal 0.00-0.03 [facility] Comment on above: Performed By: #### L IVER, LIPID #### [facility] [address] [place] [address] Dr. Gerber Pimentel IG % 0.5 % Normal 0.0-0.5 [facility] Comment on above: Performed By: #### L IVER, LIPID #### [facility] [address] [place] [address] Dr. Gerber Pimentel LYMPH # 0.8 103/ul Critically low 1.2-3.8 [facility] Comment on above: Performed By: #### L IVER, LIPID #### [facility] [address] [place] [address] Dr. Gerber Pimentel Lymphocytes/100 WBC (Bld) 12.6 % Critically low 20.5-60.0 [facility] Comment on above: Performed By: #### L IVER, LIPID #### [facility] [address] [place] [address] Dr. Gerber Pimentel MANUAL DIFF REQ NO Normal [facility] Comment on above: Performed By: #### L IVER, LIPID #### [facility] [address] [place] [address] Dr. Gerber Pimentel MCH (RBC) [Entitic mass] 29.0 pg Normal 26.7-34.0 [facility] Comment on above: Performed By: #### L IVER, LIPID #### [facility] [address] [place] [address] Dr. Gerber Pimentel MCHC (RBC) [Mass/Vol] 33.0 g/dL Normal 29.9-35.2 [facility] Comment on above: Performed By: #### L IVER, LIPID #### [facility] [address] [place] [address] Dr. Gerber Pimentel MCV (RBC) [Entitic vol] 88.0 fL Normal 81.0-99.0 [facility] Comment on above: Performed By: #### L IVER, LIPID #### [facility] [address] [place] [address] Dr. Gerber Pimentel MONO # 0.6 103/ul Normal 0.3-0.8 [facility] Comment on above: Performed By: #### L IVER, LIPID #### [facility] [address] [place] [address] Dr. Gerber Pimentel Monocytes/100 WBC (Bld) 9.5 % Normal 1.7-12.0 [facility] Comment on above: Performed By: #### L IVER, LIPID #### [facility] [address] [place] [address] Dr. Gerber Pimentel NEUT # 4.6 103/ul Normal 1.4-6.5 [facility] Comment on above: Performed By: #### L IVER, LIPID #### [facility] [address] [place] [address] Dr. Gerber Pimentel Neutrophils/100 WBC (Bld) 76.9 % Critically high 43.0-75.0 [facility] Comment on above: Performed By: #### L IVER, LIPID #### [facility] [address] [place] [address] Dr. Gerber Pimentel Platelet mean volume (Bld) [Entitic vol] 9.1 fL Critically low 9.5-13.5 [facility] Comment on above: Performed By: #### L YU LIPID #### [facility] [address] [place] [address] Dr. Gerber Pimentel PLT 220 103/ul Normal 150-450 [facility] Comment on above: Performed By: #### L YU, LIPID #### [facility] [address] [address] [address] Gerber Pimentel RBC 3.17 106/ul Critically low 4.20-5.40 [facility] Comment on above: Performed By: #### L YU LIPID #### [facility] [address] [place] [address] Dr. Gerber Pimentel WBC 6.0 103/ul Normal 4.0-11.0 [facility] Comment on above: Performed By: #### L YU LIPID #### [facility] [address] [place] [address] Dr. Gerber Pimentel CRPon 10-18-2021 CRP 8.4 mg/dL Critically high <=1.0 [facility] Comment on above: Performed By: #### C BC #### [facility] [address] [place] [address] Dr. Gerber Pimentel MAGNESIUMon 10-18-2021 Magnesium [Mass/Vol] 1.9 mg/dL Normal 1.8-2.4 [facility] Comment on above: Performed By: #### L YU, LIPID #### [facility] [address] [place] [address] Dr. Gerber Pimentel PROF 14(COMP METB)on 022 Albumin [Mass/Vol] 2.5 g/dL Critically low 3.4-5.0 Th [facility] Comment on above: Performed By: #### L YU LIPID #### [facility] [address] [place] [address] Dr. Gerber Pimentel Albumin/Globulin [Mass ratio] 0.7 {ratio} Normal [facility] Comment on above: Performed By: #### L IVER, LIPID #### [facility] [address] [address] [address] Gerber Pimentel ALP [Catalytic activity/Vol] 207 U/L Critically high 46-116 [facility] Comment on above: Performed By: #### L IVER, LIPID #### [facility] [address] [address] [address] Gerber Pimentel ALT [Catalytic activity/Vol] 39 U/L Normal 14-59 [facility] Comment on above: Performed By: #### L IVER, LIPID #### [facility] [address] [address] [address] Gerber Pimentel Anion gap [Moles/Vol] 15.9 mmol/L Normal [facility] Comment on above: Performed By: #### L IVER, LIPID #### [facility] [address] [address] [address] Gerber Pimentel AST [Catalytic activity/Vol] 36 U/L Normal 15-37 [facility] Comment on above: Performed By: #### L IVER, LIPID #### [facility] [address] [address] [address] Gerber Pimentel Bilirubin [Mass/Vol] 0.4 mg/dL Normal 0.2-1.0 [facility] Comment on above: Performed By: #### L IVER, LIPID #### [facility] [address] [address] [address] Gerber Pimentel Calcium [Mass/Vol] 8.0 mg/dL Critically low 8.5-10.1 Th [facility] Comment on above: Performed By: #### L IVER, LIPID #### [facility] [address] [address] [address] Gerber Pimentel Chloride [Moles/Vol] 107 mmol/L Normal 98-107 [facility] Comment on above: Performed By: #### L IVER, LIPID #### [facility] [address] [address] [address] Gerber Pimentel CO2 [Moles/Vol] 17.7 mmol/L Critically low 21.0-32.0 [facility] Comment on above: Performed By: #### L IVER, LIPID #### [facility] [address] [place] [address] Dr. Gerber Pimentel Creatinine [Mass/Vol] 1.63 mg/dL Critically high 0.55-1.02 [facility] Comment on above: Performed By: #### L IVER, LIPID #### [facility] [address] [place] [address] Dr. Gerber Pimentel EGFR-AF [place] 40 mL/min/1.73m2 Critically low >=60 [facility] Comment on above: Performed By: #### L IVER, LIPID #### [facility] [address] [place] [address] Dr. Gerber Pimentel EGFR-NON AF [place] 33 mL/min/1.73m2 Critically low >=60 [facility] Comment on above: Performed By: #### L IVER, LIPID #### [facility] [address] [place] [address] Dr. Gerber Pimentel Globulin (S) [Mass/Vol] 3.7 g/dL Normal [facility] Comment on above: Performed By: #### L IVER, LIPID #### [facility] [address] [place] [address] Dr. Gerber Pimentel Glucose [Mass/Vol] 108 mg/dL Critically high 74-106 [facility] Comment on above: Performed By: #### L IVER, LIPID #### [facility] [address] [place] [address] Dr. Gerber Pimentel Potassium [Moles/Vol] 3.6 mmol/L Normal 3.5-5.1 [facility] Comment on above: Performed By: #### L IVER, LIPID #### [facility] [address] [place] [address] Dr. Gerber Pimentel Protein [Mass/Vol] 6.2 g/dL Critically low 6.4-8.2 Th [facility] Comment on above: Performed By: #### L IVER, LIPID #### [facility] [address] [place] [address] Dr. Gerber Pimentel Sodium [Moles/Vol] 137 mmol/L Normal 136-145 [facility] Comment on above: Performed By: #### L YU LIPID #### [facility] [address] [place] [address] Dr. Gerber Pimentel Urea nitrogen [Mass/Vol] 13.0 mg/dL Normal 7.0-18.0 [facility] Comment on above: Performed By: #### L YU LIPID #### [facility] [address] [place] [address] Dr. Gerber Pimentel Urea nitrogen/Creatinin e [Mass ratio] 8.0 mg/mg Normal [facility] Comment on above: Performed By: #### L YU LIPID #### [facility] [address] [place] [address] Dr. Gerber Pimentel SED RATE [facility] 2021 SED RATE 80 mm/hr Critically high <=30 [facility] Comment on above: Performed By: #### I NFLUAB #### [facility] [address] [place] [address] Dr. Gerber Pimentel CBC AUTO DIFFon 10-17-2021 BASO # 0.0 103/ul Normal 0.0-0.1 [facility] Comment on above: Performed By: #### C BC #### [facility] [address] [place] [address] Dr. Gerber Pimentel Basophils/100 WBC (Bld) 0.2 % Normal 0.2-2.0 [facility] Comment on above: Performed By: #### C BC #### [facility] [address] [place] [address] Dr. Gerber Pimentel EO # 0.0 103/ul Normal 0.0-0.7 [facility] Comment on above: Performed By: #### C BC #### [facility] [address] [place] [address] Dr. Gerber Pimentel Eosinophils/100 WBC (Bld) 0.6 % Critically low 0.9-7.0 [facility] Comment on above: Performed By: #### C BC #### [facility] [address] [place] [address] Dr. Gerber Pimentel Erythrocyte distribution width (RBC) [Ratio] 13.8 % Normal 11.0-15.0 [facility] Comment on above: Performed By: #### C BC #### [facility] [address] [place] [address] Dr. Gerber Pimentel Hematocrit (Bld) [Volume fraction] 27.7 % Critically low 36.0-48.0 [facility] Comment on above: Performed By: #### C BC #### [facility] [address] [place] [address] Dr. Gerber Pimentel Hemoglobin (Bld) [Mass/Vol] 9.0 g/dL Critically low 12.0-16.0 [facility] Comment on above: Performed By: #### C BC #### [facility] [address] [place] [address] Dr. Gerber Pimentel IG # 0.01 10e3/ul Normal 0.00-0.03 [facility] Comment on above: Performed By: #### C BC #### [facility] [address] [place] [address] Dr. Gerber Pimentel IG % 0.2 % Normal 0.0-0.5 [facility] Comment on above: Performed By: #### C BC #### [facility] [address] [place] [address] Dr. Gerber Pimentel LYMPH # 0.8 103/ul Critically low 1.2-3.8 [facility] Comment on above: Performed By: #### C BC #### [facility] [address] [place] [address] Dr. Gerber Pimentel Lymphocytes/100 WBC (Bld) 15.6 % Critically low 20.5-60.0 [facility] Comment on above: Performed By: #### C BC #### [facility] [address] [place] [address] Dr. Gerber Pimentel MANUAL DIFF REQ NO Normal [facility] Comment on above: Performed By: #### C BC #### [facility] [address] [place] [address] Dr. Gebrer Piemntel MCH (RBC) [Entitic mass] 28.8 pg Normal 26.7-34.0 [facility] Comment on above: Performed By: #### C BC #### [facility] [address] [place] [address] Dr. Gerber Pimentel MCHC (RBC) [Mass/Vol] 32.5 g/dL Normal 29.9-35.2 [facility] Comment on above: Performed By: #### C BC #### [facility] [address] [place] [address] Dr. Gerber Pimentel MCV (RBC) [Entitic vol] 88.5 fL Normal 81.0-99.0 [facility] Comment on above: Performed By: #### C BC #### [facility] [address] [place] [address] Dr. Gerber Pimentel MONO # 0.8 103/ul Normal 0.3-0.8 [facility] Comment on above: Performed By: #### C BC #### [facility] [address] [place] [address] Dr. Gerber Pimentel Monocytes/100 WBC (Bld) 14.8 % Critically high 1.7-12.0 [facility] Comment on above: Performed By: #### C BC #### [facility] [address] [place] [address] Dr. Gerber Pimentel NEUT # 3.5 103/ul Normal 1.4-6.5 [facility] Comment on above: Performed By: #### C BC #### [facility] [address] [place] [address] Dr. Gerber Pimentel Neutrophils/100 WBC (Bld) 68.6 % Normal 43.0-75.0 [facility] Comment on above: Performed By: #### C BC #### [facility] [address] [place] [address] Dr. Gerber Pimentel Platelet mean volume (Bld) [Entitic vol] 9.2 fL Critically low 9.5-13.5 [facility] Comment on above: Performed By: #### C BC #### [facility] [address] [place] [address] Dr. Gerber Pimentel PLT 186 103/ul Normal 150-450 [facility] Comment on above: Performed By: #### C BC #### [facility] [address] [place] [address] Dr. Gerber Pimentel RBC 3.13 106/ul Critically low 4.20-5.40 [facility] Comment on above: Performed By: #### C BC #### [facility] [address] [place] [address] Dr. Gerber Pimentel WBC 5.1 103/ul Normal 4.0-11.0 [facility] Comment on above: Performed By: #### C BC #### [facility] [address] [place] [address] Dr. Gerber Pimentel CRPon 10-17-2021 CRP 10.3 mg/dL Critically high <=1.0 [facility] Comment on above: Performed By: #### C BC #### [facility] [address] [place] [address] Dr. Gerber Pimentel MAGNESIUMon 10-17-2021 Magnesium [Mass/Vol] 1.7 mg/dL Critically low 1.8-2.4 [facility] Comment on above: Performed By: #### A 1C #### [facility] [address] [place] [address] Dr. Gerber Pimentel PROF 14(COMP METB)on 022 Albumin [Mass/Vol] 2.5 g/dL Critically low 3.4-5.0 [facility] Comment on above: Performed By: #### C BC #### [facility] [address] [place] [address] Dr. Gerber Pimentel Albumin/Globulin [Mass ratio] 0.7 {ratio} Normal [facility] Comment on above: Performed By: #### C BC #### [facility] [address] [place] [address] Dr. Gerber Pimentel ALP [Catalytic activity/Vol] 218 U/L Critically high 46-116 [facility] Comment on above: Performed By: #### C BC #### [facility] [address] [place], [place] [id number] Dr. Gerber Pimentel ALT [Catalytic activity/Vol] 64 U/L Critically high 14-59 [facility] Comment on above: Performed By: #### C BC #### [facility] [address] [place] [address] Dr. Gerber Pimentel Anion gap [Moles/Vol] 13.1 mmol/L Normal [facility] Comment on above: Performed By: #### C BC #### [facility] [address] [address] [address] Gerber Pimentel AST [Catalytic activity/Vol] 58 U/L Critically high 15-37 [facility] Comment on above: Performed By: #### C BC #### [facility] [address] [place] [address] Dr. Gerber Pimentel Bilirubin [Mass/Vol] 0.5 mg/dL Normal 0.2-1.0 [facility] Comment on above: Performed By: #### C BC #### [facility] [address] [place] [address] Dr. Gerber Pimentel Calcium [Mass/Vol] 8.1 mg/dL Critically low 8.5-10.1 [facility] Comment on above: Performed By: #### C BC #### [facility] [address] [place] [address] Dr. Gerber Pimentel Chloride [Moles/Vol] 103 mmol/L Normal 98-107 [facility] Comment on above: Performed By: #### C BC #### [facility] [address] [place] [address] Dr. Gerber Pimentel CO2 [Moles/Vol] 20.5 mmol/L Critically low 21.0-32.0 [facility] Comment on above: Performed By: #### C BC #### [facility] [address] [place] [address] Dr. Gerber Pimentel Creatinine [Mass/Vol] 2.12 mg/dL Critically high 0.55-1.02 [facility] Comment on above: Performed By: #### C BC #### [facility] [address] [place] [address] Dr. Gerber Pimentel EGFR-AF IT[place] 30 mL/min/1.73m2 Critically low >=60 [facility] Comment on above: Performed By: #### C BC #### [facility] [address] [address] [address] Gerber Pimentel EGFR-NON AF [place] 24 mL/min/1.73m2 Critically low >=60 [facility] Comment on above: Performed By: #### C BC #### [facility] [address] [address] [address] Gerber Pimentel Globulin (S) [Mass/Vol] 3.7 g/dL Normal [facility] Comment on above: Performed By: #### C BC #### [facility] [address] [place] [address] Dr. Gerber Pimentel Glucose [Mass/Vol] 96 mg/dL Normal 74-106 [facility] Comment on above: Performed By: #### C BC #### [facility] [address] [place] [address] Dr. Gerber Pimentel Potassium [Moles/Vol] 3.6 mmol/L Normal 3.5-5.1 [facility] Comment on above: Performed By: #### C BC #### [facility] [address] [place] [address] Dr. Gerber Pimentel Protein [Mass/Vol] 6.2 g/dL Critically low 6.4-8.2 Th [facility] Comment on above: Performed By: #### C BC #### [facility] [address] [place] [address] Dr. Gerber Pimentel Sodium [Moles/Vol] 133 mmol/L Critically low 136-145 Th [facility] Comment on above: Performed By: #### C BC #### [facility] [address] [place] [address] Dr. Gerber Pimentel Urea nitrogen [Mass/Vol] 15.0 mg/dL Normal 7.0-18.0 [facility] Comment on above: Performed By: #### C BC #### [facility] [address] [place] [address] Dr. Gerber Pimentel Urea nitrogen/Creatinin e [Mass ratio] 7.1 mg/mg Normal [facility] Comment on above: Performed By: #### C BC #### [facility] [address] [place] [address] Dr. Gerber Pimentel PROTIMEon 10-17-2021 INR Coag (PPP) [Relative time] 1.02 {INR} Normal [facility] Comment on above: Performed By: #### C BC #### [facility] [address] [place] [address] Dr. Gerber Pimentel INR GUIDELINES SEE BELOW Normal [facility] Comment on above: Result Comment: CLIFF RED INR: 2.0 - 3.0 CONDITIONS NOT LISTED BELOW 2.5 - 3.5 FOR PROSTHETIC HEART VALVE REPLACEMENT 2.5 - 3.5 RECURRENT THROMBOSIS Performed By: #### C BC #### [facility] [address] [place] [address] Dr. Gerber Pimentel PT Coag (PPP) [Time] 11.0 s Normal 9.0-11.6 [facility] Comment on above: Performed By: #### C BC #### [facility] [address] [place] [address] Dr. Gerber Pimentel SED RATE HOMER CITYERGRENon 2021 SED RATE 46 mm/hr Critically high <=30 [facility] Comment on above: Performed By: #### A 1C #### [facility] [address] [place] [address] Dr. Gerber Pimentel CBC AUTO DIFFon 10-16-2021 BASO # 0.0 103/ul Normal 0.0-0.1 [facility] Comment on above: Performed By: #### C BC #### [facility] [address] [place] [address] Dr. Gerber Pimentel Basophils/100 WBC (Bld) 0.2 % Normal 0.2-2.0 [facility] Comment on above: Performed By: #### C BC #### [facility] [address] [place] [address] Dr. Gerber Pimentel EO # 0.1 103/ul Normal 0.0-0.7 [facility] Comment on above: Performed By: #### C BC #### [facility] [address] [place] [address] Dr. Gerber Pimentel Eosinophils/100 WBC (Bld) 1.1 % Normal 0.9-7.0 [facility] Comment on above: Performed By: #### C BC #### [facility] [address] [place] [address] Dr. Gerber Pimentel Erythrocyte distribution width (RBC) [Ratio] 13.9 % Normal 11.0-15.0 [facility] Comment on above: Performed By: #### C BC #### [facility] [address] [place] [address] Dr. Gerber Pimentel Hematocrit (Bld) [Volume fraction] 29.4 % Critically low 36.0-48.0 [facility] Comment on above: Performed By: #### C BC #### [facility] [address] [place] [address] Dr. Gerber Pimentel Hemoglobin (Bld) [Mass/Vol] 9.8 g/dL Critically low 12.0-16.0 [facility] Comment on above: Performed By: #### C BC #### [facility] [address] [place] [address] Dr. Gerber Pimentel IG # 0.01 10e3/ul Normal 0.00-0.03 [facility] Comment on above: Performed By: #### C BC #### [facility] [address] [place] [address] Dr. Gerber Pimentel IG % 0.2 % Normal 0.0-0.5 [facility] Comment on above: Performed By: #### C BC #### [facility] [address] [place] [address] Dr. Gerber Pimentel LYMPH # 0.9 103/ul Critically low 1.2-3.8 [facility] Comment on above: Performed By: #### C BC #### [facility] [address] [place] [address] Dr. Gerber Pimentel Lymphocytes/100 WBC (Bld) 15.7 % Critically low 20.5-60.0 [facility] Comment on above: Performed By: #### C BC #### [facility] [address] [place] [address] Dr. Gerber Pimentel MANUAL DIFF REQ NO Normal [facility] Comment on above: Performed By: #### C BC #### [facility] [address] [place] [address] Dr. Gerber Pimentel MCH (RBC) [Entitic mass] 29.3 pg Normal 26.7-34.0 [facility] Comment on above: Performed By: #### C BC #### [facility] [address] [place] [address] Dr. Gerber Pimentel MCHC (RBC) [Mass/Vol] 33.3 g/dL Normal 29.9-35.2 [facility] Comment on above: Performed By: #### C BC #### [facility] [address] [place] [address] Dr. Gerber Pimentel MCV (RBC) [Entitic vol] 88.0 fL Normal 81.0-99.0 [facility] Comment on above: Performed By: #### C BC #### [facility] [address] [place] [address] Dr. Gerber Pimentel MONO # 0.8 103/ul Normal 0.3-0.8 [facility] Comment on above: Performed By: #### C BC #### [facility] [address] [place] [address] Dr. Gerber Pimentel Monocytes/100 WBC (Bld) 14.7 % Critically high 1.7-12.0 [facility] Comment on above: Performed By: #### C BC #### [facility] [address] [place] [address] Dr. Gerber Pimentel NEUT # 3.8 103/ul Normal 1.4-6.5 [facility] Comment on above: Performed By: #### C BC #### [facility] [address] [place] [address] Dr. Gerber Pimentel Neutrophils/100 WBC (Bld) 68.1 % Normal 43.0-75.0 [facility] Comment on above: Performed By: #### C BC #### [facility] [address] [address] [address] Gerber Pimentel Platelet mean volume (Bld) [Entitic vol] 9.2 fL Critically low 9.5-13.5 [facility] Comment on above: Performed By: #### C BC #### [facility] [address] [address] [address] Gerber Pimentel PLT 157 103/ul Normal 150-450 [facility] Comment on above: Performed By: #### C BC #### [facility] [id number] Gerber Pimentel RBC 3.34 106/ul Critically low 4.20-5.40 [facility] Comment on above: Performed By: #### C BC #### [facility] [address] [place] [address] Dr. Gerber Pimentel WBC 5.6 103/ul Normal 4.0-11.0 [facility] Comment on above: Performed By: #### C BC #### [facility] [address] [place] [address] Dr. Gerber Pimentel CRPon 10-16-2021 CRP 9.3 mg/dL Critically high <=1.0 [facility] Comment on above: Performed By: #### P HVEN #### [facility] [address] [place] [address] CHEST WO CONon [...] NICOLE MAXWELL Date: 2021-10-16 11:10 Normal [facility] MAGNESIUMon 10-16-2021 Magnesium [Mass/Vol] 2.0 mg/dL Normal 1.8-2.4 [facility] Comment on above: Performed By: #### P HVEN #### [facility] [address] [place] [address] Dr. Gerber MALLOY BLD IMMUNOASSAYon 2021 OCCULT BLOOD Negative Normal NEGATIVE [facility] Comment on above: Performed By: #### O CHIN #### [facility] [address] [address] [address] Gerber Pimentel PROF 14(COMP METB)on 022 Albumin [Mass/Vol] 2.7 g/dL Critically low 3.4-5.0 [facility] Comment on above: Performed By: #### P HVEN #### [facility] [address] [place] [address] Dr. Gerber Pimentel Albumin/Globulin [Mass ratio] 0.7 {ratio} Normal [facility] Comment on above: Performed By: #### P HVEN #### [facility] [address] [place] [address] Dr. Gerber Pimentel ALP [Catalytic activity/Vol] 206 U/L Critically high 46-116 [facility] Comment on above: Performed By: #### P HVEN #### [facility] [address] [place] [address] Dr. Gerber Pimentel ALT [Catalytic activity/Vol] 88 U/L Critically high 14-59 [facility] Comment on above: Performed By: #### P HVEN #### [facility] [address] [address] [address] Gerber Pimentle Anion gap [Moles/Vol] 13.9 mmol/L Normal [facility] Comment on above: Performed By: #### P HVEN #### [facility] [address] [place] [address] Dr. Gerber Pimentel AST [Catalytic activity/Vol] 82 U/L Critically high 15-37 [facility] Comment on above: Performed By: #### P HVEN #### [facility] [address] [place] [address] Dr. Gerber Pimentel Bilirubin [Mass/Vol] 1.0 mg/dL Normal 0.2-1.0 [facility] Comment on above: Performed By: #### P HVEN #### [facility] [address] [place] [address] Dr. Gerber Pimentel Calcium [Mass/Vol] 8.1 mg/dL Critically low 8.5-10.1 [facility] Comment on above: Performed By: #### P HVEN #### [facility] [address] [address] [address] Gerber Pimentel Chloride [Moles/Vol] 102 mmol/L Normal 98-107 [facility] Comment on above: Performed By: #### P HVEN #### [facility] [address] [address] [address] Gerber Pimentel CO2 [Moles/Vol] 22.5 mmol/L Normal 21.0-32.0 [facility] Comment on above: Performed By: #### P HVEN #### [facility] [address] [address] [address] Gerber Pimentel Creatinine [Mass/Vol] 2.19 mg/dL Critically high 0.55-1.02 [facility] Comment on above: Performed By: #### P HVEN #### [facility] [address] [place] [address] Dr. Gerber Pimentel EGFR-AF ITALIAN 28 mL/min/1.73m2 Critically low >=60 [facility] Comment on above: Performed By: #### P HVEN #### [facility] [address] [address] [address] Gerber Pimentel EGFR-NON AF ITALIAN 23 mL/min/1.73m2 Critically low >=60 [facility] Comment on above: Performed By: #### P HVEN #### [facility] [address] [address] [address] Gerber Pimentel Globulin (S) [Mass/Vol] 3.7 g/dL Normal [facility] Comment on above: Performed By: #### P HVEN #### [facility] [address] [address] [address] Gerber Pimentel Glucose [Mass/Vol] 110 mg/dL Critically high 74-106 [facility] Comment on above: Performed By: #### P HVEN #### [facility] [address] [address] [address] Gerber Pimentel Potassium [Moles/Vol] 3.4 mmol/L Critically low 3.5-5.1 [facility] Comment on above: Performed By: #### P HVEN #### [facility] [address] [address] [address] Gerber Pimentel Protein [Mass/Vol] 6.4 g/dL Normal 6.4-8.2 [facility] Comment on above: Performed By: #### P HVEN #### [facility] [address] [address] [address] Gerebr Pimentel Sodium [Moles/Vol] 135 mmol/L Critically low 136-145 Th [facility] Comment on above: Performed By: #### P HVEN #### [facility] [address] [address] [address] Gerber Pimentel Urea nitrogen [Mass/Vol] 16.0 mg/dL Normal 7.0-18.0 [facility] Comment on above: Performed By: #### P HVEN #### [facility] [address] [place] [address] Dr. Gerber Pimentel Urea nitrogen/Creatinin e [Mass ratio] 7.3 mg/mg Normal [facility] Comment on above: Performed By: #### P HVEN #### [facility] [address] [place] [address] Dr. Gerber Pimentel PROF CHEM 8 (BAS METB)on Anion gap [Moles/Vol] 12.3 mmol/L Normal [facility] Comment on above: Performed By: #### C BC #### [facility] [address] [place] [address] Dr. Gerber Pimentel Calcium [Mass/Vol] 7.9 mg/dL Critically low 8.5-10.1 [facility] Comment on above: Performed By: #### C BC #### [facility] [address] [address] [address] Gerber Pimentel Chloride [Moles/Vol] 103 mmol/L Normal 98-107 [facility] Comment on above: Performed By: #### C BC #### [facility] [address] [place] [address] Dr. Gerber Pimentel CO2 [Moles/Vol] 23.3 mmol/L Normal 21.0-32.0 [facility] Comment on above: Performed By: #### C BC #### [facility] [address] [address] [address] Gerber Pimentel Creatinine [Mass/Vol] 2.21 mg/dL Critically high 0.55-1.02 [facility] Comment on above: Performed By: #### C BC #### [facility] [address] [address] [address] Gerber Pimentel EGFR-AF ITAL[place] 28 mL/min/1.73m2 Critically low >=60 [facility] Comment on above: Performed By: #### C BC #### [facility] [address] [address] [address] Gerber Pimentel EGFR-NON AF [place]AL[place] 23 mL/min/1.73m2 Critically low >=60 [facility] Comment on above: Performed By: #### C BC #### [facility] [address] [address] [address] Gerber Pimentel Glucose [Mass/Vol] 103 mg/dL Normal 74-106 [facility] Comment on above: Performed By: #### C BC #### [facility] [address] [address] [address] Gerber Pimentel Potassium [Moles/Vol] 3.6 mmol/L Normal 3.5-5.1 [facility] Comment on above: Performed By: #### C BC #### [facility] [address] [address] [address] Gerber Pimentel Sodium [Moles/Vol] 135 mmol/L Critically low 136-145 Th [facility] Comment on above: Performed By: #### C BC #### [facility] [address] [address] [address] Gerber Pimentel Urea nitrogen [Mass/Vol] 17.0 mg/dL Normal 7.0-18.0 [facility] Comment on above: Performed By: #### C BC #### [facility] [address] [address] [address] Gerber Pimentel Urea nitrogen/Creatinin e [Mass ratio] 7.7 mg/mg Normal [facility] Comment on above: Performed By: #### C BC #### [facility] [address] [place] [address] Dr. Gerber Pimentel SED RATE WESTERGRENon 2021 SED RATE 73 mm/hr Critically high <=30 [facility] Comment on above: Performed By: #### A 1C #### [facility] [address] [place] [address] Dr. Gerber Pimentel CBC AUTO DIFFon 10-15-2021 BASO # 0.0 103/ul Normal 0.0-0.1 [facility] Comment on above: Performed By: #### C BC #### [facility] [address] [place] [address] Dr. Gerber Pimentel Basophils/100 WBC (Bld) 0.2 % Normal 0.2-2.0 [facility] Comment on above: Performed By: #### C BC #### [facility] [address] [place] [address] Dr. Gerber Pimentel EO # 0.0 103/ul Normal 0.0-0.7 [facility] Comment on above: Performed By: #### C BC #### [facility] [address] [place] [address] Dr. Gerber Pimentel Eosinophils/100 WBC (Bld) 0.6 % Critically low 0.9-7.0 [facility] Comment on above: Performed By: #### C BC #### [facility] [address] [place] [address] Dr. Gerber Pimentel Erythrocyte distribution width (RBC) [Ratio] 13.8 % Normal 11.0-15.0 [facility] Comment on above: Performed By: #### C BC #### [facility] [address] [place] [address] Dr. Gerber Pimentel Hematocrit (Bld) [Volume fraction] 29.9 % Critically low 36.0-48.0 [facility] Comment on above: Performed By: #### C BC #### [facility] [address] [place] [address] Dr. Gerber Pimentel Hemoglobin (Bld) [Mass/Vol] 9.9 g/dL Critically low 12.0-16.0 [facility] Comment on above: Performed By: #### C BC #### [facility] [address] [place] [address] Dr. Gerber Pimentel IG # 0.03 10e3/ul Normal 0.00-0.03 [facility] Comment on above: Performed By: #### C BC #### [facility] [address] [place] [address] Dr. Gerber Pimentel IG % 0.6 % Critically high 0.0-0.5 [facility] Comment on above: Performed By: #### C BC #### [facility] [address] [place] [address] Dr. Gerber Pimentel LYMPH # 0.8 103/ul Critically low 1.2-3.8 [facility] Comment on above: Performed By: #### C BC #### [facility] [address] [place] [address] Dr. Gerber Pimentel Lymphocytes/100 WBC (Bld) 15.0 % Critically low 20.5-60.0 [facility] Comment on above: Performed By: #### C BC #### [facility] [address] [place] [address] Dr. Gerber Pimentel MANUAL DIFF REQ NO Normal [facility] Comment on above: Performed By: #### C BC #### [facility] [address] [place] [address] Dr. Gerber Pimentel MCH (RBC) [Entitic mass] 29.2 pg Normal 26.7-34.0 [facility] Comment on above: Performed By: #### C BC #### [facility] [address] [place] [address] Dr. Gerber Pimentel MCHC (RBC) [Mass/Vol] 33.1 g/dL Normal 29.9-35.2 [facility] Comment on above: Performed By: #### C BC #### [facility] [address] [place] [address] Dr. Gerber Pimentel MCV (RBC) [Entitic vol] 88.2 fL Normal 81.0-99.0 [facility] Comment on above: Performed By: #### C BC #### [facility] [address] [address] [address] Gerber Pimentel MONO # 0.5 103/ul Normal 0.3-0.8 [facility] Comment on above: Performed By: #### C BC #### [facility] [address] [address] [address] Gerber Pimentel Monocytes/100 WBC (Bld) 10.0 % Normal 1.7-12.0 [facility] Comment on above: Performed By: #### C BC #### [facility] [address] [place] [address] Dr. Gerber Pimentel NEUT # 3.7 103/ul Normal 1.4-6.5 [facility] Comment on above: Performed By: #### C BC #### [facility] [address] [place] [address] Dr. Gerber Pimentel Neutrophils/100 WBC (Bld) 73.6 % Normal 43.0-75.0 [facility] Comment on above: Performed By: #### C BC #### [facility] [address] [place] [address] Dr. Gerber Pimentel Platelet mean volume (Bld) [Entitic vol] 8.8 fL Critically low 9.5-13.5 [facility] Comment on above: Performed By: #### C BC #### [facility] [address] [place] [address] Dr. Gerber Pimentel PLT 143 103/ul Critically low 150-450 [facility] Comment on above: Performed By: #### C BC #### [facility] [address] [place] [address] Dr. Gerber Pimentel RBC 3.39 106/ul Critically low 4.20-5.40 [facility] Comment on above: Performed By: #### C BC #### [facility] [address] [place] [address] Dr. Gerber Pimentel WBC 5.0 103/ul Normal 4.0-11.0 [facility] Comment on above: Performed By: #### C BC #### [facility] [address] [place] [address] Dr. Gerber Pimentel CRPon 10-15-2021 CRP 10.3 mg/dL Critically high <=1.0 [facility] Comment on above: Performed By: #### A 1C #### [facility] [address] [place] [address] Dr. Gerber Pimentel MAGNESIUMon 10-15-2021 Magnesium [Mass/Vol] 1.7 mg/dL Critically low 1.8-2.4 [facility] Comment on above: Performed By: #### A 1C #### [facility] [address] [place] [address] Dr. Gerber Pimentel PROF 14(COMP METB)on 022 Albumin [Mass/Vol] 2.7 g/dL Critically low 3.4-5.0 Th e [facility] Comment on above: Performed By: #### A 1C #### [facility] [address] [place] [address] Dr. Gerber Pimentel Albumin/Globulin [Mass ratio] 0.8 {ratio} Normal [facility] Comment on above: Performed By: #### A 1C #### [facility] [address] [place] [address] Dr. Gerber Pimentel ALP [Catalytic activity/Vol] 160 U/L Critically high 46-116 [facility] Comment on above: Performed By: #### A 1C #### [facility] [address] [place] [address] Dr. Gerber Pimentel ALT [Catalytic activity/Vol] 85 U/L Critically high 14-59 [facility] Comment on above: Performed By: #### A 1C #### [facility] [address] [place] [address] Dr. Gerber Pimentel Anion gap [Moles/Vol] 12.5 mmol/L Normal [facility] Comment on above: Performed By: #### A 1C #### [facility] [address] [place] [address] Dr. Gerber Pimentel AST [Catalytic activity/Vol] 78 U/L Critically high 15-37 [facility] Comment on above: Performed By: #### A 1C #### [facility] [address] [address] [address] Gerber Pimentel Bilirubin [Mass/Vol] 1.2 mg/dL Critically high 0.2-1.0 [facility] Comment on above: Performed By: #### A 1C #### [facility] [address] [address] [address] Gerber Pimentel Calcium [Mass/Vol] 7.8 mg/dL Critically low 8.5-10.1 Th e [facility] Comment on above: Performed By: #### A 1C #### [facility] [address] [address] [address] Gerber Pimentel Chloride [Moles/Vol] 105 mmol/L Normal 98-107 [facility] Comment on above: Performed By: #### A 1C #### [facility] [address] [address] [address] Gerber Pimentel CO2 [Moles/Vol] 22.0 mmol/L Normal 21.0-32.0 [facility] Comment on above: Performed By: #### A 1C #### [facility] [address] [address] [address] Gerber Pimentel Creatinine [Mass/Vol] 1.37 mg/dL Critically high 0.55-1.02 [facility] Comment on above: Performed By: #### A 1C #### [facility] [address] [place] [address] Dr. Gerber Pimentel EGFR-AF [place]AL[place] 49 mL/min/1.73m2 Critically low >=60 [facility] [facility] Comment on above: Performed By: #### A 1C #### [facility] [address] [address] [address] Gerber Pimentel EGFR-NON AF ITALIAN 40 mL/min/1.73m2 Critically low >=60 [facility] Comment on above: Performed By: #### A 1C #### [facility] [address] [address] [address] Gerber Pimentel Globulin (S) [Mass/Vol] 3.4 g/dL Normal [facility] Comment on above: Performed By: #### A 1C #### [facility] [address] [address] [address] Gerber Pimentel Glucose [Mass/Vol] 102 mg/dL Normal 74-106 [facility] Comment on above: Performed By: #### A 1C #### [facility] [address] [place] [address] Dr. Gerber Pimentel Potassium [Moles/Vol] 3.5 mmol/L Normal 3.5-5.1 [facility] Comment on above: Performed By: #### A 1C #### [facility] [address] [place] [address] Dr. Gerber Pimentel Protein [Mass/Vol] 6.1 g/dL Critically low 6.4-8.2 Th [facility] Comment on above: Performed By: #### A 1C #### [facility] [address] [place] [address] Dr. Gerber Pimentel Sodium [Moles/Vol] 136 mmol/L Normal 136-145 [facility] Comment on above: Performed By: #### A 1C #### [facility] [address] [place] [address] Dr. Gerber Pimentel Urea nitrogen [Mass/Vol] 13.0 mg/dL Normal 7.0-18.0 [facility] Comment on above: Performed By: #### A 1C #### [facility] [address] [place] [address] Dr. Gerber Pimentel Urea nitrogen/Creatinin e [Mass ratio] 9.5 mg/mg Normal [facility] Comment on above: Performed By: #### A 1C #### [facility] [address] [place] [address] Dr. Gerber Pimentel SED RATE WESTERGRENon 2021 SED RATE 40 mm/hr Critically high <=30 [facility] Comment on above: Performed By: #### C BC #### [facility] [address] [place] [address] Dr. Gerber Pimentel CBC AUTO DIFFon 10-14-2021 BASO # 0.0 103/ul Normal 0.0-0.1 [facility] Comment on above: Performed By: #### L IVER, LIPID #### [facility] [address] [place] [address] Dr. Gerber Pimentel Basophils/100 WBC (Bld) 0.2 % Normal 0.2-2.0 [facility] Comment on above: Performed By: #### L IVER, LIPID #### [facility] [address] [place] [address] Dr. Gerber Pimentel EO # 0.0 103/ul Normal 0.0-0.7 [facility] Comment on above: Performed By: #### L IVER, LIPID #### [facility] [address] [place] [address] Dr. Gerber Pimentel Eosinophils/100 WBC (Bld) 0.0 % Critically low 0.9-7.0 [facility] Comment on above: Performed By: #### L IVER, LIPID #### [facility] [address] [place] [address] Dr. Gerber Pimentel Erythrocyte distribution width (RBC) [Ratio] 13.9 % Normal 11.0-15.0 [facility] Comment on above: Performed By: #### L IVER, LIPID #### [facility] [address] [place] [address] Dr. Gerber Pimentel Hematocrit (Bld) [Volume fraction] 34.3 % Critically low 36.0-48.0 [facility] Comment on above: Performed By: #### L IVER, LIPID #### [facility] [address] [place] [address] Dr. Gerber Pimentel Hemoglobin (Bld) [Mass/Vol] 11.3 g/dL Critically low 12.0-16.0 [facility] Comment on above: Performed By: #### L IVER, LIPID #### [facility] [address] [place] [address] Dr. Gerber Pimentel IG # 0.05 10e3/ul Critically high 0.00-0.03 [facility] Comment on above: Performed By: #### L IVER, LIPID #### [facility] [address] [place] [address] Dr. Gerber Pimentel IG % 0.8 % Critically high 0.0-0.5 [facility] Comment on above: Performed By: #### L IVER, LIPID #### [facility] [address] [place] [address] Dr. Gerber Pimentel LYMPH # 0.5 103/ul Critically low 1.2-3.8 [facility] Comment on above: Performed By: #### L IVER, LIPID #### [facility] [address] [place] [address] Dr. Gerber Pimentel Lymphocytes/100 WBC (Bld) 8.3 % Critically low 20.5-60.0 [facility] Comment on above: Performed By: #### L IVER, LIPID #### [facility] [address] [place] [address] Dr. Gerber Pimentel MANUAL DIFF REQ NO Normal [facility] Comment on above: Performed By: #### L IVER, LIPID #### [facility] [address] [place] [address] Dr. Gerber Pimentel MCH (RBC) [Entitic mass] 28.8 pg Normal 26.7-34.0 [facility] Comment on above: Performed By: #### L IVER, LIPID #### [facility] [address] [place] [address] Dr. Gerber Pimentel MCHC (RBC) [Mass/Vol] 32.9 g/dL Normal 29.9-35.2 [facility] Comment on above: Performed By: #### L IVER, LIPID #### [facility] [address] [place] [address] Dr. Gerber Pimentel MCV (RBC) [Entitic vol] 87.3 fL Normal 81.0-99.0 [facility] Comment on above: Performed By: #### L IVER, LIPID #### [facility] [address] [place] [address] Dr. Gerber Pimentel MONO # 0.4 103/ul Normal 0.3-0.8 [facility] Comment on above: Performed By: #### L IVER, LIPID #### [facility] [address] [place] [address] Dr. Gerber Pimentel Monocytes/100 WBC (Bld) 6.7 % Normal 1.7-12.0 [facility] Comment on above: Performed By: #### L IVLEIGH, LIPID #### [facility] [address] [place] [address] Dr. Gerber Pimentel NEUT # 5.4 103/ul Normal 1.4-6.5 [facility] Comment on above: Performed By: #### L IVLEIGH, LIPID #### [facility] [address] [place] [address] Dr. Gerber Pimentel Neutrophils/100 WBC (Bld) 84.0 % Critically high 43.0-75.0 [facility] Comment on above: Performed By: #### L YU LIPID #### [facility] [address] [place] [address] Dr. Gerber Pimentel Platelet mean volume (Bld) [Entitic vol] 8.7 fL Critically low 9.5-13.5 [facility] Comment on above: Performed By: #### L YU LIPID #### [facility] [address] [place] [address] Dr. Gerber Pimentel PLT 189 103/ul Normal 150-450 [facility] Comment on above: Performed By: #### L YU LIPID #### [facility] [address] [place] [address] Dr. Gerber Pimentel RBC 3.93 106/ul Critically low 4.20-5.40 [facility] Comment on above: Performed By: #### L YU, LIPID #### [facility] [address] [place] [address] Dr. Gerber Pimentel WBC 6.4 103/ul Normal 4.0-11.0 [facility] Comment on above: Performed By: #### L IVLEIGH, LIPID #### [facility] [address] [place] [address] Dr. Gerber Pimentel BASO # 0.0 103/ul Normal 0.0-0.1 [facility] Comment on above: Performed By: #### C BC #### [facility] [address] [place] [address] Dr. Gerber Pimentel Basophils/100 WBC (Bld) 0.1 % Critically low 0.2-2.0 [facility] Comment on above: Performed By: #### C BC #### [facility] [address] [place] [address] Dr. Gerber Pimentel EO # 0.0 103/ul Normal 0.0-0.7 [facility] Comment on above: Performed By: #### C BC #### [facility] [address] [place] [address] Dr. Gerber Pimentel Eosinophils/100 WBC (Bld) 0.0 % Critically low 0.9-7.0 [facility] Comment on above: Performed By: #### C BC #### [facility] [address] [place] [address] Dr. Gerber Pimentel Erythrocyte distribution width (RBC) [Ratio] 13.6 % Normal 11.0-15.0 [facility] Comment on above: Performed By: #### C BC #### [facility] [address] [place] [address] Dr. Gerber Pimentel Hematocrit (Bld) [Volume fraction] 36.6 % Normal 36.0-48.0 [facility] Comment on above: Performed By: #### C BC #### [facility] [address] [place] [address] Dr. Gerber Pimentel Hemoglobin (Bld) [Mass/Vol] 12.5 g/dL Normal 12.0-16.0 [facility] Comment on above: Performed By: #### C BC #### [facility] [address] [place] [address] Dr. eGrber Pimentel IG # 0.03 10e3/ul Normal 0.00-0.03 [facility] Comment on above: Performed By: #### C BC #### [facility] [address] [place] [address] Dr. Gerber Pimentel IG % 0.3 % Normal 0.0-0.5 [facility] Comment on above: Performed By: #### C BC #### [facility] [address] [place] [address] Dr. Gerber Pimentel LYMPH # 0.6 103/ul Critically low 1.2-3.8 [facility] Comment on above: Performed By: #### C BC #### [facility] [address] [place] [address] Dr. Gerber Pimentel Lymphocytes/100 WBC (Bld) 6.7 % Critically low 20.5-60.0 [facility] Comment on above: Performed By: #### C BC #### [facility] [address] [place] [address] Dr. Gerber Pimentel MANUAL DIFF REQ NO Normal [facility] Comment on above: Performed By: #### C BC #### [facility] [address] [place] [address] Dr. Gerber Pimentel MCH (RBC) [Entitic mass] 29.3 pg Normal 26.7-34.0 [facility] Comment on above: Performed By: #### C BC #### [facility] [address] [place] [address] Dr. Gerber Pimentel MCHC (RBC) [Mass/Vol] 34.2 g/dL Normal 29.9-35.2 [facility] Comment on above: Performed By: #### C BC #### [facility] [address] [place] [address] Dr. Gerber Pimentel MCV (RBC) [Entitic vol] 85.7 fL Normal 81.0-99.0 [facility] Comment on above: Performed By: #### C BC #### [facility] [address] [place] [address] Dr. Gerber Pimentel MONO # 0.3 103/ul Normal 0.3-0.8 [facility] Comment on above: Performed By: #### C BC #### [facility] [address] [place] [address] Dr. Gerber Pimentel Monocytes/100 WBC (Bld) 3.9 % Normal 1.7-12.0 [facility] Comment on above: Performed By: #### C BC #### [facility] [address] [place] [address] Dr. Gerber Pimentel NEUT # 7.8 103/ul Critically high 1.4-6.5 [facility] Comment on above: Performed By: #### C BC #### [facility] [address] [place] [address] Dr. Gerber Pimentel Neutrophils/100 WBC (Bld) 89.0 % Critically high 43.0-75.0 [facility] Comment on above: Performed By: #### C BC #### [facility] [address] [place] [address] Dr. Gerber Pimentel Platelet mean volume (Bld) [Entitic vol] 8.8 fL Critically low 9.5-13.5 [facility] Comment on above: Performed By: #### C BC #### [facility] [address] [place] [address] Dr. Gerber Pimentel PLT 239 103/ul Normal 150-450 [facility] Comment on above: Performed By: #### C BC #### [facility] [address] [place] [address] Dr. Gerber Pimentel RBC 4.27 106/ul Normal 4.20-5.40 [facility] Comment on above: Performed By: #### C BC #### [facility] [address] [place] [address] Dr. Gerber Pimentel WBC 8.8 103/ul Normal 4.0-11.0 [facility] Comment on above: Performed By: #### C BC #### [facility] [address] [place] [address] Dr. Gerber Pimentel CRPon 10-14-2021 CRP 9.8 mg/dL Critically high <=1.0 [facility] Comment on above: Performed By: #### L IVER, LIPID #### [facility] [address] [place] [address] Dr. Gerber Pimentel CULTURE BLOODon 10-14-2021 Microscopic examination of blood, culture Culture Observations: NO GROWTH AT 5 DAYS. Normal [facility] Comment on above: Performed By: #### P HVEN #### [facility] [address] [place] [address] Dr. Gerber Pimentel Microscopic examination of blood, culture Culture Observations: NO GROWTH AT 5 DAYS. Normal [facility] Comment on above: Performed By: #### P HVEN #### [facility] [address] [place] [address] Dr. Gerber Pimentel Covid-19 PCR ([facility])on 09-26 SARS-CoV-2 (COVID-19) RNA SLOANE+probe Ql (Unsp spec) Not detected Normal NOT DETECTED [facility] Comment on above: Result Comment: When diagnostic [...] for this test is supported by the [employer] of [employer]'s declaration that [...] Performed By: #### L YU LIPID #### [facility] [address] [place] [address] Dr. Gerber Pimentel LACTATE/LACTIC ACIDon 2021 Lactate [Moles/Vol] 0.9 mmol/L Normal 0.4-1.9 [facility] Comment on above: Performed By: #### P HVEN #### [facility] [address] [place] [address] Dr. Gerber Pimentel MAGNESIUMon 10-14-2021 Magnesium [Mass/Vol] 1.6 mg/dL Critically low 1.8-2.4 [facility] Comment on above: Performed By: #### L YU LIPID #### [facility] [address] [place] [address] Dr. Gerber Pimentel PH VENOUS BLOODon 10-14-2021 PCO2 VENOUS 30.7 mmHg Critically low 40.0-52.0 [facility] Comment on above: Performed By: #### P HVEN #### [facility] [address] [place] [address] Dr. Gerber Pimentel pH VENOUS 7.424 Normal 7.330-7.430 [facility] Comment on above: Performed By: #### P HVEN #### [facility] [address] [place] [address] Dr. Gerber Pimentel PROF 14(COMP METB)on 022 Albumin [Mass/Vol] 3.1 g/dL Critically low 3.4-5.0 Th e [facility] Comment on above: Performed By: #### L IVLEIGH LIPID #### [facility] [address] [place] [address] Dr. Gerber Pimentel Albumin/Globulin [Mass ratio] 0.8 {ratio} Normal [facility] Comment on above: Performed By: #### L IVLEIGH LIPID #### [facility] [address] [place] [address] Dr. Gerber Pimentel ALP [Catalytic activity/Vol] 127 U/L Critically high 46-116 [facility] Comment on above: Performed By: #### L IVLEIGH LIPID #### [facility] [address] [place] [address] Dr. Gerber Pimentel ALT [Catalytic activity/Vol] 66 U/L Critically high 14-59 [facility] Comment on above: Performed By: #### L IVLEIGH, LIPID #### [facility] [address] [place] [address] Dr. Gerber Pimentel Anion gap [Moles/Vol] 12.6 mmol/L Normal [facility] Comment on above: Performed By: #### L IVLEIGH, LIPID #### [facility] [address] [place] [address] Dr. Gerber Pimentel AST [Catalytic activity/Vol] 87 U/L Critically high 15-37 [facility] Comment on above: Performed By: #### L IVER, LIPID #### [facility] [address] [place] [address] Dr. Gerber Pimentel Bilirubin [Mass/Vol] 1.3 mg/dL Critically high 0.2-1.0 [facility] Comment on above: Performed By: #### L IVER, LIPID #### [facility] [address] [place] [address] Dr. Gerber Pimentel Calcium [Mass/Vol] 7.8 mg/dL Critically low 8.5-10.1 Th e [facility] Comment on above: Performed By: #### L IVER, LIPID #### [facility] [address] [place] [address] Dr. Gerber Pimentel Chloride [Moles/Vol] 102 mmol/L Normal 98-107 [facility] Comment on above: Performed By: #### L IVER, LIPID #### [facility] [address] [place] [address] Dr. Gerber Pimentel CO2 [Moles/Vol] 23.5 mmol/L Normal 21.0-32.0 [facility] Comment on above: Performed By: #### L IVER, LIPID #### [facility] [address] [place] [address] Dr. Gerber Pimentel Creatinine [Mass/Vol] 0.77 mg/dL Normal 0.55-1.02 [facility] Comment on above: Performed By: #### L IVER, LIPID #### [facility] [address] [place] [address] Dr. Gerber Pimentel EGFR-AF ITALIAN >60 Normal >=60 [facility] Comment on above: Performed By: #### L IVER, LIPID #### [facility] [address] [place] [address] Dr. Gerber Pimentel EGFR-NON AF ITALIAN >60 Normal >=60 [facility] Comment on above: Performed By: #### L IVER, LIPID #### [facility] [address] [place] [address] Dr. Gerber Pimentel Globulin (S) [Mass/Vol] 3.7 g/dL Normal [facility] Comment on above: Performed By: #### L IVER, LIPID #### [facility] [address] [place] [address] Dr. Gerber Pimentel Glucose [Mass/Vol] 119 mg/dL Critically high 74-106 [facility] Comment on above: Performed By: #### L YU, LIPID #### [facility] [address] [place] [address] Dr. Gerber Pimentel Potassium [Moles/Vol] 4.1 mmol/L Normal 3.5-5.1 [facility] Comment on above: Performed By: #### L YU, LIPID #### [facility] [address] [place] [address] Dr. Gerber Pimentel Protein [Mass/Vol] 6.8 g/dL Normal 6.4-8.2 [facility] Comment on above: Performed By: #### L YU LIPID #### [facility] [address] [place] [address] Dr. Gerber Pimentel Sodium [Moles/Vol] 134 mmol/L Critically low 136-145 [facility] Comment on above: Performed By: #### L YU LIPID #### [facility] [address] [place] [address] Dr. Gerber Pimentel Urea nitrogen [Mass/Vol] 13.0 mg/dL Normal 7.0-18.0 [facility] Comment on above: Performed By: #### L YU LIPID #### [facility] [address] [place] [address] Dr. Gerber Pimentel Urea nitrogen/Creatinin e [Mass ratio] 16.9 mg/mg Normal [facility] Comment on above: Performed By: #### L YU, LIPID #### [facility] [address] [place] [address] Dr. Gerber Pimentel Albumin [Mass/Vol] 3.8 g/dL Normal 3.4-5.0 [facility] Comment on above: Performed By: #### A 1C #### [facility] [address] [place] [address] Dr. Gerber Pimentel Albumin/Globulin [Mass ratio] 1.0 {ratio} Normal [facility] Comment on above: Performed By: #### A 1C #### [facility] [address] [place] [address] Dr. Gerber Pimentel ALP [Catalytic activity/Vol] 138 U/L Critically high 46-116 [facility] Comment on above: Performed By: #### A 1C #### [facility] [address] [place] [address] Dr. Gerber Pimentel ALT [Catalytic activity/Vol] 42 U/L Normal 14-59 [facility] Comment on above: Performed By: #### A 1C #### [facility] [address] [place] [address] Dr. Gerber Pimentel Anion gap [Moles/Vol] 14.1 mmol/L Normal [facility] Comment on above: Performed By: #### A 1C #### [facility] [address] [place] [address] Dr. Gerber Pimentel AST [Catalytic activity/Vol] 33 U/L Normal 15-37 [facility] Comment on above: Performed By: #### A 1C #### [facility] [address] [place] [address] Dr. Gerber Pimentel Bilirubin [Mass/Vol] 1.2 mg/dL Critically high 0.2-1.0 [facility] Comment on above: Performed By: #### A 1C #### [facility] [address] [place] [address] Dr. Gerber Pimentel Calcium [Mass/Vol] 8.7 mg/dL Normal 8.5-10.1 [facility] Comment on above: Performed By: #### A 1C #### [facility] [address] [place] [address] Dr. Gerber Pimentel Chloride [Moles/Vol] 100 mmol/L Normal 98-107 [facility] Comment on above: Performed By: #### A 1C #### [facility] [address] [place] [address] Dr. Gerber Pimentel CO2 [Moles/Vol] 20.2 mmol/L Critically low 21.0-32.0 [facility] Comment on above: Performed By: #### A 1C #### [facility] [address] [place] [address] Dr. Gerber Pimentel Creatinine [Mass/Vol] 0.84 mg/dL Normal 0.55-1.02 [facility] Comment on above: Performed By: #### A 1C #### [facility] [address] [address] [address] Gerber Pimentel EGFR-AF ITALIAN >60 Normal >=60 [facility] Comment on above: Performed By: #### A 1C #### [facility] [address] [address] [address] Gerber Pimentel EGFR-NON AF ITALIAN >60 Normal >=60 [facility] Comment on above: Performed By: #### A 1C #### [facility] [address] [address] [address] Gerber Pimentel Globulin (S) [Mass/Vol] 3.9 g/dL Normal [facility] Comment on above: Performed By: #### A 1C #### [facility] [address] [place] [address] Dr. Gerber Pimentel Glucose [Mass/Vol] 128 mg/dL Critically high 74-106 [facility] Comment on above: Performed By: #### A 1C #### [facility] [address] [address] [address] Gerber Pimentel Potassium [Moles/Vol] 3.3 mmol/L Critically low 3.5-5.1 [facility] Comment on above: Performed By: #### A 1C #### [facility] [address] [address] [address] Gerber Pimentel Protein [Mass/Vol] 7.7 g/dL Normal 6.4-8.2 [facility] Comment on above: Performed By: #### A 1C #### [facility] [facility] [address] [address] [address] Gerber Pimentel Sodium [Moles/Vol] 131 mmol/L Critically low 136-145 Th [facility] Comment on above: Performed By: #### A 1C #### [facility] [address] [address] [address] Gerber Pimentel Urea nitrogen [Mass/Vol] 15.0 mg/dL Normal 7.0-18.0 [facility] Comment on above: Performed By: #### A 1C #### [facility] [address] [address] [address] Gerber Pimentel Urea nitrogen/Creatinin e [Mass ratio] 17.9 mg/mg Normal [facility] Comment on above: Performed By: #### A 1C #### [facility] [address] [address] [address] [facility] 33 mm/hr Critically high <=30 [facility] Comment on above: Performed By: #### P HVEN #### [facility] [address] [address] [address] Gerber Pimentel OBSOLETEon 07-27-2020 OBSOLETE Refill (HEMASA) HARLEY SHARMA ([id number]) 1970 F Date Time Provider Department 07/27/20 [...] Status:Closed by HARRISON HEAD on 07/27/20 Normal [facility] OT-MG MAMM SEBASTIAN DIAG W CAD IM PORTon 07-11-2019 OT-MG MAMM SEBASTIAN DIAG W CAD IMPORT Images were obtained outside of [facility] [id number] Normal [facility] Vital Signs Date Time Vital Sign Value Performing Clinician Portia vera 12-26-2023 15:16-0400 Blood Pressure Location [employer] [facility] 12-26-2023 15:16-0400 Diastolic blood pressure 72 mm[Hg] [employer] [facility] 12-26-2023 15:16-0400 Heart rate 72 /min [employer] [facility] 12-26-2023 15:16-0400 Respiratory rate 16 /min [employer] [facility] 12-26-2023 15:16-0400 Systolic blood pressure 120 mm[Hg] [employer] [facility] 10-25-2021 14:45-0400 Blood Pressure Location [employer] [facility] 10-25-2021 14:45-0400 Diastolic blood pressure 104 mm[Hg] [employer] [facility] 10-25-2021 14:45-0400 Heart rate 80 /min Nahid PALOMO [facility] [place] 10-25-2021 14:45-0400 Respiratory rate 16 /min Nahid PALOMO [facility] [place] 10-25-2021 14:45-0400 Systolic blood pressure 144 mm[Hg] Nahid PALOMO [facility] [place] Encounters Encounter Date Encounter Type Care Provider Facility Start: 01-02-2024 End: 01-02-2024 ambulatory Nahid PALOMO Facility:CD:[id number] Start: 12-26-2023 End: 12-26-2023 ambulatory Nahid PALOMO Facility:[facility] Start: 12-26-2023 End: 12-26-2023 Patient encounter procedure Nahid PALOMO [facility] [place] Start: 10-16-2023 End: 10-16-2023 ambulatory ENEIDA DICKENS [...] abnormal findings DR DEBRA CONCEPCION . [facility] Start: 02-01-2022 End: 02-02-[address] DEBRA CONCEPCION . Facility:[facility] Start: 02-01-2022 End: 02-02-2022 Encounter for general adult medical examination without abnormal findings DR DEBRA CONCEPCION . Facility:[facility] Start: 01-24-2022 End: 01-24-2022 Patient encounter procedure Debra Concepcion [facility] Start: 11-03-2021 End: 11-04-[address] DEBRA CONCEPCION . Facility:[facility] Start: 11-01-2021 End: 11-02-[address] DEBRA CONCEPCION . Facility:[facility] Start: 10-25-2021 End: 10-25-2021 Patient encounter procedure Nahid R NILL [facility] Nill[facility] [place] Start: 10-14-2021 End: 10-20-2021 Evaluation and management of inpatient DR DEBRA CONCEPCION . Facility:[facility] Start: 06-25-2021 Refill Harrison Head MD Work [...] of breast Nahid NILL Nasal septoplasty Nahid GALLAGHER LL Repair of meniscus Nahid Victoria ILL Total abdominal hyst erectomy with bilateral salpingo-oophorectomy Nahid PALOMO Plan of Treatment Date Care Activity Detail Author Start: 10-28-2023 Influenza vaccination Influenz a Vaccine (Season Ended) [facility] Start: 02-26-2023 Behavioral Health Screening Behavioral Health Screening [facility] Start: 10-27-2022 Covid-19 Vaccine () Covid-19 Vaccine () [facility] Start: 08-25-2022 DIABETES SCREEN DIABETES SCREEN [facility] Start: 08-25-2022 Diabetes Screening Diabetes Screenin g [facility] Start: 02-26-2022 DEPRESSION ASSESSMENT DEPRESSION ASS ESSMENT [facility] Start: 10-27-2021 Influenza vaccination [facility] Start: 08-25-2020 Adult depression scr eening assessment DEPRESSION SCREENING [facility] Start: 2018 SHINGRIX VACCINE (1 of 2) SHINGRIX V ACCINE (1 of 2) [facility] Start: 2013 COLOGUARD (FIT-DNA) COLOGUARD (FIT-D NA) [facility] Start: 2013 Colonoscopy COLONOSCOPY [facility] Start: 2013 COLORECTAL CANCER SCREENING COLORECTAL CANCER SCREENING [facility] Start: [address] COLONOGRAPHY [facility] Start: 2013 FECAL OCCULT BLOOD FECAL OCCULT BLOO D [facility] Start: 2013 Lipid panel Lipid Screening [facility] Start: 2013 LIPID SCREEN LIPID SCREEN [facility] Start: 2013 Screening for malign ant neoplasm of colon [facility] Start: 2013 SIGMOIDOSCOPY [facility]OS[facility] Start: 2008 Mammography MAMMOGRAM [facility] Start: 2008 Screening for malign ant neoplasm of breast Mammogram Screening [facility] Start: 1998 HPV TESTING HPV TESTING [facility] Start: 1998 Screening for malign ant neoplasm of cervix HPV Testing [facility] Start: 1989 PAP TESTING PAP TESTING [facility] Start: 1989 Screening for malign ant neoplasm of cervix Pap Testing [facility] Start: 05-12-1987 Hepatitis B Vaccine (1 of 3 - 19+ 3-dose series) Hepatitis B Vaccine (1 of 3 - 19+ 3-dose series) [facility] Start: 05-12-1987 Urine microalbumin profile [facility] Start: 1986 HEPATITIS C SCREENING HEPATITIS C [facility] Start: 1986 Hepatitis C screening Hepatitis C [facility] Start: 1986 HIV SCREENING HIV SCREENING [facility] Start: 1986 HIV screening HIV Screening [facility] Start: 1973 COVID-19 VACCINE (1) COVID-19 VACCIN E (1) [facility] Start: 1970 COVID-19 VACCINE (#1) COVID-19 VACCI NE (#1) [facility] Start: 1970 HEPATITIS B (1 of 3 - 3-dose series) HEPATITIS B (1 of 3 - 3-dose series) [facility] Immunizations Immunization Date Immunization Notes Care Provider Moe soto 11-25-2018 influenza virus vacc ine, unspecified formulation Harrison Head MD Work Phone: [facility] Payers Date Payer Category Payer Unknown [id number] [id number]. [id number] 1970 Unknown [id number] 1970 Unknown [id number] 1968 Unknown [id number] 1968 Unknown [id number] 1970 Unknown [id number] 1968 Unknown [id number] 2.16.84 [id number] 1968 Unknown [id number] 2.16.84 [id number] 1970 Unknown [id number] 2.16.84 [id number] 1970 Unknown [id number] 2.16.84 [id number] 1970 Unknown [id number] 2.16.84 [id number] 1970 Unknown [id number] 2.16.8 [id number] 1970 Unknown [id number] 2.16.8 [id number] 1959 Unknown [id number] Social History Date Type Detail Facility Start: 03-05-2014 End: 12-26-2023 Tobacco smoking status NHIS Ex-smoker [facility] Start: 03-05-2014 End: 02-04-2020 Cigarettes smoked current (pack per day) - Reported 0.[address] [facility] Start: 03-05-2014 Tobacco use and exposure Smokeless tobacco non-user 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 Start: 1970 Sex Assigned At Not on file [facility] Tobacco smoking status Never [facility] [place] Start: 08-26-2019 End: 02-04-2020 Sex Assigned At Female [facility] [place] History of tobacco use Current smoker [facility] History of tobacco use Cigarette Smoker [facility] Functional Status Date Assessment Result Facility 12-26-2023 Functional Status N/A [facility] [place] 10-25-2021 [facility] Status N/[facility]-17-2021 Note Date [...] authenticated by: KETAN KAY Date: 2021-10-17 09:06 [facility] Clinical Note 10-17-2021 Note Date [...] authenticated by: KETAN KAY Date: 2021-10-17 09:04 [facility] History of Past illness Narrative 02-02-2014 Note Date & Type Note Facility 02-02-2014 History of Past i llness Narrative Problem Noted Date Resolved Date Malignant neoplasm of female breast 02/02/2014 12/04/2014 Overview: ICD-10 Go-Live documented as of this encounter (statuses as of 06/27/2021) [facility] History of Past illness Narrative 02-02-2014 Note Date & Type Note Facility 02-02-2014 History of Past i llness Narrative Problem Noted Date Resolved Date Malignant neoplasm of female breast 02/02/2014 12/04/2014 Overview: ICD-10 Go-Live documented as of this encounter (statuses as of 05/01/2022) [facility] History of Past illness Narrative 02-02-2014 Note Date & Type Note Facility 02-02-2014 History of Past i llness Narrative Problem Noted Date Diagnosed Date Resolved Date Malignant neoplasm of female breast 02/02/2014 12/04/2014 Overview: ICD-10 Go-Live documented as of this encounter (statuses as of 06/14/2023) [facility] Evaluation + Plan note Note Date & Type Note Facility Evaluation + Plan note No data available for this section [facility] Discharge instructions Note Date & Type Note Facility Hospital Discharge instructions No data available for this section [facility] Progress note Note Date & Type Note Facility Progress note No data available for this section [facility] Summary Purpose Family History No Family History [...] section and content) DATE CREATED AUTHOR 07/11/2019 [facility] DATE CREATED AUTHOR AUTHOR'S ORGANIZ ATION 04/20/2021 [facility] DATE CREATED AUTHOR AUTHOR'S ORGANIZ ATION 08/04/2022 [facility] DATE CREATED AUTHOR AUTHOR'S ORGANIZ ATION 10/18/2023 [facility] DATE CREATED AUTHOR AUTHOR'S ORGANIZ ATION 01/18/2024 Kel Mendez [facility] Source Comments (unrecognize d section and content) In the event this informatio n is protected by the Federal Confidentiality of Alcohol and Drug Abuse Patient Records regulations: The Federal rules restrict any use of the information to criminally investigate or prosecute any alcohol or drug abuse patient.[facility] the event this information is protected by the Federal Confidentiality of Alcohol and Drug Abuse Patient Records regulations: The Federal rules restrict any use of the information to criminally investigate or prosecute any alcohol or drug abuse patient.[facility] the event this information is protected by the Federal Confidentiality of Alcohol and Drug Abuse Patient Records regulations: The Federal rules restrict any use of the information to criminally investigate or prosecute any alcohol or drug abuse patient.[facility] Reason for Visit (unrecogniz ed section and content) Reason Comments Refill Request Care Teams (unrecognized sec tion and content) Fishing Hand Relationship Specialty Start Date End Date Debra Concepcion MD PCP - General Family Practice 01/20/14 Fishing Hand Relationship Specialty Start Date End Date Debra Concepcion MD PCP - General Family Medicine 01/20/14 Fishing Hand Relationship Specialty Start Date End Date Debra [...] BE BASED ON THE PRIMARY CLINICAL RECORDS. [facility]. provides no warranty or guarantee of the accuracy or completeness of information in this document.
[2024-01-29 11:28] LABS: Basophils Percent Auto 0.4 % (0.2-2.0); Eosinophils Absolute Auto 0.2 10^3/uL (0.0-0.7); Eosinophils Percent Auto 3.1 % (0.9-7.0); Hematocrit 35.7 % (36.0-48.0); Hemoglobin 11.9 g/dL (12.0-16.0); Immature Granulocytes Abs Auto 0.02 10^3/uL (0.00-0.03); Immature Granulocytes Pct Auto 0.4 % (0.0-0.5); Lymphocytes Absolute Auto 1.6 10^3/uL (1.2-3.8); Lymphocytes Percent Auto 28.6 % (20.5-60.0); Mean Corpuscular HGB Conc 33.3 g/dL (29.9-35.2); Mean Corpuscular Volume 87.1 fL (81.0-99.0); Mean Platelet Volume 8.8 fL (9.5-13.5); Monocytes Absolute Auto 0.6 10^3/uL (0.3-0.8); Monocytes Percent Auto 11.1 % (1.7-12.0); Neutrophils Absolute Auto 3.1 10^3/uL (1.4-6.5); Neutrophils Percent Auto 56.4 % (43.0-75.0); Platelet Count 366 10^3/uL (150-450); Red Cell Distribution Width 13.5 % (11.0-15.0); White Blood Count 5.5 10^3/uL (4.0-11.0)
[2024-01-29 11:49] LABS: Estimated Average Glucose 126 mg/dL
[2024-01-29 12:10] LABS: Alanine Aminotransferase 46 U/L (14-59); Albumin Globulin Ratio 0.9; Albumin Level 3.4 g/dL (3.4-5.0); Alkaline Phosphatase 136 U/L (46-116); Anion Gap 12.1; Aspartate Amino Transferase 25 U/L (15-37); BUN Creatinine Ratio 25.6; Bilirubin Total 0.7 mg/dL (0.2-1.0); Calcium 9.5 mg/dL (8.5-10.1); Carbon Dioxide 26.1 mmol/L (21.0-32.0); Chloride 110 mmol/L (98-107); Chol HDL Ratio 3.2; Cholesterol 172 mg/dL (<=200); Estimated GFR (African America >60 (>=60 mL/min/1.73m^2); Estimated GFR (Non-African Ame >60 (>=60 mL/min/1.73m^2); Free T3 2.82 pg/mL (2.18-3.98); Globulin 3.9 g/dL; Glucose 115 mg/dL (74-106); HDL Cholesterol 53 mg/dL (40-60); Potassium 4.2 mmol/L (3.5-5.1); Sodium 144 mmol/L (136-145); Thyroid Stimulating Hormone 1.044 uIU/mL (0.358-3.740); Total Protein 7.3 g/dL (6.4-8.2); Triglycerides 150 mg/dL (<=150)
[2024-01-30 04:10] LABS: Insulin 42.2 uIU/mL (2.6-24.9)
== END 2024-01-29 10:51 | disposition home or self-care (01) ==
LOC: LAB 10:51
PROVIDERS: PCP Family Medicine; Visit Provider Family Medicine
DX: Z00.00 Encounter for general adult medical examination without abnormal findings (principal)
CPT/HCPCS: 36415; 80053; 80061; 83036; 83525; 83540; 84436; 84443; 84481; 85025

== ENCOUNTER 2024-02-05 12:00 | Outpatient (OUT) | payer BC, SELFPAY ==
--- NOTE | 2024-02-05 12:04 | XR_ITS ---
[id number] Patient Name: HARLEY SHARMA MRN: [id number] date: 1970 Sex: F Assigned Patient Location: [facility] Current Patient Location: LAB Accession/Order Number: [id number] Exam Date: 02/05/2024 12:20 Report Date: 02/06/2024 13:08 At the request of: DEBRA HART Procedure: XR lumbar spine min 4V EXAMINATION: XR lumbar spine min 4V HISTORY: Lumbar Radiculopathy M54.16 COMPARISON: No relevant comparison available. FINDINGS: BONES: Normal alignment with no acute fracture or spinal listhesis. Mild degenerative spondylosis and facet osteoarthropathy DISC SPACES: Normal. No significant disc height narrowing, subluxation, or endplate abnormality. PARASPINOUS: Negative. No paraspinous abnormality is seen. OTHER: Negative. XR/XR lumbar spine min 4V IMPRESSION: Mild degenerative changes Electronically authenticated by: NICOLE CONSTANTINO Date: 02/06/2024 13:08
== END 2024-02-05 12:01 | disposition home or self-care (01) ==
LOC: RAD 12:00
PROVIDERS: PCP Family Medicine; Visit Provider Family Medicine
DX: M54.16 Radiculopathy, lumbar region (principal); M51.369 Other intervertebral disc degeneration, lumbar region without mention of lumbar back pain or lower extremity pain
CPT/HCPCS: 72110

== ENCOUNTER 2024-03-11 15:02 | Outpatient (OUT) | payer BC, SELFPAY ==
--- NOTE | 2024-03-11 15:05 | MM_ITS ---
Patient Name: HARLEY SHARMA MR#: [id number] : 1970 Exam Date: 03/11/2024 Ordering Doctor: DR Vinay Concepcion . RADIOLOGY REPORT PROCEDURE: MM TOMOSYNTHESIS SCREENING BI COMPARISON: MM TOMOSYNTHESIS DIAGNOSTIC BI, 03/08/2023. MM TOMOSYNTHESIS SCREENING BI, 08/07/2022. MG MAMM SCREEN 3D SEBASTIAN CAD, 08/01/2021. MG MAMM DIAGNOSTIC 3D SEBASTIAN CAD, 07/27/2020. INDICATIONS: Screening Calculator Name NCI Breast Cancer Risk Assessment Tool 5 Year Breast Cancer Risk n/a% Lifetime Breast Cancer Risk n/a% Personal Breast Cancer Yes, 43, right invasive mammary Personal Ovarian Cancer No Treatments right lumpectomy-UOQ, chemotherapy, radiation Family Cancers Father with lung cancer at age 65; Grandfather-maternal with kidney cancer at age 60; Aunt-paternal with breast cancer at age 40. LOCATION: [facility] BREAST COMPOSITION: There are scattered areas of fibroglandular density. FINDINGS: DIAGNOSTIC CATEGORY 2--BENIGN FINDING: RIGHT BREAST: No significant suspicious finding. Scattered benign-appearing calcifications are present. Stable postsurgical scarring and multiple surgical clips within posterior lower-outer quadrant and axilla. No significant change has occurred. LEFT BREAST: No significant suspicious finding. No significant change has occurred. RECOMMENDATIONS: ROUTINE MAMMOGRAM AND CLINICAL EVALUATION IN 12 MONTHS. PLEASE NOTE: A NORMAL MAMMOGRAM DOES NOT EXCLUDE THE POSSIBILITY OF BREAST CANCER. A CLINICALLY SUSPICIOUS PALPABLE LUMP SHOULD BE BIOPSIED. Dictated by: Evens Morrow M.D. on 03/11/2024 at 16:53 Approved by: Evens Morrow M.D. on 03/11/2024 at 16:56
--- OUTSIDE RECORDS SUMMARY | 2024-03-11 15:11 | XMS_ITS | CCD ---
Author Organization [facility] Care Team Providers Care Ramp Supervisor Name Role Phone Debra Concepcion MD Primary Care Provider [phone] Debra Concepcion Primary Care Physician Debra Concepcion MD Primary Care Provider [phone] CARLENE Cedeño, DR RICHARDSON Primary Care [...] HOY ., DR RICHARDSON Attending Unavailable ENEIDA BLAKELY Attending Unavailable Nahid PALOMO Attending Unavailable STACIA, Nahid Danielson Attending Unavailable Debra Concepcion MD Primary Care Provider [phone] Allergies Allergy Classification Reported Allergen(s) Allergy Type Date of Onset Reaction(s) Facility (1 source) No Known Medication Allergies; Translations: [No Known Medication Allergies] Propensity to adverse reactions (disorder) [facility] Repository (2 sources) Octacosanol Propensity to adverse reactions 4 [facility] Healthcare Medications Current Medications Medication Drug Class(es) Dates [...] omeprazole 40 mg delayed release oral capsule (7 sources) Proton Pump Inhibitor Start: 12-03-2020 take 1 capsule by mouth once daily omeprazole 40 mg Cap-DR 40 mg = 1 cap(s), Oral, Daily, Refills(s) 0 Start Date: 12/03/20 Status: Ordered take 1 tablet by mouth before me altime omeprazole OTC (PriLOSEC OTC) 20 MG EC tablet Take 20 mg by mouth in the morning. Take before meals. Active Comment on above: Take 20 mg by mouth once daily. pantoprazole 40 mg delayed release oral tablet (1 source) Proton Pump Inhibitor Start: take 1 tablet by mouth once daily Pantoprazole [address] Tab 40 mg = 1 tab(s), Oral, Daily, Refills(s) 0 Start Date: 12/20/23 Status: Ordered predniSONE 10 mg oral tablet (2 sources) Start: take 2 tablets by mouth twice daily, then take 1 tablet by mouth twice daily, then take 1 tablet by mouth once daily predniSONE (Deltasone) 10 MG tablet Indications: Plantar fasciitis Take 2 pills by mouth twice daily for 5 days, take 1 pill twice daily for 5 days then 1 pill once daily for 5 days. 35 tablet 10/16/2023 Active 24 hr venlafaxine 75 mg extended release oral capsule (11 sources) Serotonin and Norepinephrine Reuptake Inhibitor Start: End: take 1 capsule by mouth once daily Effexor XR 75 mg Cap-ER 75 mg = 1 cap(s), Oral, Daily, Refills(s) 0 Start Date: 12/03/20 Status: Ordered Comment on above: TAKE 1 CAPSULE BY [facility] EVERY DAY Ventolin HFA 90 mcg/inh Aerosol (3 sources) Start: take 2 puff(s) by inhalation every six hours Ventolin HFA 90 mcg/inh Aerosol 2 puff(s), Inhalation, q6hr, Refill(s) 0 Start Date: 12/03/20 Status: Ordered Completed/Discontinued Medications Medication Drug Class(es) Dates Sig (Normalized) Sig (Original) [id number] 200 actuat albuterol 0.09 mg/actuat metered dose inhaler (3 sources) beta2-Adrenergic Agonist Start: 05-05-2014 VENTOLIN HFA 90 mcg/actuation inhaler carvedilol 25 mg oral tablet (3 sources) alpha-Adrenergic Raven, beta-Adrenergic Raven Start: 12-07-2023 carvedilol 25 mg Tab 25 mg = 1 tab(s), Oral, BID, 0 Refill(s), Refills(s) 0 Start Date: 12/07/23 Status: Ordered Start: 09-18-2023 take 1 tablet by ashlee th in the morning carvedilol (Coreg) 25 MG tablet Take 25 mg by mouth in the morning and 25 mg before bedtime. 09/18/2023 Active oxycodone HCl/acetaminophen (PERCOCET ORAL) (3 sources) oxycodone HCl/acetaminophen (PERCOCET ORAL) Take by mouth as needed. 0 Active Comment on above: Take by mouth as nee ded. simvastatin 20 mg oral tablet (3 sources) HMG-CoA Reductase Inhibitor Start: take 1 tablet by mouth once daily in the evening Start: 02-23-2023 take 1 tablet by ashlee th at bedtime simvastatin (Zocor) 20 MG tablet Take 20 mg by mouth at bedtime 02/23/2023 Active tamoxifen 20 mg oral tablet (3 sources) Estrogen Agonist/Antagonist Start: 10-15-2019 take 1 tablet by mouth once daily tamoxifen (NOLVADEX) 20 mg tablet TAKE 1 TABLET BY MOUTH EVERY DAY 90 tablet 0 10/15/2019 Active Comment on above: TAKE 1 TABLET BY MOUTH EVERY DAY Problems Active Problems Problem Classification [...] 12-04-2014 Episodic Other aftercare (1 source) Other nursing home (current) drug therapy; Translations: [OTH USP CURRENT DRUG THERAPY] Onset: 10-25-2021 Episodic Other connective tissue disease (2 sources) Plantar fasciitis; Translations: [Plantar fascial fibromatosis] 10-16-2023 Episodic Other connective tissue disease (2 sources) Bilateral heel pain; Translations: [Pain in right foot] 10-16-2023 Episodic Other connective tissue disease (2 sources) Bilateral bone spur of calcaneum; Translations: [Calcaneal spur, right foot] 10-16-2023 Episodic Other lower respiratory disease (4 sources) [...] Reminders Reminders From: Asuncion Medina LPN To: ARJUNN - Clinical; Sent: 01/03/2024 10:22:46 EST Show up: 12/01/2028 07:00:00 EDT Subject: colonoscopy recall Due Date/Time: 01/01/2029 07:00:00 EST Reminder/Recall Patient due for surveillance colonoscopy 01/01/2029 due to history of polyps. Nida Begum [facility] Ambulatory Visit Summaryon 1 Ambulatory Visit Summary Ambulatory Visit Summary ESTEVAN SHARMA :1970 Visit Date:12/26/2023 Ambulatory Visit Instructions Your Care Team Attending Physician - STACIA LING, Nahid Danielson Primary Care Physician - Carlene LING, Debra This Is Your Medications List Contact prescribing [...] choosing us for your care. Nida Begum [facility] General Surgery Office/Clini c Noteon 12-26-2023 [...] 20 mg= (more content not included)... Normal [facility] Comment on above: Result Comment: Elec tronically Signed By: STACIA LING, Nahid Ashraf\Date and Time Signed: 12/26/23 15:46 EDT XR Calcaneus - left 2 Viewso n 10-16-2023 Imaging Result: Two views of the left heel: AP, Calcaneal Axial were performed today in the office. Radiographs were read by myself and demonstrate: No evidence of acute fracture or dislocation. No coalition noted. Spur formation is noted at the posterior calcaneus [facility] Radiology Study observation (narrative) [facility] XR Calcaneus - right 2 Views on 10-16-2023 Imaging Result: Two views of the right heel: AP, Calcaneal Axial were performed today in the office. Radiographs were read by myself and demonstrate: No evidence of acute fracture or dislocation. No coalition noted. Spur formation is noted at the plantar and posterior calcaneus [facility] Radiology Study observation (narrative) [facility] ESTRADIOLon 06-22-2022 Estradiol <5.0 Normal [facility] Comment on above: Result Comment: Adul t Female: Follicular phase 12.5 - 166.0 Ovulation phase 85.8 - 498.0 Luteal phase 43.8 - 211.0 Postmenopausal <6.0 - 54.7 1st trimester 215.0 - >4300.0 Jody ECLIA methodology Performed By: #### L IVER, LIPID #### [facility] [address] [place] [address] Dr. Gerber Pimentel FSHon 06-22-2022 FSH 77.1 mIU/mL Normal [facility] Comment on above: Result Comment: Adul t Female: Follicular phase 3.5 - 12.5 Ovulation phase 4.7 - 21.5 Luteal phase 1.7 - 7.7 Postmenopausal 25.8 - 134.8 Performed By: #### C BC #### [facility] [address] [place] [address] Dr. Gerber Pimentel PROGESTERONEon 06-22-2022 Progesterone <0.1 Normal [facility] Comment on above: Result Comment: Foll icular phase 0.1 - 0.9 Luteal phase 1.8 - 23.9 Ovulation phase 0.1 - 12.0 First trimester 11.0 - 44.3 Second trimester 25.4 - 83.3 Third trimester 58.7 - 214.0 Postmenopausal 0.0 - 0.1 Performed By: #### I NFLUAB #### [facility] [address] [place] [address] Dr. Gerber Pimentel PROLACTINon 06-22-2022 Prolactin 14.0 ng/mL Normal 4.8-23.3 [facility] Comment on above: Performed By: #### I NFLUAB #### [facility] [address] [place] [address] [address] US [address] HEAD_NECKon 06-22-2022 [...] NICOLE CONSTANTINO Date: 2022-06-22 07:23 Normal [facility] CBC AUTO DIFFon 06-21-2022 BASO # 0.0 103/ul Normal 0.0-0.1 [facility] Comment on above: Performed By: #### A 1C #### [facility] [address] [place] [address] Dr. Gerber Pimentel Basophils/100 WBC (Bld) 0.2 % Normal 0.2-2.0 [facility] Comment on above: Performed By: #### A 1C #### [facility] [address] [place] [address] Dr. Gerber Pimentel EO # 0.0 103/ul Normal 0.0-0.7 [facility] Comment on above: Performed By: #### A 1C #### [facility] [address] [place] [address] Dr. Gerber Pimentel Eosinophils/100 WBC (Bld) 0.5 % Critically low 0.9-7.0 [facility] Comment on above: Performed By: #### A 1C #### [facility] [address] [place] [address] Dr. Gerber Pimentel Erythrocyte distribution width (RBC) [Ratio] 13.4 % Normal 11.0-15.0 [facility] Comment on above: Performed By: #### A 1C #### [facility] [address] [place] [address] Dr. Gerber Pimentel Hematocrit (Bld) [Volume fraction] 36.1 % Normal 36.0-48.0 [facility] Comment on above: Performed By: #### A 1C #### [facility] [address] [place] [address] Dr. Gerber Pimentel Hemoglobin (Bld) [Mass/Vol] 12.2 g/dL Normal 12.0-16.0 [facility] Comment on above: Performed By: #### A 1C #### [facility] [address] [place] [address] Dr. Gerber Pimentel IG # 0.03 10e3/ul Normal 0.00-0.03 [facility] Comment on above: Performed By: #### A 1C #### [facility] [address] [place] [address] Dr. Gerber Pimentel IG % 0.4 % Normal 0.0-0.5 [facility] Comment on above: Performed By: #### A 1C #### [facility] [address] [place] [address] Dr. Gerber Pimentel LYMPH # 2.5 103/ul Normal 1.2-3.8 [facility] Comment on above: Performed By: #### A 1C #### [facility] [address] [place] [address] Dr. Gerber Pimentel Lymphocytes/100 WBC (Bld) 30.4 % Normal 20.5-60.0 [facility] Comment on above: Performed By: #### A 1C #### [facility] [address] [place] [address] Dr. Gerber Pimentel MANUAL DIFF REQ NO Normal [facility] Comment on above: Performed By: #### A 1C #### [facility] [address] [place] [address] Dr. Gerber Pimentel MCH (RBC) [Entitic mass] 30.0 pg Normal 26.7-34.0 [facility] Comment on above: Performed By: #### A 1C #### [facility] [address] [place] [address] Dr. Gerber Pimentel MCHC (RBC) [Mass/Vol] 33.8 g/dL Normal 29.9-35.2 [facility] Comment on above: Performed By: #### A 1C #### [facility] [address] [place] [address] Dr. Gerber Pimentel MCV (RBC) [Entitic vol] 88.9 fL Normal 81.0-99.0 [facility] Comment on above: Performed By: #### A 1C #### [facility] [address] [place] [address] Dr. Gerber Pimentel MONO # 0.5 103/ul Normal 0.3-0.8 [facility] Comment on above: Performed By: #### A 1C #### [facility] [address] [address] [address] Gerber Pimentel Monocytes/100 WBC (Bld) 6.5 % Normal 1.7-12.0 [facility] Comment on above: Performed By: #### A 1C #### [facility] [address] [address] [address] Gerber Pimentel NEUT # 5.1 103/ul Normal 1.4-6.5 [facility] Comment on above: Performed By: #### A 1C #### [facility] [address] [address] [address] Gerber Pimentel Neutrophils/100 WBC (Bld) 62.0 % Normal 43.0-75.0 [facility] Comment on above: Performed By: #### A 1C #### [facility] [address] [place] [address] Dr. Gerber Pimentel Platelet mean volume (Bld) [Entitic vol] 8.4 fL Critically low 9.5-13.5 [facility] Comment on above: Performed By: #### A 1C #### [facility] [address] [address] [address] Gerber Pimentel PLT 315 103/ul Normal 150-450 [facility] Comment on above: Performed By: #### A 1C #### [facility] [address] [place] [address] Dr. Gerber Pimentel RBC 4.06 106/ul Critically low 4.20-5.40 [facility] Comment on above: Performed By: #### A 1C #### [facility] [address] [place] [address] Dr. Gerber Pimentel WBC 8.2 103/ul Normal 4.0-11.0 [facility] Comment on above: Performed By: #### A 1C #### [facility] [address] [place] [address] Dr. Gerber Pimentel FREE THYROXINE INDEX T7on FTI 3.01 Normal 1.30-4.50 [facility] Comment on above: Performed By: #### L YU LIPID #### [facility] [address] [place] [address] Dr. Gerber Pimentel T3U 32.0 % Normal 30.0-39.0 [facility] Comment on above: Performed By: #### L IVER, LIPID #### [facility] [address] [place] [address] Dr. Gerber Pimentel T4 [Mass/Vol] 9.40 ug/dL Normal 4.80-13.90 [facility] Comment on above: Performed By: #### L IVER, LIPID #### [facility] [address] [place] [address] Dr. Gerber Pimentel GLYCOHEMOGLOBIN A1Con 2022 ADA RECOMMENDATION SEE BELOW Normal [facility] Comment on above: Result Comment: ADA RECOMMENDED LIMIT 4.0 - 6.0 ADA THERAPEUTIC TARGET < 7.0 ACTION SUGGESTED > 7.0 Performed By: #### C BC #### [facility] [address] [place] [address] Dr. Gerber Pimentel Glucose [Mass/Vol] 94 mg/dL Normal [facility] Comment on above: Performed By: #### C BC #### [facility] [address] [place] [address] Dr. Gerber Pimentel HbA1c (Bld) [Mass fraction] 4.9 % Normal 4.5-6.2 [facility] Comment on above: Performed By: #### C BC #### [facility] [address] [place] [address] Dr. Gerber Pimentel PROF 14(COMP METB)on 023 Albumin [Mass/Vol] 3.6 g/dL Normal 3.4-5.0 [facility] Comment on above: Performed By: #### L IVER, LIPID #### [facility] [address] [place] [address] Dr. Gerber Pimentel Albumin/Globulin [Mass ratio] 0.9 {ratio} Normal [facility] Comment on above: Performed By: #### L IVER, LIPID #### [facility] [address] [place] [address] Dr. Gerber Pimentel ALP [Catalytic activity/Vol] 93 U/L Normal 46-116 [facility] Comment on above: Performed By: #### L YU, LIPID #### [facility] [address] [address] [address] Gerber Pimentel ALT [Catalytic activity/Vol] 25 U/L Normal 14-59 [facility] Comment on above: Performed By: #### L YU, LIPID #### [facility] [address] [address] [address] Gerber Pimentel Anion gap [Moles/Vol] 14.0 mmol/L Normal [facility] Comment on above: Performed By: #### L YU LIPID #### [facility] [address] [place] [address] Dr. Gerber Pimentel AST [Catalytic activity/Vol] 15 U/L Normal 15-37 [facility] Comment on above: Performed By: #### Angelique NICHOLAS LIPID #### [facility] [address] [place] [address] Dr. Gerber Pimentel Bilirubin [Mass/Vol] 1.0 mg/dL Normal 0.2-1.0 [facility] Comment on above: Performed By: #### L YU LIPID #### [facility] [address] [place] [address] Dr. Gerber Pimentel Calcium [Mass/Vol] 9.0 mg/dL Normal 8.5-10.1 [facility] Comment on above: Performed By: #### L YU, LIPID #### [facility] [address] [place] [address] Dr. Gerber Pimentel Chloride [Moles/Vol] 104 mmol/L Normal 98-107 [facility] Comment on above: Performed By: #### L YU, LIPID #### [facility] [address] [place] [address] Dr. Gerber Pimentel CO2 [Moles/Vol] 22.8 mmol/L Normal 21.0-32.[address] [facility] Comment on above: Performed By: #### L YU, LIPID #### [facility] [address] [place] [address] Dr. Gerber Pimentel Creatinine [Mass/Vol] 0.76 mg/dL Normal 0.55-1.02 [facility] Comment on above: Performed By: #### L IVLEIGH, LIPID #### [facility] [address] [place] [address] Dr. Gerber Pimentel EGFR-AF [place] >60 Normal >=[address] [facility] Comment on above: Performed By: #### L IVLEIGH, LIPID #### [facility] [address] [address] [address] Gerber Pimentel EGFR-NON AF [place] >60 Normal >=60 [facility] Comment on above: Performed By: #### L IVLEIGH, LIPID #### [facility] [address] [address] [address] Gerber Pimentel Globulin (S) [Mass/Vol] 4.1 g/dL Normal [facility] Comment on above: Performed By: #### L IVLEIGH, LIPID #### [facility] [address] [address] [address] Gerber Pimentel Glucose [Mass/Vol] 82 mg/dL Normal 74-106 [facility] Comment on above: Performed By: #### L YU, LIPID #### [facility] [address] [address] [address] Gerber Pimentel Potassium [Moles/Vol] 3.8 mmol/L Normal 3.5-5.1 [facility] Comment on above: Performed By: #### L IVLEIGH, LIPID #### [facility] [address] [address] [address] Gerber Pimentel Protein [Mass/Vol] 7.7 g/dL Normal 6.4-8.2 [facility] Comment on above: Performed By: #### L IVLEIGH, LIPID #### [facility] [address] [address] [address] Gerber Pimentel Sodium [Moles/Vol] 137 mmol/L Normal 136-145 [facility] Comment on above: Performed By: #### L IVLEIGH, LIPID #### [facility] [address] [address] [address] Gerber Pimentel Urea nitrogen [Mass/Vol] 24.0 mg/dL Critically high 7.0-18.0 [facility] Comment on above: Performed By: #### L YU LIPID #### [facility] [address] [place] [address] Dr. Gerber Pimentel Urea nitrogen/Creatinin e [Mass ratio] 31.6 mg/mg Normal [facility] Comment on above: Performed By: #### L YU, LIPID #### [facility] [address] [place] [address] Dr. Gerber Pimentel TSHon 06-21-2022 TSH 0.597 uIU/mL Normal 0.358-3.740 [facility] Comment on above: Performed By: #### L YU LIPID #### [facility] [address] [place] [address] Dr. Gerber Pimentel CULTURE URINEon 06-20-2022 CULTURE URINE Culture Observations : NO GROWTH. Normal [facility] Comment on above: Performed By: #### P HVEN #### [facility] [address] [place] [address] Dr. Gerber Pimentel UA RANDOM W/MICROSCOPICon BACTERIA NONE SEEN Normal NONE SEEN [facility] Comment on above: Performed By: #### P HVEN #### [facility] [address] [place] [address] Dr. Gerber Pimentel Bilirubin Ql (U) Negative Normal NEGATIVE [facility] Comment on above: Performed By: #### P HVEN #### [facility] [address] [place] [address] Dr. Gerber Pimentel CAST NONE SEEN Normal NONE SEEN [facility] Comment on above: Performed By: #### P HVEN #### [facility] [address] [place] [address] Dr. Gerber Pimentel Clarity (U) CLEAR Normal CLEAR [facility] Comment on above: Performed By: #### P HVEN #### [facility] [address] [place] [address] Dr. Gerber Pimentel Color (U) YELLOW Normal YELLOW [facility] Comment on above: Performed By: #### P HVEN #### [facility] [address] [address] [address] Gerber Pimentel Crystals LM Nom (Urine sed) NONE SEEN Normal NONE SEEN [facility] Comment on above: Performed By: #### P HVEN #### [facility] [address] [address] [address] Gerber Pimentel Epithelial cells LM Ql (Urine sed) MODERATE Abnormal NONE SEEN /RARE [facility] Comment on above: Performed By: #### P HVEN #### [facility] [address] [address] [address] Gerber Pimentel Glucose Ql (U) Negative Normal NEGATIVE [facility] Comment on above: Performed By: #### P HVEN #### [facility] [address] [address] [address] Gerber Pimentel Hemoglobin Ql (U) Negative Normal NEGATIVE [facility] Comment on above: Performed By: #### P HVEN #### [facility] [address] [address] [address] Gerber Pimentel Ketones Ql (U) Negative Normal NEGATIVE [facility] Comment on above: Performed By: #### P HVEN #### [facility] [address] [address] [address] Gerber Pimentel LEUKOCYTES Negative Normal NEGATIVE [facility] Comment on above: Performed By: #### P HVEN #### [facility] [address] [address] [address] Gerber Pimentel MUCOUS NONE SEEN Normal NONE SEEN [facility] Comment on above: Performed By: #### P HVEN #### [facility] [address] [address] [address] Gerber Pimentel Nitrite Ql (U) Negative Normal NEGATIVE [facility] Comment on above: Performed By: #### P HVEN #### [facility] [address] [address] [address] Gerber Pimentel pH (U) 5.5 [pH] Normal 5-9 [facility] Comment on above: Performed By: #### P HVEN #### [facility] [address] [address] [address] Gerber Pimentel RBC NONE SEEN Abnormal 0-2 [facility] Comment on above: Performed By: #### P HVEN #### [facility] [address] [place] [address] Dr. Gerber Pimentel SPEC GRAVITY 1.030 Abnormal 1.005-<=1.0 25 [facility] Comment on above: Performed By: #### P HVEN #### [facility] [address] [place] [address] Dr. Gerber Pimentel UA PROTEIN Negative Normal NEGATIVE/ TRACE [facility] Comment on above: Performed By: #### P HVEN #### [facility] [address] [place] [address] Dr. Gerber Pimentel Urobilinogen Qn (U) 0.2 {Brittanie'U}/dL Normal 0.2 - 1.0 [facility] Comment on above: Performed By: #### P HVEN #### [facility] [address] [place] [address] Dr. Gerber Pimentel WBC NONE SEEN Normal NONE SEEN [facility] Comment on above: Performed By: #### P HVEN #### [facility] [address] [place] [address] Dr. Gerber Pimentel LIPID PROFILEon 06-16-2022 CHOL-HDL RATIO NORM SEE BELOW Normal [facility] Comment on above: Result Comment: 3.3 - 4.4 LOW RISK 4.4 - 7.1 AVERAGE RISK 7.1 - 11.0 MODERATE RISK >11.0 HIGH RISK Performed By: #### L IVLEIGH, LIPID #### [facility] [address] [place] [address] Dr. Gerber Pimentel Cholesterol [Mass/Vol] 210 mg/dL Critically high <=200 [facility] Comment on above: Performed By: #### L YU, LIPID #### [facility] [address] [place] [address] Dr. Gerber Pimentel Cholesterol in HDL [Mass/Vol] 69 mg/dL Critically high 40-60 [facility] Comment on above: Performed By: #### L YU, LIPID #### [facility] [address] [address] [address] Gerber Pimentel Cholesterol in LDL [Mass/Vol] 125.0 mg/dL Normal [facility] Comment on above: Performed By: #### L IVER, LIPID #### [facility] [address] [address] [address] Gerber Pimentel Cholesterol.total/ Cholesterol in HDL [Mass ratio] 3.0 {ratio} Normal [facility] Comment on above: Performed By: #### L IVER, LIPID #### [facility] [address] [address] [address] Gerber Pimentel HDL NORMAL > or = 60 mg/dl - LO W CARDIOVASCULAR RISK <40 mg/dl - HIGH CARDIOVASCULAR RISK Normal [facility] Comment on above: Performed By: #### L IVER, LIPID #### [facility] [address] [place] [address] Dr. Gerber Pimentel LDL CALC NORMAL SEE BELOW Normal [facility] Comment on above: Result Comment: <100 mg/dl OPTIMAL 100 - 129 mg/dl NEAR OR ABOVE OPTIMAL 130 - 159 mg/dl BORDERLINE HIGH 160 - 189 mg/dl HIGH >190 mg/dl VERY HIGH Performed By: #### L IVER, LIPID #### [facility] [address] [place] [address] Dr. Gerber iPmentel Triglyceride [Mass/Vol] 80 mg/dL Normal <=150 [facility] Comment on above: Performed By: #### L IVER, LIPID #### [facility] [address] [address] [address] Gerber Pimentel VLDL CALC 16.0 mg/dL Normal [facility] Comment on above: Performed By: #### L IVER, LIPID #### [facility] [address] [place] [address] Dr. Gerber Pimentel LIVER PROFILEon 06-16-2022 Albumin [Mass/Vol] 3.3 g/dL Critically low 3.4-5.0 [facility] Comment on above: Performed By: #### L IVER, LIPID #### [facility] [address] [place] [address] Dr. Gerber Pimentel Albumin/Globulin [Mass ratio] 0.8 {ratio} Normal [facility] Comment on above: Performed By: #### L YU, LIPID #### [facility] [address] [address] [address] Gerber Pimentel ALP [Catalytic activity/Vol] 90 U/L Normal 46-116 [facility] Comment on above: Performed By: #### L YU, LIPID #### [facility] [address] [address] [address] Gerber Pimentel ALT [Catalytic activity/Vol] 22 U/L Normal 14-59 [facility] Comment on above: Performed By: #### L YU, LIPID #### [facility] [address] [address] [address] Gerber Pimentel AST [Catalytic activity/Vol] 16 U/L Normal 15-37 [facility] Comment on above: Performed By: #### L YU, LIPID #### [facility] [address] [address] [address] Gerber Pimentel BILI, CONJUGATED 0.1 mg/dL Normal 0.0-0.[address] [facility] Comment on above: Performed By: #### L YU, LIPID #### [facility] [address] [address] [address] Gerber Pimentel Bilirubin [Mass/Vol] 0.8 mg/dL Normal 0.2-1.0 [facility] Comment on above: Performed By: #### L YU, LIPID #### [facility] [address] [place] [address] Dr. Gerber Pimentel Globulin (S) [Mass/Vol] 4.0 g/dL Normal [facility] Comment on above: Performed By: #### L YU, LIPID #### [facility] [address] [address] [address] Gerber Pimentel Protein [Mass/Vol] 7.3 g/dL Normal 6.4-8.2 [facility] Comment on above: Performed By: #### L YU, LIPID #### [facility] [address] [place] [address] Dr. Gerber Pimentel [facility] SARS-CoV-2 (COVID-19) RNA SLOANE+probe Ql (Unsp spec) Not detected Normal NOT DETECTED [facility] Comment on above: Result Comment: This test is not yet approved or cleared by the [place] FDA. When there are no FDA-approved or cleared tests available, and other criteria are met, FDA can make tests available under an emergency access mechanism called an Emergency Use Authorization (EUA). The EUA for this test is supported by the [place] of Health and Human Service's (HHS's) declaration [...] SARS-CoV-2. Performed By: #### I NFLUAB #### [facility] [address] [place] [address] Dr. Gerber Pimentel INFLUENZA A AND B AGon 04-[facility] SEE BELOW Normal [facility] Comment on above: Result Comment: Nega tive for Flu A protein angiten. Infection due to Flu A cannot be ruled out. Flu A angiten in the sample may be below the detection limit of the test. Performed By: #### I NFLUAB #### [facility] [address] [place] [address] Dr. Gerber Pimentel [facility] SEE BELOW Normal [facility] Comment on above: Result Comment: Nega tive for Flu B protein antigen. Infection due to Flu B cannot be ruled out. Flu B antigen in the sample may be below the detection limit of the test. Performed By: #### I NFLUAB #### [facility] [address] [place] [address] Dr. Gerber Pimentel INFLUENZA A AG Negative Normal NEGATIVE SEE COMMENT [facility] Comment on above: Performed By: #### I NFLUAB #### [facility] [address] [place] [address] Dr. Gerber Pimentel INFLUENZA B AG Negative Normal NEGATIVE SEE COMMENT [facility] Comment on above: Performed By: #### I NFLUAB #### [facility] [address] [place] [address] Dr. Gerber Pimentel BNPon 02-22-2022 Natriuretic peptide B (Bld) [Mass/Vol] 146.0 pg/mL Normal <=900.0 [facility] Comment on above: Performed By: #### C BC #### [facility] [address] [place] [address] Dr. Gerber Pimentel CBC AUTO DIFFon 02-22-2022 BASO # 0.0 103/ul Normal 0.0-0.1 [facility] Comment on above: Performed By: #### C BC #### [facility] [address] [place] [address] Dr. Gerber Pimentel Basophils/100 WBC (Bld) 0.1 % Critically low 0.2-2.0 [facility] Comment on above: Performed By: #### C BC #### [facility] [address] [place] [address] Dr. Gerber Pimentel EO # 0.1 103/ul Normal 0.0-0.7 [facility] Comment on above: Performed By: #### C BC #### [facility] [address] [place] [address] Dr. Gerber Pimentel Eosinophils/100 WBC (Bld) 1.3 % Normal 0.9-7.0 [facility] Comment on above: Performed By: #### C BC #### [facility] [address] [place] [address] Dr. Gerber Pimentel Erythrocyte distribution width (RBC) [Ratio] 14.2 % Normal 11.0-15.0 [facility] Comment on above: Performed By: #### C BC #### [facility] [address] [place] [address] Dr. Gerber Pimentel Hematocrit (Bld) [Volume fraction] 35.9 % Critically low 36.0-48.0 [facility] Comment on above: Performed By: #### C BC #### [facility] [address] [address] [address] Gerber Pimentel Hemoglobin (Bld) [Mass/Vol] 11.9 g/dL Critically low 12.0-16.0 [facility] Comment on above: Performed By: #### C BC #### [facility] [address] [address] [address] Gerber Pimentel IG # 0.02 10e3/ul Normal 0.00-0.03 [facility] Comment on above: Performed By: #### C BC #### [facility] [address] [place] [address] Dr. Gerber Pimentel IG % 0.2 % Normal 0.0-0.5 [facility] Comment on above: Performed By: #### C BC #### [facility] [address] [address] [address] Gerber Pimentel LYMPH # 0.8 103/ul Critically low 1.2-3.8 [facility] Comment on above: Performed By: #### C BC #### [facility] [address] [place] [address] Dr. Gerber Pimentel Lymphocytes/100 WBC (Bld) 9.2 % Critically low 20.5-60.0 [facility] Comment on above: Performed By: #### C BC #### [facility] [address] [place] [address] Dr. Gerber Pimentel MANUAL DIFF REQ NO Normal [facility] Comment on above: Performed By: #### C BC #### [facility] [address] [address] [address] Gerber Pimentel MCH (RBC) [Entitic mass] 29.2 pg Normal 26.7-34.0 [facility] Comment on above: Performed By: #### C BC #### [facility] [address] [place] [address] Dr. Gerber Pimentel MCHC (RBC) [Mass/Vol] 33.1 g/dL Normal 29.9-35.2 [facility] Comment on above: Performed By: #### C BC #### [facility] [address] [place] [address] Dr. Gerber Pimentel MCV (RBC) [Entitic vol] 88.2 fL Normal 81.0-99.0 [facility] Comment on above: Performed By: #### C BC #### [facility] [address] [place] [address] Dr. Gerber Pimentel MONO # 0.6 103/ul Normal 0.3-0.8 [facility] Comment on above: Performed By: #### C BC #### [facility] [address] [place] [address] Dr. Gerber Pimentel Monocytes/100 WBC (Bld) 7.2 % Normal 1.7-12.0 [facility] Comment on above: Performed By: #### C BC #### [facility] [address] [place] [address] Dr. Gerber Pimentel NEUT # 7.2 103/ul Critically high 1.4-6.5 [facility] Comment on above: Performed By: #### C BC #### [facility] [address] [place] [address] Dr. Gerber Pimentel Neutrophils/100 WBC (Bld) 82.0 % Critically high 43.0-75.0 [facility] Comment on above: Performed By: #### C BC #### [facility] [address] [place] [address] Dr. Gerber Pimentel Platelet mean volume (Bld) [Entitic vol] 8.5 fL Critically low 9.5-13.5 [facility] Comment on above: Performed By: #### C BC #### [facility] [address] [place] [address] Dr. Gerber Pimentel PLT 213 103/ul Normal 150-450 [facility] Comment on above: Performed By: #### C BC #### [facility] [address] [place] [address] Dr. Gerber Pimentel RBC 4.07 106/ul Critically low 4.20-5.40 [facility] Comment on above: Performed By: #### C BC #### [facility] [address] [place], [place] [address] Dr. Gerber Pimentel WBC 8.7 103/ul Normal 4.0-11.0 [facility] Comment on above: Performed By: #### C BC #### [facility] [address] [place], [place] [address] Dr. Gerber Pimentel CTA CHEST WO W CONon 022 CTA [...] NICOLE CONSTANTINO Date: 2022-02-22 15:18 Normal [facility] Covid-19 PCR ([facility])on 01-27 SARS-CoV-2 (COVID-19) RNA SLOANE+probe Ql (Unsp spec) Not detected Normal NOT DETECTED [facility] Comment on above: Result Comment: When [...] for this test is supported by the [place] of Health and Human Service's declaration that [...] Performed By: #### L IVER, LIPID #### [facility] [address] [place] [address] Dr. Gerber Pimentel INFLUENZA A AND B AGon 02-22 INFLUENZA A AG Negative Normal NEGATIVE SEE COMMENT [facility] Comment on above: Performed By: #### A 1C #### [facility] [address] [place] [address] Dr. Gerber Pimentel INFLUENZA B AG Negative Normal NEGATIVE SEE COMMENT [facility] Comment on above: Performed By: #### A 1C #### [facility] [address] [place] [address] Dr. Gerber Pimentel PROF CHEM 8 (BAS METB)on Anion gap [Moles/Vol] 11.2 mmol/L Normal [facility] Comment on above: Performed By: #### C BC #### [facility] [address] [place] [address] Dr. Gerber Pimentel Calcium [Mass/Vol] 8.6 mg/dL Normal 8.5-10.1 [facility] Comment on above: Performed By: #### C BC #### [facility] [address] [place] [address] Dr. Gerber Pimentel Chloride [Moles/Vol] 104 mmol/L Normal 98-107 [facility] Comment on above: Performed By: #### C BC #### [facility] [address] [place] [address] Dr. Gerber Pimentel CO2 [Moles/Vol] 25.6 mmol/L Normal 21.0-32.[address] [facility] Comment on above: Performed By: #### C BC #### [facility] [address] [place] [address] Dr. Gerber Pimentel Creatinine [Mass/Vol] 0.76 mg/dL Normal 0.55-1.02 [facility] Comment on above: Performed By: #### C BC #### [facility] [address] [place] [address] Dr. Gerber Pimentel EGFR-AF [place] >60 Normal >=[address] [facility] Comment on above: Performed By: #### C BC #### [facility] [address] [place] [address] Dr. Gerber Pimentel EGFR-NON AF [place] >60 Normal >=60 [facility] Comment on above: Performed By: #### C BC #### [facility] [address] [place] [address] Dr. Gerber Pimentel Glucose [Mass/Vol] 149 mg/dL Critically high 74-106 [facility] Comment on above: Performed By: #### C BC #### [facility] [address] [place] [address] Dr. Gerber Pimentel Potassium [Moles/Vol] 3.8 mmol/L Normal 3.5-5.1 [facility] Comment on above: Performed By: #### C BC #### [facility] [address] [place] [address] Dr. Gerber Pimentel Sodium [Moles/Vol] 137 mmol/L Normal 136-145 [facility] Comment on above: Performed By: #### C BC #### [facility] [address] [place] [address] Dr. Gerber Pimentel Urea nitrogen [Mass/Vol] 20.0 mg/dL Critically high 7.0-18.0 [facility] Comment on above: Performed By: #### C BC #### [facility] [address] [place] [address] Dr. Gerber Pimentel Urea nitrogen/Creatinin e [Mass ratio] 26.3 mg/mg Normal [facility] Comment on above: Performed By: #### C BC #### [facility] [address] [place] [address] Dr. Gerber Pimentel TROPONIN, HIGH SENSITIVITYon 12-28-2022 HSTROP 4.6 pg/mL Normal 4.0-51.3 [facility] Comment on above: Result Comment: CUT- OFF POINTS HAVE BEEN ESTABLISHED BASED ON THE FOURTH UNIVERSAL DEFINITIONS OF MYOCARDIAL INFARCTION. THE UPPER REFERENCE LIMIT (URL) OF TROPONIN, DEFINED THE 99TH PERCENTILE OF cTnI DISTRIBUTION IN A REFERENCE POPULATION, HAS BEEN CONFIRMED THE DECISION THRESHOLD FOR MS DIAGNOSIS. Performed By: #### C BC #### [facility] [address] [address] [address] Gerber Pimentel XR CHEST 1 Von [...] JOAN HEAD Date: 2022-02-21 23:36 Normal [facility] CBC AUTO DIFFon 02-01-2022 BASO # 0.0 103/ul Normal 0.0-0.1 [facility] Comment on above: Performed By: #### C BC #### [facility] [address] [place] [address] Dr. Gerber Pimentel Basophils/100 WBC (Bld) 0.4 % Normal 0.2-2.0 [facility] Comment on above: Performed By: #### C BC #### [facility] [address] [place] [address] Dr. Gerber Pimentel EO # 0.2 103/ul Normal 0.0-0.7 [facility] Comment on above: Performed By: #### C BC #### [facility] [address] [place] [address] Dr. Gerber Pimentel Eosinophils/100 WBC (Bld) 3.1 % Normal 0.9-7.0 [facility] Comment on above: Performed By: #### C BC #### [facility] [address] [place] [address] Dr. Gerber Pimentel Erythrocyte distribution width (RBC) [Ratio] 13.3 % Normal 11.0-15.0 [facility] Comment on above: Performed By: #### C BC #### [facility] [address] [place] [address] Dr. Gerber Pimentel Hematocrit (Bld) [Volume fraction] 39.2 % Normal 36.0-48.0 [facility] Comment on above: Performed By: #### C BC #### [facility] [address] [place] [address] Dr. Gerber Pimentel Hemoglobin (Bld) [Mass/Vol] 13.0 g/dL Normal 12.0-16.0 [facility] Comment on above: Performed By: #### C BC #### [facility] [address] [place] [address] Dr. Gerber Pimentel IG # 0.03 10e3/ul Normal 0.00-0.03 [facility] Comment on above: Performed By: #### C BC #### [facility] [address] [place] [address] Dr. Gerber Pimentel IG % 0.4 % Normal 0.0-0.5 [facility] Comment on above: Performed By: #### C BC #### [facility] [address] [place] [address] Dr. Gerber Pimentel LYMPH # 2.2 103/ul Normal 1.2-3.8 [facility] Comment on above: Performed By: #### C BC #### [facility] [address] [place] [address] Dr. Gerber Pimentel Lymphocytes/100 WBC (Bld) 28.6 % Normal 20.5-60.0 [facility] Comment on above: Performed By: #### C BC #### [facility] [address] [place] [address] Dr. Gerber Pimentel MANUAL DIFF REQ NO Normal [facility] Comment on above: Performed By: #### C BC #### [facility] [address] [place] [address] Dr. Gerber Pimentel MCH (RBC) [Entitic mass] 28.6 pg Normal 26.7-34.0 [facility] Comment on above: Performed By: #### C BC #### [facility] [address] [place] [address] Dr. Gerber Pimentel MCHC (RBC) [Mass/Vol] 33.2 g/dL Normal 29.9-35.2 [facility] Comment on above: Performed By: #### C BC #### [facility] [address] [place] [address] Dr. Gerber Pimentel MCV (RBC) [Entitic vol] 86.3 fL Normal 81.0-99.0 [facility] Comment on above: Performed By: #### C BC #### [facility] [address] [place] [address] Dr. Gerber Pimentel MONO # 0.5 103/ul Normal 0.3-0.8 [facility] Comment on above: Performed By: #### C BC #### [facility] [address] [place] [address] Dr. Gerber Pimentel Monocytes/100 WBC (Bld) 6.9 % Normal 1.7-12.0 [facility] Comment on above: Performed By: #### C BC #### [facility] [address] [place] [address] Dr. Gerber Pimentel NEUT # 4.6 103/ul Normal 1.4-6.5 [facility] Comment on above: Performed By: #### C BC #### [facility] [address] [place] [address] Dr. Gerber Pimentel Neutrophils/100 WBC (Bld) 60.6 % Normal 43.0-75.0 [facility] Comment on above: Performed By: #### C BC #### [facility] [address] [place] [address] Dr. Gerber Pimentel Platelet mean volume (Bld) [Entitic vol] 9.1 fL Critically low 9.5-13.5 [facility] Comment on above: Performed By: #### C BC #### [facility] [address] [place] [address] Dr. Gerber Pimentel PLT 362 103/ul Normal 150-450 [facility] Comment on above: Performed By: #### C BC #### [facility] [address] [place] [address] Dr. Gerber Pimentel RBC 4.54 106/ul Normal 4.20-5.40 [facility] Comment on above: Performed By: #### C BC #### [facility] [address] [place] [address] Dr. Gerber Pimentel WBC 7.7 103/ul Normal 4.0-11.0 [facility] Comment on above: Performed By: #### C BC #### [facility] [address] [place] [address] Dr. Gerber Pimentel FREE T3on 02-01-2022 FREE T3 2.42 pg/mlL Normal 2.18-3.98 [facility] Comment on above: Performed By: #### I NFLUAB #### [facility] [address] [place] [address] Dr. Gerber Pimentel GLYCOHEMOGLOBIN A1Con 2021 ADA RECOMMENDATION SEE BELOW Normal [facility] Comment on above: Result Comment: ADA RECOMMENDED LIMIT 4.0 - 6.0 ADA THERAPEUTIC TARGET < 7.0 ACTION SUGGESTED > 7.0 Performed By: #### A 1C #### [facility] [address] [place] [address] Dr. Gerber Pimentel Glucose [Mass/Vol] 105 mg/dL Normal [facility] Comment on above: Performed By: #### A 1C #### [facility] [address] [place] [address] Dr. Gerber Pimentel HbA1c (Bld) [Mass fraction] 5.3 % Normal 4.5-6.2 [facility] Comment on above: Performed By: #### A 1C #### [facility] [address] [place] [address] Dr. Gerber Pimentel LIPID PROFILEon 02-01-2022 CHOL-HDL RATIO NORM SEE BELOW Normal [facility] Comment on above: Result Comment: 3.3 - 4.4 LOW RISK 4.4 - 7.1 AVERAGE RISK 7.1 - 11.0 MODERATE RISK >11.0 HIGH RISK Performed By: #### I NFLUAB #### [facility] [address] [address] [address] Gerber Pimentel Cholesterol [Mass/Vol] 226 mg/dL Critically high <=200 [facility] Comment on above: Performed By: #### I NFLUAB #### [facility] [address] [address] [address] Gerber Pimentel Cholesterol in HDL [Mass/Vol] 62 mg/dL Critically high 40-60 [facility] Comment on above: Performed By: #### I NFLUAB #### [facility] [address] [address] [address] Gerber Pimentel Cholesterol in LDL [Mass/Vol] 141.4 mg/dL Normal [facility] Comment on above: Performed By: #### I NFLUAB #### [facility] [address] [address] [address] Gerber Pimentel Cholesterol.total/ Cholesterol in HDL [Mass ratio] 3.6 {ratio} Normal [facility] Comment on above: Performed By: #### I NFLUAB #### [facility] [address] [address] [address] Gerber Pimentel HDL NORMAL > or = 60 mg/dl - LO W CARDIOVASCULAR RISK <40 mg/dl - HIGH CARDIOVASCULAR RISK Normal [facility] Comment on above: Performed By: #### I NFLUAB #### [facility] [address] [address] [address] Gerber Pimentel LDL CALC NORMAL SEE BELOW Normal [facility] Comment on above: Result Comment: <100 mg/dl OPTIMAL 100 - 129 mg/dl NEAR OR ABOVE OPTIMAL 130 - 159 mg/dl BORDERLINE HIGH 160 - 189 mg/dl HIGH >190 mg/dl VERY HIGH Performed By: #### I NFLUAB #### [facility] [address] [address] [address] Gerber Pimentel Triglyceride [Mass/Vol] 113 mg/dL Normal <=150 [facility] Comment on above: Performed By: #### I NFLUAB #### [facility] [address] [address] [address] Gerber Pimentel VLDL CALC 22.6 mg/dL Normal [facility] Comment on above: Performed By: #### I NFLUAB #### [facility] [address] [place] [address] Dr. Gerber Pimentel PROF 14(COMP METB)on 022 Albumin [Mass/Vol] 3.9 g/dL Normal 3.4-5.0 [facility] Comment on above: Performed By: #### L IVLEIGH, LIPID #### [facility] [address] [place] [address] Dr. Gerber Pimentel Albumin/Globulin [Mass ratio] 0.8 {ratio} Normal [facility] Comment on above: Performed By: #### L IVLEIGH, LIPID #### [facility] [address] [place] [address] Dr. Gerber Pimentel ALP [Catalytic activity/Vol] 155 U/L Critically high 46-116 [facility] Comment on above: Performed By: #### L IVLEIGH, LIPID #### [facility] [address] [place] [address] Dr. Gerber Pimentel ALT [Catalytic activity/Vol] 21 U/L Normal 14-59 [facility] Comment on above: Performed By: #### L IVLEIGH, LIPID #### [facility] [address] [place] [address] Dr. Gerber Pimentel Anion gap [Moles/Vol] 13.9 mmol/L Normal [facility] Comment on above: Performed By: #### L IVLEIGH, LIPID #### [facility] [address] [place] [address] Dr. Gerber Pimentel AST [Catalytic activity/Vol] 31 U/L Normal 15-37 [facility] Comment on above: Performed By: #### L IVER, LIPID #### [facility] [address] [place] [address] Dr. Gerber Pimentel Bilirubin [Mass/Vol] 0.6 mg/dL Normal 0.2-1.0 [facility] Comment on above: Performed By: #### L IVER, LIPID #### [facility] [address] [place], [place] [id number] Dr. Gerber Pimentel Calcium [Mass/Vol] 9.2 mg/dL Normal 8.5-10.1 [facility] Comment on above: Performed By: #### L IVER, LIPID #### [facility] [address] [place] [address] Dr. Gerber Pimentel Chloride [Moles/Vol] 102 mmol/L Normal 98-107 [facility] Comment on above: Performed By: #### L IVER, LIPID #### [facility] [address] [place] [address] Dr. Gerber Pimentel CO2 [Moles/Vol] 25.8 mmol/L Normal 21.0-32.[address] [facility] Comment on above: Performed By: #### L IVER, LIPID #### [facility] [address] [place] [address] Dr. Gerbre Pimentel Creatinine [Mass/Vol] 0.75 mg/dL Normal 0.55-1.02 [facility] Comment on above: Performed By: #### L IVER, LIPID #### [facility] [address] [place] [address] Dr. Gerber Pimentel EGFR-AF [place] >60 Normal >=[address] [facility] Comment on above: Performed By: #### L IVER, LIPID #### [facility] [address] [place] [address] Dr. Gerber Pimentel EGFR-NON AF [place] >60 Normal >=60 [facility] Comment on above: Performed By: #### L IVER, LIPID #### [facility] [address] [place] [address] Dr. Gerber Pimentel Globulin (S) [Mass/Vol] 4.6 g/dL Normal [facility] Comment on above: Performed By: #### L IVER, LIPID #### [facility] [address] [place] [address] Dr. Gerber Pimentel Glucose [Mass/Vol] 98 mg/dL Normal 74-106 [facility] Comment on above: Performed By: #### L IVER, LIPID #### [facility] [address] [place] [address] Dr. Gerber Pimentel Potassium [Moles/Vol] 4.7 mmol/L Normal 3.5-5.1 [facility] Comment on above: Performed By: #### L YU, LIPID #### [facility] [address] [place] [address] Dr. Gerber Pimentel Protein [Mass/Vol] 8.5 g/dL Critically high 6.4-8.2 [facility] Comment on above: Performed By: #### L YU, LIPID #### [facility] [address] [place] [address] Dr. Gerber Pimentel Sodium [Moles/Vol] 137 mmol/L Normal 136-145 [facility] Comment on above: Performed By: #### L YU, LIPID #### [facility] [address] [place] [address] Dr. Gerber Pimentel Urea nitrogen [Mass/Vol] 20.0 mg/dL Critically high 7.0-18.0 [facility] Comment on above: Performed By: #### L YU, LIPID #### [facility] [address] [place] [address] Dr. Gerber Pimentel Urea nitrogen/Creatinin e [Mass ratio] 26.7 mg/mg Normal [facility] Comment on above: Performed By: #### L YU, LIPID #### [facility] [address] [place] [address] Dr. Gerber Pimentel T4on 02-01-2022 T4 [Mass/Vol] 9.20 ug/dL Normal 4.80-13.90 [facility] Comment on above: Performed By: #### I NFLUAB #### [facility] [address] [place] [address] Dr. Gerber Pimentel TSHon 02-01-2022 TSH 1.396 uIU/mL Normal 0.358-3.740 [facility] Comment on above: Performed By: #### I NFLUAB #### [facility] [address] [place] [address] Dr. Gerber Pimentel VITAMIN D 25 OHon 02-01-2022 VIT D 25-OH 32.8 ng/mL Normal [facility] Comment on above: Performed By: #### A 1C #### [facility] [address] [address] [address] Gerber Pimentel VIT D RANGES SEE BELOW Normal [facility] Comment on above: Result Comment: <20 ng/mL Vit D deficient 20 - <30 ng/mL Vit D insufficient 30 - 100 ng/mL Vit D sufficient >100 ng/mL Potential Toxicity Performed By: #### A 1C #### [facility] [address] [address] [address] Gerber Pimentel NM STRESS/REST MULTIon 11-03 NM STRESS/REST MULTI Patient: ESTEVAN SHARMA Exam Date: 11/03/2021 : 1970 Gender:F Ordering : DR DEBRA CONCEPCION . Admission #: [id number] Family : Order #: [id number] CLICK HERE TO VIEW EXAM RADIOLOGY REPORT [...] M.D. on 11/04/2021 at 08:00 Normal [facility] CBC AUTO DIFFon 11-01-2021 BASO # 0.1 103/ul Normal 0.0-0.1 [facility] Comment on above: Performed By: #### C BC #### [facility] [address] [place] [address] Dr. Gerber Pimentel Basophils/100 WBC (Bld) 0.8 % Normal 0.2-2.0 [facility] Comment on above: Performed By: #### C BC #### [facility] [address] [place] [address] Dr. Gerber Pimentel EO # 0.1 103/ul Normal 0.0-0.7 [facility] Comment on above: Performed By: #### C BC #### [facility] [address] [place] [address] Dr. Gerber Pimentel Eosinophils/100 WBC (Bld) 2.0 % Normal 0.9-7.0 [facility] Comment on above: Performed By: #### C BC #### [facility] [address] [place] [address] Dr. Gerber Pimentel Erythrocyte distribution width (RBC) [Ratio] 13.2 % Normal 11.0-15.0 [facility] Comment on above: Performed By: #### C BC #### [facility] [address] [place] [address] Dr. Gerber Pimentel Hematocrit (Bld) [Volume fraction] 35.6 % Critically low 36.0-48.0 [facility] Comment on above: Performed By: #### C BC #### [facility] [address] [place] [address] Dr. Gerber Pimentel Hemoglobin (Bld) [Mass/Vol] 11.7 g/dL Critically low 12.0-16.0 [facility] Comment on above: Performed By: #### C BC #### [facility] [address] [place] [address] Dr. Gerber Pimentel IG # 0.02 10e3/ul Normal 0.00-0.03 [facility] Comment on above: Performed By: #### C BC #### [facility] [address] [place] [address] Dr. Gerber Pimentel IG % 0.3 % Normal 0.0-0.5 [facility] Comment on above: Performed By: #### C BC #### [facility] [address] [place] [address] Dr. Gerber Pimentel LYMPH # 1.9 103/ul Normal 1.2-3.8 [facility] Comment on above: Performed By: #### C BC #### [facility] [address] [place] [address] Dr. Gerber Pimentel Lymphocytes/100 WBC (Bld) 29.0 % Normal 20.5-60.0 [facility] Comment on above: Performed By: #### C BC #### [facility] [address] [place] [address] Dr. Gerber Pimentel MANUAL DIFF REQ NO Normal [facility] Comment on above: Performed By: #### C BC #### [facility] [address] [place] [address] Dr. Gerber Pimentel MCH (RBC) [Entitic mass] 28.6 pg Normal 26.7-34.0 [facility] Comment on above: Performed By: #### C BC #### [facility] [address] [place] [address] Dr. Gerber Pimentel MCHC (RBC) [Mass/Vol] 32.9 g/dL Normal 29.9-35.2 [facility] Comment on above: Performed By: #### C BC #### [facility] [address] [place] [address] Dr. Gerber Pimentel MCV (RBC) [Entitic vol] 87.0 fL Normal 81.0-99.0 [facility] Comment on above: Performed By: #### C BC #### [facility] [address] [place] [address] Dr. Gerber Pimentel MONO # 0.6 103/ul Normal 0.3-0.8 [facility] Comment on above: Performed By: #### C BC #### [facility] [address] [address] [address] Gerber Pimentel Monocytes/100 WBC (Bld) 8.6 % Normal 1.7-12.0 [facility] Comment on above: Performed By: #### C BC #### [facility] [address] [address] [address] Gerber Pimentel NEUT # 3.8 103/ul Normal 1.4-6.5 [facility] Comment on above: Performed By: #### C BC #### [facility] [address] [address] [address] Gerber Pimentel Neutrophils/100 WBC (Bld) 59.3 % Normal 43.0-75.0 [facility] Comment on above: Performed By: #### C BC #### [facility] [address] [place] [address] Dr. Gerber Pimentel Platelet mean volume (Bld) [Entitic vol] 9.0 fL Critically low 9.5-13.5 [facility] Comment on above: Performed By: #### C BC #### [facility] [address] [place] [address] Dr. Gerber Pimentel PLT 447 103/ul Normal 150-450 [facility] Comment on above: Performed By: #### C BC #### [facility] [address] [place] [address] Dr. Gerber Pimentel RBC 4.09 106/ul Critically low 4.20-5.40 [facility] Comment on above: Performed By: #### C BC #### [facility] [address] [place] [address] Dr. Gerber Pimentel WBC 6.4 103/ul Normal 4.0-11.0 [facility] Comment on above: Performed By: #### C BC #### [facility] [address] [place] [address] Dr. Gerber Pimentel CRPon 11-01-2021 CRP [Mass/Vol] mg/L Normal <=1.0 [facility] Comment on above: Performed By: #### C BC #### [facility] [address] [address] [address] Gerber Pimentel PROF 14(COMP METB)on 022 Albumin [Mass/Vol] 3.6 g/dL Normal 3.4-5.0 [facility] Comment on above: Performed By: #### C BC #### [facility] [address] [place] [address] Dr. Gerber Pimentel Albumin/Globulin [Mass ratio] 0.8 {ratio} Normal [facility] Comment on above: Performed By: #### C BC #### [facility] [address] [place] [address] Dr. Gerber Pimentel ALP [Catalytic activity/Vol] 147 U/L Critically high 46-116 [facility] Comment on above: Performed By: #### C BC #### [facility] [address] [place] [address] Dr. Gerber Pimentel ALT [Catalytic activity/Vol] 34 U/L Normal 14-59 [facility] Comment on above: Performed By: #### C BC #### [facility] [address] [place] [address] Dr. Gerber Pimentel Anion gap [Moles/Vol] 11.0 mmol/L Normal [facility] Comment on above: Performed By: #### C BC #### [facility] [address] [place] [address] Dr. Gerber Pimentel AST [Catalytic activity/Vol] 52 U/L Critically high 15-37 [facility] Comment on above: Performed By: #### C BC #### [facility] [address] [place] [address] Dr. Gerber Pimentel Bilirubin [Mass/Vol] 0.5 mg/dL Normal 0.2-1.0 [facility] Comment on above: Performed By: #### C BC #### [facility] [address] [place] [address] Dr. Gerber Pimentel Calcium [Mass/Vol] 9.2 mg/dL Normal 8.5-10.1 [facility] Comment on above: Performed By: #### C BC #### [facility] [address] [address] [address] Gerber Pimentel Chloride [Moles/Vol] 104 mmol/L Normal 98-107 [facility] Comment on above: Performed By: #### C BC #### [facility] [address] [address] [address] Gerber Pimentel CO2 [Moles/Vol] 28.1 mmol/L Normal 21.0-32.[address] [facility] Comment on above: Performed By: #### C BC #### [facility] [address] [address] [address] Gerber Pimentel Creatinine [Mass/Vol] 1.05 mg/dL Critically high 0.55-1.02 [facility] Comment on above: Performed By: #### C BC #### [facility] [address] [place] [address] Dr. Gerber Pimentel EGFR-AF [place] >60 Normal >=[address] [facility] Comment on above: Performed By: #### C BC #### [facility] [address] [address] [address] Gerber Pimentel EGFR-NON AF [place] 55 mL/min/1.73m2 Critically low >=60 [facility] Comment on above: Performed By: #### C BC #### [facility] [address] [address] [address] Gerber Pimentel Globulin (S) [Mass/Vol] 4.7 g/dL Normal [facility] Comment on above: Performed By: #### C BC #### [facility] [address] [address] [address] Gerber iPmentel Glucose [Mass/Vol] 96 mg/dL Normal 74-106 [facility] Comment on above: Performed By: #### C BC #### [facility] [address] [address] [address] Gerber Pimentel Potassium [Moles/Vol] 4.1 mmol/L Normal 3.5-5.1 [facility] Comment on above: Performed By: #### C BC #### [facility] [address] [place] [address] Dr. Gerber Pimentel Protein [Mass/Vol] 8.3 g/dL Critically high 6.4-8.2 [facility] Comment on above: Performed By: #### C BC #### [facility] [address] [place] [address] Dr. Gerber Pimentel Sodium [Moles/Vol] 139 mmol/L Normal 136-145 [facility] Comment on above: Performed By: #### C BC #### [facility] [address] [place] [address] Dr. Gerber Pimentel Urea nitrogen [Mass/Vol] 16.0 mg/dL Normal 7.0-18.0 [facility] Comment on above: Performed By: #### C BC #### [facility] [address] [place] [address] Dr. Gerber Pimentel Urea nitrogen/Creatinin e [Mass ratio] 15.2 mg/mg Normal [facility] Comment on above: Performed By: #### C BC #### [facility] [address] [place] [address] Dr. Gerber Pimentel SED RATE WESTERGRENon 2021 SED RATE 80 mm/hr Critically high <=30 [facility] Comment on above: Performed By: #### C BC #### [facility] [address] [place] [address] Dr. Gerber Pimentel CBC AUTO DIFFon 10-19-2021 BASO # 0.0 103/ul Normal 0.0-0.1 [facility] Comment on above: Performed By: #### I NFLUAB #### [facility] [address] [place] [address] Dr. Gerber Pimentel Basophils/100 WBC (Bld) 0.1 % Critically low 0.2-2.0 [facility] Comment on above: Performed By: #### I NFLUAB #### [facility] [address] [place] [address] Dr. Gerber Pimentel EO # 0.1 103/ul Normal 0.0-0.7 [facility] Comment on above: Performed By: #### I NFLUAB #### [facility] [address] [place] [address] Dr. Gerber Pimentel Eosinophils/100 WBC (Bld) 1.3 % Normal 0.9-7.0 [facility] Comment on above: Performed By: #### I NFLUAB #### [facility] [address] [place] [address] Dr. Gerber Pimentel Erythrocyte distribution width (RBC) [Ratio] 13.6 % Normal 11.0-15.0 [facility] Comment on above: Performed By: #### I NFLUAB #### [facility] [address] [place] [address] Dr. Gerber Pimentel Hematocrit (Bld) [Volume fraction] 26.1 % Critically low 36.0-48.0 [facility] Comment on above: Performed By: #### I NFLUAB #### [facility] [address] [place] [address] Dr. Gerber Pimentel Hemoglobin (Bld) [Mass/Vol] 8.7 g/dL Critically low 12.0-16.0 [facility] Comment on above: Performed By: #### I NFLUAB #### [facility] [address] [place] [address] Dr. Gerber Pimentel IG # 0.05 10e3/ul Critically high 0.00-0.03 [facility] Comment on above: Performed By: #### I NFLUAB #### [facility] [address] [place] [address] Dr. Gerber Pimentel IG % 0.7 % Critically high 0.0-0.5 [facility] Comment on above: Performed By: #### I NFLUAB #### [facility] [address] [place] [address] Dr. Gerber Pimentel LYMPH # 1.2 103/ul Normal 1.2-3.8 [facility] Comment on above: Performed By: #### I NFLUAB #### [facility] [address] [place] [address] Dr. Gerber Pimentel Lymphocytes/100 WBC (Bld) 16.8 % Critically low 20.5-60.0 [facility] Comment on above: Performed By: #### I NFLUAB #### [facility] [address] [place] [address] Dr. Gerber Pimentel MANUAL DIFF REQ NO Normal [facility] Comment on above: Performed By: #### I NFLUAB #### [facility] [address] [place] [address] Dr. Gerber Pimentel MCH (RBC) [Entitic mass] 28.9 pg Normal 26.7-34.0 [facility] Comment on above: Performed By: #### I NFLUAB #### [facility] [address] [place] [address] Dr. Gerber Pimentel MCHC (RBC) [Mass/Vol] 33.3 g/dL Normal 29.9-35.2 [facility] Comment on above: Performed By: #### I NFLUAB #### [facility] [address] [place] [address] Dr. Gerber Pimentel MCV (RBC) [Entitic vol] 86.7 fL Normal 81.0-99.0 [facility] Comment on above: Performed By: #### I NFLUAB #### [facility] [address] [place] [address] Dr. Gerber Pimentel MONO # 0.6 103/ul Normal 0.3-0.8 [facility] Comment on above: Performed By: #### I NFLUAB #### [facility] [address] [place] [address] Dr. Gerber Pimentel Monocytes/100 WBC (Bld) 8.5 % Normal 1.7-12.0 [facility] Comment on above: Performed By: #### I NFLUAB #### [facility] [address] [place] [address] Dr. Gerber Pimentel NEUT # 5.0 103/ul Normal 1.4-6.5 [facility] Comment on above: Performed By: #### I NFLUAB #### [facility] [address] [place] [address] Dr. Gerber Pimentel Neutrophils/100 WBC (Bld) 72.6 % Normal 43.0-75.0 [facility] Comment on above: Performed By: #### I NFLUAB #### [facility] [address] [place] [address] Dr. Gerber Pimentel Platelet mean volume (Bld) [Entitic vol] 9.0 fL Critically low 9.5-13.5 [facility] Comment on above: Performed By: #### I NFLUAB #### [facility] [address] [place] [address] Dr. Gerber Pimentel PLT 222 103/ul Normal 150-450 [facility] Comment on above: Performed By: #### I NFLUAB #### [facility] [address] [place] [address] Dr. Gerber Pimentel RBC 3.01 106/ul Critically low 4.20-5.40 [facility] Comment on above: Performed By: #### I NFLUAB #### [facility] [address] [place] [address] Dr. Gerber Pimentel WBC 6.8 103/ul Normal 4.0-11.0 [facility] Comment on above: Performed By: #### I NFLUAB #### [facility] [address] [place] [address] Dr. Gerber Pimentel CRPon 10-19-2021 CRP 3.9 mg/dL Critically high <=1.0 [facility] Comment on above: Performed By: #### C BC #### [facility] [address] [place] [address] Dr. Gerber Pimentel MAGNESIUMon 10-19-2021 Magnesium [Mass/Vol] 1.9 mg/dL Normal 1.8-2.4 [facility] Comment on above: Performed By: #### C BC #### [facility] [address] [place] [address] Dr. Gerber Pimentel PROF 14(COMP METB)on 022 Albumin [Mass/Vol] 2.3 g/dL Critically low 3.4-5.0 [facility] Comment on above: Performed By: #### C BC #### [facility] [address] [place] [address] Dr. Gerber Pimentel Albumin/Globulin [Mass ratio] 0.6 {ratio} Normal [facility] Comment on above: Performed By: #### C BC #### [facility] [address] [place] [address] Dr. Gerber Pimentel ALP [Catalytic activity/Vol] 193 U/L Critically high 46-116 [facility] Comment on above: Performed By: #### C BC #### [facility] [address] [place] [address] Dr. Gerber Pimentel ALT [Catalytic activity/Vol] 29 U/L Normal 14-59 [facility] Comment on above: Performed By: #### C BC #### [facility] [address] [place] [address] Dr. Gerber Pimentel Anion gap [Moles/Vol] 12.4 mmol/L Normal [facility] Comment on above: Performed By: #### C BC #### [facility] [address] [place] [address] Dr. Gerber Pimentel AST [Catalytic activity/Vol] 30 U/L Normal 15-37 [facility] Comment on above: Performed By: #### C BC #### [facility] [address] [place] [address] Dr. Gerber Pimentel Bilirubin [Mass/Vol] 0.4 mg/dL Normal 0.2-1.0 [facility] Comment on above: Performed By: #### C BC #### [facility] [address] [place] [address] Dr. Gerber Pimentel Calcium [Mass/Vol] 7.8 mg/dL Critically low 8.5-10.1 [facility] Comment on above: Performed By: #### C BC #### [facility] [address] [place] [address] Dr. Gerber Pimentel Chloride [Moles/Vol] 110 mmol/L Critically high 98-107 [facility] Comment on above: Performed By: #### C BC #### [facility] [address] [place] [address] Dr. Gerber Pimentel CO2 [Moles/Vol] 19.8 mmol/L Critically low 21.0-32.0 [facility] Comment on above: Performed By: #### C BC #### [facility] [address] [address] [address] Gerber Pimentel Creatinine [Mass/Vol] 1.36 mg/dL Critically high 0.55-1.02 [facility] Comment on above: Performed By: #### C BC #### [facility] [address] [address] [address] Gerber Pimentel EGFR-AF [place] 49 mL/min/1.73m2 Critically low >=60 [facility] Comment on above: Performed By: #### C BC #### [facility] [address] [address] [address] Gerber Pimentel EGFR-NON AF [place] 41 mL/min/1.73m2 Critically low >=60 [facility] Comment on above: Performed By: #### C BC #### [facility] [address] [address] [address] Gerber Pimentel Globulin (S) [Mass/Vol] 3.7 g/dL Normal [facility] Comment on above: Performed By: #### C BC #### [facility] [address] [address] [address] Gerber Pimentel Glucose [Mass/Vol] 102 mg/dL Normal 74-106 [facility] Comment on above: Performed By: #### C BC #### [facility] [address] [address] [address] Gerber Pimentel Potassium [Moles/Vol] 3.2 mmol/L Critically low 3.5-5.1 [facility] Comment on above: Performed By: #### C BC #### [facility] [address] [address] [address] Gerber Pimentel Protein [Mass/Vol] 6.0 g/dL Critically low 6.4-8.2 [facility] Comment on above: Performed By: #### C BC #### [facility] [address] [address] [address] Gerber Pimentel Sodium [Moles/Vol] 139 mmol/L Normal 136-145 [facility] Comment on above: Performed By: #### C BC #### [facility] [address] [place] [address] Dr. Gerber Pimentel Urea nitrogen [Mass/Vol] 13.0 mg/dL Normal 7.0-18.0 [facility] Comment on above: Performed By: #### C BC #### [facility] [address] [place] [address] Dr. Gerber Pimentel Urea nitrogen/Creatinin e [Mass ratio] 9.6 mg/mg Normal [facility] Comment on above: Performed By: #### C BC #### [facility] [address] [place] [address] Dr. Gerber Piment[facility] mm/hr Critically high <=30 [facility] Comment on above: Performed By: #### S EDR #### [facility] [address] [place] [address] Dr. Gerber Pimentel C. DIFF PCRon 10-18-2021 C. DIFFICILE PCR Negative Normal NEGATIVE [facility] Comment on above: Performed By: #### I NFLUAB #### [facility] [address] [place] [address] Dr. Gerber Pimentel CBC AUTO DIFFon 10-18-2021 BASO # 0.0 103/ul Normal 0.0-0.1 [facility] Comment on above: Performed By: #### L YU LIPID #### [facility] [address] [place] [address] Dr. Gerber Pimentel Basophils/100 WBC (Bld) 0.2 % Normal 0.2-2.0 [facility] Comment on above: Performed By: #### L YU LIPID #### [facility] [address] [place] [address] Dr. Gerber Pimentel EO # 0.0 103/ul Normal 0.0-0.7 [facility] Comment on above: Performed By: #### L YU LIPID #### [facility] [address] [place] [address] Dr. Gerber Pimentel Eosinophils/100 WBC (Bld) 0.3 % Critically low 0.9-7.0 [facility] Comment on above: Performed By: #### L IVER, LIPID #### [facility] [address] [place] [address] Dr. Gerber Pimentel Erythrocyte distribution width (RBC) [Ratio] 13.5 % Normal 11.0-15.0 [facility] Comment on above: Performed By: #### L IVER, LIPID #### [facility] [address] [place] [address] Dr. Gerber Pimentel Hematocrit (Bld) [Volume fraction] 27.9 % Critically low 36.0-48.0 [facility] Comment on above: Performed By: #### L IVER, LIPID #### [facility] [address] [place] [address] Dr. Gerber Pimentel Hemoglobin (Bld) [Mass/Vol] 9.2 g/dL Critically low 12.0-16.0 [facility] Comment on above: Performed By: #### L IVER, LIPID #### [facility] [address] [place] [address] Dr. Gerber Pimentel IG # 0.03 10e3/ul Normal 0.00-0.03 [facility] Comment on above: Performed By: #### L IVER, LIPID #### [facility] [address] [place] [address] Dr. Gerber Pimentel IG % 0.5 % Normal 0.0-0.5 [facility] Comment on above: Performed By: #### L IVER, LIPID #### [facility] [address] [place] [address] Dr. Gerber Pimentel LYMPH # 0.8 103/ul Critically low 1.2-3.8 [facility] Comment on above: Performed By: #### L IVER, LIPID #### [facility] [address] [place] [address] Dr. Gerber Pimentel Lymphocytes/100 WBC (Bld) 12.6 % Critically low 20.5-60.0 [facility] Comment on above: Performed By: #### L IVER, LIPID #### [facility] [address] [place] [address] Dr. Gerber Pimentel MANUAL DIFF REQ NO Normal [facility] Comment on above: Performed By: #### L IVER, LIPID #### [facility] [address] [place] [address] Dr. Gerber Pimentel MCH (RBC) [Entitic mass] 29.0 pg Normal 26.7-34.0 [facility] Comment on above: Performed By: #### L IVER, LIPID #### [facility] [address] [place] [address] Dr. Gerber Pimentel MCHC (RBC) [Mass/Vol] 33.0 g/dL Normal 29.9-35.2 [facility] Comment on above: Performed By: #### L IVER, LIPID #### [facility] [address] [place] [address] Dr. Gerber Pimentel MCV (RBC) [Entitic vol] 88.0 fL Normal 81.0-99.0 [facility] Comment on above: Performed By: #### L IVER, LIPID #### [facility] [address] [place] [address] Dr. Gerber Pimentel MONO # 0.6 103/ul Normal 0.3-0.8 [facility] Comment on above: Performed By: #### L IVER, LIPID #### [facility] [address] [place] [address] Dr. Gerber Pimentel Monocytes/100 WBC (Bld) 9.5 % Normal 1.7-12.0 [facility] Comment on above: Performed By: #### L IVER, LIPID #### [facility] [address] [place] [address] Dr. Gerber Pimentel NEUT # 4.6 103/ul Normal 1.4-6.5 [facility] Comment on above: Performed By: #### L IVER, LIPID #### [facility] [address] [place] [address] Dr. Gerber Pimentel Neutrophils/100 WBC (Bld) 76.9 % Critically high 43.0-75.0 [facility] Comment on above: Performed By: #### L IVER, LIPID #### [facility] [address] [address] [address] Gerber Pimentel Platelet mean volume (Bld) [Entitic vol] 9.1 fL Critically low 9.5-13.5 [facility] Comment on above: Performed By: #### L IVER, LIPID #### [facility] [address] [address] [address] Gerber Pimentel PLT 220 103/ul Normal 150-450 [facility] Comment on above: Performed By: #### L IVER, LIPID #### [facility] [address] [address] [address] Gerber Pimentel RBC 3.17 106/ul Critically low 4.20-5.40 [facility] Comment on above: Performed By: #### L IVER, LIPID #### [facility] [address] [address] [address] Gerber Pimentel WBC 6.0 103/ul Normal 4.0-11.0 [facility] Comment on above: Performed By: #### L IVER, LIPID #### [facility] [address] [place] [address] Dr. Gerber Pimentel CRPon 10-18-2021 CRP 8.4 mg/dL Critically high <=1.0 [facility] Comment on above: Performed By: #### C BC #### [facility] [address] [place] [address] Dr. Gerber Pimentel MAGNESIUMon 10-18-2021 Magnesium [Mass/Vol] 1.9 mg/dL Normal 1.8-2.4 [facility] Comment on above: Performed By: #### L IVER, LIPID #### [facility] [address] [place] [address] Dr. Gerber Pimentel PROF 14(COMP METB)on 022 Albumin [Mass/Vol] 2.5 g/dL Critically low 3.4-5.0 [facility] Comment on above: Performed By: #### L IVER, LIPID #### [facility] [address] [address] [address] Gerber Pimentel Albumin/Globulin [Mass ratio] 0.7 {ratio} Normal [facility] Comment on above: Performed By: #### L IVER, LIPID #### [facility] [address] [address] [address] Gerber Pimentel ALP [Catalytic activity/Vol] 207 U/L Critically high 46-116 [facility] Comment on above: Performed By: #### L IVER, LIPID #### [facility] [address] [address] [address] Gerber Pimentel ALT [Catalytic activity/Vol] 39 U/L Normal 14-59 [facility] Comment on above: Performed By: #### L IVLEIGH, LIPID #### [facility] [address] [address] [address] Gerber Pimentel Anion gap [Moles/Vol] 15.9 mmol/L Normal [facility] Comment on above: Performed By: #### L IVELIGH, LIPID #### [facility] [address] [address] [address] Gerber Pimentel AST [Catalytic activity/Vol] 36 U/L Normal 15-37 [facility] Comment on above: Performed By: #### L IVLEIGH, LIPID #### [facility] [address] [address] [address] Gerber Pimentel Bilirubin [Mass/Vol] 0.4 mg/dL Normal 0.2-1.0 [facility] Comment on above: Performed By: #### L IVLEIGH, LIPID #### [facility] [address] [address] [address] Gerber Pimentel Calcium [Mass/Vol] 8.0 mg/dL Critically low 8.5-10.1 [facility] Comment on above: Performed By: #### L IVER, LIPID #### [facility] [address] [address] [address] Gerber Pimentel Chloride [Moles/Vol] 107 mmol/L Normal 98-107 [facility] Comment on above: Performed By: #### L IVER, LIPID #### [facility] [address] [address] [address] Gerber Pimentel CO2 [Moles/Vol] 17.7 mmol/L Critically low 21.0-32.0 [facility] Comment on above: Performed By: #### L IVER, LIPID #### [facility] [address] [address] [address] Gerber Pimentel Creatinine [Mass/Vol] 1.63 mg/dL Critically high 0.55-1.02 [facility] Comment on above: Performed By: #### L IVER, LIPID #### [facility] [address] [address] [address] Gerber Pimentel EGFR-AF [place] 40 mL/min/1.73m2 Critically low >=60 [facility] Comment on above: Performed By: #### L IVER, LIPID #### [facility] [address] [place] [address] Dr. Gerber Pimentel EGFR-NON AF [place] 33 mL/min/1.73m2 Critically low >=60 [facility] Comment on above: Performed By: #### L IVER, LIPID #### [facility] [address] [place] [address] Dr. Gerber Pimentel Globulin (S) [Mass/Vol] 3.7 g/dL Normal [facility] Comment on above: Performed By: #### L IVER, LIPID #### [facility] [address] [place] [address] Dr. Gerber Pimentel Glucose [Mass/Vol] 108 mg/dL Critically high 74-106 [facility] Comment on above: Performed By: #### L IVER, LIPID #### [facility] [address] [address] [address] Gerber Pimetnel Potassium [Moles/Vol] 3.6 mmol/L Normal 3.5-5.1 [facility] Comment on above: Performed By: #### L IVER, LIPID #### [facility] [address] [place] [address] Dr. Gerber Pimentel Protein [Mass/Vol] 6.2 g/dL Critically low 6.4-8.2 [facility] Comment on above: Performed By: #### L IVER, LIPID #### [facility] [address] [place] [address] Dr. Gerber Pimentel Sodium [Moles/Vol] 137 mmol/L Normal 136-145 [facility] Comment on above: Performed By: #### L IVER, LIPID #### [facility] [address] [place] [address] Dr. Gerber Pimentel Urea nitrogen [Mass/Vol] 13.0 mg/dL Normal 7.0-18.0 [facility] Comment on above: Performed By: #### L IVLEIGH, LIPID #### [facility] [address] [place] [address] Dr. Gerber Pimentel Urea nitrogen/Creatinin e [Mass ratio] 8.0 mg/mg Normal [facility] Comment on above: Performed By: #### L YU, LIPID #### [facility] [address] [place] [address] Dr. Gerber Pimentel SED RATE [facility]on 2021 SED RATE 80 mm/hr Critically high <=30 [facility] Comment on above: Performed By: #### I NFLUAB #### [facility] [address] [place] [address] Dr. Gerber Pimentel CBC AUTO DIFFon 10-17-2021 BASO # 0.0 103/ul Normal 0.0-0.1 [facility] Comment on above: Performed By: #### C BC #### [facility] [address] [place] [address] Dr. Gerber Pimentel Basophils/100 WBC (Bld) 0.2 % Normal 0.2-2.0 [facility] Comment on above: Performed By: #### C BC #### [facility] [address] [place] [address] Dr. Gerber Pimentel EO # 0.0 103/ul Normal 0.0-0.7 [facility] Comment on above: Performed By: #### C BC #### [facility] [address] [place] [address] Dr. Gerber Pimentel Eosinophils/100 WBC (Bld) 0.6 % Critically low 0.9-7.0 [facility] Comment on above: Performed By: #### C BC #### [facility] [address] [place] [address] Dr. Gerber Pimentel Erythrocyte distribution width (RBC) [Ratio] 13.8 % Normal 11.0-15.0 [facility] Comment on above: Performed By: #### C BC #### [facility] [address] [place] [address] Dr. Gerber Pimentel Hematocrit (Bld) [Volume fraction] 27.7 % Critically low 36.0-48.0 [facility] Comment on above: Performed By: #### C BC #### [facility] [address] [place] [address] Dr. Gerber Pimentel Hemoglobin (Bld) [Mass/Vol] 9.0 g/dL Critically low 12.0-16.0 [facility] Comment on above: Performed By: #### C BC #### [facility] [address] [place] [address] Dr. Gerber Pimentel IG # 0.01 10e3/ul Normal 0.00-0.03 [facility] Comment on above: Performed By: #### C BC #### [facility] [address] [place] [address] Dr. Gerber Pimentel IG % 0.2 % Normal 0.0-0.5 [facility] Comment on above: Performed By: #### C BC #### [facility] [address] [place] [address] Dr. Gerber Pimentel LYMPH # 0.8 103/ul Critically low 1.2-3.8 [facility] Comment on above: Performed By: #### C BC #### [facility] [address] [place] [address] Dr. Gerber Pimentel Lymphocytes/100 WBC (Bld) 15.6 % Critically low 20.5-60.0 [facility] Comment on above: Performed By: #### C BC #### [facility] [address] [place] [address] Dr. Gerber Pimentel MANUAL DIFF REQ NO Normal [facility] Comment on above: Performed By: #### C BC #### [facility] [address] [place] [address] Dr. Gerber Pimentel MCH (RBC) [Entitic mass] 28.8 pg Normal 26.7-34.0 [facility] Comment on above: Performed By: #### C BC #### [facility] [address] [place] [address] Dr. Gerber Pimentel MCHC (RBC) [Mass/Vol] 32.5 g/dL Normal 29.9-35.2 [facility] Comment on above: Performed By: #### C BC #### [facility] [address] [place] [address] Dr. Gerber Pimentel MCV (RBC) [Entitic vol] 88.5 fL Normal 81.0-99.0 [facility] Comment on above: Performed By: #### C BC #### [facility] [address] [place] [address] Dr. Gerber Pimentel MONO # 0.8 103/ul Normal 0.3-0.8 [facility] Comment on above: Performed By: #### C BC #### [facility] [address] [place] [address] Dr. Gerber Pimentel Monocytes/100 WBC (Bld) 14.8 % Critically high 1.7-12.0 [facility] Comment on above: Performed By: #### C BC #### [facility] [address] [place] [address] Dr. Gerber Pimentel NEUT # 3.5 103/ul Normal 1.4-6.5 [facility] Comment on above: Performed By: #### C BC #### [facility] [address] [place] [address] Dr. Gerber Pimentel Neutrophils/100 WBC (Bld) 68.6 % Normal 43.0-75.0 [facility] Comment on above: Performed By: #### C BC #### [facility] [address] [place] [address] Dr. Gerber Pimentel Platelet mean volume (Bld) [Entitic vol] 9.2 fL Critically low 9.5-13.5 [facility] Comment on above: Performed By: #### C BC #### [facility] [address] [place] [address] Dr. Gerber Pimentel PLT 186 103/ul Normal 150-450 [facility] Comment on above: Performed By: #### C BC #### [facility] [address] [address] [address] Gerber Pimentel RBC 3.13 106/ul Critically low 4.20-5.40 [facility] Comment on above: Performed By: #### C BC #### [facility] [address] [place] [address] Dr. Gerber Pimentel WBC 5.1 103/ul Normal 4.0-11.0 [facility] Comment on above: Performed By: #### C BC #### [facility] [address] [place] [address] Dr. Gerber Pimentel CRPon 10-17-2021 CRP 10.3 mg/dL Critically high <=1.0 [facility] Comment on above: Performed By: #### C BC #### [facility] [address] [place] [address] Dr. Gerber Pimentel MAGNESIUMon 10-17-2021 Magnesium [Mass/Vol] 1.7 mg/dL Critically low 1.8-2.4 [facility] Comment on above: Performed By: #### A 1C #### [facility] [address] [place] [address] Dr. Gerber Pimentel PROF 14(COMP METB)on 022 Albumin [Mass/Vol] 2.5 g/dL Critically low 3.4-5.0 [facility] Comment on above: Performed By: #### C BC #### [facility] [address] [place] [address] Dr. Gerber Pimentel Albumin/Globulin [Mass ratio] 0.7 {ratio} Normal [facility] Comment on above: Performed By: #### C BC #### [facility] [address] [place] [address] Dr. Gerber Pimentel ALP [Catalytic activity/Vol] 218 U/L Critically high 46-116 [facility] Comment on above: Performed By: #### C BC #### [facility] [address] [place] [address] Dr. Gerber Pimentel ALT [Catalytic activity/Vol] 64 U/L Critically high 14-59 [facility] Comment on above: Performed By: #### C BC #### [facility] [address] [place] [address] Dr. Gerber Pimentel Anion gap [Moles/Vol] 13.1 mmol/L Normal [facility] Comment on above: Performed By: #### C BC #### [facility] [address] [place] [address] Dr. Gerber Pimentel AST [Catalytic activity/Vol] 58 U/L Critically high 15-37 [facility] Comment on above: Performed By: #### C BC #### [facility] [address] [place] [address] Dr. Gerber Pimentel Bilirubin [Mass/Vol] 0.5 mg/dL Normal 0.2-1.0 [facility] Comment on above: Performed By: #### C BC #### [facility] [address] [place] [address] Dr. Gerber Pimentel Calcium [Mass/Vol] 8.1 mg/dL Critically low 8.5-10.1 [facility] Comment on above: Performed By: #### C BC #### [facility] [address] [place] [address] Dr. Gerber Pimentel Chloride [Moles/Vol] 103 mmol/L Normal 98-107 [facility] Comment on above: Performed By: #### C BC #### [facility] [address] [place] [address] Dr. Gerber Pimentel CO2 [Moles/Vol] 20.5 mmol/L Critically low 21.0-32.0 [facility] Comment on above: Performed By: #### C BC #### [facility] [address] [place] [address] Dr. Gerber Pimentel Creatinine [Mass/Vol] 2.12 mg/dL Critically high 0.55-1.02 [facility] Comment on above: Performed By: #### C BC #### [facility] [address] [address] [address] Gerber Pimentel EGFR-AF [place] 30 mL/min/1.73m2 Critically low >=60 [facility] Comment on above: Performed By: #### C BC #### [facility] [facility] [address] [address] [address] Gerber Pimentel EGFR-NON AF [place] 24 mL/min/1.73m2 Critically low >=60 [facility] Comment on above: Performed By: #### C BC #### [facility] [address] [address] [address] Gerber Pimentel Globulin (S) [Mass/Vol] 3.7 g/dL Normal [facility] Comment on above: Performed By: #### C BC #### [facility] [address] [address] [address] Gerber Pimentel Glucose [Mass/Vol] 96 mg/dL Normal 74-106 [facility] Comment on above: Performed By: #### C BC #### [facility] [address] [address] [address] Gerber Pimenetl Potassium [Moles/Vol] 3.6 mmol/L Normal 3.5-5.1 [facility] Comment on above: Performed By: #### C BC #### [facility] [address] [address] [address] Gerber Pimentel Protein [Mass/Vol] 6.2 g/dL Critically low 6.4-8.2 [facility] Comment on above: Performed By: #### C BC #### [facility] [address] [address] [address] Gerber Pimentel Sodium [Moles/Vol] 133 mmol/L Critically low 136-145 [facility] Comment on above: Performed By: #### C BC #### [facility] [address] [address] [address] Gerber Pimentel Urea nitrogen [Mass/Vol] 15.0 mg/dL Normal 7.0-18.0 [facility] Comment on above: Performed By: #### C BC #### [facility] [address] [address] [address] Gerber Pimentel Urea nitrogen/Creatinin e [Mass ratio] 7.1 mg/mg Normal [facility] Comment on above: Performed By: #### C BC #### [facility] [address] [place] [address] Dr. Gerber Pimentel PROTIMEon 10-17-2021 INR Coag (PPP) [Relative time] 1.02 {INR} Normal [facility] Comment on above: Performed By: #### C BC #### [facility] [address] [place] [address] Dr. Gerber Pimentel INR GUIDELINES SEE BELOW Normal [facility] Comment on above: Result Comment: CLIFF RED INR: 2.0 - 3.0 CONDITIONS NOT LISTED BELOW 2.5 - 3.5 FOR PROSTHETIC HEART VALVE REPLACEMENT 2.5 - 3.5 RECURRENT THROMBOSIS Performed By: #### C BC #### [facility] [address] [place] [address] Dr. Gerber Pimentel PT Coag (PPP) [Time] 11.0 s Normal 9.0-11.6 [facility] Comment on above: Performed By: #### C BC #### [facility] [address] [place] [address] Dr. Gerber Pimentel SED RATE WESTERGRENon 2021 SED RATE 46 mm/hr Critically high <=30 [facility] Comment on above: Performed By: #### A 1C #### [facility] [address] [place] [address] Dr. Gerber Pimentel CBC AUTO DIFFon 10-16-2021 BASO # 0.0 103/ul Normal 0.0-0.1 [facility] Comment on above: Performed By: #### C BC #### [facility] [address] [place] [address] Dr. Gerber Pimentel Basophils/100 WBC (Bld) 0.2 % Normal 0.2-2.0 [facility] Comment on above: Performed By: #### C BC #### [facility] [address] [place] [address] Dr. Gerber Pimentel EO # 0.1 103/ul Normal 0.0-0.7 [facility] Comment on above: Performed By: #### C BC #### [facility] [address] [place] [address] Dr. Gerber Pimentel Eosinophils/100 WBC (Bld) 1.1 % Normal 0.9-7.0 [facility] Comment on above: Performed By: #### C BC #### [facility] [address] [place] [address] Dr. Gerber Pimentel Erythrocyte distribution width (RBC) [Ratio] 13.9 % Normal 11.0-15.0 [facility] Comment on above: Performed By: #### C BC #### [facility] [address] [place] [address] Dr. Gerber Pimentel Hematocrit (Bld) [Volume fraction] 29.4 % Critically low 36.0-48.0 [facility] Comment on above: Performed By: #### C BC #### [facility] [address] [place] [address] Dr. Gerber Pimentel Hemoglobin (Bld) [Mass/Vol] 9.8 g/dL Critically low 12.0-16.0 [facility] Comment on above: Performed By: #### C BC #### [facility] [address] [place] [address] Dr. Gerber Pimentel IG # 0.01 10e3/ul Normal 0.00-0.03 [facility] Comment on above: Performed By: #### C BC #### [facility] [address] [place] [address] Dr. Gerber Pimentel IG % 0.2 % Normal 0.0-0.5 [facility] Comment on above: Performed By: #### C BC #### [facility] [address] [place] [address] Dr. Gerber Pimentel LYMPH # 0.9 103/ul Critically low 1.2-3.8 [facility] Comment on above: Performed By: #### C BC #### [facility] [address] [address] [address] Gerber Pimentel Lymphocytes/100 WBC (Bld) 15.7 % Critically low 20.5-60.0 [facility] Comment on above: Performed By: #### C BC #### [facility] [address] [address] [address] Gerber Pimentel MANUAL DIFF REQ NO Normal [facility] Comment on above: Performed By: #### C BC #### [facility] [address] [place] [address] Dr. Gerber Pimentel MCH (RBC) [Entitic mass] 29.3 pg Normal 26.7-34.0 [facility] Comment on above: Performed By: #### C BC #### [facility] [address] [place] [address] Dr. Gerber Pimentel MCHC (RBC) [Mass/Vol] 33.3 g/dL Normal 29.9-35.2 [facility] Comment on above: Performed By: #### C BC #### [facility] [address] [place] [address] Dr. Gerber Pimentel MCV (RBC) [Entitic vol] 88.0 fL Normal 81.0-99.0 [facility] Comment on above: Performed By: #### C BC #### [facility] [address] [place] [address] Dr. Gerber Pimentel MONO # 0.8 103/ul Normal 0.3-0.8 [facility] Comment on above: Performed By: #### C BC #### [facility] [address] [place] [address] Dr. Gerber Pimentel Monocytes/100 WBC (Bld) 14.7 % Critically high 1.7-12.0 [facility] Comment on above: Performed By: #### C BC #### [facility] [address] [place] [address] Dr. Gerber Pimentel NEUT # 3.8 103/ul Normal 1.4-6.5 [facility] Comment on above: Performed By: #### C BC #### [facility] [address] [address] [address] Gerber Pimentel Neutrophils/100 WBC (Bld) 68.1 % Normal 43.0-75.0 [facility] Comment on above: Performed By: #### C BC #### [facility] [address] [address] [address] Gerber Pimentel Platelet mean volume (Bld) [Entitic vol] 9.2 fL Critically low 9.5-13.5 [facility] Comment on above: Performed By: #### C BC #### [facility] [address] [address] [address] Gerber Pimentel PLT 157 103/ul Normal 150-450 [facility] Comment on above: Performed By: #### C BC #### [facility] [address] [place] [address] Dr. Gerber Pimentel RBC 3.34 106/ul Critically low 4.20-5.40 [facility] Comment on above: Performed By: #### C BC #### [facility] [address] [address] [address] Gerber Pimentel WBC 5.6 103/ul Normal 4.0-11.0 [facility] Comment on above: Performed By: #### C BC #### [facility] [address] [address] [address] Gerber Pimentel CRPon 10-16-2021 CRP 9.3 mg/dL Critically high <=1.0 [facility] Comment on above: Performed By: #### P HVEN #### [facility] [address] [place] [address] CHEST WO CONon [...] NICOLE MAXWELL Date: 2021-10-16 11:10 Normal [facility] MAGNESIUMon 10-16-2021 Magnesium [Mass/Vol] 2.0 mg/dL Normal 1.8-2.4 [facility] Comment on above: Performed By: #### P HVEN #### [facility] [address] [address] [address] Gerber Pimentel OCC BLD IMMUNOASSAYon 2021 OCCULT BLOOD Negative Normal NEGATIVE [facility] Comment on above: Performed By: #### O CHIN #### [facility] [address] [place] [address] Dr. Gerber Pimentel PROF 14(COMP METB)on 022 Albumin [Mass/Vol] 2.7 g/dL Critically low 3.4-5.0 Th e [facility] Comment on above: Performed By: #### P HVEN #### [facility] [address] [place] [address] Dr. Gerber Pimentel Albumin/Globulin [Mass ratio] 0.7 {ratio} Normal [facility] Comment on above: Performed By: #### P HVEN #### [facility] [address] [place] [address] Dr. Gerber Pimentel ALP [Catalytic activity/Vol] 206 U/L Critically high 46-116 [facility] Comment on above: Performed By: #### P HVEN #### [facility] [address] [place] [address] Dr. Gerber Pimentel ALT [Catalytic activity/Vol] 88 U/L Critically high 14-59 [facility] Comment on above: Performed By: #### P HVEN #### [facility] [address] [place] [address] Dr. Gerber Pimentel Anion gap [Moles/Vol] 13.9 mmol/L Normal [facility] Comment on above: Performed By: #### P HVEN #### [facility] [address] [place] [address] Dr. Gerber Pimentel AST [Catalytic activity/Vol] 82 U/L Critically high 15-37 [facility] Comment on above: Performed By: #### P HVEN #### [facility] [address] [place] [address] Dr. Gerber Pimentel Bilirubin [Mass/Vol] 1.0 mg/dL Normal 0.2-1.0 [facility] Comment on above: Performed By: #### P HVEN #### [facility] [address] [address] [address] Gerber Pimentel Calcium [Mass/Vol] 8.1 mg/dL Critically low 8.5-10.1 [facility] Comment on above: Performed By: #### P HVEN #### [facility] [address] [address] [address] Gerber Pimentel Chloride [Moles/Vol] 102 mmol/L Normal 98-107 [facility] Comment on above: Performed By: #### P HVEN #### [facility] [address] [address] [address] Gerber Pimentel CO2 [Moles/Vol] 22.5 mmol/L Normal 21.0-32.[address] [facility] Comment on above: Performed By: #### P HVEN #### [facility] [address] [address] [address] Gerber Pimentel Creatinine [Mass/Vol] 2.19 mg/dL Critically high 0.55-1.02 [facility] Comment on above: Performed By: #### P HVEN #### [facility] [address] [address] [address] Gerber Pimentel EGFR-AF [place] 28 mL/min/1.73m2 Critically low >=60 [facility] Comment on above: Performed By: #### P HVEN #### [facility] [address] [address] [address] Gerber Pimentel EGFR-NON AF [place] 23 mL/min/1.73m2 Critically low >=60 [facility] Comment on above: Performed By: #### P HVEN #### [facility] [address] [address] [address] Gerber Pimentel Globulin (S) [Mass/Vol] 3.7 g/dL Normal [facility] Comment on above: Performed By: #### P HVEN #### [facility] [address] [address] [address] Gerber Pimentel Glucose [Mass/Vol] 110 mg/dL Critically high 74-106 [facility] Comment on above: Performed By: #### P HVEN #### [facility] [address] [address] [address] Gerber Pimentel Potassium [Moles/Vol] 3.4 mmol/L Critically low 3.5-5.1 [facility] Comment on above: Performed By: #### P HVEN #### [facility] [address] [address] [address] Gerber Pimentel Protein [Mass/Vol] 6.4 g/dL Normal 6.4-8.2 [facility] Comment on above: Performed By: #### P HVEN #### [facility] [address] [address] [address] Gerber Pimentel Sodium [Moles/Vol] 135 mmol/L Critically low 136-145 [facility] Comment on above: Performed By: #### P HVEN #### [facility] [address] [place] [address] Dr. Gerber Pimentel Urea nitrogen [Mass/Vol] 16.0 mg/dL Normal 7.0-18.0 [facility] Comment on above: Performed By: #### P HVEN #### [facility] [address] [place] [address] Dr. Gerber Pimentel Urea nitrogen/Creatinin e [Mass ratio] 7.3 mg/mg [facility] Comment on above: Performed By: #### P HVEN #### [facility] [address] [place] [address] Dr. Gerber Pimentel PROF CHEM 8 (BAS METB)on Anion gap [Moles/Vol] 12.3 mmol/L Normal [facility] Comment on above: Performed By: #### C BC #### [facility] [address] [place] [address] Dr. Gerber Pimentel Calcium [Mass/Vol] 7.9 mg/dL Critically low 8.5-10.1 [facility] Comment on above: Performed By: #### C BC #### [facility] [address] [place] [address] Dr. Gerber Pimentel Chloride [Moles/Vol] 103 mmol/L Normal 98-107 [facility] Comment on above: Performed By: #### C BC #### [facility] [address] [address] [address] Gerber Pimentel CO2 [Moles/Vol] 23.3 mmol/L Normal 21.0-32.[address] [facility] Comment on above: Performed By: #### C BC #### [facility] [address] [address] [address] Gerber Pimentel Creatinine [Mass/Vol] 2.21 mg/dL Critically high 0.55-1.02 [facility] Comment on above: Performed By: #### C BC #### [facility] [address] [address] [address] Gerber Pimentel EGFR-AF [place] 28 mL/min/1.73m2 Critically low >=60 [facility] Comment on above: Performed By: #### C BC #### [facility] [address] [address] [address] Gerber Pimentel EGFR-NON AF [place] 23 mL/min/1.73m2 Critically low >=60 [facility] Comment on above: Performed By: #### C BC #### [facility] [address] [address] [address] Gerber Pimentel Glucose [Mass/Vol] 103 mg/dL Normal 74-106 [facility] Comment on above: Performed By: #### C BC #### [facility] [address] [address] [address] Gerber Pimentel Potassium [Moles/Vol] 3.6 mmol/L Normal 3.5-5.1 [facility] Comment on above: Performed By: #### C BC #### [facility] [address] [address] [address] Gerber Pimentel Sodium [Moles/Vol] 135 mmol/L Critically low 136-145 [facility] Comment on above: Performed By: #### C BC #### [facility] [address] [address] [address] Gerber Pimentel Urea nitrogen [Mass/Vol] 17.0 mg/dL Normal 7.0-18.0 [facility] Comment on above: Performed By: #### C BC #### [facility] [address] [place] [address] Dr. Gerber Pimentel Urea nitrogen/Creatinin e [Mass ratio] 7.7 mg/mg Normal [facility] Comment on above: Performed By: #### C BC #### [facility] [address] [place] [address] Dr. Gerber Pimentel SED RATE WESTERGRENon 2021 SED RATE 73 mm/hr Critically high <=30 [facility] Comment on above: Performed By: #### A 1C #### [facility] [address] [place] [address] Dr. Gerber Pimentel CBC AUTO DIFFon 10-15-2021 BASO # 0.0 103/ul Normal 0.0-0.1 [facility] Comment on above: Performed By: #### C BC #### [facility] [address] [place] [address] Dr. Gerber Pimentel Basophils/100 WBC (Bld) 0.2 % Normal 0.2-2.0 [facility] Comment on above: Performed By: #### C BC #### [facility] [address] [place] [address] Dr. Gerber Pimentel EO # 0.0 103/ul Normal 0.0-0.7 [facility] Comment on above: Performed By: #### C BC #### [facility] [address] [place] [address] Dr. Gerber Pimentel Eosinophils/100 WBC (Bld) 0.6 % Critically low 0.9-7.0 [facility] Comment on above: Performed By: #### C BC #### [facility] [address] [place] [address] Dr. Gerber Pimentel Erythrocyte distribution width (RBC) [Ratio] 13.8 % Normal 11.0-15.0 [facility] Comment on above: Performed By: #### C BC #### [facility] [address] [place] [address] Dr. Gerber Pimentel Hematocrit (Bld) [Volume fraction] 29.9 % Critically low 36.0-48.0 [facility] Comment on above: Performed By: #### C BC #### [facility] [address] [address] [address] Gerber Pimentel Hemoglobin (Bld) [Mass/Vol] 9.9 g/dL Critically low 12.0-16.0 [facility] Comment on above: Performed By: #### C BC #### [facility] [address] [address] [address] Gerber Pimentel IG # 0.03 10e3/ul Normal 0.00-0.03 [facility] Comment on above: Performed By: #### C BC #### [facility] [address] [address] [address] Gerber Pimentel IG % 0.6 % Critically high 0.0-0.5 [facility] Comment on above: Performed By: #### C BC #### [facility] [address] [address] [address] Gerber Pimentel LYMPH # 0.8 103/ul Critically low 1.2-3.8 [facility] Comment on above: Performed By: #### C BC #### [facility] [address] [address] [address] Gerber Pimentel Lymphocytes/100 WBC (Bld) 15.0 % Critically low 20.5-60.0 [facility] Comment on above: Performed By: #### C BC #### [facility] [address] [address] [address] Gerber Pimentel MANUAL DIFF REQ NO Normal [facility] Comment on above: Performed By: #### C BC #### [facility] [address] [address] [address] Gerber Pimentel MCH (RBC) [Entitic mass] 29.2 pg Normal 26.7-34.0 [facility] Comment on above: Performed By: #### C BC #### [facility] [address] [address] [address] Gerber Pimentel MCHC (RBC) [Mass/Vol] 33.1 g/dL Normal 29.9-35.2 [facility] Comment on above: Performed By: #### C BC #### [facility] [address] [address] [address] Gerber Pimentel MCV (RBC) [Entitic vol] 88.2 fL Normal 81.0-99.0 [facility] Comment on above: Performed By: #### C BC #### [facility] [address] [address] [address] Gerber Pimentel MONO # 0.5 103/ul Normal 0.3-0.8 [facility] Comment on above: Performed By: #### C BC #### [facility] [address] [address] [address] Gerber Pimentel Monocytes/100 WBC (Bld) 10.0 % Normal 1.7-12.0 [facility] Comment on above: Performed By: #### C BC #### [facility] [address] [place] [address] Dr. Gerber Pimentel NEUT # 3.7 103/ul Normal 1.4-6.5 [facility] Comment on above: Performed By: #### C BC #### [facility] [address] [place] [address] Dr. Gerber Pimentel Neutrophils/100 WBC (Bld) 73.6 % Normal 43.0-75.0 [facility] Comment on above: Performed By: #### C BC #### [facility] [address] [place] [address] Dr. Gerber Pimentel Platelet mean volume (Bld) [Entitic vol] 8.8 fL Critically low 9.5-13.5 [facility] Comment on above: Performed By: #### C BC #### [facility] [address] [address] [address] Gerber Pimentel PLT 143 103/ul Critically low 150-450 [facility] Comment on above: Performed By: #### C BC #### [facility] [address] [address] [address] Gerber Pimentel RBC 3.39 106/ul Critically low 4.20-5.40 [facility] Comment on above: Performed By: #### C BC #### [facility] [address] [place] [address] Dr. Gerber Pimentel WBC 5.0 103/ul Normal 4.0-11.0 [facility] Comment on above: Performed By: #### C BC #### [facility] [address] [place] [address] Dr. Gerber Pimentel CRPon 10-15-2021 CRP 10.3 mg/dL Critically high <=1.0 [facility] Comment on above: Performed By: #### A 1C #### [facility] [address] [place] [address] Dr. Gerber Pimentel MAGNESIUMon 10-15-2021 Magnesium [Mass/Vol] 1.7 mg/dL Critically low 1.8-2.4 [facility] Comment on above: Performed By: #### A 1C #### [facility] [address] [place] [address] Dr. Gerber Pimentel PROF 14(COMP METB)on 022 Albumin [Mass/Vol] 2.7 g/dL Critically low 3.4-5.0 [facility] Comment on above: Performed By: #### A 1C #### [facility] [address] [place] [address] Dr. Gerber Pimentel Albumin/Globulin [Mass ratio] 0.8 {ratio} Normal [facility] Comment on above: Performed By: #### A 1C #### [facility] [address] [place] [address] Dr. Gerber Pimentel ALP [Catalytic activity/Vol] 160 U/L Critically high 46-116 [facility] Comment on above: Performed By: #### A 1C #### [facility] [address] [place] [address] Dr. Gerber Pimentel ALT [Catalytic activity/Vol] 85 U/L Critically high 14-59 [facility] Comment on above: Performed By: #### A 1C #### [facility] [address] [place] [address] Dr. Gerber Pimentel Anion gap [Moles/Vol] 12.5 mmol/L Normal [facility] Comment on above: Performed By: #### A 1C #### [facility] [address] [address] [address] Gerber Pimentel AST [Catalytic activity/Vol] 78 U/L Critically high 15-37 [facility] Comment on above: Performed By: #### A 1C #### [facility] [address] [address] [address] Gerber Pimentel Bilirubin [Mass/Vol] 1.2 mg/dL Critically high 0.2-1.0 [facility] Comment on above: Performed By: #### A 1C #### [facility] [address] [address] [address] Gerber Pimentel Calcium [Mass/Vol] 7.8 mg/dL Critically low 8.5-10.1 [facility] Comment on above: Performed By: #### A 1C #### [facility] [address] [place] [address] Dr. Gerber Pimentel Chloride [Moles/Vol] 105 mmol/L Normal 98-107 [facility] Comment on above: Performed By: #### A 1C #### [facility] [address] [address] [address] Gerber Pimentel CO2 [Moles/Vol] 22.0 mmol/L Normal 21.0-32.[address] [facility] Comment on above: Performed By: #### A 1C #### [facility] [address] [place] [address] Dr. Gerber Pimentel Creatinine [Mass/Vol] 1.37 mg/dL Critically high 0.55-1.02 [facility] Comment on above: Performed By: #### A 1C #### [facility] [address] [address] [address] Gerber Pimentel EGFR-AF [place] 49 mL/min/1.73m2 Critically low >=60 [facility] Comment on above: Performed By: #### A 1C #### [facility] [address] [address] [address] Gerber Pimentel EGFR-NON AF [place] 40 mL/min/1.73m2 Critically low >=60 [facility] Comment on above: Performed By: #### A 1C #### [facility] [address] [address] [address] Gerber Pimentel Globulin (S) [Mass/Vol] 3.4 g/dL Normal [facility] Comment on above: Performed By: #### A 1C #### [facility] [address] [address] [address] Gerber Pimentel Glucose [Mass/Vol] 102 mg/dL Normal 74-106 [facility] Comment on above: Performed By: #### A 1C #### [facility] [address] [address] [address] Gerber Pimentel Potassium [Moles/Vol] 3.5 mmol/L Normal 3.5-5.1 [facility] Comment on above: Performed By: #### A 1C #### [facility] [address] [place] [address] Dr. Gerber Pimentel Protein [Mass/Vol] 6.1 g/dL Critically low 6.4-8.2 Th [facility] Comment on above: Performed By: #### A 1C #### [facility] [address] [place] [address] Dr. Gerber Pimentel Sodium [Moles/Vol] 136 mmol/L Normal 136-145 [facility] Comment on above: Performed By: #### A 1C #### [facility] [address] [place] [address] Dr. Gerber Pimentel Urea nitrogen [Mass/Vol] 13.0 mg/dL Normal 7.0-18.0 [facility] Comment on above: Performed By: #### A 1C #### [facility] [address] [place] [address] Dr. Gerber Pimentel Urea nitrogen/Creatinin e [Mass ratio] 9.5 mg/mg Normal [facility] Comment on above: Performed By: #### A 1C #### [facility] [address] [place] [address] Dr. Gerber Pimentel SED RATE [facility] 2021 SED RATE 40 mm/hr Critically high <=30 [facility] Comment on above: Performed By: #### C BC #### [facility] [address] [place] [address] Dr. Gerber Pimentel CBC AUTO DIFFon 10-14-2021 BASO # 0.0 103/ul Normal 0.0-0.1 [facility] Comment on above: Performed By: #### L IVER, LIPID #### [facility] [address] [place] [address] Dr. Gerber Pimentel Basophils/100 WBC (Bld) 0.2 % Normal 0.2-2.0 [facility] Comment on above: Performed By: #### L IVER, LIPID #### [facility] [address] [place] [address] Dr. Gerber Pimentel EO # 0.0 103/ul Normal 0.0-0.7 [facility] Comment on above: Performed By: #### L IVER, LIPID #### [facility] [address] [place] [address] Dr. Gerber Pimentel Eosinophils/100 WBC (Bld) 0.0 % Critically low 0.9-7.0 [facility] Comment on above: Performed By: #### L IVER, LIPID #### [facility] [address] [place] [address] Dr. Gerber Pimentel Erythrocyte distribution width (RBC) [Ratio] 13.9 % Normal 11.0-15.0 [facility] Comment on above: Performed By: #### L IVER, LIPID #### [facility] [address] [place] [address] Dr. Gerber Pimentel Hematocrit (Bld) [Volume fraction] 34.3 % Critically low 36.0-48.0 [facility] Comment on above: Performed By: #### L IVER, LIPID #### [facility] [address] [place] [address] Dr. Gerber Pimentel Hemoglobin (Bld) [Mass/Vol] 11.3 g/dL Critically low 12.0-16.0 [facility] Comment on above: Performed By: #### L IVER, LIPID #### [facility] [address] [place] [address] Dr. Gerber Pimentel IG # 0.05 10e3/ul Critically high 0.00-0.03 [facility] Comment on above: Performed By: #### L IVER, LIPID #### [facility] [address] [address] [address] Gerber Pimentel IG % 0.8 % Critically high 0.0-0.5 [facility] Comment on above: Performed By: #### L IVER, LIPID #### [facility] [address] [address] [address] Gerber Pimentel LYMPH # 0.5 103/ul Critically low 1.2-3.8 [facility] Comment on above: Performed By: #### L IVER, LIPID #### [facility] [address] [place] [address] Dr. Gerber Pimentel Lymphocytes/100 WBC (Bld) 8.3 % Critically low 20.5-60.0 [facility] Comment on above: Performed By: #### L IVER, LIPID #### [facility] [address] [place] [address] Dr. Gerber Pimentel MANUAL DIFF REQ NO Normal [facility] Comment on above: Performed By: #### L IVER, LIPID #### [facility] [address] [place] [address] Dr. Gerber Pimentel MCH (RBC) [Entitic mass] 28.8 pg Normal 26.7-34.0 [facility] Comment on above: Performed By: #### L IVER, LIPID #### [facility] [address] [address] [address] Gerber Pimentel MCHC (RBC) [Mass/Vol] 32.9 g/dL Normal 29.9-35.2 [facility] Comment on above: Performed By: #### L IVER, LIPID #### [facility] [address] [place] [address] Dr. Gerber Pimentel MCV (RBC) [Entitic vol] 87.3 fL Normal 81.0-99.0 [facility] Comment on above: Performed By: #### L IVER, LIPID #### [facility] [address] [address] [address] Gerber Pimentel MONO # 0.4 103/ul Normal 0.3-0.8 [facility] Comment on above: Performed By: #### L IVER, LIPID #### [facility] [address] [place] [address] Dr. Gerber Pimentel Monocytes/100 WBC (Bld) 6.7 % Normal 1.7-12.0 [facility] Comment on above: Performed By: #### L IVER, LIPID #### [facility] [address] [place] [address] Dr. Gerber Pimentel NEUT # 5.4 103/ul Normal 1.4-6.5 [facility] Comment on above: Performed By: #### L IVER, LIPID #### [facility] [address] [place] [address] Dr. Gerber Pimentel Neutrophils/100 WBC (Bld) 84.0 % Critically high 43.0-75.0 [facility] Comment on above: Performed By: #### L IVER, LIPID #### [facility] [address] [place] [address] Dr. Gerber Pimentel Platelet mean volume (Bld) [Entitic vol] 8.7 fL Critically low 9.5-13.5 [facility] Comment on above: Performed By: #### L IVER, LIPID #### [facility] [address] [place] [address] Dr. Gerber Pimentel PLT 189 103/ul Normal 150-450 [facility] Comment on above: Performed By: #### L IVER, LIPID #### [facility] [address] [place] [address] Dr. Gerber Pimentel RBC 3.93 106/ul Critically low 4.20-5.40 [facility] Comment on above: Performed By: #### L IVER, LIPID #### [facility] [address] [place] [address] Dr. Gerber Pimentel WBC 6.4 103/ul Normal 4.0-11.0 [facility] Comment on above: Performed By: #### L IVER, LIPID #### [facility] [address] [address] [address] Gerber Pimentel BASO # 0.0 103/ul Normal 0.0-0.1 [facility] Comment on above: Performed By: #### C BC #### [facility] [address] [address] [address] Gerber Pimentel Basophils/100 WBC (Bld) 0.1 % Critically low 0.2-2.0 [facility] Comment on above: Performed By: #### C BC #### [facility] [address] [address] [address] Gerber Pimentel EO # 0.0 103/ul Normal 0.0-0.7 [facility] Comment on above: Performed By: #### C BC #### [facility] [address] [place] [address] Dr. Gerber Pimentel Eosinophils/100 WBC (Bld) 0.0 % Critically low 0.9-7.0 [facility] Comment on above: Performed By: #### C BC #### [facility] [address] [place] [address] Dr. Gerber Pimentel Erythrocyte distribution width (RBC) [Ratio] 13.6 % Normal 11.0-15.0 [facility] Comment on above: Performed By: #### C BC #### [facility] [address] [place] [address] Dr. Gerber Pimentel Hematocrit (Bld) [Volume fraction] 36.6 % Normal 36.0-48.0 [facility] Comment on above: Performed By: #### C BC #### [facility] [address] [place] [address] Dr. Gerber Pimentel Hemoglobin (Bld) [Mass/Vol] 12.5 g/dL Normal 12.0-16.0 [facility] Comment on above: Performed By: #### C BC #### [facility] [address] [place] [address] Dr. Gerber Pimentel IG # 0.03 10e3/ul Normal 0.00-0.03 [facility] Comment on above: Performed By: #### C BC #### [facility] [address] [place] [address] Dr. Gerber Pimentel IG % 0.3 % Normal 0.0-0.5 [facility] Comment on above: Performed By: #### C BC #### [facility] [address] [place] [address] Dr. Gerber Pimentel LYMPH # 0.6 103/ul Critically low 1.2-3.8 [facility] Comment on above: Performed By: #### C BC #### [facility] [address] [place] [address] Dr. Gerber Pimentel Lymphocytes/100 WBC (Bld) 6.7 % Critically low 20.5-60.0 [facility] Comment on above: Performed By: #### C BC #### [facility] [address] [place] [address] Dr. Gerber Pimentel MANUAL DIFF REQ NO Normal [facility] Comment on above: Performed By: #### C BC #### [facility] [address] [place] [address] Dr. Gerber Pimentel MCH (RBC) [Entitic mass] 29.3 pg Normal 26.7-34.0 [facility] Comment on above: Performed By: #### C BC #### [facility] [address] [place] [address] Dr. Gerber Pimentel MCHC (RBC) [Mass/Vol] 34.2 g/dL Normal 29.9-35.2 [facility] Comment on above: Performed By: #### C BC #### [facility] [address] [place] [address] Dr. Gerber Pimentel MCV (RBC) [Entitic vol] 85.7 fL Normal 81.0-99.0 [facility] Comment on above: Performed By: #### C BC #### [facility] [address] [place] [address] Dr. Gerber Pimentel MONO # 0.3 103/ul Normal 0.3-0.8 [facility] Comment on above: Performed By: #### C BC #### [facility] [address] [place] [address] Dr. Gerber Pimentel Monocytes/100 WBC (Bld) 3.9 % Normal 1.7-12.0 [facility] Comment on above: Performed By: #### C BC #### [facility] [address] [place] [address] Dr. Gerber Pimentel NEUT # 7.8 103/ul Critically high 1.4-6.5 [facility] Comment on above: Performed By: #### C BC #### [facility] [address] [place] [address] Dr. Gerber Pimentel Neutrophils/100 WBC (Bld) 89.0 % Critically high 43.0-75.0 [facility] Comment on above: Performed By: #### C BC #### [facility] [address] [place] [address] Dr. Gerber Pimentel Platelet mean volume (Bld) [Entitic vol] 8.8 fL Critically low 9.5-13.5 [facility] Comment on above: Performed By: #### C BC #### [facility] [address] [place] [address] Dr. Gerber Pimentel PLT 239 103/ul Normal 150-450 [facility] Comment on above: Performed By: #### C BC #### [facility] [address] [place] [address] Dr. Gerber Pimentel RBC 4.27 106/ul Normal 4.20-5.40 [facility] Comment on above: Performed By: #### C BC #### [facility] [address] [place] [address] Dr. Gerber Pimentel WBC 8.8 103/ul Normal 4.0-11.0 [facility] Comment on above: Performed By: #### C BC #### [facility] [address] [place] [address] Dr. Gerber Pimentel CRPon 10-14-2021 CRP 9.8 mg/dL Critically high <=1.0 [facility] Comment on above: Performed By: #### L IVER, LIPID #### [facility] [address] [place] [address] Dr. Gerber Pimentel CULTURE BLOODon 10-14-2021 Microscopic examination of blood, culture Culture Observations: NO GROWTH AT 5 DAYS. Normal [facility] Comment on above: Performed By: #### P HVEN #### [facility] [address] [address] [address] Gerber Pimentel Microscopic examination of blood, culture Culture Observations: NO GROWTH AT 5 DAYS. Normal [facility] Comment on above: Performed By: #### P HVEN #### [facility] [address] [address] [address] Gerber Pimentel [facility] SARS-CoV-2 (COVID-19) RNA SLOANE+probe Ql (Unsp spec) Not detected Normal NOT DETECTED [facility] Comment on above: Result Comment: When [...] for this test is supported by the [place] of [employer] and Human Service's declaration that [...] Performed By: #### L IVER, LIPID #### [facility] [address] [place] [address] Dr. Gerber Pimentel LACTATE/LACTIC ACIDon 2021 Lactate [Moles/Vol] 0.9 mmol/L Normal 0.4-1.9 [facility] Comment on above: Performed By: #### P HVEN #### [facility] [address] [address] [address] Gerber Pimentel MAGNESIUMon 08-19-2022 Magnesium [Mass/Vol] 1.6 mg/dL Critically low 1.8-2.4 [facility] Comment on above: Performed By: #### L YU, LIPID #### [facility] [address] [place] [address] Dr. Gerber Pimentel PH VENOUS BLOODon 10-14-2021 PCO2 VENOUS 30.7 mmHg Critically low 40.0-52.0 [facility] Comment on above: Performed By: #### P HVEN #### [facility] [address] [place] [address] Dr. Gerber Pimentel pH VENOUS 7.424 Normal 7.330-7.430 [facility] Comment on above: Performed By: #### P HVEN #### [facility] [address] [place] [address] Dr. Gerber Pimentel PROF 14(COMP METB)on 022 Albumin [Mass/Vol] 3.1 g/dL Critically low 3.4-5.0 [facility] Comment on above: Performed By: #### L YU, LIPID #### [facility] [address] [place] [address] Dr. Gerber Pimentel Albumin/Globulin [Mass ratio] 0.8 {ratio} Normal [facility] Comment on above: Performed By: #### L YU LIPID #### [facility] [address] [place] [address] Dr. Gerber Pimentel ALP [Catalytic activity/Vol] 127 U/L Critically high 46-116 [facility] Comment on above: Performed By: #### L YU, LIPID #### [facility] [address] [place] [address] Dr. Gerber Pimentel ALT [Catalytic activity/Vol] 66 U/L Critically high 14-59 [facility] Comment on above: Performed By: #### L IVLEIGH, LIPID #### [facility] [address] [place] [address] Dr. Gerber Pimentel Anion gap [Moles/Vol] 12.6 mmol/L Normal [facility] Comment on above: Performed By: #### L IVLEIGH, LIPID #### [facility] [address] [address] [address] Gerber Pimentel AST [Catalytic activity/Vol] 87 U/L Critically high 15-37 [facility] Comment on above: Performed By: #### L IVER, LIPID #### [facility] [address] [place] [address] Dr. Gerber Pimentel Bilirubin [Mass/Vol] 1.3 mg/dL Critically high 0.2-1.0 [facility] Comment on above: Performed By: #### L IVER, LIPID #### [facility] [address] [address] [address] Gerber Pimentel Calcium [Mass/Vol] 7.8 mg/dL Critically low 8.5-10.1 [facility] Comment on above: Performed By: #### L IVER, LIPID #### [facility] [address] [place] [address] Dr. Gerber Pimentel Chloride [Moles/Vol] 102 mmol/L Normal 98-107 [facility] Comment on above: Performed By: #### L IVER, LIPID #### [facility] [address] [place] [address] Dr. Gerber Pimentel CO2 [Moles/Vol] 23.5 mmol/L Normal 21.0-32.[address] [facility] Comment on above: Performed By: #### L IVER, LIPID #### [facility] [address] [place] [address] Dr. Gerber Pimentel Creatinine [Mass/Vol] 0.77 mg/dL Normal 0.55-1.02 [facility] Comment on above: Performed By: #### L IVER, LIPID #### [facility] [address] [place] [address] Dr. Gerber Pimentel EGFR-AF [place] >60 Normal >=[address] [facility] Comment on above: Performed By: #### L IVER, LIPID #### [facility] [address] [place] [address] Dr. eGrber Pimentel EGFR-NON AF [place] >60 Normal >=60 [facility] Comment on above: Performed By: #### L IVER, LIPID #### [facility] [address] [address] [address] Gerber Pimentel Globulin (S) [Mass/Vol] 3.7 g/dL Normal [facility] Comment on above: Performed By: #### L IVER, LIPID #### [facility] [address] [address] [address] Gerber Pimentel Glucose [Mass/Vol] 119 mg/dL Critically high 74-106 [facility] Comment on above: Performed By: #### L IVER, LIPID #### [facility] [address] [address] [address] Gerber Pimentel Potassium [Moles/Vol] 4.1 mmol/L Normal 3.5-5.1 [facility] Comment on above: Performed By: #### L IVER, LIPID #### [facility] [address] [place] [address] Dr. Gerber Pimentel Protein [Mass/Vol] 6.8 g/dL Normal 6.4-8.2 [facility] Comment on above: Performed By: #### L IVER, LIPID #### [facility] [address] [place] [address] Dr. Gerber Pimentel Sodium [Moles/Vol] 134 mmol/L Critically low 136-145 [facility] Comment on above: Performed By: #### L IVER, LIPID #### [facility] [address] [place] [address] Dr. Gerber Pimentel Urea nitrogen [Mass/Vol] 13.0 mg/dL Normal 7.0-18.0 [facility] Comment on above: Performed By: #### L IVER, LIPID #### [facility] [address] [place] [address] Dr. Gerber Pimentel Urea nitrogen/Creatinin e [Mass ratio] 16.9 mg/mg Normal [facility] Comment on above: Performed By: #### L IVER, LIPID #### [facility] [address] [place] [address] Dr. Gerber Pimentel Albumin [Mass/Vol] 3.8 g/dL Normal 3.4-5.0 [facility] Comment on above: Performed By: #### A 1C #### [facility] [address] [place] [address] Dr. Gerber Pimentel Albumin/Globulin [Mass ratio] 1.0 {ratio} Normal [facility] Comment on above: Performed By: #### A 1C #### [facility] [address] [place] [address] Dr. Gerber Pimentel ALP [Catalytic activity/Vol] 138 U/L Critically high 46-116 [facility] Comment on above: Performed By: #### A 1C #### [facility] [address] [place] [address] Dr. Gerber Pimentel ALT [Catalytic activity/Vol] 42 U/L Normal 14-59 [facility] Comment on above: Performed By: #### A 1C #### [facility] [address] [place] [address] Dr. Gerber Pimentel Anion gap [Moles/Vol] 14.1 mmol/L Normal [facility] Comment on above: Performed By: #### A 1C #### [facility] [address] [place] [address] Dr. Gerber Pimentel AST [Catalytic activity/Vol] 33 U/L Normal 15-37 [facility] Comment on above: Performed By: #### A 1C #### [facility] [address] [place] [address] Dr. Gerber Pimentel Bilirubin [Mass/Vol] 1.2 mg/dL Critically high 0.2-1.0 [facility] Comment on above: Performed By: #### A 1C #### [facility] [address] [place] [address] Dr. Gerber Pimentel Calcium [Mass/Vol] 8.7 mg/dL Normal 8.5-10.1 [facility] Comment on above: Performed By: #### A 1C #### [facility] [address] [place] [address] Dr. Gerber Pimentel Chloride [Moles/Vol] 100 mmol/L Normal 98-107 [facility] Comment on above: Performed By: #### A 1C #### [facility] [address] [address] [address] Gerber Pimentel CO2 [Moles/Vol] 20.2 mmol/L Critically low 21.0-32.0 [facility] Comment on above: Performed By: #### A 1C #### [facility] [address] [place] [address] Dr. Gerber Pimentel Creatinine [Mass/Vol] 0.84 mg/dL Normal 0.55-1.02 [facility] Comment on above: Performed By: #### A 1C #### [facility] [address] [place] [address] Dr. Gerber Pimentel EGFR-AF [place] >60 Normal >=[address] [facility] Comment on above: Performed By: #### A 1C #### [facility] [address] [place] [address] Dr. Gerber Pimentel EGFR-NON AF [place] >60 Normal >=60 [facility] Comment on above: Performed By: #### A 1C #### [facility] [address] [place] [address] Dr. Gerber Pimentel Globulin (S) [Mass/Vol] 3.9 g/dL Normal [facility] Comment on above: Performed By: #### A 1C #### [facility] [address] [place] [address] Dr. Gerber Pimentel Glucose [Mass/Vol] 128 mg/dL Critically high 74-106 T [facility] Comment on above: Performed By: #### A 1C #### [facility] [address] [place] [address] Dr. Gerber Pimentel Potassium [Moles/Vol] 3.3 mmol/L Critically low 3.5-5.1 [facility] Comment on above: Performed By: #### A 1C #### [facility] [address] [place] [address] Dr. Gerber Pimentel Protein [Mass/Vol] 7.7 g/dL Normal 6.4-8.2 [facility] Comment on above: Performed By: #### A 1C #### [facility] [address] [place] [address] Dr. Gerber Pimentel Sodium [Moles/Vol] 131 mmol/L Critically low 136-145 Th e [facility] Comment on above: Performed By: #### A 1C #### [facility] [address] [place] [address] Dr. Gerber Pimentel Urea nitrogen [Mass/Vol] 15.0 mg/dL Normal 7.0-18.0 [facility] Comment on above: Performed By: #### A 1C #### [facility] [address] [place] [address] Dr. Gerber Pimentel Urea nitrogen/Creatinin e [Mass ratio] 17.9 mg/mg Normal [facility] Comment on above: Performed By: #### A 1C #### [facility] [address] [place] [address] Dr. Gerber Pimentel SED RATE [facility] 2021 SED RATE 33 mm/hr Critically high <=30 [facility] Comment on above: Performed By: #### P HVEN #### [facility] [address] [place] [address] Dr. Gerber Pimentel OBSOLETEon 07-27-2020 OBSOLETE Refill (HEMASA) ESTEVAN SHARMA ([id number]) 1970 F Date Time Provider Department 07/27/20 [...] Status:Closed by HARRISON HEAD on 07/27/20 Normal [facility] OT-MG MAMM SEBASTIAN DIAG W CAD IM PORTon 07-11-2019 OT-MG MAMM SEBASTIAN DIAG W CAD IMPORT Images were obtained outside of [facility] [id number] Normal [facility] Vital Signs Date Time Vital Sign Value Performing Clinician Portia vera 12-26-2023 15:16-0400 Blood Pressure Location Nahid STACIA [facility] 12-26-2023 15:16-0400 Diastolic blood pressure 72 mm[Hg] Nahid PALOMO [facility] 12-26-2023 15:16-0400 Heart rate 72 /min Nahid MAYAL [facility] 12-26-2023 15:16-0400 Respiratory rate 16 /min Nahid PALOMO [facility] 12-26-2023 15:16-0400 Systolic blood pressure 120 mm[Hg] Nahid PALOMO [facility] [place] 10-25-2021 14:45-0400 Blood Pressure Location Nahid PALOMO [facility] [place] 10-25-2021 14:45-0400 Diastolic blood pressure 104 mm[Hg] Nahid MAYAL [facility] [place] 10-25-2021 14:45-0400 Heart rate 80 /min Nahid MAYAL [facility] [place] 10-25-2021 14:45-0400 Respiratory rate 16 /min Nahid MAYAL [facility] [place] 10-25-2021 14:45-0400 Systolic blood pressure 144 mm[Hg] Nahid MAYAL [facility] [place] Encounters Encounter Date Encounter Type Care Provider Facility Start: 01-02-2024 End: 01-02-2024 ambulatory Nahid PALOMO Facility:CD:[id number] Start: 12-26-2023 End: 12-26-2023 ambulatory Nahid PALOMO Facility: [facility] Start: 12-26-2023 End: 12-26-2023 Patient encounter [facility] Start: 10-16-2023 End: 10-16-2023 Office outpatient new 30 minutes Eneida Blakely DPM Work Phone: [facility] Comment on above: Plantar fasciitis (P rimary Dx); Pain of both heels; Calcaneal spur of both feet Start: 10-16-2023 End: 10-16-2023 ambulatory ENEIDA BLAKELY Not Available Start: 10-16-2023 End: 10-16-2023 Bamboo flowsheet Eneida Blakely DPM Work Phone: [facility] Start: 10-16-2023 End: 10-16-2023 Bamboo flowsheet Eneida Blakely DPM Work Phone: [facility] Start: 06-14-2023 Refill Harrison Head MD Work [...] abnormal findings DR DEBRA CONCEPCION . [facility] Start: 02-01-2022 End: 02-02-[address] DEBRA CONCEPCION . Facility:[facility] Start: 02-01-2022 End: 02-02-2022 Encounter for general adult medical examination without abnormal findings DR DEBRA CONCEPCION . Facility:[facility] Start: 01-24-2022 End: 01-24-2022 Patient encounter procedure Debra Concepcion [facility] Start: 11-03-2021 End: 11-04-[address] DEBRA CONCEPCION . Facility:[facility] Start: 11-01-2021 End: 11-02-[address] DEBRA CONCEPCION . Facility:[facility] Start: 10-25-2021 End: 10-25-2021 Patient encounter procedure Nahid PALOMO [facility] Start: 10-14-2021 End: 08-25-2022 Evaluation and management of inpatient DR DEBRA CONCEPCION . Facility: Start: 06-25-2021 Refill Harrison Head MD Work Phone: Hematology/Oncology Comment on above: Refill Request Procedures Date Procedure Procedure Detail Performing Clinician Start: 10-16-2023 End: 10-16-2023 Radex calcaneus minimum 2 views Polo Blakely DPM Work Phone: Start: 10-17-2021 Insertion of Infusion Device into [...] Treatment Date Care Activity Detail Author Start: 11-19-2023 End: 11-19-2023 Patient encounter procedure 11/19/2023 3:45 PM EDT Office Visit [facility] [address] [place] [address] Eneida Blakely DPM [address] [place] [address] [facility] Start: 10-28-2023 Influenza vaccination Influenz a Vaccine (Season Ended) [facility] Start: 10-16-2023 End: 10-16-2023 Patient encounter procedure 10/16/2023 3:00 PM EDT Office Visit [facility] [address] [place] [address] Eneida Blakely DPM [address] [place] [address] Arrived [facility] Comment on above: Arrived Start: 02-26-2023 Behavioral Health Screening Behavioral Health Screening [facility] Start: 10-27-2022 Covid-19 Vaccine ( season) Covid-19 Vaccine ( season) [facility] Start: 08-25-2022 DIABETES SCREEN DIABETES SCREEN [facility] Start: 08-25-2022 Diabetes Screening Diabetes Screenin g [facility] Start: 02-26-2022 DEPRESSION ASSESSMENT DEPRESSION ASS ESSMENT [facility] Start: 10-27-2021 Influenza vaccination [facility] Start: 08-25-2020 Adult depression screening assessment DEPRESSION SCREENING [facility] Start: 2018 SHINGRIX VACCINE (1 of 2) GUZMÁN GRIX VACCINE (1 of 2) [facility] Start: 2013 COLOGUARD (FIT-DNA) COLOGUARD (FIT-D NA) [facility] Start: 2013 Colonoscopy COLONOSCOPY [facility] Start: 2013 COLORECTAL CANCER SCREENING COLORECTAL CANCER SCREENING [facility] Start: [address] COLONOGRAPHY [facility] Start: 2013 FECAL OCCULT BLOOD FECAL OCCULT BLOO D [facility] Start: 2013 Lipid panel Lipid Screening [facility] Start: 2013 LIPID SCREEN LIPID SCREEN [facility] Start: 2013 Screening for malign ant neoplasm of colon [facility] Start: 2013 [facility] Start: 2008 Mammography MAMMOGRAM [facility] Start: 2008 Screening for malign ant neoplasm of breast Mammogram Screening [facility] Start: 1998 HPV TESTING HPV TESTING [facility] Start: 1998 Screening for malign ant neoplasm of cervix HPV Testing [facility] Start: 1989 PAP TESTING PAP TESTING [facility] Start: 1989 Screening for malign ant neoplasm of cervix Pap Testing [facility] Start: 05-12-1987 Hepatitis B Vaccine (1 of 3 - 19+ 3-dose series) Hepatitis B Vaccine (1 of 3 - 19+ 3-dose series) [facility] Start: 05-12-1987 Urine microalbumin profile [facility] Start: 1986 HEPATITIS C SCREENING HEPATITIS C [facility] Start: 1986 Hepatitis C screening Hepatitis C [facility] Start: 1986 HIV SCREENING HIV SCREENING [facility] Start: 1986 HIV screening HIV Screening [facility] Start: 1973 COVID-19 VACCINE (1) COVID-19 VACCIN E (1) [facility] Start: 1970 COVID-19 VACCINE (#1) COVID-19 VACCI NE (#1) [facility] Start: 1970 HEPATITIS B (1 of 3 - 3-dose series) HEPATITIS B (1 of 3 - 3-dose series) [facility] Immunizations Immunization Date Immunization Notes Care Provider Fa cility 11-25-2018 influenza virus vacc ine, unspecified formulation Harrison Head MD Work Phone: [facility] Payers Date Payer Category Payer Unknown BCBS BCBS [id number] 2020-Present [phone] [id number] [place] [address] [id number] 1970 Unknown [id number] 1970 Unknown [id number] 1970 Unknown [id number] 1968 Unknown [id number] [id number] 1968 Unknown [id number] [id number] 1968 Unknown [id number] [id number] 1970 Unknown [id number] [id number] 1970 Unknown [id number] 1968 Unknown [id number] 1970 Unknown [id number] [id number] 1970 Unknown [id number] [id number] 1970 Unknown [id number] [id number] 1970 Unknown [id number] 1961 Unknown [id number] Social History Date Type Detail Facility Start: 03-05-2014 End: 10-16-2023 Tobacco smoking status NHIS Ex-smoker [facility] Start: 03-05-2014 End: 10-16-2023 Cigarettes smoked current (pack per day) - Reported 0.5 [facility] Start: 03-05-2014 End: 10-16-2023 Tobacco use and exposure Smokeless tobacco non-user [facility] Start: 08-26-2019 Alcohol intake Current non-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) [facility] Start: 1970 Sex Assigned At Not on file [facility] Tobacco smoking status Never [facility] [place] Start: 08-26-2019 End: 10-16-2023 Sex Assigned At Female [facility] [place] History of tobacco use Current smoker [facility] History of tobacco use Cigarette Smoker [facility] Start: 1970 Sex assigned at [facility] Start: 10-15-2023 Gender identity Identifies as female gender (finding) [facility] Tobacco smoking stat NHIS Tobacco smoking consumption unknown [facility] Functional Status Date Assessment Result Facility 12-26-2023 Functional Status N/A [facility] 10-25-2021 [facility] Status N/[facility]-2014 to 10-16-2023 Eneida Blakely, MARTY - 10/16/2023 3:00 PM EDTPatient Instructions Note Date & Type Note Facility 10-16-2023 History of Presen t illness Narrative Images from the original note were not included. HPI: Estevan Shamra presents today for evaluation of bilateral heel pain, greater on the right side. Patient states that she has had pain in the foot for 3 months. She describes the pain as sharp and sometimes throbbing which has increased with time. Patient relates a negative history of trauma to the area. She has tried patches on the heel for treatment. No other complaints. Exam: General Examination: GENERAL APPEARANCE: awake, aware of surroundings, in no acute distress Vascular: DORSALIS PEDIS PULSE: 2/4, bilaterally POSTERIOR TIBIAL PULSE: 2/4, bilaterally TEMPERATURE GRADIENT: warm to cool EDEMA: none CAPILLARY FILLING TIME(sec): capillary fill intact bilateral digits less than 3 secs Neurologic: NEUROLOGIC: light touch is intact to the plantar foot Dermatologic: SKIN FINDINGS: normal HYPERKERATOSIS: none NAIL PATHOLOGY: digits 1-5 bilateral are intact SKIN PATHOLOGY: texture, turgor, hair growth, within normal limits Orthopedic: FOOT MORPHOLOGY: neutral JOINT RANGE OF MOTION: without pain or crepitus DEFORMITIES: none PAIN ELICITED WITH PALPATION OF: There is pain noted with palpation to the bilateral heel at the plantar medial tubercle of the calcaneus. positive pain to palpation of the medial band of the plantar fascia. No pain noted with compression of the calcaneus or to palpation of the Achilles tendon bilateral. No pain with palpation along the course of the posterior tibial tendon PAIN ELICITED WITH ROM: none MUSCLE STRENGTH: 5/5 for all pedal groups tested Assessments: ICD M72.2 - Plantar fasciitis: ICD M79.672 - Pain in left foot: ICD M77.32 - Calcaneal spur, left: ICD M79.671 - Pain in right foot: ICD M77.31 - Calcaneal spur, right: Plan: ICD M72.2 - Plantar fasciitis: I reviewed the patients condition, eitiology, options for care treatment plan and prognosis including shoe gear changes, stretching, physical therapy, immobilization, night splints and anti-inflammatories. We have three clinical objectives to reduce inflammatory processe and expedite repair of the achilles tendon, re-establish biomechanical function of the foot in relation to the Achilles tendon and re-establish appropriate strength, range of motion and tolerance to normal gait forces relative to standing, walking, and running. Our goal is for the condition and symptoms to not advance to becoming chronic or recalcitrant. 1. Patient advised to perform stretching exercise, icing, and to make appropriate shoe gear changes to include wearing athletic-type shoes with supportive insoles. No barefoot walking. Also demonstrated to patient the instructions on how to correctly perform the stretching of the Achilles tendon/calf stretches, and the heel spur/plantar fasciitis regimen and patient instructions were given. 2. Discussed with the patient OTC insoles including Powerstep which patient can purchase today if interested. Patient advised that these modalities used in conjunction are able to alleviate most symptoms from this condition. 3. Prescription for prednisone was sent to the patient's preferred pharmacy. She was instructed on side effects and use. If she encounters any side effects or contraindications she was advised to discontinue the medication and call the office. 4. RTC: 4-6 weeks. Discussed next step of steroid injection, custom FO, therapy if needed. documented in this encounter [facility] 10-16-2023 Instructions Eneida Blakely DPM - 10/16/2023 3:00 PM EDT Images from the original note were not included. Plantar Fasciitis Plantar fasciitis is an inflammatory condition involving the plantar fascia, a thick band of connective tissue found on the bottom of the foot. This is an overuse injury which may also be attributed to an increase in weight, , change in shoe gear, change in activity level, or change in working surfaces. One of the main causes of developing this type of heel pain is tightness in the calf muscle or Achilles tendon. This thick band of tissue extends from the heel to the ball of the foot, and aids in support and stabilization of the foot (especially the arch) during walking and running. Symptoms involve two areas: the arch and the bottom of the heel. Severe pain can be present, especially in the morning after getting out of bed and after periods of rest. This pain usually decreases somewhat with initial activity and then, as the day progresses, can become quite painful, depending on the activity level. Swelling, redness, and heat are usually not present. Many patients use the term stone bruise to describe this condition because of the intense, localized area of discomfort. Pain also occurs because of the extreme stretch in the fascia when standing after periods of rest that can cause tearing in the individual fibers of the fascia. The most common cause of plantar fasciitis is overuse, an excessive amount of activity over a given period of time. This excessive activity causes a stretching or pulling force on the heel area, resulting in a fatigue failure or breakdown of the tissue. Over a period of time, this traction, or pulling force, can result in heel spur formation, which can be seen on x-rays. Certain generalized arthritic problems and a specific nerve impingement can also be responsible for plantar fasciitis/heel spur syndrome and should be considered. Evaluation by the doctor will determine if further testing is needed for these conditions. Treatment of the problem is accomplished by stretching and controlling the biomechanics. The conservative treatment for plantar fasciitis is very successful at resolving symptoms, but the treatment time usually takes over 6-8 months to completely resolve your pain if not longer. Initial Treatment: Supportive/stable shoes, No barefoot walking Stretching exercises to stretch the Achilles tendon and plantar fascia. This should be done in the morning, before and after activity. Ice application after activity or at the end of the day. This can be combined with massage by using a frozen water bottle and rolling the foot and heel over the water bottle. Jsec-ovb-dhfqswt (OTC) arch supports: Spenco, Powerstep, UCOs Continued Treatment: Local anesthetic steroid injections Custom made foot orthotics Night splint - stretches plantar fascia while at rest Physical therapy: deep tissue massage, ultrasound, steroid iontophoresis, concentrated stretching and balance exercises Magnetic Resonance Imaging (MRI): to further diagnosis injury and presence of possible tearing or nerve impingement Surgery Four to twelve weeks is usually the amount of time necessary for symptoms to improve significantly. Conservative treatment is curative 95% of the time for this problem. Detailed Treatment for Plantar Fasciitis Stretching - This is the most important treatment that you can do for plantar fasciitis. Wall Stretch: Stand an arm's length away from a wall, place your hands shoulder length apart on the wall with one foot in front of the other. The painful heel should be in the back. Lean forward while keeping the back leg straight, your back straight and head up while bending the other knee. You can point your toes slightly inward. Place pressure on the back of your heel to keep it in contact with the ground. Hold this stretch for 45-60 seconds, repeat 5-10 times. You should feel this stretch in your calf and arch. Do this stretch in the morning and before activity. Towel Stretch: Place a towel, belt or exercise band across the ball of the affected foot. Pull the towel toward you while keeping your knee straight. Hold this stretch for 15-20 seconds, repeat 10 times. You will feel this stretch in the back of the calf and arch of the foot. Do this stretch in the morning before getting out of before and after periods of rest before standing or activity. Shoes- It is important that the shoes have a stiff heel counter in order to control pronation or flatting of the arch. Shoes should also have good arch supports. Try to wear your shoes at all times, do not go barefoot. Women with narrow heals often need to switch to the athletic shoe brand. When shopping for shoes, go near the end of the day when your feet may be slightly larger from swelling throughout the day. Also check to make sure that there is some built in arch support in the shoe which will help with this condition. It is also important to see that when you bend the shoe, the point of bending is not in the arch. It should be at the ball of the foot or near the toes. This shows that there is support in the arch. Also make sure that the back of the heel is stiff and that you cannot push it in with one finger. This will help to ensure that your heel stays in the shoe and in contact with an arch support if you are using one. Over the counter arch supports- These supports must have a deep heel cup as well as a firm arch support. The doctor may have given you an OTC arch support called a UCO. This is a semi-rigid device that gives arch support and also cushioning to the foot. Other options including Spenco and Powerstep which are have firm support in the arch in order to relieve stress on the plantar fascia. Custom molded orthotics- This is a prescription device that is placed in your shoe made from a mold that is taken of your foot held in its correct biomechanical position. This position allows your foot to function the way it functioned prior to injury. This device may require that you purchase shoes that are slightly larger in order to accommodate this device. Shoes worn with orthotics should have a stiff heel counter. Night Splints - These are devices that are typically worn while sleeping at night. They keep the foot at 90 to the ankle. This is allows for a constant passive stretch to the plantar fascia all night long. If interested in obtaining these, the best place is to get them is at an online supplier. [employer] offers many options for night splints. There are two main differences in the night splints offered, which are ones that goes along the back of the heel and ones that go on the front of the foot and ankle. The ones that go on the back of the heel and foot provides a better stretch because the heel cannot slide out of the device like it can for the ones that are applied on the front. The devices that are most recommended: Cher Plantar Fasciitis Splint Plantar Fasciitis Night Splint by Rivka [employer] Night Splint Getting a brand that has various sizes based upon your specific shoe size will also provide a better overall fit than a universal one size fits all device. Also, most of these devices are able to be applied to the left or right foot. It will take some time to be able to wear this device all thru the night without waking up, but remember that any stretch will help the plantar fascia to not be as tight when you wake up in the morning and provide nursing home flexibility to help decrease the chance of this problem recurring. Icing - Place a block of ice on the bottom of the foot where the pain or inflammation is located. This should be done for twenty minutes at a time. This will help reduce the inflammation, which is the cause of the pain. Massage- Massage is also helpful to reduce the formation of thick calcification in the fascia from the repetitive tearing. Massage with a tennis ball or can of food will help to break up these tearing and relieve pain. You can combine the icing and massage by freezing a water bottle and rolling your foot over it. Anti-inflammatory medications- Take Motrin 800mg three times a day with food if instructed by your doctor. Non-steroidal anti-inflammatory product should be taken as directed or the maximum benefit will not be obtained. Do not take these products if you have gastric ulcers. Steroid injections- A small amount of steroid can be injected into the area of inflammation. This is usually mixed or used in combination with a local anesthetic. It may cause a hard nodule at the area of injection. This will be temporary, lasting only a few hours. Long-term benefits are inconsistent. Physical Therapy- Physical Therapy is helpful for plantar fasciitis because it is a dedicated stretching regimen for the calf muscle and fascia. It will also incorporate modalities such as ultrasound and electrical stimulation to help reduce the pain and symptoms in the heel. Immobilization- This is one of the most effective treatments for plantar fasciitis. Immobilization is best done with a cast, but people can get relief with a walking boot if used properly for a total period of immobilization of 6-8 weeks. documented in this encounter [facility] 10-17-2021 Note PROCEDURE: US KIDNEY S BLADDER, [...] authenticated by: KETAN KAY Date: 2021-10-17 09:06 [facility] 10-17-2021 Note PROCEDURE: US SINGLE QUAD RT [...] authenticated by: KETAN KAY Date: 2021-10-17 09:04 [facility] 02-02-2014 History of Past i llness Narrative Problem Noted Date Resolved Date Malignant neoplasm of female breast 02/02/2014 12/04/2014 Overview: ICD-10 Go-Live documented as of this encounter (statuses as of 06/27/2021) [facility]12-08-2014 History of Past illness Narrative* Problem Noted Date Resolved Date Malignant neoplasm of female breast 02/02/2014 12/04/2014 Overview: ICD-10 Go-Live documented as of this encounter (statuses as of 05/01/2022) [facility]2014 History of Past illness Narrative* Problem Noted Date Diagnosed Date Resolved Date Malignant neoplasm of female breast 02/02/2014 12/04/2014 Overview: ICD-10 Go-Live documented as of this encounter (statuses as of 06/14/2023) [facility] No data available for this section General Surgery [facility] Evaluation note* Diagnosis Plantar fasciitis- Primary Plantar fascial fibromatosis Pain of both heels Calcaneal spur of both feet [facility] No data available for this section General Surgery [place] Progress note No data available for this section General Surgery [place] Summary Purpose Family History No Family History [...] section and content) DATE CREATED AUTHOR 07/11/2019 [facility] DATE CREATED AUTHOR AUTHOR'S ORGANIZ ATION 04/20/2021 [facility] DATE CREATED AUTHOR AUTHOR'S ORGANIZ ATION 08/04/2022 [facility] DATE CREATED AUTHOR AUTHOR'S ORGANIZ ATION 10/18/2023 [facility] EPIC DATE CREATED AUTHOR AUTHOR'S ORGANIZ ATION 01/18/2024 [facility] Source Comments (unrecognize d section and content) In the event this informatio n is protected by the Federal Confidentiality of Alcohol and Drug Abuse Patient Records regulations: The Federal rules restrict any use of the information to criminally investigate or prosecute any alcohol or drug abuse patient.[facility] the event this information is protected by the Federal Confidentiality of Alcohol and Drug Abuse Patient Records regulations: The Federal rules restrict any use of the information to criminally investigate or prosecute any alcohol or drug abuse patient.[facility] the event this information is protected by the Federal Confidentiality of Alcohol and Drug Abuse Patient Records regulations: The Federal rules restrict any use of the information to criminally investigate or prosecute any alcohol or drug abuse patient.[facility] Reason for Visit (unrecogniz ed section and content) Reason Comments Refill Request Care Teams (unrecognized sec tion and content) Ramp Supervisor Relationship Specialty Start Date End Date Debra Concepcion MD PCP - General Family Practice 01/20/14 Ramp Supervisor Relationship Specialty Start Date End Date Debra Concepcion MD PCP - General Family Medicine 01/20/14 Ramp Supervisor Relationship Specialty Start Date End Date Debra Concepcion MD PCP - General Family Medicine 01/20/14 Ramp Supervisor Relationship Specialty Start Date End Date Debra Concepcion MD [address] [place] [address] PCP - General Family Medicine 10/16/23 Ramp Supervisor Relationship Specialty Start Date End Date Debra Concepcion MD [address] [place] [address] PCP - General Family Medicine 10/16/23 FOR RECORDS PERTAINING TO PATIENTS WHO ARE [...] BE BASED ON THE PRIMARY CLINICAL RECORDS. [facility] [employer] [facility]. provides no warranty or guarantee of the accuracy or completeness of information in this document.
== END 2024-03-11 15:03 | disposition home or self-care (01) ==
LOC: MAMMO 15:03
PROVIDERS: PCP Family Medicine; Visit Provider Family Medicine
DX: Z12.31 Encounter for screening mammogram for malignant neoplasm of breast (principal); Z85.3 Personal history of malignant neoplasm of breast; Z80.1 Family history of malignant neoplasm of trachea, bronchus and lung; Z80.51 Family history of malignant neoplasm of kidney; Z80.3 Family history of malignant neoplasm of breast
CPT/HCPCS: 77063; 77067

== ENCOUNTER 2024-09-30 10:27 | Outpatient (OUT) | payer BC, SELFPAY ==
--- OUTSIDE RECORDS SUMMARY | 2024-04-21 09:26 | XMS_ITS ---
Author Organization [facility] in [place] Address [address] [place] [address] Care Team Providers Care Descriptive Catalog Librarian Name Role Phone Carlene Jasson Primary Care Provider REASON FOR VISIT Antibiotic Medications Medication SIG (Take, Route, Frequency, Duration) Notes Start Date End Date Status Ciprofloxacin HCl 500 MG 1 tablet Orally every 12 hrs for 10 days 02/25/2024 Active Pyridium 200 MG 1 tablet after meals Orally Three times a day for 2 days 04/21/2024 Active Encounters Encounter Location Date Provider Diagnosis [address] [address] 04/21/2024 Jasson Concepcion Plan Of Treatment Medication Medication Name Sig Start Date Stop Date Notes Ciprofloxacin HCl 500 MG 1 tablet Orally every 12 hrs for 10 days 02/25/2024 Pyridium 200 MG 1 tablet after meals Orally Three times a day for 2 days 04/21/2024 Progress Notes * Estevan SHARMA RDOB: [birth year] (53 yo F)Acc No.[id number]:04/21/2024 Patient: Estevan PFEIFFER :1970 A ge:53 Y S ex:Female Address:[address] [place] [id number] * Refills Refill Ciprofloxacin HCl Tablet, 500 MG, Orally, 20 Tablet, 1 tablet, every 12 hrs, 10 days Start Pyridium Tablet, 200 MG, Orally, 9, 1 tablet after meals, Three times a day, 2 days * true * Date: Generated for Cori herbert/Sol/Shawnitting on: 0 09/30/2024 10:32 AM EDT
--- OUTSIDE RECORDS SUMMARY | 2024-09-29 09:12 | XMS_ITS ---
Author Organization [facility] in [place] Address [address] [place] [address] Care Team Providers Care Speech Pathology Assistant Name Role Phone Jasson Concepcion Primary Care Provider REASON FOR VISIT Yearly Labs Problems Problem Type SNOMED Code ICD Code Onset Dates Problem Status W/U Status Risk Notes Problem Hypercholesterem ia (E78.00) Active confirmed Encounters Encounter Location Date Provider Diagnosis [facility] [address] [place] [address] 09/29/2024 Jasson Concepcion Fatigue R53.83 ; Scr eening for colon cancer Z12.11 ; Hypercholesteremia E78.00 and Wellness examination Z01.89 Assessments Encounter Date Diagnosis (ICD Code) Assessment Notes Treatment Notes Treatment Clinical Notes Section Notes 09/29/2024 Fatigue (ICD-10 - R53.83) 09/29/2024 Screening for colon cancer (ICD-10 - Z12.11) 09/29/2024 Hypercholesteremia (ICD-10 - E78.00) 09/29/2024 Wellness examination (ICD-10 - Z01.89) Plan Of Treatment Medication Medication Name Sig Start Date Stop Date Notes Ciprofloxacin HCl 500 MG 1 tablet Orally every 12 hrs 01/28 Ciprofloxacin HCl 500 MG 1 tablet Orally every 12 hrs 02/27 Pyridium 200 MG 1 tablet after meals Orally Three times a day 04/21/2024 Diflucan 100 MG 1 tablet Orally daily 03/25/2024 Pending Test Test Name Order Date FECAL OCCULT BLOOD 09/29/2024 CBC AUTO DIFF 09/29/2024 GLYCOHEMOGLOBIN A1C 09/29/2024 LIPID PROFILE 09/29/2024 PROF 14(COMP METB) 09/29/2024 THYROID PANEL (T4/TSH/FREE T3) 5 Progress Notes * Estevan SHARMA RDOB: [birth year] (54 yo F)Acc No.[id number]:09/29/2024 Patient: Estevan PFEIFFER :1970 A ge:54 Y S ex:Female Address:[address] [place] [id number] * Refills Stop Ciprofloxacin HCl Tablet, 500 MG, Orally, 1 tablet, every 12 hrs Stop Ciprofloxacin HCl Tablet, 500 MG, Orally, 1 tablet, every 12 hrs Stop Diflucan Tablet, 100 MG, Orally, 1 tablet, daily Stop Pyridium Tablet, 200 MG, Orally, 1 tablet after meals, Three times a day Subjective: * Chief Complaints: * Y early Labs * Medical History: * Surgical History: * Hospitalization/Major Diagno stic Procedure: * Medications: Objective: * Vitals: * Physical Examination: Assessment: * Assessment: 1. F atigue - R53.83 (Primary) 2 . S creening for colon cancer - Z12.11? 3. H ypercholesteremia - E78.00 4 . W ellness examination - Z01.89 Plan: * Treatment: 2. S creening for colon cancer L AB: FECAL OCCULT BLOOD 3. H ypercholesteremia L AB: LIPID PROFILE 4. W ellness examination L AB: GLYCOHEMOGLOBIN A1C L AB: THYROID PANEL (T4/TSH/FREE T3) 5. O thers Stop Ciprofloxacin HCl Tablet, 500 MG, 1 tablet, Orally, every 12 hrs; S top Ciprofloxacin HCl Tablet, 500 MG, 1 tablet, Orally, every 12 hrs; S top Diflucan Tablet, 100 MG, 1 tablet, Orally, daily; S top Pyridium Tablet, 200 MG, 1 tablet after meals, Orally, Three times a day. ? * Procedure Codes: * true * Date: Generated for Cori herbert/Sol/Shawnitting on: 0 09/30/2024 10:32 AM EDT
--- OUTSIDE RECORDS SUMMARY | 2024-09-30 10:32 | XMS_ITS | Clinical Summary ---
Author Organization [facility] Address [address] [place] [id number] Care Team Providers Care Accountant Supervisor Name Role Phone Vinay Concepcion MD Primary Care Provider [phone] Allergies No known active allergies Medications Omeprazole Magnesium (PRILOSEC OTC) 20 mg tablet Take 20 mg by mouth once daily. Active VENTOLIN HFA 90 mcg/actuation inhaler 05/05/2014 Active oxycodone HCl/acetaminoph en (PERCOCET ORAL) Take by mouth as needed. Active tamoxifen (NOLVADEX) 20 mg tablet TAKE 1 TABLET BY MOUTH EVERY DAY 90 tablet 10/15/2019 Active venlafaxine ER (EFFEXOR XR) 75 mg 24 hr capsule TAKE 1 CAPSULE BY MOUTH EVERY DAY 90 capsule 3 06/17/2024 Active Active Problems Problem Noted Date Diagnosed Date History of breast cancer 05/25/2015 Radiotherapy follow-up examination 12/04/2014 Breast cancer of lower-outer quadrant of right female breast 12/04/2014 Resolved Problems Problem Noted Date Diagnosed Date Resolved Date Malignant neoplasm of female breast 02/02/2014 12/04/2014 Overview (11/26/2014): ICD-10 Go-Live Family History Medical History Relation Comments lung cancer Father Breast Cancer Other 1 Aunt Breast Cancer Other 2 Aunt Relation Status Comments Father Other 1 Other 2 Social History Tobacco Use Types Packs/Day Years Used Date Smoking Tobacco: Former Cigarettes 0.5 25 Smokeless Tobacco: Never Alcohol Use Standard Drinks/Week Comments No 0 (1 standard drink = 0.6 oz pur e alcohol) PHQ-2 Answer Date Recorded PHQ-2 score 0 08/26/2019 Area Deprivation Index Answer Date Caden rded National Score (1-100), lower number is lower ri sk Not on file 02/04/2020 State Score (1-10), lower number is lower risk N ot on file 02/04/2020 Data from: https://www.neighborhoodatlas.medicine.[facility]/. Last address used for calculation Not on file 02/04/2020 Comments No Sex and Gender Information Value Date Recorded Sex Assigned at Not on file Legal Sex Female 3:28 PM EST Gender Identity Not on file Sexual Orientation Not on file Last Filed Vital Signs Vital Sign Reading Time Taken Comments Blood Pressure 140/73 08/26/2019 3:05 PM EDT Pulse 84 08/26/2019 3:05 PM EDT Temperature 36.6 C (97.9 F) 08/26/2019 3:05 PM EDT Respiratory Rate 16 08/26/2019 3:05 PM EDT Oxygen Saturation 100% 08/26/2019 3:05 PM EDT Inhaled Oxygen Concentration - - Weight 96.5 kg (212 lb 12.8 oz) 08/26/2019 3:05 PM EDT Height 170.2 cm (5' 7.01 ) 08/26/2019 3:05 PM ED T Body Mass Index 33.32 08/26/2019 3:05 PM EDT Plan of Treatment Health Maintenance Due Date Last Done Comments Anxiety Screening 1986 Depression Screening 1986 HIV Screening 1986 Hepatitis C Screening 1986 DTaP,Tdap,Td Vaccine (1 - Tdap) 05/12/1987 Hepatitis B Vaccine (1 of 3 - 19+ 3-dose series) 05/11 Cervical Cancer Screening [address] M[address] Colonography 2013 Cologuard (FIT-DNA) 2013 Colonoscopy 2013 Colorectal Cancer Screening 2013 Fecal Occult Blood 2013 Lipid Screening 2013 Sigmoidoscopy 2013 Pneumococcal Vaccine: 50+ (1 of 1 - PCV) 2018 Shingrix Vaccine (1 of 2) 2018 Diabetes Screening 08/25/2022 08/26/2019 Influenza Vaccine (#1) 2024 11/25/2018 Procedures Procedure Name Priority Date/Time Associated Diagnosis Comments COMPREHENSIVE METABOLIC PANEL Routine 08/26/2019 3:05 PM EDT Malignant neoplasm of lower-outer quadrant of right female breast, unspecified estrogen receptor status (HCC) from Last 3 Months or Most Recently Relevant to Health Maintenance Results * (ABNORMAL) COMP METABOLIC PANEL (08/26/2019 3:05 PM EDT) Protein, Total 6.8 6.3 - 8.0 g/dL 08/26/2019 3:34 PM EDT [facility] Albumin 4.1 3.9 - 4.9 g/dL 08/26/2019 3:34 PM EDT [facility] Calcium 8.6 8.5 - 10.2 mg/dL 08/26/2019 3:34 PM EDT [facility] Bilirubin, Total 0.4 0.2 - 1.3 mg/dL 08/26/2019 3:34 PM EDT [facility] Alkaline Phosphatase 99 34 - 123 U/L 08/26/2019 3:34 PM EDT [facility] AST 25 13 - 35 U/L 08/26/2019 3:34 PM EDT [facility] Glucose 135(H) 74 - 99 mg/dL 08/26/2019 3:34 PM EDT [facility] Comment: The [place] [employer] (ADA) provides guidance for cutoff values for fasting glucose and random glucose. The ADA defines fasting as no caloric intake for at least 8 hours. Fasting plasma glucose results between 100 to 125 mg/dL indicate increased risk for diabetes (prediabetes). Fasting plasma glucose results greater than or equal to 126 mg/dL meet the criteria for diagnosis of diabetes. In the absence of unequivocal hyperglycemia, results should be confirmed by repeat testing. In a patient with classic symptoms of hyperglycemia or hyperglycemic crisis, random plasma glucose results greater than or equal to 200 mg/dL meet the criteria for diagnosis of diabetes. Reference: Standards of Medical Care in Diabetes 2016, [place] [employer]. Diabetes Care. 2016.39(Suppl 1). BUN 14 7 - 21 mg/dL 08/26/2019 3:34 PM EDT [facility] Creatinine 0.80 0.58 - 0.96 mg/dL 08/26/2019 3:34 PM EDT [facility] Sodium 135(L) 136 - 144 mmol/L 08/26/2019 3:34 PM EDT [facility] Potassium 3.9 3.7 - 5.1 mmol/L 08/26/2019 3:34 PM EDT [facility] Chloride 103 97 - 105 mmol/L 08/26/2019 3:34 PM EDT [facility] CO2 22 22 - 30 mmol/L 08/26/2019 3:34 PM EDT [facility] Anion Gap 10 9 - 18 mmol/L 08/26/2019 3:34 PM EDT [facility] ALT 25 7 - 38 U/L 08/26/2019 3:34 PM EDT [facility] eGFR- >60 08/26/2019 3:34 PM EDT [facility] eGFR-All Other Races >60 . 08/26/2019 3:34 PM EDT [facility] Comment: eGFR (Estimated GFR) Units of measure: mL/min/1.73 meters squared eGFR is derived from the reexpressed MDRD Study equation using the following parameters: serum creatinine, age, gender and race. The creatinine assay has been calibrated to be traceable to IDMS. An eGFR <60 mL/min/1.73m2 for >3 months is consistent with chronic kidney disease. Refer to KDOQI guidelines for clinical interpretation. In patients with unstable renal function, e.g. those with acute kidney injury, the eGFR may not accurately reflect actual GFR. Blood specimen (specimen) BLOOD SPECIMEN / Unknown 08/26/2019 3:05 PM EDT 08/26/2019 3:34 PM EDT us Harrison Head MD LABORATORY Final Result [address] from Last 3 Months or Most Recently Relevant to Health Maintenance Care Teams Accountant Supervisor Relationship Specialty Start Date End Date Vinay Concepcion MD PCP - General Family Medicine 01/20/14
--- OUTSIDE RECORDS SUMMARY | 2024-09-30 10:32 | XMS_ITS ---
Author Organization [facility] Address [address] [place] [address] Care Team Providers Care Screening Tech Name Role Phone Vinay Concepcion MD Primary Care Provider [phone] Active Problems Problem Noted Date Diagnosed Date History of breast cancer 05/25/2015 Radiotherapy follow-up examination 12/04/2014 Breast cancer of lower-outer quadrant of right female breast 12/04/2014 Current Treatment and Therapy Plans No current plan information found. Past Treatment and Therapy Plans ONCOLOGY REGIMEN Plan Name Start Date Discontinue Date Treatment Medications Discontinue Reason Plan Provider Cycles TC - DOCETAXEL 75 CYCLOPHOSPHAMIDE 600 D1 - Q21D 5 01/14/2015 cyclophosphamide iv piggyback (CYTOXAN)DOCEtaxel iv piggyback (TaxoTERE) Micah Thomas 4 of 4 cycles started Resolved Problems Problem Noted Date Diagnosed Date Resolved Date Malignant neoplasm of female breast 02/02/2014 12/04/2014 Overview (11/26/2014): ICD-10 Go-Live
--- OUTSIDE RECORDS SUMMARY | 2024-09-30 10:32 | XMS_ITS | Patient Health Record ---
Author Organization [facility] in [place] Address [address] [place] [address] Care Team Providers Care Senior Military Analyst Name Role Phone Carlene Jasson Primary Care Provider Allergies No Known Allergies Results Component Value Reference Range Notes GLYCOHEMOGLOBIN A1C Reviewed date:01/29/2024 08:56:38 PM Interpretation: Performing Lab: Notes/Report: [facility] , Glycohemoglobin A1C 6.0 4.5-6.2 % ACTION SUGGESTED ADA RECOMMENDED LIMIT 4.0 - 6.0 ADA THERAPEUTIC TARGET < 7.0 > 7.0 Estimated Average Glucose 126 Performing Lab: see note - [facility] LB INSULIN Reviewed date:01/30/2024 07:43:30 PM Interpretation: Performing Lab: Notes/Report: [facility] , Insulin 42.2 2.6-24.9 uIU/mL [address] [place], [place] [id number] Forestry Scientist: Marcelo Covington PhD, Phone: [phone] Performed at: - [facility] Performing Lab: see note - [facility] LB MM tomosynthesis screening B I Reviewed date:03/11/2024 07:24:44 PM Interpretation: Performing Lab: Notes/Report: Source Facility: [facility]-[address] [place] [address] [place] [address] Mammography Report Signed Patient: ESTEVAN SHARMA MR#: [id number] : 1970 Acct:[id number] Age/Sex: 53 / F ADM Date: 03/11/24 Loc: MAMMO Attending Dr: Debra Hart M.D. Ordering Physician: Debra Hart M.D. Results: Date of Service: 03/11/24 Follow Up: Procedure(s): MM tomosynthesis screening BI Accession Number(s): [id number] cc: Debra Hart M.D. Patient Name: ESTEVAN SHARMA MR#: [id number] : 1970 Exam Date: 03/11/2024 Ordering Doctor: DR Debra Hart . RADIOLOGY REPORT PROCEDURE: MM TOMOSYNTHESIS SCREENING BI COMPARISON: MM TOMOSYNTHESIS DIAGNOSTIC BI, 03/08/2023. MM TOMOSYNTHESIS SCREENING BI, 08/07/2022. MG MAMM SCREEN 3D SEBASTIAN CAD, 08/01/2021. MG MAMM DIAGNOSTIC 3D SEBASTIAN CAD, 07/27/2020. INDICATIONS: Screening Calculator Name NCI Breast Cancer Risk Assessment Tool 5 Year Breast Cancer Risk n/a% Lifetime Breast Cancer Risk n/a% Personal Breast Cancer Yes, 43, right invasive mammary Personal Ovarian Cancer No Treatments right lumpectomy-UOQ, chemotherapy, radiation Family Cancers Father with lung cancer at age 65; Grandfather-maternal with kidney cancer at age 60; Aunt-paternal with breast cancer at age 40. LOCATION: [facility] BREAST COMPOSITION: There are scattered areas of fibroglandular density. FINDINGS: DIAGNOSTIC CATEGORY 2--BENIGN FINDING: RIGHT BREAST: No significant suspicious finding. Scattered benign-appearing calcifications are present. Stable postsurgical scarring and multiple surgical clips within posterior lower-outer quadrant and axilla. No significant change has occurred. LEFT BREAST: No significant suspicious finding. No significant change has occurred. RECOMMENDATIONS: ROUTINE MAMMOGRAM AND CLINICAL EVALUATION IN 12 MONTHS. PLEASE NOTE: A NORMAL MAMMOGRAM DOES NOT EXCLUDE THE POSSIBILITY OF BREAST CANCER. A CLINICALLY SUSPICIOUS PALPABLE LUMP SHOULD BE BIOPSIED. Dictated by: Evens Morrow M.D. on 03/11/2024 at 16:53 Approved by: Evens Morrow M.D. on 03/11/2024 at 16:56 Dictated By: Evens Morrow M.D. Signed By: 03/11/24 1657 DD/ 55 TD/TT: Tongue And Groove Machine Setter: The [address] [address] Mammography Report Signed Patient: STEVEN SHARMA MR#: [id number] : 1970 Acct:[id number] Age/Sex: 53 / F ADM Date: 03/11/24 Loc: MAMMO Attending Dr: Hannah Hart M.D. Ordering Physician: Debra Hart M.D. Results: Date of Service: 03/11/24 Follow Up: Procedure(s): MM tomosynthesis screening BI Accession Number(s): [id number] cc: Debra Hart M.D. Patient Name: ESTEVAN SHARMA MR#: [id number] : 1970 Exam Date: 03/11/2024 Ordering Doctor: DR Debra Hart . RADIOLOGY REPORT PROCEDURE: MM TOMOSYNTHESIS SCREENING BI COMPARISON: MM TOMOSYNTHESIS DIAGNOSTIC BI, 03/08/2023. MM TOMOSYNTHESIS SCREENING BI, 023. MG MAMM SCREEN 3D SEBASTIAN CAD, 08/01/2021. MG MAMM DIAGNOSTIC 3D SEBASTIAN CA D, 07/27/2020. INDICATIONS: Screening Calculator Name NCI Breast Cancer Risk Assessment Tool 5 Year Breast Cancer Risk n/a% Lifetime Breast Canc er Risk n/a% Personal Breast Canc er Yes, 43, right invasive mammary Personal Ovarian Can cer No Treatments right lumpectomy-UOQ, chemotherapy, radiation Family Cancers Fathe r with lung cancer at age 65; Grandfather-maternal with kidney cancer a t age 60; Aunt-paternal with breast cancer at age 40. LOCATION: [facility] BREAST COMPOSITION: There are scattered areas of fibroglandular density. FINDINGS: DIAGNOSTIC CATEGORY 2--BENIGN FINDING: RIGHT BREAST: No significant suspicious finding. Scattered benign-appearing calcifications are present. Stable postsurgical scarring and multiple surgical clips withi n posterior lower-outer quadrant and axilla. No significant change h as occurred. LEFT BREAST: No significant suspicious finding. No significant change has occurred. RECOMMENDATIONS: ROUTINE MAMMOGRAM AN D CLINICAL EVALUATION IN 12 MONTHS. PLEASE NOTE: A INOCENCIA L MAMMOGRAM DOES NOT EXCLUDE THE POSSIBILITY OF BREAST CANCER. A CLINICALLY SUSPICIOUS PALPABLE LUMP SHOULD BE BIOPSIED. Dictated by: Evens Morrow M.D. on 03/11/2024 at 16:53 Approved by: Evens Morrow M.D. on 03/11/2024 at 16:56 Dictated By: Evens Morrow M.D. Signed By: 03/11/241656 DD/ 55 TD/TT: Tongue And Groove Machine Setter: CBC AUTO DIFF Reviewed date:01/29/2024 08:56:38 PM Interpretation: Performing Lab: Notes/Report: [facility] , White Blood Count 5.5 4.0-11.0 10 3/uL Red Blood Count 4.10 4.20-5.40 10 6/uL Hemoglobin 11.9 12.0-16.0 g/dL Hematocrit 35.7 36.0-48.0 % Mean Corpuscular Volume 87.1 81.0-99.0 fL Mean Corpuscular Hemoglobin 29.0 26.7-34.0 pg Mean Corpuscular HGB Conc 33.3 29.9-35.2 g/dL Red Cell Distribution Width 13.5 11.0-15.0 % Platelet Count 366 150-450 10 3/uL Mean Platelet Volume 8.8 9.5-13.5 fL Neutrophils Percent Auto 56.4 43.0-75.0 % Lymphocytes Percent Auto 28.6 20.5-60.0 % Monocytes Percent Auto 11.1 1.7-12.0 % Eosinophils Percent Auto 3.1 0.9-7.0 % Basophils Percent Auto 0.4 0.2-2.0 % Immature Granulocytes Pct Auto 0.4 0.0-0.5 % Neutrophils Absolute Auto 3.1 1.4-6.5 10 3/uL Lymphocytes Absolute Auto 1.6 1.2-3.8 10 3/uL Monocytes Absolute Auto 0.6 0.3-0.8 10 3/uL Eosinophils Absolute Auto 0.2 0.0-0.7 10 3/uL Basophils Absolute Auto 0.0 0.0-0.1 10 3/uL Immature Granulocytes Abs Auto 0.02 0.00-0.03 10 3/uL Performing Lab: see note ML - [facility] LB XR lumbar spine min 4V Reviewed date:02/06/2024 08:00:57 PM Interpretation: Performing Lab: Notes/Report: Source Facility: [place] [address] [place] [address] XRay Report Signed Patient: ESTEVAN SHARMA MR#: [id number] : 1970 Acct:[id number] Age/Sex: 53 / F ADM Date: 02/05/24 Loc: RAD Attending Dr: Debra Hart M.D. Ordering Physician: Debra Hart M.D. Date of Service: 02/05/24 Procedure(s): XR lumbar spine min 4V Accession Number(s): [id number] cc: Debra Hart M.D. [facility] [place] [address] Patient Name: ESTEVAN SHARMA MRN: [id number] date: 1970 Sex: F Assigned Patient Location: RAD Current Patient Location: LAB Accession/Order Number: [id number] Exam Date: 02/05/2024 12:20 Report Date: 02/06/2024 13:08 At the request of: DEBRA HART Procedure: XR lumbar spine min 4V EXAMINATION: XR lumbar spine min 4V HISTORY: Lumbar Radiculopathy M54.16 COMPARISON: No relevant comparison available. FINDINGS: BONES: Normal alignment with no acute fracture or spinal listhesis. Mild degenerative spondylosis and facet osteoarthropathy DISC SPACES: Normal. No significant disc height narrowing, subluxation, or endplate abnormality. PARASPINOUS: Negative. No paraspinous abnormality is seen. OTHER: Negative. XR/XR lumbar spine min 4V IMPRESSION: Mild degenerative changes Electronically authenticated by: NICOLE CONSTANTINO Date: 02/06/2024 13:08 Dictated By: Nicole Constantino M.D. Signed By: 02/06/24 1310 DD/ 1308 TD/TT: Tongue And Groove Machine Setter: [place] [address] XRay Report Signed Patient: STEVEN SHARMA MR#: [id number] : 1970 Acct:[id number] Age/Sex: 53 / F ADM Date: 02/05/24 Loc: RAD Attending Dr: Hannah Hart M.D. Ordering Physician: Debra Hart M.D. Date of Service: 02/05/24 Procedure(s): XR lum bar spine min 4V Accession Number(s): [id number] cc: Debra Hart M.D. [facility] [place] [address] Patient Name: ESTEVAN SHARMA MRN: [facility]:[id number] date: 1970 Sex: F Assigned Patient Location: RAD Current Patient Location: LAB Accession/Order Numb er: [id number] Exam Date: 12:20 Report Date: 02/06/2024 13:08 At the request of: DEBRA HART Procedure: XR lumbar spine min 4V EXAMINATION: XR lumb ar spine min 4V HISTORY: Lumbar Radiculopathy M54.16 COMPARISON: No relev ant comparison available. FINDINGS: BONES: Normal alignm ent with no acute fracture or spinal listhesis. Mild degenerative spondyl osis and facet osteoarthropathy DISC SPACES: Normal. No significant disc height narrowing, subluxation, or endplate abnormality. PARASPINOUS: Negativ e. No paraspinous abnormality is seen. OTHER: Negative. X R/XR lumbar spine min 4V IMPRESSION: Mild degenerative changes Electronically authenticated by: NICOLE CONSTANTINO Date: 02/06/2024 13:08 Dictated By: Troy Constantino M.D. Signed By: 02/06/24 1310 DD/ 1308 TD/TT: Tongue And Groove Machine Setter: TSH Reviewed date:01/29/2024 08:56:38 PM Interpretation: Performing Lab: Notes/Report: [facility] , Thyroid Stimulating Hormone 1.044 0.358-3.740 uIU/mL Performing Lab: see note - [facility] LB T4 Reviewed date:01/29/2024 08:56:38 PM Interpretation: Performing Lab: Notes/Report: [facility] , T4 Thyroxine 7.90 4.80-13.90 ug/dL Performing Lab: see note - [facility] LB PROF 14(COMP METB) Reviewed date:01/29/2024 08:56:38 PM Interpretation: Performing Lab: Notes/Report: [facility] , Sodium 144 136-145 mmol/L Potassium 4.2 3.5-5.1 mmol/L Chloride 110 98-107 mmol/L Carbon Dioxide 26.1 21.0-32.0 mmol/L Anion Gap 12.1 Glucose 115 74-106 mg/dL Blood Urea Nitrogen 20.0 7.0-18.0 mg/dL Creatinine 0.78 0.55-1.02 mg/dL Estimated GFR ( Emily >60 >=60 mL/min/1.73m 2 Estimated GFR (Non- Mellisas >60 >=60 mL/min/1.73m 2 BUN Creatinine Ratio 25.6 Calcium 9.5 8.5-10.1 mg/dL Bilirubin Total 0.7 0.2-1.0 mg/dL Aspartate Amino Transferase 25 15-37 U/L Alanine Aminotransferase 46 14-59 U/L Alkaline Phosphatase 136 46-116 U/L Total Protein 7.3 6.4-8.2 g/dL Albumin Level 3.4 3.4-5.0 g/dL Globulin 3.9 Albumin Globulin Ratio 0.9 Performing Lab: see note ML - [facility] LIPID PROFILE Reviewed date:01/29/2024 08:56:38 PM Interpretation: Performing Lab: Notes/Report: [facility] , Triglycerides 150 <=150 mg/dL Cholesterol 172 <=200 mg/dL HDL Cholesterol 53 40-60 mg/dL <40 mg/dl - HIGH CARDIOVASCULAR RISK > or =60 mg/dl - LOW CARDIOVASCULAR RISK LDL Cholesterol Calculated 89.0 160-189 mg/dl HIGH >190 mg/dl VERY HIGH 100-129 mg/dl NEAR OR ABOVE OPTIMAL 130-159 mg/dl BORDERLINE HIGH <100 mg/dl OPTIMAL VLDL CHOLESTEROL 30.0 Chol HDL Ratio 3.2 7.1 - 11.0 MODERATE RISK >11.0 HIGH RISK 3.3 - 4.4 LOW RISK 4.4 - 7.1 AVERAGE RISK Performing Lab: see note ML - [facility] IRON Reviewed date:01/29/2024 08:56:38 PM Interpretation: Performing Lab: Notes/Report: [facility] , Iron 51.0 50.0-170.0 ug/dL Performing Lab: see note ML - [facility] LB FREE T3 Reviewed date:01/29/2024 08:56:38 PM Interpretation: Performing Lab: Notes/Report: [facility] , Free T3 2.82 2.18-3.98 pg/mL Performing Lab: see note ML - [facility] LB Reason For Referral No Information Medications Medication SIG (Take, Route, Frequency, Duration) Notes Start Date End Date Status tiZANidine HCl 4 MG 2 tabs Orally qhs fo r 30 days 02/05/2024 Active Carvedilol 25 MG TAKE 1 TABLET BY KAMRAN TH TWICE A DAY for 90 days Active Iron 325 (65 Fe) MG 1 tablet Orally bid for 30 days 01/30/2024 Active Aspirin 81 81 MG 1 tablet Orally Once a day Active Venlafaxine HCl ER 75 MG 1 capsule with food Orally Once a day Active Wegovy 0.25 MG/0.5ML 0.25 mg Subcutaneou s weely for 30 days 01/28/2024 Active Pantoprazole Sodium 40 MG TAKE 1 TABLET BY MOUTH EVERY DAY for 90 Active Simvastatin 20 MG 1 tablet in the even ing Orally Once a day for 90 days Active Albuterol Sulfate (2.5 MG/3ML) 0.083% 3 mL as needed Inhalation every 6 hrs As needed PRN Active Albuterol Sulfate HFA 108 (90 Base) MCG/ACT INHALE 2 PUFFS BY MOUTH 4 TIMES A DAY for 25 Active Diclofenac Sodium 75 MG 1 tablet as need ed Orally Twice a day for 30 days 02/05/2024 Active Social History Tobacco Use: Social History Observation Description Date Details (start date - stop date) Former Smoker NA - 02/26/2018 Tobacco Use/Smoking Question Answer Notes Patient is a former smoker When did you stop smoking? 02/26/2018 How long has it been since you last smoked? 1-5 years Additional Findings: Tobacco Non-User Current no n-smoker Alcohol Screen (Audit-C) Question Answer Notes Did you have a drink contain ing alcohol in the past year? Yes How often did you have 6 or more drinks on one occasion in the past year? Never (0 point) How many drinks did you have on a typical day when you were drinking in the past year? 1 or 2 drinks (0 point) How often did you have a dri nk containing alcohol in the past year? Less than monthly (1 point) Points 1 Interpretation Negative AUDIT-C (Standard) Question Answer Notes Did you have a drink containing alcohol in the p ast year? No Points 0 Interpretation Negative Problems Problem Type SNOMED Code ICD Code Onset Dates Problem Status W/U Status Risk Notes Problem 21979534 Urinary tract infection, site not specified (N39.0) Active confirmed Problem 291087344 Menopausal and female climacteric states (N95.1) Active confirmed Problem 231189955 Unspecified abdominal pain (R10.9) Active confirmed Problem 132988203 Localized swelli ng, mass and lump, neck (R22.1) Active confirmed Problem 725209947 Personal history of malignant neoplasm of breast (Z85.3) Active confirmed Problem Chest pain (53906810) Chest pain (R07.9) Active confirmed Problem Cigarette smoker (43867660) Cigarette smoker (F17.210) Active confirmed Problem Pneumonia (036420338) Pneumonia (J18.9) Active confirmed Problem Anemia (021903018) Anemia (D64.9) Active confir med Problem Malignant neoplasm o f female breast (095762002) Breast carcinoma (C50.919) Active confirmed Problem Lumbar radiculopathy (596402450) Lumbar radiculopathy (M54.16) Active confirmed Problem Allergic rhinitis (28235237) Allergic rhinitis (J30.9) Active confirmed Problem Acute bronchitis (67991473) Acute bronchitis (J20.9) Active confirmed Problem Well adult (020588166) Well adult (Z00.00) Activ e confirmed Problem History of polyp of colon (situation) (084010999) History of colon polyps (Z86.010) Active confirmed Problem Cellulitis (539026264) Cellulitis (L03.90) Activ e confirmed Problem Tension headache (952914077) Tension headache (G44.209) Active confirmed Problem Overweight (986940909) Over weight (E66.3) Activ e confirmed Problem hypercholesterolemia (disorder) (56434543) Hypercholesteremia (E78.00) Active confirmed Problem Other tear of medial meniscus of right knee as current injury, initial encounter (S83.241A) Active confirmed Problem 03253112 Current moderate episode of major depressive disorder, unspecified whether recurrent (F32.1) Active confirmed Vital Signs Heart Rate 87 /min 01/03/2024 Oximetry 97 % 01/03/2024 Blood pressure diastolic 82 mm Hg 02/05/2024 Height 67 in 02/05/2024 Blood pressure systolic 132 mm Hg 02/05/2024 Weight 220.4 lbs 02/05/2024 BMI 34.52 kg/m2 02/05/2024 Encounters Encounter Location Date Provider Diagnosis [facility] [address] [place] [address] 01/03/2024 Jasson Dallasy Acute bronchitis, unspecified organism J20.9 [facility] [address] [place] [address] 01/28/2024 Jasson Burty Well adult Z00.00 [facility] [address] [place] [address] 02/05/2024 Jasson Hoy Lumbar radiculopathy M54.16 and Over weight E66.3 [facility] [address] [place] [address] 09/29/2024 Jasson Hoy Fatigue R53.83 ; Scr eening for colon cancer Z12.11 ; Hypercholesteremia E78.00 and Wellness examination Z01.89 [facility] [address] [place] [address] 01/29/2024 Jasson Hart [facility] [address] [place] [address] 02/06/2024 Jasson Hart [facility] [address] [place] [address] 02/25/2024 Jasson Hart [facility] [address] [place] [facility] [address] 03/11/2024 Jasson Hart [facility] [address] [place] [facility] [place] [address] 03/25/2024 Jasson Hart [facility] [address] [place] [facility] [place] [address] 04/21/2024 Jasson Hart [facility] [address] [place] [address] 10/24/2023 Jasson Hart [facility] [address] [facility] [place] [address] 01/04/2024 Jasson Hart [facility] [address] [facility] [place] [address] 01/29/2024 Jasson Hart Assessments Encounter Date Diagnosis (ICD Code) Assessment Notes Treatment Notes Treatment Clinical Notes Section Notes 09/29/2024 Fatigue (ICD-10 - R53.83) 09/29/2024 Screening for colon cancer (ICD-10 - Z12.11) 01/03/2024 Acute bronchitis, unspecified organism (ICD-10 - J20.9) Rest and drink more liquids, especially water. You may use a humidifier or vaporizer to help keep the drainage moist. Hmgu-zhw-btyamtd Nasal Saline may help the stuffy and runny nose. Use Ibuprofen and or Tylenol as needed for fever, chills, body aches or pain. Children 5 years old should not be given qolz-opi-oksikun cough and cold medications such as guaifenesin and dextromethorphan. If you're over age 5, you may try hjqn-xhx-tfasrik cold medications such as guaifenesin and dextromethorphan, or multi-symptom cold reliever such as Dayquil to help reduce the symptoms. Antibiotics have been prescribed. You should take these until completed and follow the directions. Antibiotics can sometimes cause upset stomach, and in rare cases, serious allergic reactions or serious gastrointestinal problems. If you start having severe abdominal pain, severe vomiting, or bloody diarrhea, you should be reevaluated by your physician or urgent care immediately. Follow up with your Primary Care Provider or return to clinic if symptoms do not improve within 3-5 days. If you develop severe symptoms such as shortness of breath, repeated vomiting, coughing up blood, or chest pain you should go to the emergency room or call 911 01/28/2024 Well adult (ICD-10 - Z00.00) 02/05/2024 Lumbar radiculopathy (ICD-10 - M54.16) injections today - start diclofenac 02/05/2024 Over weight (ICD-10 - E66.3) 09/29/2024 Hypercholesteremia (ICD-10 - E78.00) 09/29/2024 Wellness examination (ICD-10 - Z01.89) 02/05/2024 Other Recommended to rest and use a heating pad on the area. Take NSAIDs for pain as needed Plan Of Treatment Pending Test Test Name Order Date CMP (COMPLETE METABOLIC PANEL) 3 CMP (COMPLETE METABOLIC PANEL) 4 HEMOGLOBIN A1C (GLYCO) 01/03/2023 HEMOGLOBIN A1C (GLYCO) 01/28/2024 IRON, TOTAL 01/03/2023 IRON, TOTAL 01/28/2024 LIPID PANEL (CHOL/TRIG/HDL/LDL) 01/28/20 24 LIPID PANEL (CHOL/TRIG/HDL/LDL) 01/04/20 23 CBC WITH DIFF 01/03/2023 CBC WITH DIFF 01/28/2024 VITAMIN D, 25 LEVEL (TOTAL) 01/03/2023 US Soft Tissue Neck/Head 06/19/2022 Urine Culture 08/17/2022 FECAL OCCULT BLOOD 09/29/2024 Insulin Level 01/03/2023 Insulin Level 01/28/2024 CBC AUTO DIFF 06/13/2022 CBC AUTO DIFF 09/29/2024 ESTRADIOL 06/13/2022 FSH 06/13/2022 GLYCOHEMOGLOBIN A1C 09/29/2024 GLYCOHEMOGLOBIN A1C 06/13/2022 LIPID PROFILE 09/29/2024 PROF 14(COMP METB) 09/29/2024 PROF 14(COMP METB) 06/13/2022 PROGESTERONE 06/13/2022 PROLACTIN 06/13/2022 THYROID PROFILE WITH TSH 12/18/2022 UA RANDOM W or MICROSCOPIC 08/17/2022 MG MAMM DIAGNOSTIC 3D SEBASTIAN CAD 03/08/2023 MG MAMM RT DIAG FU 03/05/2023 US BREAST RIGHT LIMITED 02/28/2023 XR CHEST 2 V 01/16/2023 XR LSPINE MIN 4 VIEWS 02/05/2024 THYROID PANEL (T4/TSH/FREE T3) 3 THYROID PANEL (T4/TSH/FREE T3) 4 THYROID PANEL (T4/TSH/FREE T3) 3 THYROID PANEL (T4/TSH/FREE T3) 5 XR CHEST COMP MIN 4V 01/16/2023 Insurance Providers Payer Name Payer Address Payer Phone Subscriber Number Group Number Insured Name Patient Relationship to Insured Coverage Start Date Coverage End Date [employer] [address] [place] [address] [id number] Felix Sharma Spouse - patient is the spouse of the insured Medications Administered Medication Instructions Date of Administration Dosage Notes Dexamethasone, 4mg/mL 01/03/2024 8 mg Ketorolac Tromethamine 06/19/2022 Ketorolac Tromethamine 01/03/2024 60 mg Ketorolac Tromethamine 02/05/2024 60 mg 60 Orphenadrine Citrate 06/19/2022 Triamcinolone 40 mg/ml 02/05/2024 120 mg Medical (General) History Medical History History ICD Code Breast carcinoma C50.919 Cellulitis L03.90 Tension headache G44.209 Acute bronchitis J20.9 Pneumonia J18.9 Chest pain R07.9 Over weight E66.3 History of colon polyps Z86.010 Well adult Z00.00 Other tear of medial meniscu s of right knee as current injury, initial encounter S83.241A Anemia D64.9 Allergic rhinitis J30.9 Cigarette smoker F17.210 Surgical History Surgery Date(Month/Year) Cholecystectomy Hysterectomy Nasal Septoplasty 2008 Right Hi Labrum Repair 2019 Right Lumpectomy 2014 EGD and Colonoscopy- Dr Robertson 01/02/2024 Hospitalization History Reason Date(Month/Year) Cellulitis of breastx2 09/2021
--- OUTSIDE RECORDS SUMMARY | 2024-09-30 10:32 | XMS_ITS | Encounter Summary ---
Author Organization [facility] Address [id number] [address] [place] [address] Care Team Providers Care Office Specialist Name Role Phone Vinay Concepcion MD Primary Care Provider [phone] Reason for Visit * Reason Comments Med Refill Encounter Details Date Type Department Care Team (Late st Contact Info) Description 06/04/2020 Refill [facility] [address] [place] [address] Royce Xiong MD [address] [place] [address] Social History Tobacco Use Types Packs/Day Years Used Date Smoking Tobacco: Former Cigarettes 0.5 37.2 1 04/07/1981 - 04/07/2019 Smokeless Tobacco: Never Alcohol Use Standard Drinks/Week Comments Yes 1 (1 standard drink = 0.6 oz pur e alcohol) 1 glass per month PHQ-2 Answer Date Recorded Total Score 0 02/05/2020 Childcare Answer Date Recorded Childcare Unknown 08/07/2018 Employment Answer Date Recorded Employment Unknown 08/07/2018 Purpose - Life Answer Date Recorded Purpose and direction in life Unknown Comments No Sex and Gender Information Value Date Recorded Sex Assigned at Not on file Legal Sex Female 11:57 AM EDT Gender Identity Not on file Sexual Orientation Not on file COVID-19 Exposure Response Date Recorded In the last month, have you been in contact with someone who was confirmed or suspected to have Coronavirus / COVID-19? No / Unsure 05/07/2020 8:07 AM EST documented as of this encounter Miscellaneous Notes * Telephone Encounter - Royce Xiong MD - 06/04/2020 5:15 PM EDT Not needed documented in this encounter Plan of Treatment Not on file documented as of this encounter Visit Diagnoses Not on filedocumented in this encounter Additional Health Concerns Assessment Noted Time PHQ-9 Depression Total Score: 0 02/05/20 20 5:41 AM EST documented as of this encounter Care Teams Office Specialist Relationship Specialty Start Date End Date Vinay Concepcion MD PCP - General Family Medicine 12/08/19 documented as of this encounter
--- OUTSIDE RECORDS SUMMARY | 2024-09-30 10:32 | XMS_ITS | Encounter Summary ---
Author Organization [facility] Address [address] [place] [address] Care Team Providers Care Stationary Plant Operators Name Role Phone Vinay Concepcion MD Primary Care Provider [phone] Reason for Visit * Reason Comments Med Refill Encounter Details Date Type Department Care Team (Late st Contact Info) Description 01/20/2024 Refill [facility] [address] [place] [phone] Carlene Blakely DPM [address] [place] [address] Plantar fasciitis Social History Tobacco Use Types Packs/Day Years Used Date Smoking Tobacco: Former Cigarettes Smokeless Tobacco: Never Comments Unknown Sex and Gender Information Value Date Recorded Sex Assigned at Female 10/15/2023 9:29 PM EDT Legal Sex Female 6:54 PM EDT Gender Identity Female 10/15/2023 9:29 PM EDT Sexual Orientation Not on file documented as of this encounter Plan of Treatment Not on file documented as of this encounter Visit Diagnoses Diagnosis Plantar fasciitis Plantar fascial fibromatosis documented in this encounter Care Teams Stationary Plant Operators Relationship Specialty Start Date End Date Vinay Concepcion MD PCP - General Family Medicine 10/16/23 documented as of this encounter
--- OUTSIDE RECORDS SUMMARY | 2024-09-30 10:32 | XMS_ITS | Encounter Summary ---
Author Organization [facility] Address [address] [place] [address] Care Team Providers Care Field Collector Name Role Phone Vinay Concepcion MD Primary Care Provider [phone] Source Comments In the event this information is protected by the Federal Confidentiality of Alcohol and Drug AbusePatient Records regulations: The Federal rules restrict any use of the information to criminally investigate or prosecute any alcohol or drug abuse patient.[facility] Encounter Details Date Type Department Care Team (Late st Contact Info) Description 09/08/2019 Patient [facility] [address] [phone] Provider, [facility] Genetic Consult Referral Social History Tobacco Use Types Packs/Day Years Used Date Smoking Tobacco: Former Cigarettes 0.5 25 Smokeless Tobacco: Never Alcohol Use Standard Drinks/Week Comments No 0 (1 standard drink = 0.6 oz pur e alcohol) PHQ-2 Answer Date Recorded PHQ-2 score 0 08/26/2019 Comments No Sex and Gender Information Value Date Recorded Sex Assigned at Not on file Legal Sex Female 3:28 PM EST Gender Identity Not on file Sexual Orientation Not on file COVID-19 Exposure Response Date Recorded In the last month, have you been in contact with someone who was confirmed or suspected to have Coronavirus / COVID-19? No / Unsure 08/26/2019 3:08 PM EDT documented as of this encounter Functional Status * Are you deaf or do you have serious difficulty hearing? Answer Date of Assessment Author No 10/01/2014 3:41 PM EDT Rj Lorenz isluis * Are you blind or do you have serious difficulty seeing, even when wearing glasses? Answer Date of Assessment Author No 10/01/2014 3:41 PM EDT Rj Lorenz ise * Do you have serious difficulty walking or climbing stairs? Answer Date of Assessment Author No 10/01/2014 3:41 PM EDT Rj Lorenz ise * Do you have difficulty dressing or bathing? Answer Date of Assessment Author No 10/01/2014 3:41 PM EDT Rj Lorenz * Because of a physical, mental, or emotional condition, do you have difficulty doing errands alone such as visiting a doctor's office or shopping? Answer Date of Assessment Author No 10/01/2014 3:41 PM EDT Rj Lorenz documented as of this encounter Mental Status * Because of a physical, mental, or emotional condition, do you have serious difficulty concentrating, remembering, or making decisions? Answer Entry Date Author No 10/01/2014 3:41 PM EDT Rj Lorenz documented in this encounter Plan of Treatment Not on file documented as of this encounter Visit Diagnoses Not on filedocumented in this encounter Care Teams Field Collector Relationship Specialty Start Date End Date Vinay Concepcion MD PCP - General Family Medicine 01/20/14 documented as of this encounter
--- OUTSIDE RECORDS SUMMARY | 2024-09-30 10:32 | XMS_ITS | Encounter Summary ---
Author Organization [facility] Address [id number] [address] [place] [address] Care Team Providers Care Tool Hardener Name Role Phone Vinay Concepcion MD Primary Care Provider [phone] Reason for Visit * Reason Comments Med Refill Encounter Details Date Type Department Care Team (Late st Contact Info) Description 08/19/2020 Refill [facility] [address] [place] [phone] Royce Xiong MD [address] [place] [phone] Social History Tobacco Use Types Packs/Day Years [...] on file Sexual Orientation Not on file documented as of this encounter Miscellaneous Notes * Telephone Encounter - Royce Xiong MD - 08/19/2020 10:38 AM EDT Not needed documented in this encounter Plan of Treatment Not on file documented as of this encounter Visit Diagnoses Not on filedocumented in this encounter Additional Health Concerns Assessment Noted Time PHQ-9 Depression Total Score: 0 02/05/20 20 5:41 AM EST documented as of this encounter Care Teams Tool Hardener Relationship Specialty Start Date End Date Vinay Concepcion MD PCP - General Family Medicine 12/08/19 documented as of this encounter
--- OUTSIDE RECORDS SUMMARY | 2024-09-30 10:32 | XMS_ITS | Encounter Summary ---
Author Organization [facility] Address [id number] [address] [place] [address] Care Team Providers Care Brazer Helper Induction Name Role Phone Vinay Concepcion MD Primary Care Provider [phone] Reason for Visit * Reason Comments Med Refill Encounter Details Date Type Department Care Team (Late st Contact Info) Description 03/17/2020 Refill [facility] [address] [place] [phone] Royce Xiong MD [address] [place] [phone] Social History Tobacco Use Types Packs/Day Years [...] have Coronavirus / COVID-19? No / Unsure 03/19/2020 10:24 AM EST documented as of this encounter Miscellaneous Notes * Telephone Encounter - Royce Xiong MD - 03/17/2020 9:03 AM EST Patient no longer needs this medicine documented in this encounter Plan of Treatment Not on file documented as of this encounter Visit Diagnoses Not on filedocumented in this encounter Additional Health Concerns Assessment Noted Time PHQ-9 Depression Total Score: 0 02/05/20 5:41 AM EST documented as of this encounter Care Teams Brazer Helper Induction Relationship Specialty Start Date End Date Vinay Concepcion MD PCP - General Family Medicine 12/08/19 documented as of this encounter
--- OUTSIDE RECORDS SUMMARY | 2024-09-30 10:32 | XMS_ITS | Clinical Summary ---
Author Organization [email or web address] [facility] Address [id number] [address] [place] [address] Care Team Providers Care Bible Teacher Name Role Phone Vinay Concepcion MD Primary Care Provider [phone] Allergies No known active allergies Medications venlafaxine XR (EFFEXOR-XR) 75 mg 24 hr capsule Take by mouth daily. 11/06/2019 Active omeprazole (PriLOSEC) 20 mg capsule Take 20 mg by mouth in the morning. Active Active Problems Problem Noted Date Diagnosed Date Jess sign present in right knee 09/06/2020 Femoroacetabular impingement of right hip 2020 Family History Medical History Relation Name Comments Diabetes Mother Anesthesia problems Neg Hx Relation Name Status Comments Brother Alive Daughter Alive Father Alive Mother Alive Sister 1 Alive Sister 2 Alive Sister 3 Alive Son Alive Social History Tobacco Use Types Packs/Day Years Used Date Smoking Tobacco: Former Cigarettes 0.5 37.2 1 04/07/1981 - 04/07/2019 Smokeless Tobacco: Never Alcohol Use Standard Drinks/Week Comments Yes 1 (1 standard drink = 0.6 oz pur e alcohol) 1 glass per month PHQ-2 Answer Date Recorded Total Score 0 06/15/2021 Childcare Answer Date Recorded Childcare Unknown 08/07/2018 [...] Sign Reading Time Taken Comments Blood Pressure 128/82 06/15/2021 3:06 PM EDT Pulse 89 06/15/2021 3:06 PM EDT Temperature 36.3 C (97.3 F) 06/15/2021 3:06 PM EDT Respiratory Rate 16 06/15/2021 3:06 PM EDT Oxygen Saturation 98% 06/15/2021 3:06 PM EDT Inhaled Oxygen Concentration - - Weight 98 kg (216 lb) 06/15/2021 3:06 PM EDT Height 170.2 cm (5' 7 ) 06/15/2021 3:06 PM EDT Body Mass Index 33.83 06/15/2021 3:06 PM EDT Plan of Treatment Health Maintenance Due Date Last Done Comments Depression Screening 1980 Tobacco Screening 1980 Adult BMI Screening 1986 DTaP,Tdap and Td Vaccines (1 - Tdap) 05/12/1987 Zoster (Shingles) Vaccine (1 of 2) 2018 Influenza Vaccine 10/27/2024 11/24/2020, , 11/25/2018 Medical Devices Implanted Type Area Bulk Mail Clerk Device Identifier Shelf Expiration Date Model / Serial / Lot Anch Sut Str Nanotack 1.4mm - [id number] Implanted:Qty : 1 on 02/05/2020 by Royce Xiong MD at [facility] [employer]el Right: Hip [employer] [id number] 06/01/2021 [id number] / / [id number] Anch Sut Str Nanotack 1.4mm - [id number] Implanted:Qty : 1 on 02/05/2020 by Royce iXong MD at [facility] [employer] Right: Hip [employer] [id number] 06/01/2021 [id number] / / [id number] Insurance ANTH Care Teams Bible Teacher Relationship Specialty Start Date End Date Vinay Concepcion MD PCP - General Family Medicine 12/08/19
--- OUTSIDE RECORDS SUMMARY | 2024-09-30 10:32 | XMS_ITS | Encounter Summary ---
Author Organization [facility] Address [address] [place] [address] Care Team Providers Care Inspector Coated Fabrics Name Role Phone Vinay Concepcion MD Primary Care Provider [phone] Reason for Visit * Reason Comments Med Refill Encounter Details Date Type Department Care Team (Late st Contact Info) Description 03/22/2024 [facility]ill [facility] [address] [place] [phone] Carlene Blakely DPM [address] [place] [address] Plantar fasciitis Social History Tobacco Use Types [...] fibromatosis documented in this encounter Care Teams Inspector Coated Fabrics Relationship Specialty Start Date End Date Vinay Concepcion MD PCP - General Family Medicine 10/16/23 documented as of this encounter
--- OUTSIDE RECORDS SUMMARY | 2024-09-30 10:32 | XMS_ITS | Clinical Summary ---
Author Organization [facility] Address [address] [place] [address] Care Team Providers Care Obiee Lead Developer Name Role Phone Vinay Concepcion MD Primary Care Provider [phone] Allergies Active Allergy Reactions Criticality Noted Date Comments Octacosanol 10/16/2023 Medications venlafaxine XR (Effexor XR) 75 MG 24 hr capsule Take 75 mg by mouth Daily Active omeprazole OTC (PriLOSEC OTC) 20 MG EC tablet Take 20 mg by mouth in the morning. Take before meals. Active simvastatin (Zocor) 20 MG tablet Take 20 mg by mouth at bedtime 02/23/2023 Active carvedilol (Coreg) 25 MG tablet Take 25 mg by mouth in the morning and 25 mg before bedtime. 09/18/2023 Active predniSONE (Deltasone) 10 MG tabletIndicatio ns:Plantar fasciitis Take 2 pills by mouth twice daily for 5 days, take 1 pill twice daily for 5 days then 1 pill once daily for 5 days. 35 tablet 10/16/2023 Active Active Problems No known active problems Social History Tobacco Use Types Packs/Day Years Used Date Smoking Tobacco: Former Cigarettes Smokeless Tobacco: Never Tobacco Cessation:Counseling Given: Not Answered Comments Unknown Sex and Gender Information Value Date Recorded Sex Assigned at Female 10/15/2023 9:29 PM EDT Legal Sex Female 6:54 PM EDT Gender Identity Female 10/15/2023 9:29 PM EDT Sexual Orientation Not on file Last Filed Vital Signs Vital Sign Reading Time Taken Comments Blood Pressure - - Pulse - - Temperature - - Respiratory Rate - - Oxygen Saturation - - Inhaled Oxygen Concentration - - Weight 90.7 kg (200 lb) 07/23/2019 12:00 PM EDT Height 170.2 cm (5' 7 ) 07/23/2019 12:00 PM EDT Body Mass Index 31.32 07/23/2019 12:00 PM EDT Plan of Treatment Not on file Insurance [employer] Care Teams Obiee Lead Developer Relationship Specialty Start Date End Date Vinay Concepcion MD PCP - General Family Medicine 10/16/23
[2024-09-30 11:09] LABS: Hematocrit 39.0 % (36.0-48.0); Hemoglobin 12.8 g/dL (12.0-16.0); Immature Granulocytes Abs Auto 0.02 10^3/uL (0.00-0.03); Immature Granulocytes Pct Auto 0.3 % (0.0-0.5); Lymphocytes Absolute Auto 2.0 10^3/uL (1.2-3.8); Mean Corpuscular HGB Conc 32.8 g/dL (29.9-35.2); Mean Corpuscular Hemoglobin 28.5 pg (26.7-34.0); Mean Corpuscular Volume 86.9 fL (81.0-99.0); Platelet Count 303 10^3/uL (150-450); Red Blood Count 4.49 10^6/uL (4.20-5.40); White Blood Count 6.9 10^3/uL (4.0-11.0)
[2024-09-30 11:38] LABS: Alanine Aminotransferase 16 U/L (14-59); Albumin Globulin Ratio 0.9; Albumin Level 3.7 g/dL (3.4-5.0); Alkaline Phosphatase 125 U/L (46-116); Anion Gap 14.3; Aspartate Amino Transferase 10 U/L (15-37); Blood Urea Nitrogen 19.0 mg/dL (7.0-18.0); Calcium 9.2 mg/dL (8.5-10.1); Carbon Dioxide 26.0 mmol/L (21.0-32.0); Chloride 105 mmol/L (98-107); Cholesterol 191 mg/dL (<=200); Estimated GFR (African America >60 (>=60 mL/min/1.73m^2); Estimated GFR (Non-African Ame >60 (>=60 mL/min/1.73m^2); Free T3 2.54 pg/mL (2.18-3.98); Globulin 4.0 g/dL; Glucose 110 mg/dL (74-106); HDL Cholesterol 51 mg/dL (40-60); Potassium 4.3 mmol/L (3.5-5.1); Sodium 141 mmol/L (136-145); Thyroid Stimulating Hormone 1.351 uIU/mL (0.358-3.740); Total Protein 7.7 g/dL (6.4-8.2); Triglycerides 152 mg/dL (<=150); VLDL CHOLESTEROL 30.4 mg/dL
== END 2024-09-30 10:28 | disposition home or self-care (01) ==
LOC: LAB 10:30
PROVIDERS: PCP Family Medicine; Visit Provider Family Medicine
DX: Z01.89 Encounter for other specified special examinations (principal); E78.00 Pure hypercholesterolemia, unspecified; R53.83 Other fatigue; Z12.11 Encounter for screening for malignant neoplasm of colon
CPT/HCPCS: 36415; 80053; 80061; 83036; 84436; 84443; 84481; 85025